=== PATIENT | female | born 1970 | race Caucasian/White ===

== ENCOUNTER 2024-04-01 15:11 | Inpatient (IN) | payer BC, SELFPAY ==
[2024-04-01] VITALS (7 sets, daily range): BP systolic 135–189; BP diastolic 79–125; PULSE 91–100; RESP 16–18; TEMP 36.3–36.8; O2SAT 96–99; BMI 48.9; BMI 49.9
--- NOTE | 2024-04-01 15:38 | CRLHL7_ITS ---
For Patients: As a result of the Century Cures Act, medical imaging exams and procedure reports are released immediately into your electronic medical record. You may view this report before your referring provider. If you have questions, please contact your health care provider. Indication: Draining elbow wound. Technique: Three view(s) of the right elbow. Comparison: None available. Findings: There is marked soft tissue swelling and skin thickening about the right elbow. A deep wound is seen along the posterior elbow overlying the olecranon process with associated soft tissue gas. No underlying osseous destruction to suggest osteomyelitis. Elbow alignment is anatomic. No large elbow joint effusion given limitations of patient positioning. Questionable irregularity along the radial head. Impression: 1. Marked soft tissue swelling and skin thickening about the elbow. Deep posterior elbow wound with associated soft tissue gas. No radiographic evidence of osteomyelitis. 2. Irregularity of the radial head may represent degenerative calcifications versus a minimally displaced fracture. Dictated by Tiara Aranda MD @ 04/01/2024 4:48:08 PM (Electronically Signed)
--- NOTE | 2024-04-01 15:58 | ED.GENADULT ---
HPI - General Adult General Date Seen: 04/01/24 Chief complaint: Skin/Abscess/Foreign Body Stated complaint: Swelling in R arm, drainage--likely infection Time Seen by Provider: 04/01/24 15:14 Source: patient and family Mode of arrival: ambulatory Limitations: no limitations History of Present Illness HPI narrative: Patient is a 53-year-old woman here with her for evaluation of her right elbow. She notes a history of mental health problems as well as diabetes. She says she generally is good about taking her medicines although right now she is out of her clomipramine. She sees a doctor at [facility]. She has pain and redness and swelling in the right elbow, the right arm is swollen in general now. She has not had a fever but has felt fatigued. Her thinks that she has been avoiding getting this looked at for a while now. She is able to move her elbow. She says the pain is worse at night than it is during the day. Related Data Home Medications ?Medication ?Instructions ?Recorded ?Confirmed amlodipine 10 mg tablet 10 mg PO DAILY 04/01/24 04/01/24 aspirin 81 mg tablet,delayed 81 mg PO DAILY 04/01/24 04/01/24 release (Adult Low Dose Aspirin) atorvastatin 20 mg tablet 20 mg PO DAILY 04/01/24 04/01/24 eszopiclone 3 mg tablet (Lunesta) 3 mg PO HS 04/01/24 04/02/24 glimepiride 4 mg tablet 8 mg PO DAILY 04/01/24 04/02/24 hydrochlorothiazide 25 mg tablet 25 mg PO DAILY 04/01/24 04/01/24 lamotrigine 200 mg tablet 200 mg PO BID 04/01/24 04/02/24 (Lamictal) metformin 500 mg tablet 1,000 mg PO BID 04/01/24 04/02/24 metoprolol tartrate 100 mg tablet 100 mg PO .ud 04/01/24 04/02/24 omega 5-[id number]-gfx-fish oil 1,200 mg 1 cap PO BID 04/01/24 04/02/24 (144 mg-216 mg) capsule (Fish Oil) paliperidone 9 mg tablet,extended 9 mg PO DAILY 04/01/24 04/01/24 release 24 hr vortioxetine 20 mg tablet 20 mg PO DAILY 04/01/24 04/01/24 (Trintellix) quetiapine 100 mg tablet 100 - 200 mg PO QPM 04/02/24 04/02/24 Allergies Allergy/AdvReac Type Severity Reaction Status Date / Time amlodipine [From Norvas] Allergy Verified 04/01/24 15:37 mestranol Allergy Verified 04/01/24 15:37 [From Ortho-Novum (21)] norethindrone Allergy Verified 04/01/24 15:37 [From Ortho-Novum (21)] nortriptyline Allergy Verified 04/01/24 15:37 Review of Systems Status of ROS: Reports: 10 or more systems reviewed and unremarkable except as noted in History and below PFSH PFS Medical History Morbid obesity ?E66.01 - Morbid (severe) obesity due to excess calories (ICD-10) Bipolar 1 disorder ?F31.9 - Bipolar disorder, unspecified (ICD-10) Hyperlipidemia ?E78.5 - Hyperlipidemia, unspecified (ICD-10) Hyperparathyroidism ?E21.3 - Hyperparathyroidism, unspecified (ICD-10) Essential hypertension ?I10 - Essential (primary) hypertension (ICD-10) Severe anxiety ?F41.9 - Anxiety disorder, unspecified (ICD-10) Schizoaffective disorder ?F25.9 - Schizoaffective disorder, unspecified (ICD-10) Type 2 diabetes mellitus ?E11.9 - Type 2 diabetes mellitus without complications (ICD-10) Surgical History History of wisdom tooth extraction ?K08.409 - Partial loss of teeth, unspecified cause, unspecified class (ICD-10) S/P tonsillectomy and adenoidectomy ?Z90.89 - Acquired absence of other organs (ICD-10) H/O dilation and curettage ?Z98.890 - Other specified postprocedural states (ICD-10) Status post appendectomy ?Z90.49 - Acquired absence of other specified parts of digestive tract (ICD-10) Social History What is your current living situation?: I presently have a place to live Problems where you live: no known problems Problems where you live details: N/A In the past 12 months, utilities in danger of being shut off: no In past 12 months, lack of transportation kept you from medical appts, meetings, work, or getting things needed for daily living: yes In the past 12 mos, have been you worried that your food would run out before you had money to buy more?: never true In the past 12 mos, the food you bought just didn't last and you didn't have money to buy more?: never true Highest level of school completed/degree received: 12th grade, no diploma Smoking Status: Never smoker Second hand tobacco smoke exposure: No How often do you have a drink containing alcohol: never How often do you have six or more drinks on one occasion: Never AUDIT-C Alcohol total score: 0 Non-prescribed substance use: denies use Caffeine: Yes How often does anyone, including family, friends and others, physically hurt you: never How often does anyone, including family, friends and others, insult or talk down to you: never How often does anyone, including family, friends and others, threaten you with harm: never How often does anyone, including family, friends and others, scream or curse at you: never service: No Exam Narrative: Exam Narrative: Vital signs reviewed. In general, alert, nontoxic woman. Over weight. She is cooperative. Extremities: Examination of the right upper extremity shows diffuse swelling. She has swelling over the olecranon suggestive of olecranon bursitis with significant erythema and warmth. There is a round area of black eschar over the olecranon, about 3 cm in diameter. With pressure there is drainage along the edge of the as sharp. There is erythema diffusely over the forearm. Range of motion of the elbow is full. Does not seem painful. Distal CMS is intact. Left upper extremity is normal. Skin: Warm dry, findings as above. Const: Vital Signs, click to edit/add: Vital Signs - 24 hr 04/01/24 15:15 Temperature 97.7 F Pulse Rate [Right Pulse Oximeter] 93 Respiratory Rate 18 Blood Pressure [Ri ght Upper Arm] 135/81 Pulse Oximetry 97 Oxygen Delivery Me thod Room Air Documenting provider has reviewed patient's vital signs: yes Course Course ED Course: Will place an IV, draw blood cultures and labs. I did send a wound culture as well. I talked briefly with Dr. Robles about this patient in terms of whether I and D here in the ER would be appropriate, which he felt would be a reasonable starting point. Discussed this with the patient and she agreed to proceed. Procedure note: Area on the radial side of that Colten was anesthetized using lidocaine and then incised with a 11. Blade. There was purulent matter expressed, there also seemed to be material that was consistent with sebum. Will irrigate this with 500 mL of normal saline. Apply dressing. Tolerated well without immediate complication. We were ultimately able to get an IV placed and blood cultures drawn, but were not able to get any other blood. I did give her vancomycin to start given possibility of MRSA. She is hemodynamically stable, pain is controlled. X-ray of the elbow by my review showed soft tissue air in the area of her recently excavated wound, I did not see significant joint effusion although x-rays were somewhat suboptimal. Final radiology read was for a little irregularity of the radial head, possible fracture although in the absence of any injury I think that is unlikely. She will need admission for IV antibiotics and further consideration of management of her wound. Hospital service accepted. Vital Signs Vital signs: Initial Vital Signs Temperature 97.7 F 04/01/24 15:15 Temperature Source Temporal Artery Scan 04/01/24 15:15 Pulse Rate 93 04/01/24 15:15 Pulse Rhythm Regular 04/01/24 15:15 Respiratory Rate 18 04/01/24 15:15 Blood Pressure 135/81 04/01/24 15:15 Blood Pressure Mean 99 04/01/24 15:15 Blood Pressure Position Sitting 04/01/24 15:15 Pulse Oximetry 97 04/01/24 15:15 Oxygen Delivery Method Room Air 04/01/24 15:15 Vital Signs Temperature 97.7 F 04/01/24 15:15 Pulse Rate 93 04/01/24 15:15 Respiratory Rate 18 04/01/24 15:15 Blood Pressure 135/81 04/01/24 15:15 Pulse Oximetry 97 04/01/24 15:15 Oxygen Delivery Method Room Air 04/01/24 15:15 Temperature 97.8 F 04/04/24 07:00 Pulse Rate 82 04/04/24 07:00 Respiratory Rate 18 04/04/24 07:00 Blood Pressure 134/78 04/04/24 07:00 Pulse Oximetry 98 04/04/24 07:00 Oxygen Delivery Method Room Air 04/04/24 07:00 Oxygen Flow Rate 6 04/03/24 16:45 Fraction of Inspired Oxygen 100 04/03/24 16:45 Medications Administered Medications: Generic Name Dose Route Start Last Admin Trade Name Trini PRN Reason Stop Dose Admin Acetaminophen 650 - 975 mg 04/01/24 18:48 04/04/24 06:21 Acetaminophen 325 Mg Tablet PO 975 mg Q6H PRN Administration Amlodipine Besylate 10 mg 04/02/24 09:00 04/03/24 09:38 Amlodipine 10 Mg Tablet PO 10 mg DAILY BETTY Administration Atorvastatin Calcium 20 mg 04/01/24 21:00 04/03/24 20:28 Atorvastatin 10 Mg Tablet PO 20 mg HS BETTY Administration Dextrose 12.5 gm 04/01/24 22:33 04/03/24 04:40 Dextrose 50 % Syringe IVP 12.5 gm ONCE PRN Administration Glimepiride 4 mg 04/01/24 21:00 04/03/24 20:27 Glimepiride 4 Mg Tablet PO 4 mg BID BETTY Administration Cefazolin Sodium 2 gm/ Sodium 100 mls @ 200 mls/hr 04/03/24 17:15 04/04/24 01:37 Chloride IVPB Infused Q8H BETTY Infusion Lactated Ringer's 1,000 mls @ 125 mls/hr 04/03/24 21:45 04/04/24 07:22 Lactated Ringers 1000 Ml IV 125 mls/hr .Q8H BETTY Administration Ibuprofen 400 - 800 mg 04/02/24 09:43 04/04/24 00:45 Ibuprofen 400 Mg Tablet PO 800 mg TID PRN Administration Insulin Aspart 0 unit 04/01/24 21:00 04/04/24 07:42 Insulin Aspart 100 Unit/Ml SUBCUT Not Given [facility] Protocol Insulin Detemir 3 unit 04/03/24 21:00 04/03/24 20:32 Insulin Detemir (Levemir) 100 Unit/Ml SUBCUT 3 unit BID BETTY Administration Lamotrigine 200 mg 04/02/24 09:00 04/03/24 09:38 Lamotrigine 100 Mg Tablet PO 200 mg DAILY BETTY Administration Melatonin 3 - 6 mg 04/01/24 18:48 04/01/24 22:03 Melatonin 3 Mg Tablet PO 3 mg HS PRN Administration Metoprolol Tartrate 100 mg 04/02/24 09:00 04/03/24 09:39 Metoprolol Tartrate 100 Mg Tablet PO 100 mg DAILY BETTY Administration Metoprolol Tartrate 5 mg 04/02/24 09:43 04/03/24 03:35 Metoprolol Tartrate 1 Mg/Ml Inj IVP 5 mg Q6H PRN Administration Metoprolol Tartrate 200 mg 04/04/24 21:00 04/04/24 00:41 Metoprolol Tartrate 100 Mg Tablet PO 200 mg HS BETTY Administration Vortioxetine [ 0 mg 04/02/24 09:00 04/03/24 09:38 Trintellix] 20 Mg PO 20 mg Tablet DAILY BETTY Administration Paliperidone 9 Mg 0 mg 04/02/24 09:00 04/03/24 09:37 Tablet Extended PO 9 mg Release 24hr DAILY BETTY Administration Eszopiclone [Lunesta 0 mg 04/02/24 21:00 04/03/24 20:31 ] 3 Mg Tablet PO Not Given HS BETTY Ondansetron HCl 4 mg 04/01/24 18:48 04/03/24 18:07 Ondansetron 2 Mg/Ml Inj IVP 4 mg Q4H PRN Administration Nausea Quetiapine Fumarate 200 mg 04/02/24 21:00 04/03/24 20:28 Quetiapine 100 Mg Tablet PO 200 mg HS BETTY Administration Sodium Chloride 5 ml 04/01/24 21:00 04/03/24 20:30 Sodium Chloride 0.9 % (Flush) 10 Ml Syringe IVF 5 ml BID BETTY Administration Discontinued Medications Generic Name Dose Route Start Last Admin Trade Name Freq PRN Reason Stop Dose Admin Dextrose 25 gm 04/02/24 17:36 04/02/24 18:13 Dextrose 50 % Syringe IVP 04/02/24 17:37 25 gm ONCE ONE Administration Dextrose 25 gm 04/02/24 22:26 04/02/24 22:35 Dextrose 50 % Syringe IVP 04/02/24 22:27 25 gm ONCE ONE Administration Dextrose 25 gm 04/02/24 23:45 04/03/24 08:12 Dextrose 50 % Syringe IVP Not Given Q1H BETTY Sodium Chloride 1,000 mls @ 1,000 mls/hr 04/01/24 17:30 04/03/24 11:57 0.9 % Sodium Chloride 1000 Ml IV 04/01/24 18:29 Infused .Q1H BETTY Infusion Vancomycin HCl 2,000 mg/ 520 mls @ 260 mls/hr 04/01/24 17:20 04/03/24 11:57 Sodium Chloride IVPB 04/01/24 17:21 Infused ONCE ONE Infusion Protocol Sodium Chloride 1,000 mls @ 125 mls/hr 04/01/24 18:48 04/03/24 11:57 0.9 % Sodium Chloride 1000 Ml IV Infused .Q8H BETTY Infusion Cefepime HCl 2 gm/ Sodium 100 mls @ 200 mls/hr 04/01/24 22:30 04/02/24 00:44 Chloride IVPB Infused Q12H BETTY Infusion Sodium Chloride 1,000 mls @ 1,000 mls/hr 04/01/24 22:30 04/03/24 11:57 0.9 % Sodium Chloride 1000 Ml IV 04/01/24 23:29 Infused .Q1H BETTY Infusion Dextrose/Sodium Chloride 1,000 mls @ 250 mls/hr 04/01/24 22:35 04/03/24 11:57 5 % Dextrose/0.9% Sod Chloride IV Infused .Q4H BETTY Infusion Insulin Human (Reg)/Sodium Chloride 100 unit in 100 mls @ 6.5 mls/hr 04/01/24 23:45 04/03/24 03:00 Insulin Inf 100 Unit/100 Ml IVPB Infused .[id number] BETTY Infusion Protocol 6.5 UNIT/HR Potassium Chloride/Dextrose/Sod Cl 1,000 mls @ 250 mls/hr 04/01/24 23:45 04/03/24 22:00 5 % Dex/0.9 Sod Chl+Kcl 20 Meq IV Not Given .Q4H BETTY Vancomycin HCl 1,750 mg/ 517.5 mls @ 345 mls/hr 04/02/24 08:00 04/03/24 09:50 Sodium Chloride IVPB Infused Q12H BETTY Infusion Protocol Lactated Ringer's 1,000 mls @ 1,000 mls/hr 04/02/24 07:45 04/03/24 09:49 Lactated Ringers 1000 Ml IV 04/02/24 08:44 Infused .Q1H ONE Infusion Cefepime HCl 2 gm/ Sodium 100 mls @ 200 mls/hr 04/02/24 11:00 04/03/24 00:00 Chloride IVPB Infused Q12H BETTY Infusion Sodium Bicarbonate 150 meq/ 1,150 mls @ 150 mls/hr 04/02/24 21:30 04/03/24 08:11 Dextrose IV Not Given .Q7H40M BETTY Sodium Bicarbonate 150 meq/ 1,150 mls @ 250 mls/hr 04/02/24 21:49 04/03/24 09:49 Dextrose IV Infused .Q4H36M BETTY Infusion Sodium Chloride 1,000 mls @ 150 mls/hr 04/03/24 03:15 04/03/24 22:00 0.9 % Sodium Chloride 1000 Ml IV Infused .Q6H40M BETTY Infusion Magnesium Sulfate/Dextrose 1 gm in 100 mls @ 100 mls/hr 04/03/24 08:18 04/03/24 11:02 Magnesium Sulf 1 G/100 Ml-D5w IVPB 04/03/24 09:17 Infused ONCE ONE Infusion Ibuprofen 400 - 800 mg 04/02/24 08:00 04/03/24 09:48 Ibuprofen 400 Mg Tablet PO Not Given TIDWM BETTY Insulin Detemir 5 unit 04/01/24 23:50 04/02/24 00:37 Insulin Detemir (Levemir) 100 Unit/Ml SUBCUT 04/01/24 23:51 Not Given ONCE ONE Insulin Human Regular 10 unit 04/02/24 17:36 04/02/24 18:12 Insulin Regular 100 Unit/Ml Inj IVP 04/02/24 17:37 10 unit ONCE ONE Administration Metoprolol Tartrate 5 mg 04/01/24 21:00 04/03/24 09:49 Metoprolol Tartrate 1 Mg/Ml Inj IVP Not Given Q6H BETTY Potassium Chloride 20 meq 04/03/24 03:14 04/03/24 04:45 Potassium Chloride 10 Meq Capsule Er PO 04/03/24 03:15 20 meq ONCE ONE Administration Quetiapine Fumarate 200 mg 04/02/24 09:00 04/02/24 10:28 Quetiapine 100 Mg Tablet PO Not Given DAILY BETTY Sodium Bicarbonate 50 meq 04/02/24 21:16 04/02/24 21:56 Sodium Bicarbonate 50 Meq/50ml Syringe IVP 04/02/24 21:17 50 meq ONCE ONE Administration Medical Decision Making Lab Data Labs: Lab Results 04/01/24 04/01/24 04/01/24 Range/Units 16:30 20:00 21:54 WBC 15.99 H (4.50-11.00) K/uL RBC 3.77 L (4.00-5.20) m/uL Hgb 10.7 L (12.0-16.0) gm/dL Hct 33.6 (33.0-51.0) % MCV 89 (80-100) fL MCH 28 (26-34) pg MCHC 32 (32-36) gm/dL RDW Coeff of Tabatha 13.3 (11.5-15.5) % Plt Count 507 H (140-440) K/uL Neut % (Auto) 84.0 H (42.0-72.0) % Lymph % (Auto) 7.5 L (20-44) % Bladen % (Auto) 6.2 (0.0-11.0) % Eos % (Auto) 0.1 (0.0-7.0) % Baso % (Auto) 0.0 (0.0-3.0) % Neut # (Auto) 13.40 H (1.7-7.0) K/uL Lymph # (Auto) 1.20 (0.90-2.90) K/uL Bladen # (Auto) 1.00 H (0.00-0.90) K/UL Eos # (Auto) 0.00 (0.00-0.50) K/uL Baso # (Auto) 0.00 (0.00-0.30) K/uL Abs Immat Gran (auto) 0.40 H (0.00-0.30) K/uL Imm/Tot Granulo (auto) 2.2 % INR (0.91-1.10) VBG pH 7.240 L* (7.32-7.43) VBG pCO2 20 L (40-50) mmHG VBG pO2 65.0 H (25-47) mmHG VBG HCO3 8 L (21-28) mmol/L Sodium 132 L (135-149) mmol/L Potassium 3.6 (3.6-5.1) mmol/L Chloride 103 (96-114) mmol/L Carbon Dioxide 8 L* (20-32) mmol/L Anion Gap 21 H (7-15) mEq/L BUN 54 H (7-30) mg/dL Creatinine 1.5 (0.5-1.5) mg/dL Estimated Creat Clear 37.02 Estimated GFR 41 ml/min Glucose 209 H (60-115) mg/dL Hemoglobin A1c 7.6 H (0-5.6) % Lactate 1.4 (0.5-1.9) mmol/L Calcium 10.3 (8.4-10.6) mg/dL Phosphorus 4.9 H (2.5-4.5) mg/dL Magnesium 1.6 (1.5-2.6) mg/dL Total Bilirubin 0.4 (0.1-1.5) mg/dL Direct Bilirubin 0.4 (0.0-0.5) mg/dL AST 32 (12-35) U/L ALT 14 (4-35) U/L Alkaline Phosphatase 99 (40-150) U/L C-Reactive Protein 34.1 H (0.5-1.0) mg/dL Total Protein 6.8 (6.0-8.3) g/dL Albumin 3.5 (3.3-5.0) g/dL Procalcitonin 9.28 H (<0.50) ng/mL TSH (0.270-4.20) uIU/mL Urine Color (Yellow) Urine Appearance (Clear) Urine pH (5.0-8.5) Ur Specific [place] (1.000-1.030) Urine Protein (Negative) Urine Glucose (UA) (Negative) Urine Ketones (Negative) Urine Blood (Negative) Urine Nitrite (Negative) Urine Bilirubin (Negative) Urine Urobilinogen (0.2-1.0) Ur Leukocyte Esterase (Negative) Urine RBC (0-2) Urine WBC (0-5) Ur Squamous Epith Cells (None-Few) Urine Bacteria (None) Urine Opiates Screen (Negative) Ur Oxycodone Screen (Negative) Urine Methadone Screen (Negative) Ur Barbiturates Screen (Negative) U Tricyclic Antidepress (Negative) Ur Phencyclidine Scrn (Negative) Ur Amphetamines Screen (Negative) U Methamphetamines Scrn (Negative) U Benzodiazepines Scrn (Negative) Urine Cocaine Screen (Negative) U Marijuana (THC) Screen (Negative) Ur Drug Screen Comment Lab Acknowledgement Test Added 04/01/24 04/01/24 04/01/24 Range/Units 22:19 22:36 23:48 WBC (4.50-11.00) K/uL RBC (4.00-5.20) m/uL Hgb (12.0-16.0) gm/dL Hct (33.0-51.0) % MCV (80-100) fL MCH (26-34) pg MCHC (32-36) gm/dL RDW Coeff of Tabatha (11.5-15.5) % Plt Count (140-440) K/uL Neut % (Auto) (42.0-72.0) % Lymph % (Auto) (20-44) % Bl[place] % (Auto) (0.0-11.0) % Eos % (Auto) (0.0-7.0) % Baso % (Auto) (0.0-3.0) % Neut # (Auto) (1.7-7.0) K/uL Lymph # (Auto) (0.90-2.90) K/uL [place]aden # (Auto) (0.00-0.90) K/UL Eos # (Auto) (0.00-0.50) K/uL Baso # (Auto) (0.00-0.30) K/uL Abs Immat Gran (auto) (0.00-0.30) K/uL Imm/Tot Granulo (auto) % INR (0.91-1.10) VBG pH (7.32-7.43) VBG pCO2 (40-50) mmHG VBG pO2 (25-47) mmHG VBG HCO3 (21-28) mmol/L Sodium (135-149) mmol/L Potassium (3.6-5.1) mmol/L Chloride (96-114) mmol/L Carbon Dioxide (20-32) mmol/L Anion Gap (7-15) mEq/L BUN (7-30) mg/dL Creatinine (0.5-1.5) mg/dL Estimated Creat Clear Estimated GFR ml/min Glucose (60-115) mg/dL Hemoglobin A1c (0-5.6) % Lactate (0.5-1.9) mmol/L Calcium (8.4-10.6) mg/dL Phosphorus (2.5-4.5) mg/dL Magnesium (1.5-2.6) mg/dL Total Bilirubin (0.1-1.5) mg/dL Direct Bilirubin (0.0-0.5) mg/dL AST (12-35) U/L ALT (4-35) U/L Alkaline Phosphatase (40-150) U/L C-Reactive Protein (0.5-1.0) mg/dL Total Protein (6.0-8.3) g/dL Albumin (3.3-5.0) g/dL Procalcitonin (<0.50) ng/mL TSH (0.270-4.20) uIU/mL Urine Color (Yellow) Urine Appearance (Clear) Urine pH (5.0-8.5) Ur Specific [place] (1.000-1.030) Urine Protein (Negative) Urine Glucose (UA) (Negative) Urine Ketones (Negative) Urine Blood (Negative) Urine Nitrite (Negative) Urine Bilirubin (Negative) Urine Urobilinogen (0.2-1.0) Ur Leukocyte Esterase (Negative) Urine RBC (0-2) Urine WBC (0-5) Ur Squamous Epith Cells (None-Few) Urine Bacteria (None) Urine Opiates Screen Negative (Negative) Ur Oxycodone Screen Negative (Negative) Urine Methadone Screen Negative (Negative) Ur Barbiturates Screen Negative (Negative) U Tricyclic Antidepress POSITIVE A (Negative) Ur Phencyclidine Scrn Negative (Negative) Ur Amphetamines Screen Negative (Negative) U Methamphetamines Scrn Negative (Negative) U Benzodiazepines Scrn Negative (Negative) Urine Cocaine Screen Negative (Negative) U Marijuana (THC) Screen Negative (Negative) Ur Drug Screen Comment See Note Lab Acknowledgement Test Added Test Added 04/01/24 04/02/24 04/02/24 Range/Units 23:54 00:18 00:20 WBC (4.50-11.00) K/uL RBC (4.00-5.20) m/uL Hgb (12.0-16.0) gm/dL Hct (33.0-51.0) % MCV (80-100) fL MCH (26-34) pg MCHC (32-36) gm/dL RDW Coeff of Tabatha (11.5-15.5) % Plt Count (140-440) K/uL Neut % (Auto) (42.0-72.0) % Lymph % (Auto) (20-44) % [place] % (Auto) (0.0-11.0) % Eos % (Auto) (0.0-7.0) % Baso % (Auto) (0.0-3.0) % Neut # (Auto) (1.7-7.0) K/uL Lymph # (Auto) (0.90-2.90) K/uL [place] # (Auto) (0.00-0.90) K/UL Eos # (Auto) (0.00-0.50) K/uL Baso # (Auto) (0.00-0.30) K/uL Abs Immat Gran (auto) (0.00-0.30) K/uL Imm/Tot Granulo (auto) % INR (0.91-1.10) VBG pH 7.277 L (7.32-7.43) VBG pCO2 23 L (40-50) mmHG VBG pO2 41.8 (25-47) mmHG VBG HCO3 11 L (21-28) mmol/L Sodium 134 L (135-149) mmol/L Potassium 3.6 (3.6-5.1) mmol/L Chloride 109 (96-114) mmol/L Carbon Dioxide 9 L* (20-32) mmol/L Anion Gap 16 H (7-15) mEq/L BUN 50 H (7-30) mg/dL Creatinine 1.3 (0.5-1.5) mg/dL Estimated Creat Clear 42.72 Estimated GFR 49 ml/min Glucose 165 H (60-115) mg/dL Hemoglobin A1c (0-5.6) % Lactate (0.5-1.9) mmol/L Calcium 9.6 (8.4-10.6) mg/dL Phosphorus (2.5-4.5) mg/dL Magnesium (1.5-2.6) mg/dL Total Bilirubin (0.1-1.5) mg/dL Direct Bilirubin (0.0-0.5) mg/dL AST (12-35) U/L ALT (4-35) U/L Alkaline Phosphatase (40-150) U/L C-Reactive Protein (0.5-1.0) mg/dL Total Protein (6.0-8.3) g/dL Albumin (3.3-5.0) g/dL Procalcitonin (<0.50) ng/mL TSH (0.270-4.20) uIU/mL Urine Color Yellow (Yellow) Urine Appearance Clear (Clear) Urine pH 5.5 (5.0-8.5) Ur Specific [place] 1.020 (1.000-1.030) Urine Protein Negative (Negative) Urine Glucose (UA) Negative (Negative) Urine Ketones Trace A (Negative) Urine Blood Negative (Negative) Urine Nitrite Negative (Negative) Urine Bilirubin Negative (Negative) Urine Urobilinogen 0.2 (0.2-1.0) Ur Leukocyte Esterase Negative (Negative) Urine RBC 0-2 (0-2) Urine WBC 2-5 (0-5) Ur Squamous Epith Cells Few (None-Few) Urine Bacteria Few A (None) Urine Opiates Screen (Negative) Ur Oxycodone Screen (Negative) Urine Methadone Screen (Negative) Ur Barbiturates Screen (Negative) U Tricyclic Antidepress (Negative) Ur Phencyclidine Scrn (Negative) Ur Amphetamines Screen (Negative) U Methamphetamines Scrn (Negative) U Benzodiazepines Scrn (Negative) Urine Cocaine Screen (Negative) U Marijuana (THC) Screen (Negative) Ur Drug Screen Comment Lab Acknowledgement 04/02/24 Range/Units 04:52 WBC 16.24 H (4.50-11.00) K/uL RBC 3.55 L (4.00-5.20) m/uL Hgb 10.0 L (12.0-16.0) gm/dL Hct 31.4 L (33.0-51.0) % MCV 89 (80-100) fL MCH 28 (26-34) pg MCHC 32 (32-36) gm/dL RDW Coeff of Tabatha 13.4 (11.5-15.5) % Plt Count 455 H (140-440) K/uL Neut % (Auto) 85.3 H (42.0-72.0) % Lymph % (Auto) 6.5 L (20-44) % [place] % (Auto) 6.7 (0.0-11.0) % Eos % (Auto) 0.2 (0.0-7.0) % Baso % (Auto) 0.0 (0.0-3.0) % Neut # (Auto) 13.90 H (1.7-7.0) K/uL Lymph # (Auto) 1.10 (0.90-2.90) K/uL [place] # (Auto) 1.10 H (0.00-0.90) K/UL Eos # (Auto) 0.00 (0.00-0.50) K/uL Baso # (Auto) 0.00 (0.00-0.30) K/uL Abs Immat Gran (auto) 0.20 (0.00-0.30) K/uL Imm/Tot Granulo (auto) 1.3 % INR 1.20 H (0.91-1.10) VBG pH 7.275 L (7.32-7.43) VBG pCO2 20 L (40-50) mmHG VBG pO2 67.3 H (25-47) mmHG VBG HCO3 9 L (21-28) mmol/L Sodium 134 L (135-149) mmol/L Potassium 3.8 (3.6-5.1) mmol/L Chloride 110 (96-114) mmol/L Carbon Dioxide 9 L* (20-32) mmol/L Anion Gap 15 (7-15) mEq/L BUN 49 H (7-30) mg/dL Creatinine 1.3 (0.5-1.5) mg/dL Estimated Creat Clear 42.72 Estimated GFR 49 ml/min Glucose 145 H (60-115) mg/dL Hemoglobin A1c (0-5.6) % Lactate 1.0 (0.5-1.9) mmol/L Calcium 9.5 (8.4-10.6) mg/dL Phosphorus (2.5-4.5) mg/dL Magnesium 1.5 (1.5-2.6) mg/dL Total Bilirubin 0.5 (0.1-1.5) mg/dL Direct Bilirubin (0.0-0.5) mg/dL AST 34 (12-35) U/L ALT 16 (4-35) U/L Alkaline Phosphatase 71 (40-150) U/L C-Reactive Protein 22.3 H (0.5-1.0) mg/dL Total Protein 6.2 (6.0-8.3) g/dL Albumin 3.1 L (3.3-5.0) g/dL Procalcitonin 6.93 H (<0.50) ng/mL TSH 1.820 (0.270-4.20) uIU/mL Urine Color (Yellow) Urine Appearance (Clear) Urine pH (5.0-8.5) Ur Specific [place] (1.000-1.030) Urine Protein (Negative) Urine Glucose (UA) (Negative) Urine Ketones (Negative) Urine Blood (Negative) Urine Nitrite (Negative) Urine Bilirubin (Negative) Urine Urobilinogen (0.2-1.0) Ur Leukocyte Esterase (Negative) Urine RBC (0-2) Urine WBC (0-5) Ur Squamous Epith Cells (None-Few) Urine Bacteria (None) Urine Opiates Screen (Negative) Ur Oxycodone Screen (Negative) Urine Methadone Screen (Negative) Ur Barbiturates Screen (Negative) U Tricyclic Antidepress (Negative) Ur Phencyclidine Scrn (Negative) Ur Amphetamines Screen (Negative) U Methamphetamines Scrn (Negative) U Benzodiazepines Scrn (Negative) Urine Cocaine Screen (Negative) U Marijuana (THC) Screen (Negative) Ur Drug Screen Comment Lab Acknowledgement Discharge Plan Discharge Patient Disposition: Admitted As Observation
[2024-04-01 17:57] LABS: Eosinophils Percent Auto 0.1 % (0.0-7.0); Hematocrit 33.6 % (33.0-51.0); Hemoglobin* 10.7 gm/dL (12.0-16.0); Immature Granulocytes Pct Auto 2.2 %; Lymphocytes Percent Auto 7.5 % (20-44); Mean Corpuscular HGB Conc 32 gm/dL (32-36); Mean Corpuscular Hemoglobin 28 pg (26-34); Mean Corpuscular Volume 89 fL (80-100); Monocytes Percent Auto 6.2 % (0.0-11.0); Platelet Count* 507 K/uL (140-440); RDW Coefficient of Variation % 13.3 % (11.5-15.5); Red Blood Count 3.77 m/uL (4.00-5.20); White Blood Count* 15.99 K/uL (4.50-11.00)
[2024-04-01 17:58] LABS: Slide Review Reflex No
[2024-04-01] MEDS: 0.9 % SODIUM CHLORIDE 1000 ml 1,000 ML IV ×2 (18:00→22:32)
--- NOTE | 2024-04-01 18:51 | CRLHL7_ITS ---
For Patients: As a result of the Century Cures Act, medical imaging exams and procedure reports are released immediately into your electronic medical record. You may view this report before your referring provider. If you have questions, please contact your health care provider. Indication: Olecranon bursa abscess, irregularity of radial head Technique: Noncontrast CT of the right elbow Please note that all CT scans at this facility use dose modulation, iterative reconstruction, and/or weight-based dosing when appropriate to reduce radiation dose to as low as reasonably achievable. Comparison: Right elbow radiographs from the same day. Findings: Wound within the posterior medial elbow with underlying complex fluid collection containing foci of air and abundant ill-defined hyperdense material, measuring approximately 6.4 x 2.3 x 3.9 cm. No definite radial head fracture. There is cortical irregularity of the coronoid process of the ulna, suspicious for a age-indeterminate fracture. No elbow joint effusion. Mild degenerative changes of the elbow with probable several tiny calcified intra-articular bodies. No underlying aggressive osseous lesion. Extensive subcutaneous soft tissue swelling about the posterior elbow. Impression: 1. No radial head fracture. Age-indeterminate coronoid process fracture. 2. Large complex fluid collection/abscess about the olecranon overlying skin defect/wound measuring approximately 6.4 x 2.3 x 3.9 cm. The collection contains abundant ill-defined hyperdense material, nonspecific. 3. Mild degenerative changes of the elbow with probable several tiny calcified intra-articular bodies. Please note that all CT scans at this facility use dose modulation, iterative reconstruction, and/or weight-based dosing when appropriate to reduce radiation dose to as low as reasonably achievable. Dictated by Mane Aguirre MD @ 04/01/2024 8:16:30 PM (Electronically Signed)
--- NOTE | 2024-04-01 18:53 | PM.IMHP1 ---
Hospitalist- H&P: HPI History of Present Illness Date Seen: 04/01/24 Chief complaint: Swelling in R arm, drainage--likely infection Narrative: ADMISSION HISTORY AND PHYSICAL - HOSPITALIST Chief Complaint: Right elbow infection HPI: 53-year-old white female presents with acute worsening of a chronic right elbow infection. Her past medical history is relevant for hypertension, type 2 diabetes, bipolar 1 disorder, severe anxiety. She states about 4 months ago her elbow became sore without any history of trauma. She said she has always had some mild inflammation along the bursa x5 years from a previous injury. However 4 months ago the inflammation increased and she was having trouble with full extension. She did not seek any treatment. She said about 7 days ago it became much worse. It was tender to touch, it started draining and her arm became very swollen. No fever. Intermittent vomiting. She is very hesitant to seek medical care and it was in until her begged her to come in did she come to the ER today. ER COURSE: X-ray, bedside incision and drainage of a clearly purulent bursa, irrigation. Wound culture sent. Blood cultures sent. IV access and blood draws were extremely difficult. CBC was able to be obtained. Sixteen thousand. Hospital medicine was asked to admit secondary to extent of infection and concern for follow-up. CODE STATUS: FULL CODE EMERGENCY CONTACT PLAN: Primary Contact Name John Lopez Rel To Pat Spouse Cell [facility], medications and allergies in the Ex[facility]se tabs. INVESTIGATIONS: LABS/MICRO/ECG/IMAGING Vital stable. Afebrile. On room air. Only lab that could be obtained secondary to poor access is a CBC. This demonstrated an elevated white blood cell count at 16. Hemoglobin depressed at 10.7. Platelets reactive to 507. 84% neutrophils. Other labs are pending when we have better access. Two blood cultures are obtained and pending Elbow x-ray 1. Marked soft tissue swelling and skin thickening about the elbow. Deep posterior elbow wound with associated soft tissue gas. No radiographic evidence of osteomyelitis. 2. Irregularity of the radial head may represent degenerative calcifications versus a minimally displaced fracture. CT: 1. No radial head fracture. Age-indeterminate coronoid process fracture. 2. Large complex fluid collection/abscess about the olecranon overlying skin defect/wound measuring approximately 6.4 x 2.3 x 3.9 cm. The collection contains abundant ill-defined hyperdense material, nonspecific. REVIEW OF SYSTEMS: 12-point ROS completed with patient and negative unless otherwise stated in HPI or below. PHYSICAL EXAM: CONSTITUTIONAL: Conversive, good historian. A/O. Knows setting and context. VITAL SIGNS: see record. HEENT: Normocephalic, atraumatic. PERRL, EOMI, conjunctivae pink, no scleral icterus. Ears and nose externally normal. Pharynx normal. NECK: No JVD. No carotid bruit, no thyromegaly, no adenopathy. CHEST: Clear to auscultation bilaterally HEART: S1 and S2 normal. No harsh murmurs. Edema MUSCULOSKELETAL: Olecranon bursitis with draining open wound. Significant erythema. The edges of open wound have necrotic eschar. Distal forearm is significantly swollen. Flexion and extension is intact about the elbow. See separate chart entry for picture. I did explore the wound and noted tunneling in the ulnar side of the wound. I trimmed out necrotic skin and removed sebaceous material. NEURO: Cranial nerves intact. Grossly intact. No asymmetric findings. SKIN: No rashes, petechiae, concerning changes PSYCHIATRIC: Euthymic. ADMIT TO MEDSURG: ICU care once the DKA was noted and insulin drip was ordered. DVT: SCDS ambulation GI: PO intake Time spent: Today I spent 75 minutes seeing the patient, discussing the patient with ER staff, reviewing Expanse and EPIC notes/diagnostics, discussing the care plan with our care time that includes social work, PT/OT, pharmacy, RT, correction and documenting my impressions and plan in the medical record. [facility] Medical History (Updated 04/01/24 @ 22:42 by Airam Tran MD) Morbid obesity ?E66.01 - Morbid (severe) obesity due to excess calories (ICD-10) Bipolar 1 disorder ?F31.9 - Bipolar disorder, unspecified (ICD-10) Hyperlipidemia ?E78.5 - Hyperlipidemia, unspecified (ICD-10) Hyperparathyroidism ?E21.3 - Hyperparathyroidism, unspecified (ICD-10) Essential hypertension ?I10 - Essential (primary) hypertension (ICD-10) Severe anxiety ?F41.9 - Anxiety disorder, unspecified (ICD-10) Schizoaffective disorder ?F25.9 - Schizoaffective disorder, unspecified (ICD-10) Type 2 diabetes mellitus ?E11.9 - Type 2 diabetes mellitus without complications (ICD-10) Surgical History (Updated 04/01/24 @ 18:48 by Airam Tran MD) History of wisdom tooth extraction ?K08.409 - Partial loss of teeth, unspecified cause, unspecified class (ICD-10) S/P tonsillectomy and adenoidectomy ?Z90.89 - Acquired absence of other organs (ICD-10) H/O dilation and curettage ?Z98.890 - Other specified postprocedural states (ICD-10) Status post appendectomy ?Z90.49 - Acquired absence of other specified parts of digestive tract (ICD-10) Social History What is your current living situation?: I presently have a place to live Problems where you live: no known problems Problems where you live details: N/A In the past 12 months, utilities in danger of being shut off: no In past 12 months, lack of transportation kept you from medical appts, meetings, work, or getting things needed for daily living: yes In the past 12 mos, have been you worried that your food would run out before you had money to buy more?: never true In the past 12 mos, the food you bought just didn't last and you didn't have money to buy more?: never true Highest level of school completed/degree received: 12th grade, no diploma Smoking Status: Never smoker Second hand tobacco smoke exposure: No How often do you have a drink containing alcohol: never How often do you have six or more drinks on one occasion: Never AUDIT-C Alcohol total score: 0 Non-prescribed substance use: denies use Caffeine: Yes How often does anyone, including family, friends and others, physically hurt you: never How often does anyone, including family, friends and others, insult or talk down to you: never How often does anyone, including family, friends and others, threaten you with harm: never How often does anyone, including family, friends and others, scream or curse at you: never service: No Meds Home Medications and Allergies Home Medications ?Medication ?Instructions ?Recorded ?Confirmed ?Type amlodipine 10 mg tablet 10 mg PO DAILY 04/01/24 04/01/24 History aspirin 81 mg tablet,delayed 81 mg PO DAILY 04/01/24 04/01/24 History release (Adult Low Dose Aspirin) atorvastatin 20 mg tablet 20 mg PO DAILY 04/01/24 04/01/24 History eszopiclone 3 mg tablet (Lunesta) 3 mg PO QHS 04/01/24 04/01/24 History glimepiride 4 mg tablet 4 mg PO BID 04/01/24 04/01/24 History hydrochlorothiazide 25 mg tablet 25 mg PO DAILY 04/01/24 04/01/24 History lamotrigine 200 mg tablet 200 mg PO DAILY 04/01/24 04/01/24 History (Lamictal) metformin 500 mg tablet 500 mg PO DAILY 04/01/24 04/01/24 History metoprolol tartrate 100 mg tablet 100 mg PO DAILY 04/01/24 04/01/24 History omega 1-fds-utu-fish oil 1,200 mg cap PO 04/01/24 History (144 mg-216 mg) capsule (Fish Oil) paliperidone 9 mg tablet,extended 9 mg PO DAILY 04/01/24 04/01/24 History release 24 hr quetiapine 200 mg tablet (Seroquel) 200 mg PO DAILY 04/01/24 04/01/24 History vortioxetine 20 mg tablet 20 mg PO DAILY 04/01/24 04/01/24 History (Trintellix) Allergies Allergy/AdvReac Type Severity Reaction Status Date / Time amlodipine [From [facility]] Allergy Verified 04/01/24 15:37 mestranol Allergy Verified 04/01/24 15:37 [From [facility] 1/50 (21)] norethindrone Allergy Verified 04/01/24 15:37 [From [facility] 1/50 (21)] nortriptyline Allergy Verified 04/01/24 15:37 Exam Const: Vital Signs, click to edit/add: Vital Signs - 24 hr 04/01/24 15:15 Temperature 97.7 F Pulse Rate [Right Pulse Oximeter] 93 Respiratory Rate 18 Blood Pressure [Ri ght Upper Arm] 135/81 Pulse Oximetry 97 Oxygen Delivery Me thod Room Air Hospitalist - H&P: Result Labs Labs: Short CBC 04/01/24 Range/Units 16:30 WBC 15.99 H (4.50-11.00) K/uL Hgb 10.7 L (12.0-16.0) gm/dL Hct 33.6 (33.0-51.0) % Plt Count 507 H (140-440) K/uL Assessment and Plan Assessment and plan (1) Metabolic acidosis: Problem comment: lactate normal. mild hyperglycemia. suspect mild DKA. -check hydroxybuterate -fluid bolus, then 250/hr of D5NS with insulin drip protocol -q1h glucose -q4h labs -hold metformin and other oral antihyperglycemics Status: Acute (2) Olecranon bursa abscess: Problem comment: Xray shows soft tissue air and possible radial head fracture. CT: 1. No radial head fracture. Age-indeterminate coronoid process fracture. 2. Large complex fluid collection/abscess about the olecranon overlying skin defect/wound measuring approximately 6.4 x 2.3 x 3.9 cm. The collection contains abundant ill-defined hyperdense material, nonspecific. -Start Vanc 2 grams, dose next based on creatinine (labs difficult to obtain) -added cefepime to Vanc once CT returned and acidosis noted MRSA swab ordered wound culture from ED I/D sent blood cultures x 2 sent CBC leukocytosis noted Status: Acute (3) Type 2 diabetes mellitus: Problem comment: last A1C was 6.5 in 03/16, A1C pending on glimepiride, metformin - doesn't check sugars SSI/accuchecks once we got labs back - noted mild DKA - see above Status: Acute (4) Essential hypertension: Problem comment: continue home meds: Norvasc 10, Lopressor 100, Hctz 25 Status: Acute (5) Bipolar 1 disorder: Problem comment: psych med regimen: Trintellix, Seroquel, Invega, Lamictal, Lunesta Status: Acute (6) Severe anxiety: Status: Acute (7) Schizoaffective disorder: Status: Acute (8) Hyperparathyroidism: Problem comment: last PTH was 122, calcium 11 in 03/16 Status: Acute (9) Morbid obesity: Status: Acute
--- NOTE | 2024-04-01 19:32 | PM.EN ---
Chart Event Note Time Seen by Provider: 19:33 Date Seen: 04/01/24 Chart Event Note: right olecranon bursa abscess before debridement. eschar trimmed, sebaceous material removed.
[2024-04-01 20:13] LABS: Lactate Sepsis w/Reflex* 1.4 mmol/L (0.5-1.9)
[2024-04-01] MEDS: 0.9 % SODIUM CHLORIDE 1000 ml 1,000 ML 125 ML IV (20:56)
[2024-04-01 21:05] LABS: Albumin* 3.5 g/dL (3.3-5.0)
[2024-04-01 21:06] LABS: Chloride* 103 mmol/L (96-114); Potassium* 3.6 mmol/L (3.6-5.1); Sodium* 132 mmol/L (135-149)
[2024-04-01 21:08] LABS: Alanine Aminotransferase* 14 U/L (4-35); Alkaline Phosphatase* 99 U/L (40-150); Aspartate Amino Transferase* 32 U/L (12-35); Bilirubin Direct* 0.4 mg/dL (0.0-0.5); Bilirubin Total* 0.4 mg/dL (0.1-1.5); Creatinine* 1.5 mg/dL (0.5-1.5); Est. Creatinine Clearance* 37.02; Estimated Glomerular Filt Rate 41 ml/min; Total Protein* 6.8 g/dL (6.0-8.3)
[2024-04-01 21:09] LABS: Anion Gap 21 mEq/L (7-15); Blood Urea Nitrogen* 54 mg/dL (7-30); Calcium* 10.3 mg/dL (8.4-10.6); Glucose* 209 mg/dL (60-115)
[2024-04-01] MEDS: METOPROLOL TARTRATE 1 MG/ML inj 5 MG IVP (21:11)
[2024-04-01] MEDS: ATORVASTATIN 10 MG TABLET 20 MG PO (21:11)
[2024-04-01] MEDS: INSULIN ASPART 100 UNIT/ML SUBCUT (21:11)
[2024-04-01 21:25] LABS: Procalcitonin* 9.28 ng/mL (<0.50)
[2024-04-01 21:46] LABS: Carbon Dioxide* 8 mmol/L (20-32)
[2024-04-01] MEDS: GLIMEPIRIDE 4 MG TABLET PO (22:02)
[2024-04-01 22:03] LABS: HCO3 VBG 8 mmol/L (21-28); PCO2 VBG 20 mmHG (40-50)
[2024-04-01] MEDS: MELATONIN 3 MG TABLET PO (22:03)
[2024-04-01 22:05] LABS: C Reactive Protein* 34.1 mg/dL (0.5-1.0)
[2024-04-01 22:56] LABS: Magnesium* 1.6 mg/dL (1.5-2.6); Phosphorus* 4.9 mg/dL (2.5-4.5)
[2024-04-01] MEDS: 5 % DEXTROSE/0.9% SOD CHLORIDE 1,000 ML 250 ML IV (23:05)
[2024-04-01 23:08] LABS: Hemoglobin A1C* 7.6 % (0-5.6)
[2024-04-01] MEDS: INSULIN INF 100 UNIT/100 ML 100 UNIT/100 ML BAG 6.5 UNIT IVPB (23:43)
[2024-04-01] MEDS: CEFEPIME HCL 2 GM in 0.9 % SODIUM CHLORIDE Mini-bag 100 ML IVPB (23:44)
[2024-04-02] VITALS (57 sets, daily range): BP systolic 119–152; BP diastolic 59–90; PULSE 80–111; RESP 16–20; TEMP 36.4–37.2; O2SAT 94–100
[2024-04-02 00:02] LABS: Appearance Urine Clear (Clear); Bilirubin Urine Negative (Negative); Blood Urine Negative (Negative); Color Urine Yellow (Yellow); Glucose Urine Negative (Negative); Ketones Urine Trace (Negative); Leukocyte Esterase Urine Negative (Negative); Nitrite Urine Negative (Negative); Protein Urine Negative (Negative); Urobilinogen Urine 0.2 (0.2-1.0); pH Urine 5.5 (5.0-8.5)
[2024-04-02 00:12] LABS: Amphetamine Screen Urine Negative (Negative); Barbiturate Screen Urine Negative (Negative); Benzodiazepines Screen Urine Negative (Negative); Cannabinoid Screen Urine Negative (Negative); Cocaine Screen Urine Negative (Negative); Methadone Screen Urine Negative (Negative); Methamphetamines Screen Urine Negative (Negative); Opiate Screen Urine Negative (Negative); Oxycodone Screen Urine Negative (Negative); Phencyclidine Screen Urine Negative (Negative); Tricyclic Antidepressant Urine POSITIVE (Negative)
[2024-04-02 00:19] LABS: Bacteria Urine Few; RBC Urine 0-2 (0-2); Squamous Epithelial Cell Urine Few (None-Few)
[2024-04-02 00:21] LABS: HCO3 VBG 11 mmol/L (21-28); PCO2 VBG 23 mmHG (40-50); PO2 VBG 41.8 mmHG (25-47); pH VBG 7.277 (7.32-7.43)
[2024-04-02] MEDS: 5 % DEX/0.9 SOD CHL+KCL 20 mEq 1,000 ML 250 ML IV ×5 (00:41→18:14)
[2024-04-02 01:01] LABS: Chloride* 109 mmol/L (96-114); Sodium* 134 mmol/L (135-149)
[2024-04-02 01:02] LABS: Potassium* 3.6 mmol/L (3.6-5.1)
[2024-04-02 01:07] LABS: Anion Gap 16 mEq/L (7-15); Blood Urea Nitrogen* 50 mg/dL (7-30); Calcium* 9.6 mg/dL (8.4-10.6); Carbon Dioxide* 9 mmol/L (20-32); Creatinine* 1.3 mg/dL (0.5-1.5); Est. Creatinine Clearance* 42.72; Estimated Glomerular Filt Rate 49 ml/min; Glucose* 165 mg/dL (60-115)
[2024-04-02] MEDS: INSULIN INF 100 UNIT/100 ML 100 UNIT/100 ML BAG 6.5 UNIT IVPB (03:42)
[2024-04-02] MEDS: METOPROLOL TARTRATE 1 MG/ML inj 5 MG IVP (03:53)
--- NOTE | 2024-04-02 04:12 | PC.NURSE ---
Expanse system downtime occured 04/02/24 0100 to 04/02/2024 3:35
[2024-04-02 05:02] LABS: HCO3 VBG 9 mmol/L (21-28); PCO2 VBG 20 mmHG (40-50); PO2 VBG 67.3 mmHG (25-47); pH VBG 7.275 (7.32-7.43)
[2024-04-02 05:03] LABS: Eosinophils Percent Auto 0.2 % (0.0-7.0); Hematocrit 31.4 % (33.0-51.0); Immature Granulocytes Pct Auto 1.3 %; Lymphocytes Percent Auto 6.5 % (20-44); Mean Corpuscular HGB Conc 32 gm/dL (32-36); Mean Corpuscular Hemoglobin 28 pg (26-34); Mean Corpuscular Volume 89 fL (80-100); Monocytes Percent Auto 6.7 % (0.0-11.0); Neutrophils Percent Auto 85.3 % (42.0-72.0); Platelet Count* 455 K/uL (140-440); RDW Coefficient of Variation % 13.4 % (11.5-15.5); Red Blood Count 3.55 m/uL (4.00-5.20); White Blood Count* 16.24 K/uL (4.50-11.00)
[2024-04-02 05:05] LABS: Slide Review Reflex No
--- NOTE | 2024-04-02 05:19 | PC.NURSE ---
Patient a&O x4, able to make needs known and ask questions appropriately. pt incontinent of urine and stool x1. Vital signs stable. insulin gtt on/off anion gap not closed yet. pt may benefit from wound consult not only for elbow but feet too.
[2024-04-02 05:20] LABS: Albumin* 3.1 g/dL (3.3-5.0); Chloride* 110 mmol/L (96-114)
[2024-04-02 05:21] LABS: Potassium* 3.8 mmol/L (3.6-5.1); Sodium* 134 mmol/L (135-149)
[2024-04-02 05:23] LABS: Bilirubin Total* 0.5 mg/dL (0.1-1.5); Creatinine* 1.3 mg/dL (0.5-1.5); Est. Creatinine Clearance* 42.72; Estimated Glomerular Filt Rate 49 ml/min
[2024-04-02 05:24] LABS: Alanine Aminotransferase* 16 U/L (4-35); Alkaline Phosphatase* 71 U/L (40-150); Anion Gap 15 mEq/L (7-15); Aspartate Amino Transferase* 34 U/L (12-35); Blood Urea Nitrogen* 49 mg/dL (7-30); Calcium* 9.5 mg/dL (8.4-10.6); Glucose* 145 mg/dL (60-115); Total Protein* 6.2 g/dL (6.0-8.3)
[2024-04-02 05:25] LABS: Magnesium* 1.5 mg/dL (1.5-2.6)
[2024-04-02 05:40] LABS: Procalcitonin* 6.93 ng/mL (<0.50)
[2024-04-02 05:41] LABS: Carbon Dioxide* 9 mmol/L (20-32)
[2024-04-02 05:58] LABS: C Reactive Protein* 22.3 mg/dL (0.5-1.0)
[2024-04-02] MEDS: LACTATED RINGERS 1000 ML 1,000 ML IV (07:55)
[2024-04-02 08:54] LABS: HCO3 VBG 9 mmol/L (21-28); PO2 VBG 79.4 mmHG (25-47); pH VBG 7.299 (7.32-7.43)
[2024-04-02] MEDS: ACETAMINOPHEN 325 MG TABLET PO ×2 (09:07→19:54)
[2024-04-02 09:08] LABS: PCO2 VBG 19 mmHG (40-50)
[2024-04-02 09:18] LABS: Chloride* 113 mmol/L (96-114); Potassium* 3.9 mmol/L (3.6-5.1); Sodium* 135 mmol/L (135-149)
[2024-04-02 09:21] LABS: Anion Gap 14 mEq/L (7-15); Blood Urea Nitrogen* 45 mg/dL (7-30); Creatinine* 1.1 mg/dL (0.5-1.5); Est. Creatinine Clearance* 50.49; Estimated Glomerular Filt Rate 60 ml/min; Glucose* 112 mg/dL (60-115)
[2024-04-02 09:22] LABS: Calcium* 9.6 mg/dL (8.4-10.6)
[2024-04-02 09:33] LABS: Carbon Dioxide* 8 mmol/L (20-32)
[2024-04-02] MEDS: AMLODIPINE 10 MG TABLET PO (10:28)
[2024-04-02] MEDS: METOPROLOL TARTRATE 100 MG TABLET PO (10:28)
[2024-04-02] MEDS: lamoTRIgine 100 MG TABLET 200 MG PO (10:29)
[2024-04-02] MEDS: PALIPERIDONE 9 MG PO (10:30)
[2024-04-02] MEDS: Vortioxetine [Trintellix] 20 mg tablet PO (10:33)
[2024-04-02 11:27] LABS: HCO3 VBG 10 mmol/L (21-28); PO2 VBG 67.7 mmHG (25-47); pH VBG 7.308 (7.32-7.43)
[2024-04-02 11:29] LABS: PCO2 VBG 19 mmHG (40-50)
[2024-04-02 11:52] LABS: Chloride* 114 mmol/L (96-114); Sodium* 135 mmol/L (135-149)
[2024-04-02 11:53] LABS: Potassium* 3.7 mmol/L (3.6-5.1)
[2024-04-02 11:55] LABS: Anion Gap 12 mEq/L (7-15); Creatinine* 1.1 mg/dL (0.5-1.5); Est. Creatinine Clearance* 50.49; Estimated Glomerular Filt Rate 60 ml/min
[2024-04-02 11:56] LABS: Blood Urea Nitrogen* 41 mg/dL (7-30); Calcium* 9.1 mg/dL (8.4-10.6); Glucose* 111 mg/dL (60-115)
[2024-04-02 11:57] LABS: Carbon Dioxide* 9 mmol/L (20-32)
[2024-04-02] MEDS: IBUPROFEN 400 MG TABLET PO ×2 (13:45→23:33)
[2024-04-02 16:16] LABS: Chloride* 115 mmol/L (96-114); Potassium* 3.9 mmol/L (3.6-5.1); Sodium* 138 mmol/L (135-149)
[2024-04-02 16:19] LABS: Anion Gap 15 mEq/L (7-15); Blood Urea Nitrogen* 38 mg/dL (7-30); Est. Creatinine Clearance* 55.54; Estimated Glomerular Filt Rate 67 ml/min; Glucose* 103 mg/dL (60-115)
[2024-04-02 16:20] LABS: Calcium* 9.7 mg/dL (8.4-10.6)
[2024-04-02 16:24] LABS: Carbon Dioxide* 8 mmol/L (20-32)
--- NOTE | 2024-04-02 17:20 | P.IMPN_ITS ---
Progress Note: A&P Assessment and plan (1) Metabolic acidosis: Problem details: Suspect DKA. lactate normal. mild hyperglycemia. No other symptoms to indicate adrenal insufficiency. -beta hydroxybuterate pending. -she has been on an insulin drip with D5 NS overnight. Metabolic acidosis is improving however interestingly carbon dioxide levels are unchanged. I am not sure what is causing her low levels of carbon dioxide, but I suspect this is a metabolic process. -acidosis and glucose is improving, dehydration is also improving. I gave an extra fluid bolus this morning which appears to have helped. Will continue to monitor labs closely until she is no longer acidotic. I think we should also hold off on surgery until she is no longer acidotic. Status: Acute (2) Olecranon bursa abscess: Problem details: Xray shows soft tissue air and possible radial head fracture. CT: 1. No radial head fracture. Age-indeterminate coronoid process fracture. 2. Large complex fluid collection/abscess about the olecranon overlying skin defect/wound measuring approximately 6.4 x 2.3 x 3.9 cm. The collection contains abundant ill-defined hyperdense material, nonspecific. -continue cefepime. Stop vancomycin as MRSA swab was negative. wound culture from ED I/D pending blood cultures x 2 no growth so far Leukocytosis, elevated CRP, and elevated prolactin are noted. Status: Acute (3) Type 2 diabetes mellitus: Problem details: last A1C was 6.5 in 03/16, A1C 6 was 7.6% on glimepiride, metformin - doesn't check sugars (these are now on hold) Continue insulin gtt and monitor labs until no longer acidotic. Will try a D50 and regular insulin push for persistently low carbon dioxide levels Status: Acute (4) Essential hypertension: Problem details: continue home meds: Norvasc 10, Lopressor 100, Hctz 25 Status: Acute (5) Bipolar 1 disorder: Problem details: psych med regimen: Trintellix, Seroquel, Invega, Lamictal, Lunesta Status: Chronic (6) Severe anxiety: Status: Chronic (7) Schizoaffective disorder: Status: Chronic (8) Hyperparathyroidism: Problem details: last PTH was 122, calcium 11 in 03/16 Status: Chronic (9) Morbid obesity: Status: Chronic Time Spent With Patient Total time spent: Critical care time today was 70 minutes with greater than 50% included discussing care with the anesthesiologist and surgeon, the team, reviewing data, managing DKA, and updating and managing the care plan. Subjective Time Seen by Provider: 07:15 Date Seen: 04/02/24 Interval history: Limb was scheduled for surgery at 8:00 a.m. today. Unfortunately she was still acidotic which is presumed to be from DKA. I spoke with the surgical team and Anesthesiology unless them know that we should hold off until she is no longer acidotic. Homa's , John, is at the bedside. 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 She has had chronic inflammation of a curse of her right elbow which became more inflamed a few weeks ago, but she did not seek treatment. Seven days ago it became much worse and was tender to the touch. Her convinced her to come in. On CT and x-ray she has deep posterior elbow wound with associated soft tissue gas with no radiographic evidence of osteomyelitis. There is a large complex fluid collection/abscess that contains abundant ill- defined hyperdense material. This morning she feels okay with no nausea or vomiting. She does feel very thirsty however. She denies any chest pain or shortness of breath. Exam Narrative: Exam Narrative: General: No acute distress. Awake, alert, oriented x3. No pallor. No jaundice. Obese. Oropharynx: Clear. Mucous membranes dry. Cardiovascular: Regular rate and rhythm. No murmurs, gallops, or rubs. Respiratory: Clear to auscultation bilaterally. No wheezes or crackles. Abdomen: Bowel sounds present. Soft, nondistended, nontender. Extremities: Right elbow has a large open draining wound with whitish material around the edges, and a chronic area that has been partially debrided, significant erythema and edema of the elbow and distal forearm. Right arm neurovascularly intact. Multiple very large nodules on her extremities, especially feet near the heels, these are about the size of a ping-pong balls see each. 1+ bilateral pedal edema. Const: Vital Signs, click to edit/add: Vital Signs - 24 hr 04/01/24 18:45 04/01/24 18:45 04/01/24 19:34 Temperature 97.4 F L Pulse Rate Pulse Rate [Left P ulse Oximeter] Pulse Rate [Right Pulse Oximeter] Pulse Rate [orthos tatic lying Left P ulse Oximeter] Pulse Rate [orthos tatic sitting Left Pulse Oximeter] Pulse Rate [orthos tatic standing Lef t Pulse Oximeter] Respiratory Rate 18 18 Blood Pressure [Le ft Arm] 189/79 H Blood Pressure [or thostatic lying Le ft Arm] Blood Pressure [or thostatic sitting Left Arm] Blood Pressure [or thostatic standing Left Arm] Pulse Oximetry 99 99 99 Oxygen Delivery Me thod Room Air Room Air Room Air 04/01/24 19:42 04/01/24 20:29 04/01/24 20:31 Temperature 98.2 F 98.2 F Pulse Rate Pulse Rate [Left P ulse Oximeter] Pulse Rate [Right Pulse Oximeter] Pulse Rate [orthos tatic lying Left P ulse Oximeter] 91 Pulse Rate [orthos tatic sitting Left Pulse Oximeter] 100 Pulse Rate [orthos tatic standing Lef t Pulse Oximeter] 96 Respiratory Rate 18 18 Blood Pressure [Le ft Arm] 168/86 H 168/86 H Blood Pressure [or thostatic lying Le ft Arm] 154/125 H Blood Pressure [or thostatic sitting Left Arm] 167/93 H Blood Pressure [or thostatic standing Left Arm] 174/92 H Pulse Oximetry 99 99 Oxygen Delivery Me thod Room Air Room Air 04/01/24 23:00 04/01/24 23:00 04/02/24 00:30 Temperature 98.9 F Pulse Rate Pulse Rate [Left P ulse Oximeter] Pulse Rate [Right Pulse Oximeter] Pulse Rate [orthos tatic lying Left P ulse Oximeter] Pulse Rate [orthos tatic sitting Left Pulse Oximeter] Pulse Rate [orthos tatic standing Lef t Pulse Oximeter] Respiratory Rate 16 16 Blood Pressure [Le ft Arm] 150/84 H Blood Pressure [or thostatic lying Le ft Arm] Blood Pressure [or thostatic sitting Left Arm] Blood Pressure [or thostatic standing Left Arm] Pulse Oximetry 96 Oxygen Delivery Me thod 04/02/24 00:31 04/02/24 00:32 04/02/24 01:00 Temperature Pulse Rate Pulse Rate [Left P ulse Oximeter] Pulse Rate [Right Pulse Oximeter] Pulse Rate [orthos tatic lying Left P ulse Oximeter] Pulse Rate [orthos tatic sitting Left Pulse Oximeter] Pulse Rate [orthos tatic standing Lef t Pulse Oximeter] Respiratory Rate Blood Pressure [Le ft Arm] 144/75 H Blood Pressure [or thostatic lying Le ft Arm] Blood Pressure [or thostatic sitting Left Arm] Blood Pressure [or thostatic standing Left Arm] Pulse Oximetry 98 96 96 Oxygen Delivery Me thod 04/02/24 01:01 04/02/24 02:00 04/02/24 02:02 Temperature Pulse Rate Pulse Rate [Left P ulse Oximeter] 85 Pulse Rate [Right Pulse Oximeter] Pulse Rate [orthos tatic lying Left P ulse Oximeter] Pulse Rate [orthos tatic sitting Left Pulse Oximeter] Pulse Rate [orthos tatic standing Lef t Pulse Oximeter] Respiratory Rate Blood Pressure [Le ft Arm] 119/78 Blood Pressure [or thostatic lying Le ft Arm] Blood Pressure [or thostatic sitting Left Arm] Blood Pressure [or thostatic standing Left Arm] Pulse Oximetry 96 94 95 Oxygen Delivery Me thod 04/02/24 03:00 04/02/24 03:01 04/02/24 04:00 Temperature 97.9 F Pulse Rate Pulse Rate [Left P ulse Oximeter] Pulse Rate [Right Pulse Oximeter] 90 Pulse Rate [orthos tatic lying Left P ulse Oximeter] Pulse Rate [orthos tatic sitting Left Pulse Oximeter] Pulse Rate [orthos tatic standing Lef t Pulse Oximeter] Respiratory Rate 16 16 Blood Pressure [Le ft Arm] 121/65 125/61 Blood Pressure [or thostatic lying Le ft Arm] Blood Pressure [or thostatic sitting Left Arm] Blood Pressure [or thostatic standing Left Arm] Pulse Oximetry 95 96 97 Oxygen Delivery Me thod 04/02/24 04:01 04/02/24 04:02 04/02/24 05:00 Temperature Pulse Rate Pulse Rate [Left P ulse Oximeter] Pulse Rate [Right Pulse Oximeter] Pulse Rate [orthos tatic lying Left P ulse Oximeter] Pulse Rate [orthos tatic sitting Left Pulse Oximeter] Pulse Rate [orthos tatic standing Lef t Pulse Oximeter] Respiratory Rate Blood Pressure [Le ft Arm] Blood Pressure [or thostatic lying Le ft Arm] Blood Pressure [or thostatic sitting Left Arm] Blood Pressure [or thostatic standing Left Arm] Pulse Oximetry 96 97 97 Oxygen Delivery Me thod 04/02/24 05:00 04/02/24 05:01 04/02/24 06:00 Temperature 98.9 F Pulse Rate Pulse Rate [Left P ulse Oximeter] 108 H Pulse Rate [Right Pulse Oximeter] 98 Pulse Rate [orthos tatic lying Left P ulse Oximeter] Pulse Rate [orthos tatic sitting Left Pulse Oximeter] Pulse Rate [orthos tatic standing Lef t Pulse Oximeter] Respiratory Rate 18 16 Blood Pressure [Le ft Arm] 139/80 140/63 H Blood Pressure [or thostatic lying Le ft Arm] Blood Pressure [or thostatic sitting Left Arm] Blood Pressure [or thostatic standing Left Arm] Pulse Oximetry 96 96 96 Oxygen Delivery Me thod Room Air 04/02/24 07:20 04/02/24 07:46 04/02/24 07:48 Temperature 98.4 F Pulse Rate Pulse Rate [Left P ulse Oximeter] 104 H 104 H Pulse Rate [Right Pulse Oximeter] 104 H Pulse Rate [orthos tatic lying Left P ulse Oximeter] Pulse Rate [orthos tatic sitting Left Pulse Oximeter] Pulse Rate [orthos tatic standing Lef t Pulse Oximeter] Respiratory Rate 16 16 Blood Pressure [Le ft Arm] 142/84 H Blood Pressure [or thostatic lying Le ft Arm] Blood Pressure [or thostatic sitting Left Arm] Blood Pressure [or thostatic standing Left Arm] Pulse Oximetry 99 96 Oxygen Delivery Me thod Room Air 04/02/24 08:11 04/02/24 08:39 04/02/24 09:05 Temperature Pulse Rate 107 H Pulse Rate [Left P ulse Oximeter] 98 102 H Pulse Rate [Right Pulse Oximeter] 98 98 Pulse Rate [orthos tatic lying Left P ulse Oximeter] Pulse Rate [orthos tatic sitting Left Pulse Oximeter] Pulse Rate [orthos tatic standing Lef t Pulse Oximeter] Respiratory Rate 16 16 Blood Pressure [Le ft Arm] 141/76 H 141/83 H Blood Pressure [or thostatic lying Le ft Arm] Blood Pressure [or thostatic sitting Left Arm] Blood Pressure [or thostatic standing Left Arm] Pulse Oximetry 97 98 Oxygen Delivery Id thod Room Air Room Air 04/02/24 12:14 04/02/24 15:10 04/02/24 15:22 Temperature 98.0 F Pulse Rate Pulse Rate [Left P ulse Oximeter] 83 83 Pulse Rate [Right Pulse Oximeter] 97 97 Pulse Rate [orthos tatic lying Left P ulse Oximeter] Pulse Rate [orthos tatic sitting Left Pulse Oximeter] Pulse Rate [orthos tatic standing Lef t Pulse Oximeter] Respiratory Rate 16 16 Blood Pressure [Le ft Arm] 132/59 L Blood Pressure [or thostatic lying Le ft Arm] Blood Pressure [or thostatic sitting Left Arm] Blood Pressure [or thostatic standing Left Arm] Pulse Oximetry 97 98 Oxygen Delivery Me thod Room Air 04/02/24 15:22 04/02/24 15:27 Temperature 97.5 F L 97.5 F L Pulse Rate Pulse Rate [Left P ulse Oximeter] 87 Pulse Rate [Right Pulse Oximeter] 98 Pulse Rate [orthos tatic lying Left P ulse Oximeter] Pulse Rate [orthos tatic sitting Left Pulse Oximeter] Pulse Rate [orthos tatic standing Lef t Pulse Oximeter] Respiratory Rate 16 Blood Pressure [Le ft Arm] 128/66 Blood Pressure [or thostatic lying Le ft Arm] Blood Pressure [or thostatic sitting Left Arm] Blood Pressure [or thostatic standing Left Arm] Pulse Oximetry 98 Oxygen Delivery Me thod Room Air Labs Labs: Laboratory Results - last 24 hr 04/01/24 04/01/24 04/01/24 16:30 20:00 21:54 WBC 15.99 H RBC 3.77 L Hgb 10.7 L Hct 33.6 MCV 89 MCH 28 MCHC 32 RDW Coeff of Tabatha 13.3 Plt Count 507 H Neut % (Auto) 84.0 H Lymph % (Auto) 7.5 L [place] % (Auto) 6.2 Eos % (Auto) 0.1 Baso % (Auto) 0.0 Neut # (Auto) 13.40 H Lymph # (Auto) 1.20 [place] # (Auto) 1.00 H Eos # (Auto) 0.00 Baso # (Auto) 0.00 Abs Immat Gran (auto) 0.40 H Imm/Tot Granulo (auto) 2.2 INR VBG pH 7.240 L* VBG pCO2 20 L VBG pO2 65.0 H VBG HCO3 8 L Sodium 132 L Potassium 3.6 Chloride 103 Carbon Dioxide 8 L* Anion Gap 21 H BUN 54 H Creatinine 1.5 Estimated Creat Clear 37.02 Estimated GFR 41 Glucose 209 H Hemoglobin A1c 7.6 H Lactate 1.4 Calcium 10.3 Phosphorus 4.9 H Magnesium 1.6 Total Bilirubin 0.4 Direct Bilirubin 0.4 AST 32 ALT 14 Alkaline Phosphatase 99 C-Reactive Protein 34.1 H Total Protein 6.8 Albumin 3.5 Procalcitonin 9.28 H TSH Urine Color Urine Appearance Urine pH Ur Specific [place] Urine Protein Urine Glucose (UA) Urine Ketones Urine Blood Urine Nitrite Urine Bilirubin Urine Urobilinogen Ur Leukocyte Esterase Urine RBC Urine WBC Ur Squamous Epith Cells Urine Bacteria Urine Opiates Screen Ur Oxycodone Screen Urine Methadone Screen Ur Barbiturates Screen U Tricyclic Antidepress Ur Phencyclidine Scrn Ur Amphetamines Screen U Methamphetamines Scrn U Benzodiazepines Scrn Urine Cocaine Screen U Marijuana (THC) Screen Ur Drug Screen Comment Lab Acknowledgement Test Added 04/01/24 04/01/24 04/01/24 22:19 22:36 23:48 WBC RBC Hgb Hct MCV MCH MCHC RDW Coeff of Tabatha Plt Count Neut % (Auto) Lymph % (Auto) [place] % (Auto) Eos % (Auto) Baso % (Auto) Neut # (Auto) Lymph # (Auto) [place] # (Auto) Eos # (Auto) Baso # (Auto) Abs Immat Gran (auto) Imm/Tot Granulo (auto) INR VBG pH VBG pCO2 VBG pO2 VBG HCO3 Sodium Potassium Chloride Carbon Dioxide Anion Gap BUN Creatinine Estimated Creat Clear Estimated GFR Glucose Hemoglobin A1c Lactate Calcium Phosphorus Magnesium Total Bilirubin Direct Bilirubin AST ALT Alkaline Phosphatase C-Reactive Protein Total Protein Albumin Procalcitonin TSH Urine Color Urine Appearance Urine pH Ur Specific [place] Urine Protein Urine Glucose (UA) Urine Ketones Urine Blood Urine Nitrite Urine Bilirubin Urine Urobilinogen Ur Leukocyte Esterase Urine RBC Urine WBC Ur Squamous Epith Cells Urine Bacteria Urine Opiates Screen Negative Ur Oxycodone Screen Negative Urine Methadone Screen Negative Ur Barbiturates Screen Negative U Tricyclic Antidepress POSITIVE A Ur Phencyclidine Scrn Negative Ur Amphetamines Screen Negative U Methamphetamines Scrn Negative U Benzodiazepines Scrn Negative Urine Cocaine Screen Negative U Marijuana (THC) Screen Negative Ur Drug Screen Comment See Note Lab Acknowledgement Test Added Test Added 04/01/24 04/02/24 04/02/24 23:54 00:18 00:20 WBC RBC Hgb Hct MCV MCH MCHC RDW Coeff of Tabatha Plt Count Neut % (Auto) Lymph % (Auto) [place] % (Auto) Eos % (Auto) Baso % (Auto) Neut # (Auto) Lymph # (Auto) [place] # (Auto) Eos # (Auto) Baso # (Auto) Abs Immat Gran (auto) Imm/Tot Granulo (auto) INR VBG pH 7.277 L VBG pCO2 23 L VBG pO2 41.8 VBG HCO3 11 L Sodium 134 L Potassium 3.6 Chloride 109 Carbon Dioxide 9 L* Anion Gap 16 H BUN 50 H Creatinine 1.3 Estimated Creat Clear 42.72 Estimated GFR 49 Glucose 165 H Hemoglobin A1c Lactate Calcium 9.6 Phosphorus Magnesium Total Bilirubin Direct Bilirubin AST ALT Alkaline Phosphatase C-Reactive Protein Total Protein Albumin Procalcitonin TSH Urine Color Yellow Urine Appearance Clear Urine pH 5.5 Ur Specific [place] 1.020 Urine Protein Negative Urine Glucose (UA) Negative Urine Ketones Trace A Urine Blood Negative Urine Nitrite Negative Urine Bilirubin Negative Urine Urobilinogen 0.2 Ur Leukocyte Esterase Negative Urine RBC 0-2 Urine WBC 2-5 Ur Squamous Epith Cells Few Urine Bacteria Few A Urine Opiates Screen Ur Oxycodone Screen Urine Methadone Screen Ur Barbiturates Screen U Tricyclic Antidepress Ur Phencyclidine Scrn Ur Amphetamines Screen U Methamphetamines Scrn U Benzodiazepines Scrn Urine Cocaine Screen U Marijuana (THC) Screen Ur Drug Screen Comment Lab Acknowledgement 04/02/24 04/02/24 04/02/24 04:52 08:49 11:22 WBC 16.24 H RBC 3.55 L Hgb 10.0 L Hct 31.4 L MCV 89 MCH 28 MCHC 32 RDW Coeff of Tabatha 13.4 Plt Count 455 H Neut % (Auto) 85.3 H Lymph % (Auto) 6.5 L [place] % (Auto) 6.7 Eos % (Auto) 0.2 Baso % (Auto) 0.0 Neut # (Auto) 13.90 H Lymph # (Auto) 1.10 [place] # (Auto) 1.10 H Eos # (Auto) 0.00 Baso # (Auto) 0.00 Abs Immat Gran (auto) 0.20 Imm/Tot Granulo (auto) 1.3 INR 1.20 H VBG pH 7.275 L 7.299 L 7.308 L VBG pCO2 20 L 19 L* 19 L* VBG pO2 67.3 H 79.4 H 67.7 H VBG HCO3 9 L 9 L 10 L Sodium 134 L 135 135 Potassium 3.8 3.9 3.7 Chloride 110 113 114 Carbon Dioxide 9 L* 8 L* 9 L* Anion Gap 15 14 12 BUN 49 H 45 H 41 H Creatinine 1.3 1.1 1.1 Estimated Creat Clear 42.72 50.49 50.49 Estimated GFR 49 60 60 Glucose 145 H 112 111 Hemoglobin A1c Lactate 1.0 Calcium 9.5 9.6 9.1 Phosphorus Magnesium 1.5 Total Bilirubin 0.5 Direct Bilirubin AST 34 ALT 16 Alkaline Phosphatase 71 C-Reactive Protein 22.3 H Total Protein 6.2 Albumin 3.1 L Procalcitonin 6.93 H TSH 1.820 Urine Color Urine Appearance Urine pH Ur Specific [place] Urine Protein Urine Glucose (UA) Urine Ketones Urine Blood Urine Nitrite Urine Bilirubin Urine Urobilinogen Ur Leukocyte Esterase Urine RBC Urine WBC Ur Squamous Epith Cells Urine Bacteria Urine Opiates Screen Ur Oxycodone Screen Urine Methadone Screen Ur Barbiturates Screen U Tricyclic Antidepress Ur Phencyclidine Scrn Ur Amphetamines Screen U Methamphetamines Scrn U Benzodiazepines Scrn Urine Cocaine Screen U Marijuana (THC) Screen Ur Drug Screen Comment Lab Acknowledgement 04/02/24 15:45 WBC RBC Hgb Hct MCV MCH MCHC RDW Coeff of Tabatha Plt Count Neut % (Auto) Lymph % (Auto) [place] % (Auto) Eos % (Auto) Baso % (Auto) Neut # (Auto) Lymph # (Auto) [place] # (Auto) Eos # (Auto) Baso # (Auto) Abs Immat Gran (auto) Imm/Tot Granulo (auto) INR VBG pH VBG pCO2 VBG pO2 VBG HCO3 Sodium 138 Potassium 3.9 Chloride 115 H Carbon Dioxide 8 L* Anion Gap 15 BUN 38 H Creatinine 1.0 Estimated Creat Clear 55.54 Estimated GFR 67 Glucose 103 Hemoglobin A1c Lactate Calcium 9.7 Phosphorus Magnesium Total Bilirubin Direct Bilirubin AST ALT Alkaline Phosphatase C-Reactive Protein Total Protein Albumin Procalcitonin TSH Urine Color Urine Appearance Urine pH Ur Specific [place] Urine Protein Urine Glucose (UA) Urine Ketones Urine Blood Urine Nitrite Urine Bilirubin Urine Urobilinogen Ur Leukocyte Esterase Urine RBC Urine WBC Ur Squamous Epith Cells Urine Bacteria Urine Opiates Screen Ur Oxycodone Screen Urine Methadone Screen Ur Barbiturates Screen U Tricyclic Antidepress Ur Phencyclidine Scrn Ur Amphetamines Screen U Methamphetamines Scrn U Benzodiazepines Scrn Urine Cocaine Screen U Marijuana (THC) Screen Ur Drug Screen Comment Lab Acknowledgement
[2024-04-02] MEDS: DEXTROSE 50 % SYRINGE IVP ×2 (18:13→22:35)
--- NOTE | 2024-04-02 18:32 | PC.NURSE ---
End of shift. 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 she is very pleasant and alert X4. was npo till later in the day. she is eating, drinking and voiding. IV in left a/c and foot are patent. tele shows ST. right elbow wound is covered. she has a brief on but has been continent, . insulin gtt on @ 1.62 units last 12 hours. BS every 1 hour see E-MAR. she takes pills with no problems. she has 3 bottles of her meds in the med room. is her and is loving and caring., she is up to BSC. she and wounds on feet,. left foot had blood. was cleaned and dressed and md is aware. pt may benefit from wound consult not only for elbow but feet too. she has been up in the chair most of the day. IV is patent in the left a/c. VVS
[2024-04-02 20:59] LABS: HCO3 ABG 9 mmol/L (21-28); pH ABG 7.29 (7.35-7.45)
[2024-04-02 21:05] LABS: ABG PCO2 18 mmHG (35-45)
[2024-04-02 21:06] LABS: TCO2 ABG 8 mmol/l (21-30)
[2024-04-02 21:07] LABS: Base Excess ABG 15.8 mmol/L (-3.0-3.0); Carboxyhemoglobin* < 1.0 % (0.0-5.0); Oxygen Saturation ABG 100 % (92-100)
[2024-04-02 21:50] LABS: Chloride* 116 mmol/L (96-114); Potassium* 3.8 mmol/L (3.6-5.1); Sodium* 137 mmol/L (135-149)
[2024-04-02 21:53] LABS: Anion Gap 14 mEq/L (7-15); Blood Urea Nitrogen* 34 mg/dL (7-30); Calcium* 9.3 mg/dL (8.4-10.6); Creatinine* 0.9 mg/dL (0.5-1.5); Est. Creatinine Clearance* 61.71; Estimated Glomerular Filt Rate 76 ml/min; Glucose* 228 mg/dL (60-115)
[2024-04-02] MEDS: SODIUM BICARBONATE 50 MEQ/50ML SYRINGE IVP (21:56)
[2024-04-02 22:02] LABS: Carbon Dioxide* 7 mmol/L (20-32)
[2024-04-02] MEDS: QUETIAPINE 100 MG TABLET 200 MG PO (23:33)
[2024-04-02] MEDS: ATORVASTATIN 10 MG TABLET 20 MG PO (23:33)
[2024-04-03] VITALS (55 sets, daily range): BP systolic 124–187; BP diastolic 70–112; PULSE 88–149; RESP 16–28; TEMP 36.4–37.2; O2SAT 93–100
[2024-04-03] MEDS: DEXTROSE 50 % SYRINGE IVP ×4 (00:03→04:40)
[2024-04-03] MEDS: INSULIN INF 100 UNIT/100 ML 100 UNIT/100 ML BAG 7.62 UNIT IVPB (01:09)
[2024-04-03 01:37] LABS: ABG PCO2 20 mmHG (35-45); Base Excess ABG -11.5 mmol/L (-3.0-3.0); HCO3 ABG 12 mmol/L (21-28); Oxygen Saturation ABG 98 % (92-100); TCO2 ABG 11 mmol/l (21-30); pH ABG 7.38 (7.35-7.45)
[2024-04-03 01:42] LABS: Carboxyhemoglobin* < 1.0 % (0.0-5.0)
[2024-04-03 02:12] LABS: Chloride* 114 mmol/L (96-114); Potassium* 3.2 mmol/L (3.6-5.1); Sodium* 138 mmol/L (135-149)
[2024-04-03 02:15] LABS: Anion Gap 13 mEq/L (7-15); Carbon Dioxide* 11 mmol/L (20-32); Creatinine* 0.9 mg/dL (0.5-1.5); Est. Creatinine Clearance* 61.71; Estimated Glomerular Filt Rate 76 ml/min
[2024-04-03 02:16] LABS: Blood Urea Nitrogen* 33 mg/dL (7-30); Calcium* 9.2 mg/dL (8.4-10.6); Glucose* 203 mg/dL (60-115)
--- NOTE | 2024-04-03 02:55 | W.PM.CROSSCO ---
Subjective Subjective Interval history: I was contacted by nursing asking for guidance on IV fluids, insulin drip. Quick review of the chart shows the patient was admitted with what appears to be olecranon bursitis. He was noted to have a metabolic acidosis on admission. It appears to be none anion gap primarily. Nevertheless it was not potentially related to DKA she has been started on an insulin drip. Currently receiving 3 A of bicarb with D5W. Her most recent basic metabolic panel shows there is no anion gap. Her pH has normalized to 7.38 albeit she has a low CO2 she is hyperventilating to compensate. At this point I think the most prudent thing to do is discontinue the bicarb drip discontinue the insulin drip and watch and see how she does we will plan to recheck a BMP shortly. None anion gap metabolic acidosis could be from the lactic acidosis, diarrhea would be the most likely cause seems less likely to be a RTA either type I-type II or type IV could all do it. But these seem to be less likely. Thanks for hyperaldosteronism is a possibility. I think at this point we will advance her diet we will see how she does continue to follow if her CO2 continues to remain low and there is no diarrhea further workup should be entertained to try to rule out what type of RTA this potentially would be I do not see that she is on a carbonic anhydrase inhibitor. Overall again I do not think this is DKA, She did have a mildly elevated but I do not think it was as high as 1 would expect with true DKA with a bicarb down to 7 and 8. Will continue to follow Cristobal Salmeron DO, Pharm. D.
[2024-04-03] MEDS: 0.9 % SODIUM CHLORIDE 1000 ml 1,000 ML 150 ML IV ×2 (03:30→12:57)
[2024-04-03] MEDS: METOPROLOL TARTRATE 1 MG/ML inj 5 MG IVP (03:35)
--- NOTE | 2024-04-03 04:38 | CRLHL7_ITS ---
For Patients: As a result of the Century Cures Act, medical imaging exams and procedure reports are released immediately into your electronic medical record. You may view this report before your referring provider. If you have questions, please contact your health care provider. Indication: PICC line placement Technique: Chest 1 view Comparison: None Findings/Impression: Cardiovascular and mediastinum: Mild cardiomegaly with left-sided PICC line with tip at the cavoatrial junction. Lungs and pleural space: No pleural effusion or pneumothorax. Low lung volumes with mild pulmonary cephalization. Bones and soft tissues: No acute findings. Dictated by Shade Alaniz MD @ 04/03/2024 6:59:13 AM (Electronically Signed)
[2024-04-03] MEDS: ACETAMINOPHEN 325 MG TABLET PO ×3 (04:40→23:08)
[2024-04-03] MEDS: POTASSIUM CHLORIDE 10 MEQ CAPSULE ER 20 MEQ PO (04:45)
[2024-04-03 05:46] LABS: HCO3 VBG 13 mmol/L (21-28); PCO2 VBG 21 mmHG (40-50); pH VBG 7.382 (7.32-7.43)
[2024-04-03 06:05] LABS: Magnesium* 1.4 mg/dL (1.5-2.6)
[2024-04-03 06:10] LABS: Chloride* 114 mmol/L (96-114); Potassium* 3.8 mmol/L (3.6-5.1); Sodium* 139 mmol/L (135-149)
[2024-04-03 06:12] LABS: Creatinine* 0.9 mg/dL (0.5-1.5); Est. Creatinine Clearance* 61.71; Estimated Glomerular Filt Rate 76 ml/min
[2024-04-03 06:13] LABS: Anion Gap 14 mEq/L (7-15); Blood Urea Nitrogen* 32 mg/dL (7-30); Calcium* 9.4 mg/dL (8.4-10.6); Carbon Dioxide* 11 mmol/L (20-32); Glucose* 133 mg/dL (60-115)
--- NOTE | 2024-04-03 06:19 | PC.NURSE ---
PATIENT INITIALLY ON INSULIN DRIP. SEE EMAR FOR TITRATION. PATIENT ON HOURLY BLOOD GLUCOSE MONITORING. PATIENT HAD EPISODE AT 0145 WHERE HEART RATE WAS NOTED TO BE 140-150'S. PATIENT REPORTED FEELING OFF AND SHORT OF BREATH. EKG COMPLETED AND PLACED ON FRONT OF CHART. TELE SHOWING SINUS TACHYCARDIA WITH FREQUENT PVC'S. DR. STANFORD UPDATED ON PATIENT WITH 0130 LAB RESULTS AND ORDERS OBTAINED TO STOP THE INSULIN DRIP AND TRANSITION IVF TO NORMAL SALINE AT 150ML/HR. PATIENT HAD ANOTHER EPISODE OF TACHYCARDIA WITH A HEART RATE 130-140'S. PRN METOPROLOL 5MG IV ADMINISTERED. NO FURTHER EPISODES NOTED. BLOOD GLUCOSE DECREASED TO 86 AN HOUR AFTER INSULIN DRIP WAS DC'D AND HORIZON MD UPDATED. / AMP D50 ADMINISTERED PER MD. RECHECKS OF GLUCOSE HAVE BEEN 132 AND 130. PATIENT ASYMPTOMATIC. PICC STAT HERE TO PLACE PICC.
[2024-04-03 08:35] LABS: Eosinophils Percent Auto 0.2 % (0.0-7.0); Hematocrit 29.8 % (33.0-51.0); Hemoglobin* 9.5 gm/dL (12.0-16.0); Lymphocytes Percent Auto 8.6 % (20-44); Mean Corpuscular HGB Conc 32 gm/dL (32-36); Mean Corpuscular Hemoglobin 28 pg (26-34); Mean Corpuscular Volume 89 fL (80-100); Monocytes Percent Auto 9.3 % (0.0-11.0); Neutrophils Percent Auto 80.9 % (42.0-72.0); Platelet Count* 418 K/uL (140-440); RDW Coefficient of Variation % 13.9 % (11.5-15.5); Red Blood Count 3.34 m/uL (4.00-5.20); White Blood Count* 14.59 K/uL (4.50-11.00)
[2024-04-03 08:36] LABS: Slide Review Reflex No
[2024-04-03 09:08] LABS: Procalcitonin* 3.27 ng/mL (<0.50)
[2024-04-03 09:10] LABS: C Reactive Protein* 15.9 mg/dL (0.5-1.0)
[2024-04-03] MEDS: PALIPERIDONE 9 MG PO (09:37)
[2024-04-03] MEDS: Vortioxetine [Trintellix] 20 mg tablet PO (09:38)
[2024-04-03] MEDS: lamoTRIgine 100 MG TABLET 200 MG PO (09:38)
[2024-04-03] MEDS: AMLODIPINE 10 MG TABLET PO (09:38)
[2024-04-03] MEDS: METOPROLOL TARTRATE 100 MG TABLET PO (09:39)
[2024-04-03] MEDS: IBUPROFEN 400 MG TABLET PO ×2 (09:45→17:03)
--- NOTE | 2024-04-03 10:41 | P.ORCN_ITS ---
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 History is notable for hypertension, type 2 diabetes, bipolar 1 disorder, severe anxiety. Regarding the elbow, she reports some mild inflammation along the bursa x5 years from a previous injury. Than approximately 4 months ago her elbow became sore without any history of trauma. This included inflammation cough, pain, and difficulty with full extension. She did not seek any treatment. ~ 7 days ago it became much worse. It was tender to touch, it started draining and her arm became very swollen. No fever. Intermittent vomiting. In the emergency department, she did receive a bedside incision and drainage which revealed clearly purulent bursal fluid. Cultures were sent. Blood cultures also obtained. Since, she has been on IV antibiotics. Orthopedics was consulted for possible surgical debridement. However, she was in metabolic acidosis and without a clearly defined cause was felt prudent to ensure medical stability prior to surgical intervention. It was not felt to be related to sepsis at the time. [facility] Medical History Morbid obesity ?E66.01 - Morbid (severe) obesity due to excess calories (ICD-10) Bipolar 1 disorder ?F31.9 - Bipolar disorder, unspecified (ICD-10) Hyperlipidemia ?E78.5 - Hyperlipidemia, unspecified (ICD-10) Hyperparathyroidism ?E21.3 - Hyperparathyroidism, unspecified (ICD-10) Essential hypertension ?I10 - Essential (primary) hypertension (ICD-10) Severe anxiety ?F41.9 - Anxiety disorder, unspecified (ICD-10) Schizoaffective disorder ?F25.9 - Schizoaffective disorder, unspecified (ICD-10) Type 2 diabetes mellitus ?E11.9 - Type 2 diabetes mellitus without complications (ICD-10) Surgical History History of wisdom tooth extraction ?K08.409 - Partial loss of teeth, unspecified cause, unspecified class (ICD- 10) S/P tonsillectomy and adenoidectomy ?Z90.89 - Acquired absence of other organs (ICD-10) H/O dilation and curettage ?Z98.890 - Other specified postprocedural states (ICD-10) Status post appendectomy ?Z90.49 - Acquired absence of other specified parts of digestive tract (ICD- 10) Social History What is your current living situation?: I presently have a place to live Problems where you live: no known problems Problems where you live details: N/A In the past 12 months, utilities in danger of being shut off: no In past 12 months, lack of transportation kept you from medical appts, meetings, work, or getting things needed for daily living: yes In the past 12 mos, have been you worried that your food would run out before you had money to buy more?: never true In the past 12 mos, the food you bought just didn't last and you didn't have money to buy more?: never true Highest level of school completed/degree received: 12th grade, no diploma Smoking Status: Never smoker Second hand tobacco smoke exposure: No How often do you have a drink containing alcohol: never How often do you have six or more drinks on one occasion: Never AUDIT-C Alcohol total score: 0 Non-prescribed substance use: denies use Caffeine: Yes How often does anyone, including family, friends and others, physically hurt you : never How often does anyone, including family, friends and others, insult or talk down to you: never How often does anyone, including family, friends and others, threaten you with harm: never How often does anyone, including family, friends and others, scream or curse at you: never service: No Meds Home Medications and Allergies Home Medications ?Medication ?Instructions ?Recorded ?Confirmed ?Type amlodipine 10 mg tablet 10 mg PO DAILY 04/01/24 04/01/24 History aspirin 81 mg tablet,delayed 81 mg PO DAILY 04/01/24 04/01/24 History release (Adult Low Dose Aspirin) atorvastatin 20 mg tablet 20 mg PO DAILY 04/01/24 04/01/24 History eszopiclone 3 mg tablet (Lunesta) 3 mg PO HS 04/01/24 04/02/24 History glimepiride 4 mg tablet 8 mg PO DAILY 04/01/24 04/02/24 History hydrochlorothiazide 25 mg tablet 25 mg PO DAILY 04/01/24 04/01/24 History lamotrigine 200 mg tablet 200 mg PO BID 04/01/24 04/02/24 History (Lamictal) metformin 500 mg tablet 1,000 mg PO BID 04/01/24 04/02/24 History metoprolol tartrate 100 mg tablet 100 mg PO .ud 04/01/24 04/02/24 History omega 2-ovd-pzt-fish oil 1,200 mg 1 cap PO BID 04/01/24 04/02/24 History (144 mg-216 mg) capsule (Fish Oil) paliperidone 9 mg tablet,extended 9 mg PO DAILY 04/01/24 04/01/24 History release 24 hr vortioxetine 20 mg tablet 20 mg PO DAILY 04/01/24 04/01/24 History (Trintellix) quetiapine 100 mg tablet 100 - 200 mg PO QPM 04/02/24 04/02/24 History Allergies Allergy/AdvReac Type Severity Reaction Status Date / Time amlodipine [From [facility]] Allergy Verified 04/01/24 15:37 mestranol Allergy Verified 04/01/24 15:37 [From [facility] 1/50 (21)] norethindrone Allergy Verified 04/01/24 15:37 [From [facility] 1/50 (21)] nortriptyline Allergy Verified 04/01/24 15:37 Ortho Exam Narrative Exam Narrative: Alert and ordered x3. No acute distress. Lying supine in hospital bed. She is awake. Cooperative with the exam. Right elbow shows a gauze wrapped elbow at this time. Significant swelling and edema about the right upper extremity to the level of the elbow. Neurologic intact in the radial, ulnar, and median nerve distribution to sensory light touch and motor function. Palpable radial pulse. Generalized discomfort from all the edema/swelling. Const Vital Signs, click to edit/add: Vital Signs - 24 hr 04/02/24 12:14 04/02/24 15:10 04/02/24 15:22 Temperature 98.0 F Pulse Rate Pulse Rate [Left Pulse Oximeter] 83 83 Pulse Rate [Right Pulse Oximeter] 97 97 Respiratory Rate 16 16 Blood Pressure [Left Arm] 132/59 L Blood Pressure [Right Arm] Pulse Oximetry 97 98 Oxygen Delivery Method Room Air 04/02/24 15:22 04/02/24 15:27 04/02/24 18:00 Temperature 97.5 F L 97.5 F L Pulse Rate Pulse Rate [Left Pulse Oximeter] 87 100 Pulse Rate [Right Pulse Oximeter] 98 100 Respiratory Rate 16 16 Blood Pressure [Left Arm] 128/66 129/64 Blood Pressure [Right Arm] Pulse Oximetry 98 99 Oxygen Delivery Method Room Air Room Air 04/02/24 19:00 04/02/24 23:30 04/02/24 23:30 Temperature 97.8 F Pulse Rate Pulse Rate [Left Pulse Oximeter] 106 H 100 Pulse Rate [Right Pulse Oximeter] 100 Respiratory Rate 20 20 Blood Pressure [Left Arm] 138/78 Blood Pressure [Right Arm] Pulse Oximetry 98 95 Oxygen Delivery Method Room Air 04/02/24 23:30 04/03/24 00:23 04/03/24 01:30 Temperature 97.6 F 98.9 F Pulse Rate 100 Pulse Rate [Left Pulse Oximeter] 100 115 H Pulse Rate [Right Pulse Oximeter] Respiratory Rate 20 28 H Blood Pressure [Left Arm] 152/90 H Blood Pressure [Right Arm] 157/82 H Pulse Oximetry 96 96 Oxygen Delivery Method Room Air Room Air 04/03/24 02:00 04/03/24 03:30 04/03/24 07:00 Temperature 98.8 F 98.4 F Pulse Rate 101 H Pulse Rate [Left Pulse Oximeter] 103 H 101 H Pulse Rate [Right Pulse Oximeter] Respiratory Rate 20 20 Blood Pressure [Left Arm] Blood Pressure [Right Arm] 131/80 148/95 H Pulse Oximetry 97 97 Oxygen Delivery Method Room Air Room Air 04/03/24 07:00 04/03/24 07:00 04/03/24 07:00 Temperature 98.2 F Pulse Rate Pulse Rate [Left Pulse Oximeter] Pulse Rate [Right Pulse Oximeter] 115 H 120 H Respiratory Rate 20 20 Blood Pressure [Left Arm] Blood Pressure [Right Arm] 187/99 H Pulse Oximetry 99 99 Oxygen Delivery Method Room Air 04/03/24 09:32 Temperature Pulse Rate Pulse Rate [Left Pulse Oximeter] Pulse Rate [Right Pulse Oximeter] Respiratory Rate Blood Pressure [Left Arm] 162/87 H Blood Pressure [Right Arm] Pulse Oximetry Oxygen Delivery Method Results Labs Labs: Laboratory Results - last 48 hr 04/01/24 04/01/24 04/01/24 16:30 20:00 21:54 WBC 15.99 H RBC 3.77 L Hgb 10.7 L Hct 33.6 MCV 89 MCH 28 MCHC 32 RDW Coeff of Tabatha 13.3 Plt Count 507 H Neut % (Auto) 84.0 H Lymph % (Auto) 7.5 L Navarro % (Auto) 6.2 Eos % (Auto) 0.1 Baso % (Auto) 0.0 Neut # (Auto) 13.40 H Lymph # (Auto) 1.20 Navarro # (Auto) 1.00 H Eos # (Auto) 0.00 Baso # (Auto) 0.00 Abs Immat Gran (auto) 0.40 H Imm/Tot Granulo (auto) 2.2 INR ABG pH ABG pCO2 ABG pO2 ABG HCO3 ABG Total CO2 ABG O2 Saturation ABG Base Excess VBG pH 7.240 L* VBG pCO2 20 L VBG pO2 65.0 H VBG HCO3 8 L Carboxyhemoglobin Sodium 132 L Potassium 3.6 Chloride 103 Carbon Dioxide 8 L* Anion Gap 21 H BUN 54 H Creatinine 1.5 Estimated Creat Clear 37.02 Estimated GFR 41 Glucose 209 H Hemoglobin A1c 7.6 H Lactate 1.4 Calcium 10.3 Phosphorus 4.9 H Magnesium 1.6 Total Bilirubin 0.4 Direct Bilirubin 0.4 AST 32 ALT 14 Alkaline Phosphatase 99 C-Reactive Protein 34.1 H Total Protein 6.8 Albumin 3.5 Procalcitonin 9.28 H TSH Urine Color Urine Appearance Urine pH Ur Specific Conger Urine Protein Urine Glucose (UA) Urine Ketones Urine Blood Urine Nitrite Urine Bilirubin Urine Urobilinogen Ur Leukocyte Esterase Urine RBC Urine WBC Ur Squamous Epith Cells Urine Bacteria Urine Opiates Screen Ur Oxycodone Screen Urine Methadone Screen Ur Barbiturates Screen U Tricyclic Antidepress Ur Phencyclidine Scrn Ur Amphetamines Screen U Methamphetamines Scrn U Benzodiazepines Scrn Urine Cocaine Screen U Marijuana (THC) Screen Ur Drug Screen Comment Lab Acknowledgement Test Added 04/01/24 04/01/24 04/01/24 22:19 22:36 23:48 WBC RBC Hgb Hct MCV MCH MCHC RDW Coeff of Tabatha Plt Count Neut % (Auto) Lymph % (Auto) Navarro % (Auto) Eos % (Auto) Baso % (Auto) Neut # (Auto) Lymph # (Auto) [place] # (Auto) Eos # (Auto) Baso # (Auto) Abs Immat Gran (auto) Imm/Tot Granulo (auto) INR ABG pH ABG pCO2 ABG pO2 ABG HCO3 ABG Total CO2 ABG O2 Saturation ABG Base Excess VBG pH VBG pCO2 VBG pO2 VBG HCO3 Carboxyhemoglobin Sodium Potassium Chloride Carbon Dioxide Anion Gap BUN Creatinine Estimated Creat Clear Estimated GFR Glucose Hemoglobin A1c Lactate Calcium Phosphorus Magnesium Total Bilirubin Direct Bilirubin AST ALT Alkaline Phosphatase C-Reactive Protein Total Protein Albumin Procalcitonin TSH Urine Color Urine Appearance Urine pH Ur Specific Conger Urine Protein Urine Glucose (UA) Urine Ketones Urine Blood Urine Nitrite Urine Bilirubin Urine Urobilinogen Ur Leukocyte Esterase Urine RBC Urine WBC Ur Squamous Epith Cells Urine Bacteria Urine Opiates Screen Negative Ur Oxycodone Screen Negative Urine Methadone Screen Negative Ur Barbiturates Screen Negative U Tricyclic Antidepress POSITIVE A Ur Phencyclidine Scrn Negative Ur Amphetamines Screen Negative U Methamphetamines Scrn Negative U Benzodiazepines Scrn Negative Urine Cocaine Screen Negative U Marijuana (THC) Screen Negative Ur Drug Screen Comment See Note Lab Acknowledgement Test Added Test Added 04/01/24 04/02/24 04/02/24 23:54 00:18 00:20 WBC RBC Hgb Hct MCV MCH MCHC RDW Coeff of Tabatha Plt Count Neut % (Auto) Lymph % (Auto) Navarro % (Auto) Eos % (Auto) Baso % (Auto) Neut # (Auto) Lymph # (Auto) Navarro # (Auto) Eos # (Auto) Baso # (Auto) Abs Immat Gran (auto) Imm/Tot Granulo (auto) INR ABG pH ABG pCO2 ABG pO2 ABG HCO3 ABG Total CO2 ABG O2 Saturation ABG Base Excess VBG pH 7.277 L VBG pCO2 23 L VBG pO2 41.8 VBG HCO3 11 L Carboxyhemoglobin Sodium 134 L Potassium 3.6 Chloride 109 Carbon Dioxide 9 L* Anion Gap 16 H BUN 50 H Creatinine 1.3 Estimated Creat Clear 42.72 Estimated GFR 49 Glucose 165 H Hemoglobin A1c Lactate Calcium 9.6 Phosphorus Magnesium Total Bilirubin Direct Bilirubin AST ALT Alkaline Phosphatase C-Reactive Protein Total Protein Albumin Procalcitonin TSH Urine Color Yellow Urine Appearance Clear Urine pH 5.5 Ur Specific Conger 1.020 Urine Protein Negative Urine Glucose (UA) Negative Urine Ketones Trace A Urine Blood Negative Urine Nitrite Negative Urine Bilirubin Negative Urine Urobilinogen 0.2 Ur Leukocyte Esterase Negative Urine RBC 0-2 Urine WBC 2-5 Ur Squamous Epith Cells Few Urine Bacteria Few A Urine Opiates Screen Ur Oxycodone Screen Urine Methadone Screen Ur Barbiturates Screen U Tricyclic Antidepress Ur Phencyclidine Scrn Ur Amphetamines Screen U Methamphetamines Scrn U Benzodiazepines Scrn Urine Cocaine Screen U Marijuana (THC) Screen Ur Drug Screen Comment Lab Acknowledgement 04/02/24 04/02/24 04/02/24 04:52 08:49 11:22 WBC 16.24 H RBC 3.55 L Hgb 10.0 L Hct 31.4 L MCV 89 MCH 28 MCHC 32 RDW Coeff of Tabatha 13.4 Plt Count 455 H Neut % (Auto) 85.3 H Lymph % (Auto) 6.5 L Navarro % (Auto) 6.7 Eos % (Auto) 0.2 Baso % (Auto) 0.0 Neut # (Auto) 13.90 H Lymph # (Auto) 1.10 Navarro # (Auto) 1.10 H Eos # (Auto) 0.00 Baso # (Auto) 0.00 Abs Immat Gran (auto) 0.20 Imm/Tot Granulo (auto) 1.3 INR 1.20 H ABG pH ABG pCO2 ABG pO2 ABG HCO3 ABG Total CO2 ABG O2 Saturation ABG Base Excess VBG pH 7.275 L 7.299 L 7.308 L VBG pCO2 20 L 19 L* 19 L* VBG pO2 67.3 H 79.4 H 67.7 H VBG HCO3 9 L 9 L 10 L Carboxyhemoglobin Sodium 134 L 135 135 Potassium 3.8 3.9 3.7 Chloride 110 113 114 Carbon Dioxide 9 L* 8 L* 9 L* Anion Gap 15 14 12 BUN 49 H 45 H 41 H Creatinine 1.3 1.1 1.1 Estimated Creat Clear 42.72 50.49 50.49 Estimated GFR 49 60 60 Glucose 145 H 112 111 Hemoglobin A1c Lactate 1.0 Calcium 9.5 9.6 9.1 Phosphorus Magnesium 1.5 Total Bilirubin 0.5 Direct Bilirubin AST 34 ALT 16 Alkaline Phosphatase 71 C-Reactive Protein 22.3 H Total Protein 6.2 Albumin 3.1 L Procalcitonin 6.93 H TSH 1.820 Urine Color Urine Appearance Urine pH Ur Specific Conger Urine Protein Urine Glucose (UA) Urine Ketones Urine Blood Urine Nitrite Urine Bilirubin Urine Urobilinogen Ur Leukocyte Esterase Urine RBC Urine WBC Ur Squamous Epith Cells Urine Bacteria Urine Opiates Screen Ur Oxycodone Screen Urine Methadone Screen Ur Barbiturates Screen U Tricyclic Antidepress Ur Phencyclidine Scrn Ur Amphetamines Screen U Methamphetamines Scrn U Benzodiazepines Scrn Urine Cocaine Screen U Marijuana (THC) Screen Ur Drug Screen Comment Lab Acknowledgement 04/02/24 04/02/24 04/03/24 15:45 20:50 01:30 WBC RBC Hgb Hct MCV MCH MCHC RDW Coeff of Tabatha Plt Count Neut % (Auto) Lymph % (Auto) Navarro % (Auto) Eos % (Auto) Baso % (Auto) Neut # (Auto) Lymph # (Auto) [place]arro # (Auto) Eos # (Auto) Baso # (Auto) Abs Immat Gran (auto) Imm/Tot Granulo (auto) INR ABG pH 7.29 L 7.38 ABG pCO2 18 L* 20 L ABG pO2 108.0 H 118.0 H ABG HCO3 9 L 12 L ABG Total CO2 8 L 11 L ABG O2 Saturation 100 98 ABG Base Excess 15.8 H -11.5 L VBG pH Cancelled VBG pCO2 Cancelled VBG pO2 Cancelled VBG HCO3 Cancelled Carboxyhemoglobin < 1.0 < 1.0 Sodium 138 137 138 Potassium 3.9 3.8 3.2 L Chloride 115 H 116 H 114 Carbon Dioxide 8 L* 7 L* 11 L Anion Gap 15 14 13 BUN 38 H 34 H 33 H Creatinine 1.0 0.9 0.9 Estimated Creat Clear 55.54 61.71 61.71 Estimated GFR 67 76 76 Glucose 103 228 H 203 H Hemoglobin A1c Lactate Calcium 9.7 9.3 9.2 Phosphorus Magnesium Total Bilirubin Direct Bilirubin AST ALT Alkaline Phosphatase C-Reactive Protein Total Protein Albumin Procalcitonin TSH Urine Color Urine Appearance Urine pH Ur Specific Conger Urine Protein Urine Glucose (UA) Urine Ketones Urine Blood Urine Nitrite Urine Bilirubin Urine Urobilinogen Ur Leukocyte Esterase Urine RBC Urine WBC Ur Squamous Epith Cells Urine Bacteria Urine Opiates Screen Ur Oxycodone Screen Urine Methadone Screen Ur Barbiturates Screen U Tricyclic Antidepress Ur Phencyclidine Scrn Ur Amphetamines Screen U Methamphetamines Scrn U Benzodiazepines Scrn Urine Cocaine Screen U Marijuana (THC) Screen Ur Drug Screen Comment Lab Acknowledgement 04/03/24 04/03/24 05:25 08:28 WBC 14.59 H RBC 3.34 L Hgb 9.5 L Hct 29.8 L MCV 89 MCH 28 MCHC 32 RDW Coeff of Tabatha 13.9 Plt Count 418 Neut % (Auto) 80.9 H Lymph % (Auto) 8.6 L Navarro % (Auto) 9.3 Eos % (Auto) 0.2 Baso % (Auto) 0.0 Neut # (Auto) 11.80 H Lymph # (Auto) 1.30 Navarro # (Auto) 1.40 H Eos # (Auto) 0.00 Baso # (Auto) 0.00 Abs Immat Gran (auto) 0.10 Imm/Tot Granulo (auto) 1.0 INR ABG pH ABG pCO2 ABG pO2 ABG HCO3 ABG Total CO2 ABG O2 Saturation ABG Base Excess VBG pH 7.382 VBG pCO2 21 L VBG pO2 128.0 H VBG HCO3 13 L Carboxyhemoglobin Sodium 139 Potassium 3.8 Chloride 114 Carbon Dioxide 11 L Anion Gap 14 BUN 32 H Creatinine 0.9 Estimated Creat Clear 61.71 Estimated GFR 76 Glucose 133 H Hemoglobin A1c Lactate Calcium 9.4 Phosphorus Magnesium 1.4 L Total Bilirubin Direct Bilirubin AST ALT Alkaline Phosphatase C-Reactive Protein 15.9 H Total Protein Albumin Procalcitonin 3.27 H TSH Urine Color Urine Appearance Urine pH Ur Specific Conger Urine Protein Urine Glucose (UA) Urine Ketones Urine Blood Urine Nitrite Urine Bilirubin Urine Urobilinogen Ur Leukocyte Esterase Urine RBC Urine WBC Ur Squamous Epith Cells Urine Bacteria Urine Opiates Screen Ur Oxycodone Screen Urine Methadone Screen Ur Barbiturates Screen U Tricyclic Antidepress Ur Phencyclidine Scrn Ur Amphetamines Screen U Methamphetamines Scrn U Benzodiazepines Scrn Urine Cocaine Screen U Marijuana (THC) Screen Ur Drug Screen Comment Lab Acknowledgement Diagnostic results Additional Comments: Three radiographic views right elbow from [facility] dated 04/01/2024 were ordered by a different provider and reviewed by me. This shows soft tissue swelling about the elbow. Posterior olecranon bursal swelling, a soft tissue injury/laceration/opening and abundant calcifications in the olecranon bursal region. CT scan right elbow from [facility] dated 04/01/2024 was ordered by a different provider, reviewed by me, and corroborated with the radiology report. This shows no radial head fracture. Age indeterminate coronoid process fracture. Large complex fluid collection/abscess about the olecranon overlying the skin defect/wound measuring approximately 6.4 x 2.3 x 3.9 cm. There are multiple ill-defined hypodense materials somewhat calcific nature. Mild degenerative change of the elbow with probable several tiny calcified intra-articular bodies as well. Assessment and Plan Assessment and plan (1) Metabolic acidosis: Problem comment: Suspect DKA. lactate normal. mild hyperglycemia. No other symptoms to indicate adrenal insufficiency. -beta hydroxybuterate pending. -she has been on an insulin drip with D5 NS overnight. Metabolic acidosis is improving however interestingly carbon dioxide levels are unchanged. I am not sure what is causing her low levels of carbon dioxide, but I suspect this is a metabolic process. -acidosis and glucose is improving, dehydration is also improving. I gave an extra fluid bolus this morning which appears to have helped. Will continue to monitor labs closely until she is no longer acidotic. I think we should also hold off on surgery until she is no longer acidotic. Status: Acute Total time spent: Total time spent is greater than 50% in coordination of care (as documented) at patient's floor/unit and/or counseling patient: (2) Olecranon bursa abscess: Problem comment: Xray shows soft tissue air and possible radial head fracture. CT: 1. No radial head fracture. Age-indeterminate coronoid process fracture. 2. Large complex fluid collection/abscess about the olecranon overlying skin defect/wound measuring approximately 6.4 x 2.3 x 3.9 cm. The collection contains abundant ill-defined hyperdense material, nonspecific. -continue cefepime. Stop vancomycin as MRSA swab was negative. wound culture from ED I/D pending blood cultures x 2 no growth so far Leukocytosis, elevated CRP, and elevated prolactin are noted. Status: Acute Total time spent: Total time spent is greater than 50% in coordination of care (as documented) at patient's floor/unit and/or counseling patient: (3) Type 2 diabetes mellitus: Problem comment: last A1C was 6.5 in 03/16, A1C 04/01 was 7.6% on glimepiride, metformin - doesn't check sugars (these are now on hold) Continue insulin gtt and monitor labs until no longer acidotic. Will try a D50 and regular insulin push for persistently low carbon dioxide levels Status: Acute Total time spent: Total time spent is greater than 50% in coordination of care (as documented) at patient's floor/unit and/or counseling patient: (4) Essential hypertension: Problem comment: continue home meds: Norvasc 10, Lopressor 100, Hctz 25 Status: Acute Total time spent: Total time spent is greater than 50% in coordination of care (as documented) at patient's floor/unit and/or counseling patient: (5) Bipolar 1 disorder: Problem comment: psych med regimen: Trintellix, Seroquel, Invega, Lamictal, Lunesta Status: Chronic Total time spent: Total time spent is greater than 50% in coordination of care (as documented) at patient's floor/unit and/or counseling patient: (6) Severe anxiety: Status: Chronic Total time spent: Total time spent is greater than 50% in coordination of care (as documented) at patient's floor/unit and/or counseling patient: (7) Schizoaffective disorder: Status: Chronic Total time spent: Total time spent is greater than 50% in coordination of care (as documented) at patient's floor/unit and/or counseling patient: (8) Hyperparathyroidism: Problem comment: last PTH was 122, calcium 11 in 03/16 Status: Chronic Total time spent: Total time spent is greater than 50% in coordination of care (as documented) at patient's floor/unit and/or counseling patient: (9) Morbid obesity: Status: Chronic Total time spent: Total time spent is greater than 50% in coordination of care (as documented) at patient's floor/unit and/or counseling patient: Plan She has multiple medical comorbidities that make her right posterior elbow septic olecranon bursitis challenging to care for. She has recently been in a metabolic acidosis which has complicated her medical picture. The morbid obesity, schizoaffective disorder, severe anxiety, bipolar 1 disorder, and type 2 diabetes mellitus do not help things. This makes her care very difficult Regarding the olecranon septic bursitis, I do think surgical debridement is prudent. We discussed the risks, benefits, and alternatives both in the local region of the right elbow as well as systemic risks. The same co-morbidities complicate her recovery picture. However, after discussion, she elects to proceed with surgery. We will plan to do this on 04/03/2020 for now she is medically stable. Anticipate after the surgery that she would still benefit from IV antibiotics. She also may need wound care. We will continue to follow her to monitor her wound moving forward. I have encouraged her to continue to pursue excellent glucose control as this will help decrease persistent infection, but also try to minimize her body mass with the reduction in time. Was able to connect with the hospitalist team and communicate the plan.
--- NOTE | 2024-04-03 11:05 | W.ANESCHARGE ---
Anesthesia Charges Start Date/Time Anesthesia Start Date: 04/03/24 Anesthesia Start Time: 10:35 Stop Date/Time Anesthesia Stop Date: 04/03/24 Anesthesia Stop Time: 11:58 Summary Emergency: MDA
--- NOTE | 2024-04-03 11:53 | P.ORPRC_ITS ---
Procedure Note Date of procedure: 04/03/24 Procedure: PREOPERATIVE DIAGNOSIS: 1. Right elbow septic olecranon bursitis POSTOPERATIVE DIAGNOSIS: 1. Right elbow olecranon bursitis cecily, suspect gout 2. Right posterior elbow deep abscess 3. Right posterior elbow open wound. PROCEDURE: 1. Right elbow olecranon excisional debridement including skin, subcu tissue, fascia, and triceps tendon tissue. 2. Right posterior elbow incision and drainage of deep abscess (4 x 4 cm skin involvement) 2. Right elbow negative wound pressure dressing application or (4 x 4 cm sponge applied). There was wound tunneling that measured approximately 3 cm lateral, 4 cm proximal/posterolateral, 3.5 cm proximal, 1 cm medial, and a 1.5 cm distal SURGEON: Chandu Pichardo MD. REAL ESTATE ADMINISTRATIVE ASSISTANT: Josh Puentes PA-C - Of note, an payroll human resources assistant was critical for this case to aid in patient positioning, tissue retraction, limb manipulation/positioning, and closure. ANESTHESIA: General endotracheal anesthetic IMPLANTS: None TOURNIQUET: None SPECIMENS: Cultures were again obtained of the wound as well as specimen collected for crystal and cell count. COMPLICATIONS: None evident INDICATIONS: The patient is a pleasant 53-year-old female who has experienced right posterior elbow pain over the last 4 months. However, last 7 days she has noticed increasing redness, pain, and even opening of the wound overlying the olecranon bursal region. 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 However, she was admitted to the hospital with this open wound that was thought to be a septic olecranon bursitis. Orthopedics was consulted. It is felt that surgical debridement would be prudent. DESCRIPTION OF PROCEDURE: Following a thorough discussion of risks, benefits, and alternatives consent was obtained and the right elbow was marked. The patient was brought to the operating room and placed supine on the operating table. Induction of anesthesia was undertaken. No preoperative antibiotics were administered and she has been receiving IV antibiotics on the [facility] floor. Proper time-out was performed identifying proper patient, site, procedure. The operative extremity was prepped and draped in the appropriate sterile fashion using Betadine prep after the patient was positioned supine with all bony prominences well padded. Following the prep and drape, the wound was further inspected. Immediate white chalky substance was encountered. 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 This was captured and sent for culture as well as specimens. Thorough debridement was then performed combination of curette, rongeur, and sharp dissection including excisional debridement of skin, subcutaneous tissue, and fascia as well as tendon. After cultures were obtained and complete debridement completed, thorough irrig ation normal saline was performed with pulse lavage show (3 L). Hemostasis was achieved with Bovie cautery. Given the wound that remained measuring approximately 4 x 4 cm, it was felt that 1 closure was not possible today. Instead, a wound VAC would be prudent. Thus, a wound VAC was applied for this right posterior elbow. Sponge is applied with an excellent seal a achieved. Plan of the for wound clinic outpatient evaluation at next available visit (anticipate 2-3 weeks). In the meantime, wound VAC sponge changes will be necessary ideally in an outpatient basis. If the patient cannot tolerate this, then repeat surgical exchange of wound VAC/negative pressure dressing may be necessary. The patient was awoken from anesthesia and transferred to the PACU in stable condition. PLAN: 1. Nonweightbearing operative extremity. 2. Ice. 3. Elevate. 4. Oxycodone for pain p.r.n. 5. Follow up with PA visit take every 3-5 days for wound VAC exchange.
--- NOTE | 2024-04-03 12:09 | P.ANES_ITS ---
Anesthesia Charges Start Date/Time Anesthesia Start Date: 04/03/24 Anesthesia Start Time: 10:35 Stop Date/Time Anesthesia Stop Date: 04/03/24 Anesthesia Stop Time: 11:58 Summary Emergency: [employer]
--- NOTE | 2024-04-03 16:31 | PM.IMPN1 ---
Progress Note: A&P Assessment and plan (1) Metabolic acidosis: Problem details: Hgb A1C was only 7.6% . lactate normal. mild hyperglycemia. No other symptoms to indicate adrenal insufficiency. -beta hydroxybuterate pending. - Now suspecting RTA. Acidosis has resolved. Will need further w/u for RTA. Urine PH on admission was 5.5. Will repeat UA. All the other tests are send outs, some unavailable here. Will need further outpatient w/u. Status: Acute (2) Olecranon bursa abscess: Problem details: Xray shows soft tissue air and possible radial head fracture. CT: 1. No radial head fracture. Age-indeterminate coronoid process fracture. 2. Large complex fluid collection/abscess about the olecranon overlying skin defect/wound measuring approximately 6.4 x 2.3 x 3.9 cm. The collection contains abundant ill-defined hyperdense material, nonspecific. G+ cocci in wound cx. BC no growth. Change to ancef (no longer need coverage for pseudomonas). Vancomycin stopped. Monitor for worsening and for wound cx results. Status: Acute (3) Type 2 diabetes mellitus: Problem details: last A1C was 6.5 in 03/16, A1C 6/8 was 7.6% on glimepiride, metformin - doesn't check sugars (these are now on hold) Start levemir and continue ISS. Status: Acute (4) Essential hypertension: Problem details: fair control. 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 Status: Acute Subjective Time Seen by Provider: 08:05 Date Seen: 04/03/24 Interval history: Homa is feeling much better today. Her , John, was at her bedside. She denies CP. SOB has resolved. Exam Narrative: Exam Narrative: General: No acute distress. Awake, alert, oriented x3. No pallor. No jaundice. Obese. Oropharynx: Clear. Mucous membranes moist. Cardiovascular: Regular rate and rhythm. No murmurs, gallops, or rubs. Respiratory: Clear to auscultation bilaterally. No wheezes or crackles. Abdomen: Bowel sounds present. Soft, nondistended, nontender. Extremities: Right elbow has chalky, purulent material draining from it with surrounding edema and erythema. Feet are tophaceous. Const: Vital Signs, click to edit/add: Vital Signs - 24 hr 04/02/24 17:00 04/02/24 18:00 04/02/24 18:00 Temperature Pulse Rate 97 93 Pulse Rate [Left P ulse Oximeter] 100 Pulse Rate [Right Pulse Oximeter] 100 Respiratory Rate 16 Blood Pressure Blood Pressure [Le ft Arm] 129/64 Blood Pressure [Ri ght Arm] Pulse Oximetry 98 99 98 Oxygen Delivery Me thod Room Air Oxygen Flow Rate Fraction of Inspir ed Oxygen 04/02/24 18:02 04/02/24 19:00 04/02/24 19:00 Temperature 97.8 F Pulse Rate 99 100 Pulse Rate [Left P ulse Oximeter] 106 H Pulse Rate [Right Pulse Oximeter] 100 Respiratory Rate 20 Blood Pressure 129/64 Blood Pressure [Le ft Arm] 138/78 Blood Pressure [Ri ght Arm] Pulse Oximetry 100 98 98 Oxygen Delivery Me thod Room Air Oxygen [facility] 04/02/24 19:52 04/02/24 20:00 04/02/24 20:05 Temperature Pulse Rate 92 103 H 103 H Pulse Rate [Left P ulse Oximeter] Pulse Rate [Right Pulse Oximeter] Respiratory Rate Blood Pressure 138/78 Blood Pressure [Le ft Arm] Blood Pressure [Ri ght Arm] Pulse Oximetry 100 100 100 Oxygen Delivery Me thod Oxygen Flow Rate Fraction of Inspir ed Oxygen 04/02/24 21:00 04/02/24 21:23 04/02/24 22:00 Temperature Pulse Rate 109 H 108 H 110 H Pulse Rate [Left P ulse Oximeter] Pulse Rate [Right Pulse Oximeter] Respiratory Rate Blood Pressure 145/80 H Blood Pressure [Le ft Arm] Blood Pressure [Ri ght Arm] Pulse Oximetry 99 98 99 Oxygen Delivery Me thod Oxygen Flow Rate Fraction of Inspir ed Oxygen 04/02/24 23:00 04/02/24 23:30 04/02/24 23:30 Temperature Pulse Rate 111 H Pulse Rate [Left P ulse Oximeter] 100 Pulse Rate [Right Pulse Oximeter] Respiratory Rate 20 Blood Pressure Blood Pressure [Le ft Arm] Blood Pressure [Ri ght Arm] Pulse Oximetry 98 95 Oxygen Delivery Me thod Oxygen Flow Rate Fraction of Inspir ed Oxygen 04/02/24 23:30 04/02/24 23:52 04/03/24 00:00 Temperature 97.6 F Pulse Rate 106 H 101 H Pulse Rate [Left P ulse Oximeter] 100 Pulse Rate [Right Pulse Oximeter] Respiratory Rate 20 Blood Pressure 152/90 H Blood Pressure [Le ft Arm] 152/90 H Blood Pressure [Ri ght Arm] Pulse Oximetry 96 98 96 Oxygen Delivery Me thod Room Air Oxygen Flow Rate Fraction of Inspir ed Oxygen 04/03/24 00:23 04/03/24 01:00 04/03/24 01:26 Temperature Pulse Rate 100 101 H 149 H Pulse Rate [Left P ulse Oximeter] Pulse Rate [Right Pulse Oximeter] Respiratory Rate Blood Pressure 157/82 H Blood Pressure [Le ft Arm] Blood Pressure [Ri ght Arm] Pulse Oximetry 94 93 Oxygen Delivery Me thod Oxygen Flow Rate Fraction of Inspir ed Oxygen 04/03/24 01:30 04/03/24 01:59 04/03/24 02:00 Temperature 98.9 F 98.8 F Pulse Rate 136 H Pulse Rate [Left P ulse Oximeter] 115 H 103 H Pulse Rate [Right Pulse Oximeter] Respiratory Rate 28 H 20 Blood Pressure 131/80 Blood Pressure [Le ft Arm] Blood Pressure [Ri ght Arm] 157/82 H 131/80 Pulse Oximetry 96 97 97 Oxygen Delivery Me thod Room Air Room Air Oxygen Flow Rate Fraction of Inspir ed Oxygen 04/03/24 02:00 04/03/24 02:02 04/03/24 02:32 Temperature Pulse Rate 148 H 149 H 111 H Pulse Rate [Left P ulse Oximeter] Pulse Rate [Right Pulse Oximeter] Respiratory Rate Blood Pressure 154/112 H 155/81 H Blood Pressure [Le ft Arm] Blood Pressure [Ri ght Arm] Pulse Oximetry 97 96 95 Oxygen Delivery Me thod Oxygen Flow Rate Fraction of Inspir ed Oxygen 04/03/24 03:00 04/03/24 03:30 04/03/24 03:35 Temperature 98.4 F Pulse Rate 105 H 124 H Pulse Rate [Left P ulse Oximeter] 101 H Pulse Rate [Right Pulse Oximeter] Respiratory Rate 20 Blood Pressure 148/95 H Blood Pressure [Le ft Arm] Blood Pressure [Ri ght Arm] 148/95 H Pulse Oximetry 95 97 97 Oxygen Delivery Me thod Room Air Oxygen Flow Rate Fraction of Inspir ed Oxygen 04/03/24 04:00 04/03/24 05:00 04/03/24 05:59 Temperature Pulse Rate 104 H 104 H 107 H Pulse Rate [Left P ulse Oximeter] Pulse Rate [Right Pulse Oximeter] Respiratory Rate Blood Pressure 142/87 H Blood Pressure [Le ft Arm] Blood Pressure [Ri ght Arm] Pulse Oximetry 96 96 97 Oxygen Delivery Me thod Oxygen Flow Rate Fraction of Inspir ed Oxygen 04/03/24 06:00 04/03/24 07:00 04/03/24 07:00 Temperature Pulse Rate 107 H 101 H Pulse Rate [Left P ulse Oximeter] Pulse Rate [Right Pulse Oximeter] Respiratory Rate Blood Pressure Blood Pressure [Le ft Arm] Blood Pressure [Ri ght Arm] Pulse Oximetry 97 99 Oxygen Delivery Me thod Oxygen Flow Rate Fraction of Inspir ed Oxygen 04/03/24 07:00 04/03/24 07:00 04/03/24 08:15 Temperature 98.2 F Pulse Rate Pulse Rate [Left P ulse Oximeter] Pulse Rate [Right Pulse Oximeter] 115 H 120 H Respiratory Rate 20 20 Blood Pressure 187/99 H Blood Pressure [Le ft Arm] Blood Pressure [Ri ght Arm] 187/99 H Pulse Oximetry 99 Oxygen Delivery Me thod Room Air Oxygen Flow Rate Fraction of Inspir ed Oxygen 04/03/24 08:16 04/03/24 09:00 04/03/24 09:27 Temperature Pulse Rate 112 H 110 H 122 H Pulse Rate [Left P ulse Oximeter] Pulse Rate [Right Pulse Oximeter] Respiratory Rate Blood Pressure 162/87 H Blood Pressure [Le ft Arm] Blood Pressure [Ri ght Arm] Pulse Oximetry 99 98 99 Oxygen Delivery Me thod Oxygen Flow Rate Fraction of Inspir ed Oxygen 04/03/24 09:32 04/03/24 10:00 04/03/24 10:15 Temperature Pulse Rate 105 H 88 Pulse Rate [Left P ulse Oximeter] Pulse Rate [Right Pulse Oximeter] Respiratory Rate Blood Pressure Blood Pressure [Le ft Arm] 162/87 H Blood Pressure [Ri ght Arm] Pulse Oximetry 98 99 Oxygen Delivery Me thod Oxygen Flow Rate Fraction of Inspir ed Oxygen 04/03/24 10:30 04/03/24 11:53 04/03/24 12:00 Temperature 98.2 F Pulse Rate 89 92 98 Pulse Rate [Left P ulse Oximeter] Pulse Rate [Right Pulse Oximeter] Respiratory Rate 22 20 Blood Pressure 163/73 H 156/77 H Blood Pressure [Le ft Arm] Blood Pressure [Ri ght Arm] Pulse Oximetry 98 93 94 Oxygen Delivery Me thod Aerosol Mask Aerosol Mask Oxygen Flow Rate 10 10 Fraction of Inspir ed Oxygen 100 100 04/03/24 12:05 04/03/24 12:10 04/03/24 12:15 Temperature 98.3 F Pulse Rate 97 97 97 Pulse Rate [Left P ulse Oximeter] Pulse Rate [Right Pulse Oximeter] Respiratory Rate 20 18 18 Blood Pressure 152/71 H 148/70 H 153/78 H Blood Pressure [Le ft Arm] Blood Pressure [Ri ght Arm] Pulse Oximetry 93 95 94 Oxygen Delivery Me thod Aerosol Mask Aerosol Mask Room Air Oxygen Flow Rate 10 6 Fraction of Inspir ed Oxygen 100 100 04/03/24 12:20 04/03/24 12:25 04/03/24 12:30 Temperature Pulse Rate 99 97 97 Pulse Rate [Left P ulse Oximeter] Pulse Rate [Right Pulse Oximeter] Respiratory Rate 16 16 18 Blood Pressure 149/83 H 150/79 H 144/84 H Blood Pressure [Le ft Arm] Blood Pressure [Ri ght Arm] Pulse Oximetry 95 96 96 Oxygen Delivery Me thod Room Air Room Air Room Air Oxygen Flow Rate Fraction of Inspir ed Oxygen 04/03/24 12:38 04/03/24 12:45 04/03/24 12:48 Temperature 98.3 F 97.6 F Pulse Rate 96 95 93 Pulse Rate [Left P ulse Oximeter] Pulse Rate [Right Pulse Oximeter] Respiratory Rate 18 18 Blood Pressure 139/87 145/84 H Blood Pressure [Le ft Arm] Blood Pressure [Ri ght Arm] Pulse Oximetry 97 96 97 Oxygen Delivery Me thod Room Air Room Air Oxygen Flow Rate Fraction of Inspir ed Oxygen 04/03/24 12:49 04/03/24 12:50 04/03/24 13:00 Temperature 97.6 F Pulse Rate 93 94 94 Pulse Rate [Left P ulse Oximeter] Pulse Rate [Right Pulse Oximeter] Respiratory Rate 20 Blood Pressure 145/84 H 141/74 H 139/74 Blood Pressure [Le ft Arm] Blood Pressure [Ri ght Arm] Pulse Oximetry 97 97 97 Oxygen Delivery Me thod Room Air Oxygen Flow Rate Fraction of Inspir ed Oxygen 04/03/24 13:00 04/03/24 13:01 04/03/24 13:15 Temperature 97.6 F 97.7 F Pulse Rate 91 97 96 Pulse Rate [Left P ulse Oximeter] Pulse Rate [Right Pulse Oximeter] Respiratory Rate 20 22 Blood Pressure 139/74 139/74 134/78 Blood Pressure [Le ft Arm] Blood Pressure [Ri ght Arm] Pulse Oximetry 97 97 97 Oxygen Delivery Me thod Room Air Oxygen Flow Rate Fraction of Inspir ed Oxygen 04/03/24 13:15 04/03/24 13:16 04/03/24 13:30 Temperature 97.7 F Pulse Rate 94 98 101 H Pulse Rate [Left P ulse Oximeter] Pulse Rate [Right Pulse Oximeter] Respiratory Rate 22 20 Blood Pressure 134/78 156/81 H 156/81 H Blood Pressure [Le ft Arm] Blood Pressure [Ri ght Arm] Pulse Oximetry 100 100 99 Oxygen Delivery Me thod Oxygen Flow Rate Fraction of Inspir ed Oxygen 04/03/24 13:32 04/03/24 13:34 04/03/24 13:45 Temperature 97.5 F L Pulse Rate 97 96 93 Pulse Rate [Left P ulse Oximeter] Pulse Rate [Right Pulse Oximeter] Respiratory Rate 20 Blood Pressure 134/78 136/78 Blood Pressure [Le ft Arm] Blood Pressure [Ri ght Arm] Pulse Oximetry 97 97 99 Oxygen Delivery Me thod Room Air Oxygen Flow Rate 6 Fraction of Inspir ed Oxygen 100 04/03/24 14:15 04/03/24 14:30 04/03/24 15:00 Temperature 97.6 F Pulse Rate 92 98 90 Pulse Rate [Left P ulse Oximeter] Pulse Rate [Right Pulse Oximeter] Respiratory Rate 20 20 Blood Pressure 124/74 138/84 Blood Pressure [Le ft Arm] Blood Pressure [Ri ght Arm] Pulse Oximetry 99 99 Oxygen Delivery Me thod Room Air Room Air Oxygen Flow Rate Fraction of Inspir ed Oxygen 04/03/24 15:00 04/03/24 15:00 04/03/24 15:00 Temperature Pulse Rate Pulse Rate [Left P ulse Oximeter] Pulse Rate [Right Pulse Oximeter] 89 Respiratory Rate 20 20 Blood Pressure Blood Pressure [Le ft Arm] Blood Pressure [Ri ght Arm] Pulse Oximetry 99 99 Oxygen Delivery Me thod Room Air Oxygen Flow Rate Fraction of Inspir ed Oxygen 04/03/24 15:45 Temperature 97.9 F Pulse Rate 103 H Pulse Rate [Left P ulse Oximeter] Pulse Rate [Right Pulse Oximeter] Respiratory Rate 22 Blood Pressure 136/79 Blood Pressure [Le ft Arm] Blood Pressure [Ri ght Arm] Pulse Oximetry 99 Oxygen Delivery Me thod Room Air Oxygen Flow Rate Fraction of Inspir ed Oxygen Labs Labs: Laboratory Results - last 24 hr 04/02/24 04/03/24 04/03/24 20:50 01:30 05:25 WBC RBC Hgb Hct MCV MCH MCHC RDW Coeff of Tabatha Plt Count Neut % (Auto) Lymph % (Auto) [place] % (Auto) Eos % (Auto) Baso % (Auto) Neut # (Auto) Lymph # (Auto) [place] # (Auto) Eos # (Auto) Baso # (Auto) Abs Immat Gran (auto) Imm/Tot Granulo (auto) ABG pH 7.29 L 7.38 ABG pCO2 18 L* 20 L ABG pO2 108.0 H 118.0 H ABG HCO3 9 L 12 L ABG Total CO2 8 L 11 L ABG O2 Saturation 100 98 ABG Base Excess 15.8 H -11.5 L VBG pH Cancelled 7.382 VBG pCO2 Cancelled 21 L VBG pO2 Cancelled 128.0 H VBG HCO3 Cancelled 13 L Carboxyhemoglobin < 1.0 < 1.0 Sodium 137 138 139 Potassium 3.8 3.2 L 3.8 Chloride 116 H 114 114 Carbon Dioxide 7 L* 11 L 11 L Anion Gap 14 13 14 BUN 34 H 33 H 32 H Creatinine 0.9 0.9 0.9 Estimated Creat Clear 61.71 61.71 61.71 Estimated GFR 76 76 76 Glucose 228 H 203 H 133 H Calcium 9.3 9.2 9.4 Magnesium 1.4 L C-Reactive Protein Procalcitonin 04/03/24 08:28 WBC 14.59 H RBC 3.34 L Hgb 9.5 L Hct 29.8 L MCV 89 MCH 28 MCHC 32 RDW Coeff of Tabatha 13.9 Plt Count 418 Neut % (Auto) 80.9 H Lymph % (Auto) 8.6 L [place] % (Auto) 9.3 Eos % (Auto) 0.2 Baso % (Auto) 0.0 Neut # (Auto) 11.80 H Lymph # (Auto) 1.30 Pre[place] # (Auto) 1.40 H Eos # (Auto) 0.00 Baso # (Auto) 0.00 Abs Immat Gran (auto) 0.10 Imm/Tot Granulo (auto) 1.0 ABG pH ABG pCO2 ABG pO2 ABG HCO3 ABG Total CO2 ABG O2 Saturation ABG Base Excess VBG pH VBG pCO2 VBG pO2 VBG HCO3 Carboxyhemoglobin Sodium Potassium Chloride Carbon Dioxide Anion Gap BUN Creatinine Estimated Creat Clear Estimated GFR Glucose Calcium Magnesium C-Reactive Protein 15.9 H Procalcitonin 3.27 H
[2024-04-03] MEDS: INSULIN ASPART 100 UNIT/ML SUBCUT (17:03)
[2024-04-03] MEDS: CEFAZOLIN 2 GM in 0.9 % SODIUM CHLORIDE Mini-bag 100 ML IVPB (17:16)
[2024-04-03 17:38] LABS: Appearance Urine Slightly Cloudy (Clear); Bilirubin Urine Negative (Negative); Blood Urine Negative (Negative); Color Urine Yellow (Yellow); Glucose Urine Negative (Negative); Ketones Urine Negative (Negative); Leukocyte Esterase Urine Trace (Negative); Nitrite Urine Negative (Negative); Protein Urine Negative (Negative); Specific Gravity Urine 1.015 (1.000-1.030); Urobilinogen Urine 0.2 (0.2-1.0)
[2024-04-03 17:52] LABS: RBC Urine 0-2 (0-2); Squamous Epithelial Cell Urine Moderate (None-Few)
[2024-04-03] MEDS: ONDANSETRON 2 MG/ML inj 4 MG IVP (18:07)
--- NOTE | 2024-04-03 18:42 | PC.NURSE ---
End of shift [id number]: Pt has been A&O and afebrile throughout the day. Hypertensive in the morning but resolved after nuclear medicine supervisor and surgery recovery. She had a right elbow I&D done this morning and was off unit from [id number]. Surgical dressing is C/D/I with Wound vac intact on continuous suction @ 125 mmHg. PICC in [facility] is SL since pt was PO adequate. Receiving IV Ancef q8H in replacement of IV Cefepime q12H. Wound cultures prelim results are gram positive cocci. AM Mag 1.4; replaced with 1g IV prior to surgery. Pt blood sugar stabilized and ranging from 139 ? 228; first dose of Novolog 2 units given with evening meal. TELE read ST with occ. PVC?s throughout the day. Pt tolerating advanced diet with no nausea post-op. C/o right shoulder and elbow pain rating 4-6/10. Pt has been declining PRN narcotics for pain and only wanting PRN Tylenol and Ibuprofen. Intermittent ice pack on/off rotating between shoulder and elbow. Pt was transitioned to Med/Surg status at 1500. Mild nausea with dinner, PRN Zofran given @ 1805 along with a Quease patch with adequate relief. ?
[2024-04-03] MEDS: GLIMEPIRIDE 4 MG TABLET PO (20:27)
[2024-04-03] MEDS: QUETIAPINE 100 MG TABLET 200 MG PO (20:28)
[2024-04-03] MEDS: ATORVASTATIN 10 MG TABLET 20 MG PO (20:28)
[2024-04-03] MEDS: SODIUM CHLORIDE 0.9 % (FLUSH) 10 ML SYRINGE 5 ML IVF (20:30)
[2024-04-03] MEDS: LACTATED RINGERS 1000 ML 1,000 ML 125 ML IV (23:07)
[2024-04-04] MEDS: METOPROLOL TARTRATE 100 MG TABLET 200 MG PO ×2 (00:41→20:27)
[2024-04-04] MEDS: CEFAZOLIN 2 GM in 0.9 % SODIUM CHLORIDE Mini-bag 100 ML IVPB ×3 (00:42→16:43)
[2024-04-04] MEDS: IBUPROFEN 400 MG TABLET PO ×3 (00:45→20:26)
[2024-04-04 03:00] VITALS: BP 139/80; PULSE 101; RESP 18; TEMP 36.6; O2SAT 98
[2024-04-04] MEDS: ACETAMINOPHEN 325 MG TABLET PO ×2 (06:21→16:44)
[2024-04-04 07:00] VITALS: BP 134/78; PULSE 79; PULSE 82; RESP 18; TEMP 36.6; O2SAT 98
[2024-04-04] MEDS: LACTATED RINGERS 1000 ML 1,000 ML 125 ML IV ×2 (07:22→16:43)
--- NOTE | 2024-04-04 07:30 | PC.NURSE ---
-: pleasant and cooperative. Pt reports pain in her right elbow and shoulder, prn Tylenol and Ibuprofen given, Aqua K pad to right shoulder- pt reports pain relief. BP & HR elevated, updated, resumed home dose Metoprolol at HS, BP & HR improved. Right arm CMS intact. ?
[2024-04-04] MEDS: AMLODIPINE 10 MG TABLET PO (08:04)
[2024-04-04] MEDS: METOPROLOL TARTRATE 100 MG TABLET PO (08:04)
[2024-04-04] MEDS: ASPIRIN 81 MG TABLET EC PO (08:04)
[2024-04-04] MEDS: METFORMIN 500 MG TABLET PO (08:04)
[2024-04-04] MEDS: GLIMEPIRIDE 4 MG TABLET PO ×2 (08:04→20:43)
[2024-04-04] MEDS: PALIPERIDONE 9 MG PO (08:05)
[2024-04-04] MEDS: lamoTRIgine 100 MG TABLET 200 MG PO (08:05)
[2024-04-04] MEDS: Vortioxetine [Trintellix] 20 mg tablet PO (08:05)
[2024-04-04] MEDS: hydroCHLOROthiazide 25 MG TABLET PO (08:05)
[2024-04-04 09:00] LABS: Basophils Percent Auto 0.1 % (0.0-3.0); Eosinophils Percent Auto 0.4 % (0.0-7.0); Hematocrit 27.9 % (33.0-51.0); Hemoglobin* 8.9 gm/dL (12.0-16.0); Immature Granulocytes Pct Auto 0.8 %; Lymphocytes Percent Auto 10.5 % (20-44); Mean Corpuscular HGB Conc 32 gm/dL (32-36); Mean Corpuscular Hemoglobin 28 pg (26-34); Mean Corpuscular Volume 89 fL (80-100); Monocytes Percent Auto 8.9 % (0.0-11.0); Neutrophils Percent Auto 79.3 % (42.0-72.0); Platelet Count* 416 K/uL (140-440); RDW Coefficient of Variation % 14.4 % (11.5-15.5); Red Blood Count 3.13 m/uL (4.00-5.20); White Blood Count* 13.34 K/uL (4.50-11.00)
[2024-04-04 09:06] LABS: Slide Review Reflex No
[2024-04-04 09:13] LABS: Chloride* 113 mmol/L (96-114); Potassium* 3.8 mmol/L (3.6-5.1); Sodium* 139 mmol/L (135-149)
[2024-04-04 09:15] LABS: Creatinine* 0.9 mg/dL (0.5-1.5); Est. Creatinine Clearance* 61.71; Estimated Glomerular Filt Rate 76 ml/min
[2024-04-04 09:16] LABS: Anion Gap 11 mEq/L (7-15); Blood Urea Nitrogen* 31 mg/dL (7-30); Carbon Dioxide* 15 mmol/L (20-32)
[2024-04-04 09:17] LABS: Calcium* 9.3 mg/dL (8.4-10.6); Glucose* 125 mg/dL (60-115); Magnesium* 1.6 mg/dL (1.5-2.6)
[2024-04-04 09:20] VITALS: BMI 52.5
[2024-04-04 09:32] LABS: Procalcitonin* 1.93 ng/mL (<0.50)
[2024-04-04 09:38] LABS: C Reactive Protein* 17.6 mg/dL (0.5-1.0)
[2024-04-04 10:46] VITALS: BP 149/81; BP 162/97; BP 175/100; PULSE 100; PULSE 101; PULSE 91
[2024-04-04 11:00] VITALS: BP 137/74; PULSE 86; RESP 18; O2SAT 98
[2024-04-04 11:04] LABS: Uric Acid* 10.3 mg/dL (2.2-8.4)
[2024-04-04] MEDS: ONDANSETRON 2 MG/ML inj 4 MG IVP (11:50)
[2024-04-04 13:03] LABS: Beta-Hydroxybutyric Acid 20.4 mg/dL (0.0-3.0)
[2024-04-04 15:00] VITALS: BP 150/75; PULSE 96; PULSE 97; RESP 18; TEMP 36.6; O2SAT 96
--- NOTE | 2024-04-04 15:41 | P.IMPN_ITS ---
Progress Note: A&P Assessment and plan (1) Metabolic acidosis: Problem details: Hgb A1C was only 7.6% . lactate normal. mild hyperglycemia. No other symptoms to indicate adrenal insufficiency. -beta hydroxybuterate pending. - Metabolic acidosis is now compensated. Suspecting RTA. Will need further w/u for RTA. Urine PH on admission was 5.5, was 6 yesterday. All the other tests are send outs, some unavailable here. Will need further outpatient w/u. Status: Acute (2) Olecranon bursa abscess: Problem details: Xray shows soft tissue air and possible radial head fracture. CT: 1. No radial head fracture. Age-indeterminate coronoid process fracture. 2. Large complex fluid collection/abscess about the olecranon overlying skin defect/wound measuring approximately 6.4 x 2.3 x 3.9 cm. The collection contains abundant ill-defined hyperdense material, nonspecific. G+ cocci in wound cx. One of two is MSSA. BC no growth. Improving on ancef. Monitor for worsening and for wound cx results. Status: Acute (3) Type 2 diabetes mellitus: Problem details: last A1C was 6.5 in 03/16, A1C 6/8 was 7.6% on glimepiride, metformin - doesn't check sugars (these are now on hold) -gluc 120-220s. Continue levemir and continue ISS. May need to take off metformin indefinitely since she is at risk for acidosis. Status: Acute (4) Essential hypertension: Problem details: fair control. 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 Will need close f/u as outpatient. Status: Acute Subjective Time Seen by Provider: 09:40 Date Seen: 04/04/24 Interval history: Homa has dizziness with standing today. Her is in the room with her. We discussed HTN, sepsis, possible RTA and outpatient work up, tophaceous gout. She noted that her mother and maternal grandmother had severe gout, but she did not know about tophi. Exam Narrative: Exam Narrative: General: No acute distress. Awake, alert, oriented x3. No pallor. No jaundice. Obese. Oropharynx: Clear. Mucous membranes moist. Cardiovascular: Regular rate and rhythm. No murmurs, gallops, or rubs. Respiratory: Clear to auscultation bilaterally. No wheezes or crackles. Abdomen: Bowel sounds present. Soft, nondistended, nontender. Extremities: Right elbow is bandaged. Right hand has 3+ edema, unchanged from yesterday. Feet are tophaceous. Const: Vital Signs, click to edit/add: Vital Signs - 24 hr 04/03/24 15:45 04/03/24 16:45 04/03/24 17:45 Temperature 97.9 F 98.5 F 98 F Pulse Rate 103 H 98 104 H Pulse Rate [Right Pulse Oximeter] Pulse Rate [orthos tatic lying Left P ulse Oximeter] Pulse Rate [orthos tatic sitting Left Pulse Oximeter] Pulse Rate [orthos tatic standing Lef t Pulse Oximeter] Respiratory Rate 22 18 20 Blood Pressure 136/79 150/80 H 173/89 H Blood Pressure [Le ft Arm] Blood Pressure [or thostatic lying Le ft Arm] Blood Pressure [or thostatic sitting Left Arm] Blood Pressure [or thostatic standing Left Arm] Pulse Oximetry 99 99 99 Oxygen Delivery Me thod Room Air Room Air Room Air Oxygen Flow Rate 6 Fraction of Inspir ed Oxygen 100 04/03/24 18:40 04/03/24 19:00 04/03/24 23:00 Temperature 97.6 F 98 F 98.1 F Pulse Rate 103 H Pulse Rate [Right Pulse Oximeter] 116 H 123 H Pulse Rate [orthos tatic lying Left P ulse Oximeter] Pulse Rate [orthos tatic sitting Left Pulse Oximeter] Pulse Rate [orthos tatic standing Lef t Pulse Oximeter] Respiratory Rate 18 16 16 Blood Pressure 141/72 H Blood Pressure [Le ft Arm] 166/89 H 177/83 H Blood Pressure [or thostatic lying Le ft Arm] Blood Pressure [or thostatic sitting Left Arm] Blood Pressure [or thostatic standing Left Arm] Pulse Oximetry 96 99 99 Oxygen Delivery Me thod Room Air Room Air Room Air Oxygen Flow Rate Fraction of Inspir ed Oxygen 04/03/24 23:00 04/03/24 23:00 04/03/24 23:00 Temperature Pulse Rate 114 H Pulse Rate [Right Pulse Oximeter] 123 H Pulse Rate [orthos tatic lying Left P ulse Oximeter] Pulse Rate [orthos tatic sitting Left Pulse Oximeter] Pulse Rate [orthos tatic standing Lef t Pulse Oximeter] Respiratory Rate 16 Blood Pressure Blood Pressure [Le ft Arm] Blood Pressure [or thostatic lying Le ft Arm] Blood Pressure [or thostatic sitting Left Arm] Blood Pressure [or thostatic standing Left Arm] Pulse Oximetry 99 Oxygen Delivery Me thod Oxygen Flow Rate Fraction of Inspir ed Oxygen 04/03/24 23:00 04/04/24 03:00 04/04/24 07:00 Temperature 98 F Pulse Rate 79 Pulse Rate [Right Pulse Oximeter] 101 H Pulse Rate [orthos tatic lying Left P ulse Oximeter] Pulse Rate [orthos tatic sitting Left Pulse Oximeter] Pulse Rate [orthos tatic standing Lef t Pulse Oximeter] Respiratory Rate 16 18 Blood Pressure Blood Pressure [Le ft Arm] 139/80 Blood Pressure [or thostatic lying Le ft Arm] Blood Pressure [or thostatic sitting Left Arm] Blood Pressure [or thostatic standing Left Arm] Pulse Oximetry 99 98 Oxygen Delivery Me thod Room Air Room Air Oxygen Flow Rate Fraction of Inspir ed Oxygen 04/04/24 07:00 04/04/24 07:00 04/04/24 07:00 Temperature Pulse Rate Pulse Rate [Right Pulse Oximeter] 79 Pulse Rate [orthos tatic lying Left P ulse Oximeter] Pulse Rate [orthos tatic sitting Left Pulse Oximeter] Pulse Rate [orthos tatic standing Lef t Pulse Oximeter] Respiratory Rate 18 18 Blood Pressure Blood Pressure [Le ft Arm] Blood Pressure [or thostatic lying Le ft Arm] Blood Pressure [or thostatic sitting Left Arm] Blood Pressure [or thostatic standing Left Arm] Pulse Oximetry 98 98 Oxygen Delivery Me thod Room Air Oxygen Flow Rate Fraction of Inspir ed Oxygen 04/04/24 07:00 04/04/24 10:46 04/04/24 11:00 Temperature 97.8 F Pulse Rate Pulse Rate [Right Pulse Oximeter] 82 86 Pulse Rate [orthos tatic lying Left P ulse Oximeter] 91 Pulse Rate [orthos tatic sitting Left Pulse Oximeter] 100 Pulse Rate [orthos tatic standing Lef t Pulse Oximeter] 101 H Respiratory Rate 18 18 Blood Pressure Blood Pressure [Le ft Arm] 134/78 137/74 Blood Pressure [or thostatic lying Le ft Arm] 149/81 H Blood Pressure [or thostatic sitting Left Arm] 162/97 H Blood Pressure [or thostatic standing Left Arm] 175/100 H Pulse Oximetry 98 98 Oxygen Delivery Me thod Room Air Room Air Oxygen Flow Rate Fraction of Inspir ed Oxygen Labs Labs: Laboratory Results - last 24 hr 04/01/24 04/03/24 04/04/24 20:00 Unknown 08:45 WBC 13.34 H RBC 3.13 L Hgb 8.9 L Hct 27.9 L MCV 89 MCH 28 MCHC 32 RDW Coeff of [place]atha 14.4 Plt Count 416 Neut % (Auto) 79.3 H Lymph % (Auto) 10.[address] [place] % (Auto) 8.9 Eos % (Auto) 0.4 Baso % (Auto) 0.1 Neut # (Auto) 10.60 H Lymph # (Auto) 1.40 [place] # (Auto) 1.20 H Eos # (Auto) 0.10 Baso # (Auto) 0.00 Abs Immat Gran (auto) 0.10 Imm/Tot Granulo (auto) 0.8 Sodium 139 Potassium 3.8 Chloride 113 Carbon Dioxide 15 L Anion Gap 11 BUN 31 H Creatinine 0.9 Estimated Creat Clear 61.71 Estimated GFR 76 Glucose 125 H Uric Acid 10.3 H Calcium 9.3 Magnesium 1.6 C-Reactive Protein 17.6 H Beta-Hydroxybutyric Acd 20.4 H Procalcitonin 1.93 H Urine Color Yellow Urine Appearance Slightly Cloudy A Urine pH 6.0 Ur Specific [place] 1.015 Urine Protein Negative Urine Glucose (UA) Negative Urine Ketones Negative Urine Blood Negative Urine Nitrite Negative Urine Bilirubin Negative Urine Urobilinogen 0.2 Ur Leukocyte Esterase Trace A Urine RBC 0-2 Urine WBC 5-10 A Ur Squamous Epith Cells Moderate A Urine Bacteria None Lab Acknowledgement 04/04/24 10:49 WBC RBC Hgb Hct MCV MCH MCHC RDW Coeff of [place]atha Plt Count Neut % (Auto) Lymph % (Auto) [place] % (Auto) Eos % (Auto) Baso % (Auto) Neut # (Auto) Lymph # (Auto) [place] # (Auto) Eos # (Auto) Baso # (Auto) Abs Immat Gran (auto) Imm/Tot Granulo (auto) Sodium Potassium Chloride Carbon Dioxide Anion Gap BUN Creatinine Estimated Creat Clear Estimated GFR Glucose Uric Acid Calcium Magnesium C-Reactive Protein Beta-Hydroxybutyric Acd Procalcitonin Urine Color Urine Appearance Urine pH Ur Specific [place] Urine Protein Urine Glucose (UA) Urine Ketones Urine Blood Urine Nitrite Urine Bilirubin Urine Urobilinogen Ur Leukocyte Esterase Urine RBC Urine WBC Ur Squamous Epith Cells Urine Bacteria Lab Acknowledgement Test Added
--- NOTE | 2024-04-04 18:49 | PC.NURSE ---
End of shift [id number]: Pt has been A&O, afebrile and VSS. She is Ax1 to [facility] d/t intermittent dizziness when standing. Orthostatic BP checked with results being unremarkable, MD aware with no new orders. She?s had LR infusing 125 mL/hr through LUE PICC line. Right arm dressing C/D/I and Wound Vac intact at 125 mmHg with < 50 mL sanguinous drainage in canister. She had mild nausea earlier this aftenoon which resolved quickly after PRN IV Zofran @ 1150; no complaints since. Blood sugars have been 118 > 126 > 69 (given juice & dinner) > recheck 75 after juice. TELE reads SR with occasional PVC?s rate in the 70s-80s bpm. Pt reports pain in right shoulder and right arm rating 4-6/10. She states the Aqua-K pad along with PRN Ibuprofen and Tylenol provide adequate relief. Ibuprofen last given @ 1315 and Tylenol last given @ 1645. ?
[2024-04-04 19:00] VITALS: BP 171/81; PULSE 100; RESP 18; TEMP 37; O2SAT 99
[2024-04-04] MEDS: ATORVASTATIN 10 MG TABLET 20 MG PO (20:27)
[2024-04-04] MEDS: QUETIAPINE 100 MG TABLET 200 MG PO (20:42)
[2024-04-05] VITALS (8 sets, daily range): BP systolic 140–169; BP diastolic 68–89; PULSE 68–97; RESP 18–20; TEMP 36.4–37.2; O2SAT 96–98; BMI 52.9
[2024-04-05] MEDS: LACTATED RINGERS 1000 ML 1,000 ML 125 ML IV ×2 (01:08→09:40)
[2024-04-05] MEDS: CEFAZOLIN 2 GM in 0.9 % SODIUM CHLORIDE Mini-bag 100 ML IVPB ×3 (01:09→17:43)
[2024-04-05] MEDS: DEXTROSE 50 % SYRINGE IVP (06:01)
[2024-04-05] MEDS: IBUPROFEN 400 MG TABLET PO ×2 (06:37→17:30)
[2024-04-05 07:38] LABS: Basophils Percent Auto 0.1 % (0.0-3.0); Eosinophils Percent Auto 0.9 % (0.0-7.0); Hemoglobin* 9.3 gm/dL (12.0-16.0); Immature Granulocytes Pct Auto 0.8 %; Lymphocytes Percent Auto 9.8 % (20-44); Mean Corpuscular HGB Conc 32 gm/dL (32-36); Mean Corpuscular Hemoglobin 28 pg (26-34); Mean Corpuscular Volume 89 fL (80-100); Monocytes Percent Auto 8.2 % (0.0-11.0); Neutrophils Percent Auto 80.2 % (42.0-72.0); Platelet Count* 430 K/uL (140-440); RDW Coefficient of Variation % 14.3 % (11.5-15.5); Red Blood Count 3.27 m/uL (4.00-5.20); White Blood Count* 11.54 K/uL (4.50-11.00)
[2024-04-05 07:54] LABS: Chloride* 109 mmol/L (96-114); Potassium* 3.4 mmol/L (3.6-5.1); Sodium* 135 mmol/L (135-149)
[2024-04-05 07:57] LABS: Anion Gap 10 mEq/L (7-15); Blood Urea Nitrogen* 29 mg/dL (7-30); Carbon Dioxide* 16 mmol/L (20-32); Creatinine* 0.9 mg/dL (0.5-1.5); Est. Creatinine Clearance* 61.71; Estimated Glomerular Filt Rate 76 ml/min; Glucose* 176 mg/dL (60-115)
[2024-04-05 08:08] LABS: Slide Review Reflex No
[2024-04-05] MEDS: METFORMIN 500 MG TABLET PO (08:24)
[2024-04-05] MEDS: AMLODIPINE 10 MG TABLET PO (08:24)
[2024-04-05] MEDS: ASPIRIN 81 MG TABLET EC PO (08:24)
[2024-04-05] MEDS: hydroCHLOROthiazide 25 MG TABLET PO (08:24)
[2024-04-05] MEDS: lamoTRIgine 100 MG TABLET 200 MG PO (08:25)
[2024-04-05] MEDS: METOPROLOL TARTRATE 100 MG TABLET PO (08:25)
[2024-04-05] MEDS: GLIMEPIRIDE 4 MG TABLET PO ×2 (08:26→21:51)
[2024-04-05] MEDS: PALIPERIDONE 9 MG PO (08:28)
[2024-04-05] MEDS: Vortioxetine [Trintellix] 20 mg tablet PO (08:33)
[2024-04-05] MEDS: SODIUM CHLORIDE 0.9 % (FLUSH) 10 ML SYRINGE 5 ML IVF (08:33)
[2024-04-05] MEDS: ACETAMINOPHEN 325 MG TABLET PO (09:39)
--- NOTE | 2024-04-05 11:33 | PM.IMPN1 ---
Progress Note: A&P Assessment and plan (1) Metabolic acidosis: Problem details: Serum CO2 was 8 on admission, pH 7.24, pCO2 20, PO2 65, HC03 8 Hgb A1C was only 7.6% . lactate normal. mild hyperglycemia. No other symptoms to indicate adrenal insufficiency. -beta hydroxybuterate 20.4 -Metabolic acidosis is now compensated, pH 7.38 to, pCO2 21, HC03 13. Serum CO2 continues to trend up -Suspecting RTA. Will need further w/u for RTA. Urine PH on admission was 5.5, was 6 yesterday. All the other tests are send outs, some unavailable here. Will need further outpatient w/u Status: Acute (2) Olecranon bursa abscess: Problem details: Xray shows soft tissue air and possible radial head fracture. CT: 1. No radial head fracture. Age-indeterminate coronoid process fracture. 2. Large complex fluid collection/abscess about the olecranon overlying skin defect/wound measuring approximately 6.4 x 2.3 x 3.9 cm. The collection contains abundant ill-defined hyperdense material, nonspecific. G+ cocci in chains in wound cx (04/03). Abscess culture (04/01) growing Strep agalactiae, staph aureus. Sensitivities reviewed with pharmacy. BC no growth. Improving on ancef - will continue Monitor for worsening and for finalization of wound cx results Status: Acute (3) Type 2 diabetes mellitus: Problem details: last A1C was 6.5 in 02/2023, A1C on 04/01 was 7.6% Patient discontinued glimepiride on her own in 2022 without PCP consent, has continued on metformin, does not check blood sugars at home, insulin naive Continued on glimepiride. Metformin now held as of 04/05 -gluc 120-220s. Continue levemir and continue ISS. May need to take off metformin indefinitely since she is at risk for acidosis. 04/05: Glucose overnight 69-42. Responded to dextrose. Discontined levemir. Will hold ISS. Continue glimepiride. Continue glucose checks ACHS. Hypoglycemia protocol Status: Acute (4) Essential hypertension: Problem details: fair control. continue home meds: Norvasc 10, Lopressor 100 qam and 200 qpm, Hctz 25 04/05: additional meto Status: Acute (5) Bipolar 1 disorder: Problem details: psych med regimen: Trintellix, Seroquel, Invega, Lamictal, Lunesta Status: Chronic (6) Severe anxiety: Status: Chronic (7) Schizoaffective disorder: Status: Chronic (8) Hyperparathyroidism: Problem details: last PTH was 122, calcium 11 in 03/16 Status: Chronic (9) Tophaceous gout: Problem details: - Uric acid level elevated, consider starting allopurinol as her condition improves. Will need close f/u as outpatient. Status: Acute (10) Hypokalemia: Problem details: Potassium 3.4, will replace with 2 doses oral supplement, recheck in a.m. Status: Acute (11) Anemia: Problem details: Hemoglobin 9.3 - 8.9- 9.5- 10- 10.7 Review of EMR does not show previous hemoglobin levels Postoperatively, IVF have been stopped now, continue monitor Status: Acute Time Spent With Patient Total time spent: Total time spent caring for the patient today was 45 minutes. This includes time spent for the visit reviewing the chart, time spent during the visit, time spent after the visit and documentation and planning in coordination of care. Subjective Date Seen: 04/05/24 Interval history: Patient seen with at bedside this morning. Reports feeling better. Still having some discomfort in the right upper extremity following procedure on 04/03/2024. Pain is managed with Tylenol, ice. Continues on IV cefazolin, pending finalization of cultures. Tolerating orals without nausea vomiting. Noted to have a glucose of 69 last night and 42 this morning. Has never used insulin in the past. Overall, generalized weakness slowly improving. Has stairs to get in to home, sounds like a split-level, and is concerned about being able to do those safely. Exam Narrative: Exam Narrative: PHYSICAL EXAM General: Pleasant, conversant, NAD HEENT: Normocephalic, atraumatic, sclera white, EOMI, oral mucosa moist Cardiovascular: RRR, S1S2. No pitting edema Pulmonary: CTA bilaterally without rhonchi, rales, expiratory wheezes. No dyspnea Neurological: Alert, answering questions appropriately, cranial nerves intact, no focal findings Extremities: Postoperative dressing in place, dry, no drainage. Neurovascularly intact Skin: Warm, dry. Const: Vital Signs, click to edit/add: Vital Signs - 24 hr 04/04/24 15:00 04/04/24 15:00 04/04/24 15:00 Temperature Pulse Rate 96 Pulse Rate [Right Pulse Oximeter] 97 Respiratory Rate 18 Blood Pressure [Le ft Arm] Pulse Oximetry 96 Oxygen Delivery Me thod Oxygen Flow Rate Fraction of Inspir ed Oxygen 04/04/24 15:00 04/04/24 15:00 04/04/24 19:00 Temperature 97.8 F 98.6 F Pulse Rate Pulse Rate [Right Pulse Oximeter] 97 100 Respiratory Rate 18 18 18 Blood Pressure [Le ft Arm] 150/75 H 171/81 H Pulse Oximetry 96 96 99 Oxygen Delivery Me thod Room Air Room Air Room Air Oxygen Flow Rate Fraction of Inspir ed Oxygen 04/05/24 01:15 04/05/24 01:15 04/05/24 01:15 Temperature Pulse Rate 70 Pulse Rate [Right Pulse Oximeter] 70 Respiratory Rate 18 Blood Pressure [Le ft Arm] Pulse Oximetry 96 Oxygen Delivery Me thod Oxygen Flow Rate Fraction of Inspir ed Oxygen 04/05/24 01:15 04/05/24 01:15 04/05/24 03:00 Temperature 97.8 F Pulse Rate Pulse Rate [Right Pulse Oximeter] 70 68 Respiratory Rate 20 20 18 Blood Pressure [Le ft Arm] 140/77 H Pulse Oximetry 96 96 Oxygen Delivery Me thod Room Air Room Air Room Air Oxygen Flow Rate Fraction of Inspir ed Oxygen 04/05/24 07:00 04/05/24 07:00 04/05/24 07:00 Temperature Pulse Rate Pulse Rate [Right Pulse Oximeter] 91 Respiratory Rate 18 18 Blood Pressure [Le ft Arm] Pulse Oximetry 98 98 Oxygen Delivery Me thod Room Air Oxygen Flow Rate 6 Fraction of Inspir ed Oxygen 100 04/05/24 07:00 Temperature 97.8 F Pulse Rate Pulse Rate [Right Pulse Oximeter] 91 Respiratory Rate 18 Blood Pressure [Le ft Arm] 157/70 H Pulse Oximetry 98 Oxygen Delivery Me thod Room Air Oxygen Flow Rate 6 Fraction of Inspir ed Oxygen 100 Labs Labs: Laboratory Results - last 24 hr 04/01/24 04/05/24 20:00 07:25 WBC 11.54 H RBC 3.27 L Hgb 9.3 L Hct 29.0 L MCV 89 MCH 28 MCHC 32 RDW Coeff of [place]atha 14.3 Plt Count 430 Neut % (Auto) 80.2 H Lymph % (Auto) 9.8 L [place] % (Auto) 8.2 Eos % (Auto) 0.9 Baso % (Auto) 0.1 Neut # (Auto) 9.30 H Lymph # (Auto) 1.10 [place] # (Auto) 0.90 Eos # (Auto) 0.10 Baso # (Auto) 0.00 Abs Immat Gran (auto) 0.10 Imm/Tot Granulo (auto) 0.8 Sodium 135 Potassium 3.4 L Chloride 109 Carbon Dioxide 16 L Anion Gap 10 BUN 29 Creatinine 0.9 Estimated Creat Clear 61.71 Estimated GFR 76 Glucose 176 H Calcium 9.0 Beta-Hydroxybutyric Acd 20.4 H
[2024-04-05] MEDS: POTASSIUM CHLORIDE 10 MEQ CAPSULE ER 40 MEQ PO (14:00)
[2024-04-05] MEDS: ACETAMINOPHEN 500 MG TABLET 1000 MG PO ×2 (14:03→21:50)
--- NOTE | 2024-04-05 15:41 | PC.NURSE ---
End of shift: Patient is pleasant and cooperative. Pt reports pain in her right elbow and shoulder, prn Tylenol and Ibuprofen given, Aqua K pad to right shoulder, patient stated it is helping with the pain. Right arm CMS intact. Patient ambulating to BR with SBA and tolerating activity well.
[2024-04-05] MEDS: QUETIAPINE 100 MG TABLET 200 MG PO (21:50)
[2024-04-05] MEDS: ATORVASTATIN 10 MG TABLET 20 MG PO (21:50)
[2024-04-05] MEDS: METOPROLOL TARTRATE 100 MG TABLET 200 MG PO (21:59)
--- NOTE | 2024-04-05 23:20 | PC.NURSE ---
Shift note 15-23: Pt friendly and cooperative. Significant non pitting-edema noted on right hand during initial assessment. Fluids dc'd and right arm elevated as tolerated. Rates pain 1-3/10. Ambulating to BR and back with walker and assist x1. Strongly encouraging IS, pt has been able to make 2500. Wound vac intact and in place with minimal bloody drainage in cartridge.
[2024-04-06] VITALS (11 sets, daily range): BP systolic 140–188; BP diastolic 75–95; PULSE 85–124; RESP 16–20; TEMP 36.6–39; O2SAT 94–98
[2024-04-06] MEDS: CEFAZOLIN 2 GM in 0.9 % SODIUM CHLORIDE Mini-bag 100 ML IVPB ×3 (01:27→17:30)
[2024-04-06] MEDS: ACETAMINOPHEN 500 MG TABLET 1000 MG PO ×2 (03:36→22:39)
[2024-04-06] MEDS: IBUPROFEN 400 MG TABLET PO (05:12)
[2024-04-06] MEDS: OXYCODONE 5 MG TABLET PO ×2 (05:51→13:42)
[2024-04-06 06:58] LABS: Hematocrit 25.1 % (33.0-51.0); Hemoglobin* 8.1 gm/dL (12.0-16.0); Mean Corpuscular HGB Conc 32 gm/dL (32-36); Mean Corpuscular Hemoglobin 29 pg (26-34); Mean Corpuscular Volume 88 fL (80-100); Platelet Count* 457 K/uL (140-440); Red Blood Count 2.84 m/uL (4.00-5.20); White Blood Count* 14.87 K/uL (4.50-11.00)
[2024-04-06 07:00] LABS: Slide Review Reflex No
--- NOTE | 2024-04-06 07:04 | PC.NURSE ---
End of shift [id number]: Alert and oriented x 4.? Pain to right shoulder and elbow well managed with positioning and use of aqua-k pad.?? Wound vac intact to right elbow, draining sanguineous drainage.? BLE non pitting edema, right hand edema, encouraged patient to elevate lower and right upper extremity.? PICC to left upper arm intact, patent and asymptomatic?
[2024-04-06 07:08] LABS: Chloride* 111 mmol/L (96-114); Potassium* 3.6 mmol/L (3.6-5.1); Sodium* 136 mmol/L (135-149)
[2024-04-06 07:11] LABS: Anion Gap 6 mEq/L (7-15); Blood Urea Nitrogen* 27 mg/dL (7-30); Calcium* 9.2 mg/dL (8.4-10.6); Carbon Dioxide* 19 mmol/L (20-32); Creatinine* 0.9 mg/dL (0.5-1.5); Est. Creatinine Clearance* 61.71; Estimated Glomerular Filt Rate 76 ml/min; Glucose* 70 mg/dL (60-115)
[2024-04-06] MEDS: POTASSIUM CHLORIDE 10 MEQ CAPSULE ER 40 MEQ PO (08:15)
[2024-04-06] MEDS: ASPIRIN 81 MG TABLET EC PO (08:15)
[2024-04-06] MEDS: METOPROLOL TARTRATE 100 MG TABLET PO (08:16)
[2024-04-06] MEDS: AMLODIPINE 10 MG TABLET PO (08:16)
[2024-04-06] MEDS: Vortioxetine [Trintellix] 20 mg tablet PO (08:16)
[2024-04-06] MEDS: GLIMEPIRIDE 4 MG TABLET PO ×2 (08:16→21:08)
[2024-04-06] MEDS: hydroCHLOROthiazide 25 MG TABLET PO (08:16)
[2024-04-06] MEDS: lamoTRIgine 100 MG TABLET 200 MG PO (08:16)
[2024-04-06] MEDS: PALIPERIDONE 9 MG PO (08:17)
--- NOTE | 2024-04-06 11:54 | PM.IMPN1 ---
Progress Note: A&P Assessment and plan (1) Metabolic acidosis: Problem details: On admission, serum CO2 was 8 on admission, pH 7.24, pCO2 20, PO2 65, HC03 8 Hgb A1C 7.6% . lactate normal. mild hyperglycemia. No other symptoms to indicate adrenal insufficiency. -beta hydroxybuterate 20.4 -Metabolic acidosis is now compensated, pH 7.38 to, pCO2 21, HC03 13. Serum CO2 continues to trend up -Suspecting RTA. Will need further w/u for RTA. Urine PH on admission was 5.5, was 6 yesterday. All the other tests are send outs, some unavailable here. Will need further outpatient w/u. Hgb on 04/06 is 8.1 Status: Acute (2) Olecranon bursa abscess: Problem details: Xray shows soft tissue air and possible radial head fracture. CT: 1. No radial head fracture. Age-indeterminate coronoid process fracture. 2. Large complex fluid collection/abscess about the olecranon overlying skin defect/wound measuring approximately 6.4 x 2.3 x 3.9 cm. The collection contains abundant ill-defined hyperdense material, nonspecific. G+ cocci in chains in wound cx (04/03). Abscess culture (04/01) growing Strep agalactiae, staph aureus. Sensitivities reviewed with pharmacy. BC no growth. Improving on ancef - will continue Monitor for worsening and for finalization of wound cx results 04/06: WBC noted to be trending up. Remains afebrile. Wound vac in place with appropriate sanguinous drainage. To be cautious, will start vancomycin, as noted sensitivity from culture on 04/01 Status: Acute (3) Type 2 diabetes mellitus: Problem details: last A1C was 6.5 in 02/2023, A1C on 04/01 was 7.6% Patient discontinued glimepiride on her own in 2022 without PCP consent, has continued on metformin, does not check blood sugars at home, insulin naive Continued on glimepiride. Metformin now held as of 04/05 -gluc 120-220s. Continue levemir and continue ISS. May need to take off metformin indefinitely since she is at risk for acidosis. 04/05: Glucose overnight 69-42. Responded to dextrose. Discontined levemir. Will hold ISS. Continue glimepiride. Continue glucose checks ACHS. Hypoglycemia protocol 04/06: Hypoglycemia, 62, again this morning. No insulin since 04/04. Metformin held. Encouraged protein snack at bedtime. Continue to monitor Status: Acute (4) Essential hypertension: Problem details: fair control. continue home meds: Norvasc 10, Lopressor 100 qam and 200 qpm, Hctz 25 Status: Acute (5) Bipolar 1 disorder: Problem details: psych med regimen: Trintellix, Seroquel, Invega, Lamictal, Lunesta Status: Chronic (6) Severe anxiety: Problem details: noted Status: Chronic (7) Schizoaffective disorder: Problem details: noted Status: Chronic (8) Hyperparathyroidism: Problem details: last PTH was 122, calcium 11 in 03/16 Status: Chronic (9) Tophaceous gout: Problem details: - Uric acid level elevated, consider starting allopurinol as her condition improves. Will need close f/u as outpatient. Status: Acute (10) Hypokalemia: Problem details: Potassium 3.4, will replace with 2 doses oral supplement, recheck 3.6, continue to monitor Status: Acute (11) Anemia: Problem details: Hemoglobin 9.3 - 8.9- 9.5- 10- 10.7 Review of EMR does not show previous hemoglobin levels Postoperatively, IVF have been stopped now, continue monitor 04/06: hgb 8.1. No obvious signs bleeding (also post menopausal). On baby asa daily. ?hemolysis in setting of recent metabolic acidosis. FOBT ordered. Recheck in am as discussed with patient Status: Acute Time Spent With Patient Total time spent: Total time spent caring for the patient today was 45 minutes. This includes time spent for the visit reviewing the chart, time spent during the visit, time spent after the visit and documentation and planning in coordination of care. Subjective Date Seen: 04/06/24 Interval history: Patient is seen with at bedside again this morning. Continues to improve. Feeling better. Sleepy this morning after receiving oxycodone. Pain improving. Blood sugar again this morning was low at 63. Has not received insulin since 04/04/2024. Metformin was held yesterday. Does not normally have a snack before bedtime. Has remained afebrile. Vitally stable. Mild bump in WBC noted. Hemoglobin trended down to 8.1. Only on a daily baby aspirin. IVF discontinued yesterday. Denies occult signs of bleeding. Denies history of anemia. Questioning renal tubular acidosis on admission. Exam Narrative: Exam Narrative: PHYSICAL EXAM General: Pleasant, conversant, NAD HEENT: Normocephalic, atraumatic, sclera white, EOMI, oral mucosa moist Cardiovascular: RRR, S1S2. No pitting edema Pulmonary: CTA bilaterally without rhonchi, rales, expiratory wheezes. No dyspnea Neurological: Alert, answering questions appropriately, cranial nerves intact, no focal findings Extremities: Postoperative dressing in place, dry, no drainage. Appropriate sanguinous drainage noted in vac. Neurovascularly intact Skin: Warm, dry. Const: Vital Signs, click to edit/add: Vital Signs - 24 hr 04/05/24 15:00 04/05/24 15:00 04/05/24 15:00 Temperature Pulse Rate Pulse Rate [Right Pulse Oximeter] 78 Respiratory Rate 18 18 Blood Pressure [Le ft Arm] Pulse Oximetry 97 98 Oxygen Delivery Ga thod Room Air 04/05/24 15:00 04/05/24 15:49 04/05/24 19:00 Temperature 98.8 F 97.6 F Pulse Rate 78 Pulse Rate [Right Pulse Oximeter] 97 96 Respiratory Rate 18 18 Blood Pressure [Le ft Arm] 169/77 H 153/68 H Pulse Oximetry 98 96 Oxygen Delivery Ga thod Room Air Room Air 04/05/24 23:00 04/05/24 23:00 04/05/24 23:00 Temperature Pulse Rate 87 Pulse Rate [Right Pulse Oximeter] 87 Respiratory Rate 18 Blood Pressure [Le ft Arm] Pulse Oximetry 97 Oxygen Delivery Me thod 04/05/24 23:00 04/05/24 23:00 04/06/24 03:00 Temperature 98.9 F 97.8 F Pulse Rate Pulse Rate [Right Pulse Oximeter] 92 92 Respiratory Rate 18 16 Blood Pressure [Le ft Arm] 148/89 H 146/78 H Pulse Oximetry 96 97 97 Oxygen Delivery Ga thod Room Air Room Air Room Air 04/06/24 08:11 04/06/24 08:30 04/06/24 10:59 Temperature 98.2 F 98.6 F Pulse Rate Pulse Rate [Right Pulse Oximeter] 93 93 Respiratory Rate 20 18 18 Blood Pressure [Le ft Arm] 174/88 H 144/78 H Pulse Oximetry 98 97 97 Oxygen Delivery Me thod Room Air Room Air Room Air Labs Labs: Laboratory Results - last 24 hr 04/06/24 06:20 WBC 14.87 H RBC 2.84 L Hgb 8.1 L Hct 25.1 L MCV 88 MCH 29 MCHC 32 Plt Count 457 H Sodium 136 Potassium 3.6 Chloride 111 Carbon Dioxide 19 L Anion Gap 6 L BUN 27 Creatinine 0.9 Estimated Creat Clear 61.71 Estimated GFR 76 Glucose 70 Calcium 9.2
--- NOTE | 2024-04-06 19:22 | PC.NURSE ---
End of Shift: The patient is pleasant, alert and orientated although quite drowsy throughout the day. BG this AM was noted to be lower @63. Snack given, recheck 89... BG stable the rest of the day. Moderate pain in R shoulder with PRN Oxy. R arm is elevated on 2 pillows throughout the day... Wound vac is @ 125 continuous.. 50cc out today. Family visited today. IV abx continues. Calls appropriate. SBA with quad cane. YAQUELIN PICC double Lumen. Crystal MARTINEZ BSN
[2024-04-06] MEDS: ATORVASTATIN 10 MG TABLET 20 MG PO (21:08)
[2024-04-06] MEDS: METOPROLOL TARTRATE 100 MG TABLET 200 MG PO (21:08)
[2024-04-06] MEDS: SODIUM CHLORIDE 0.9 % (FLUSH) 10 ML SYRINGE 5 ML IVF (21:10)
[2024-04-06] MEDS: QUETIAPINE 100 MG TABLET 200 MG PO (21:10)
[2024-04-07] VITALS (8 sets, daily range): BP systolic 141–175; BP diastolic 74–81; PULSE 91–120; RESP 18–20; TEMP 36.6–37.5; O2SAT 94–98
[2024-04-07] MEDS: ERTAPENEM 1 GM in 0.9 % SODIUM CHLORIDE Mini-bag 100 ML IVPB (01:12)
[2024-04-07] MEDS: CEFAZOLIN 2 GM in 0.9 % SODIUM CHLORIDE Mini-bag 100 ML IVPB ×3 (01:13→18:32)
[2024-04-07 02:04] LABS: Appearance Urine Clear (Clear); Bilirubin Urine Negative (Negative); Blood Urine Negative (Negative); Color Urine Yellow (Yellow); Glucose Urine Negative (Negative); Ketones Urine Negative (Negative); Leukocyte Esterase Urine Negative (Negative); Nitrite Urine Negative (Negative); Protein Urine Negative (Negative); Specific Gravity Urine 1.015 (1.000-1.030); Urobilinogen Urine 0.2 (0.2-1.0)
--- NOTE | 2024-04-07 05:25 | PC.NURSE ---
[id number] Pt slept in recliner during night, approx 2240 pt temp 102.2, tylenol administered and md updated, new orders received, 40 min temp recheck 101.9 and approx 0220 vitals temp 98.9. denies N/V, denies new pain, continues to say pain to R shoulder and elbow. denies N/V
[2024-04-07 06:46] LABS: Hematocrit 27.7 % (33.0-51.0); Hemoglobin* 8.9 gm/dL (12.0-16.0); Mean Corpuscular HGB Conc 32 gm/dL (32-36); Mean Corpuscular Hemoglobin 28 pg (26-34); Mean Corpuscular Volume 88 fL (80-100); Platelet Count* 498 K/uL (140-440); Red Blood Count 3.14 m/uL (4.00-5.20); White Blood Count* 18.93 K/uL (4.50-11.00)
[2024-04-07 07:10] LABS: Slide Review Reflex No
[2024-04-07 07:16] LABS: Chloride* 110 mmol/L (96-114); Potassium* 3.6 mmol/L (3.6-5.1); Sodium* 137 mmol/L (135-149)
[2024-04-07 07:19] LABS: Anion Gap 10 mEq/L (7-15); Blood Urea Nitrogen* 25 mg/dL (7-30); Carbon Dioxide* 17 mmol/L (20-32); Creatinine* 0.9 mg/dL (0.5-1.5); Est. Creatinine Clearance* 61.71; Estimated Glomerular Filt Rate 76 ml/min
[2024-04-07 07:20] LABS: Calcium* 9.3 mg/dL (8.4-10.6); Glucose* 70 mg/dL (60-115)
--- NOTE | 2024-04-07 08:29 | P.IMPN_ITS ---
Progress Note: A&P Assessment and plan (1) Olecranon bursa abscess: 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 No osteomyelitis - Trend fever, WBC, r/o other source of infection (UA, CXR ordered) Status: Acute (2) Metabolic acidosis: Problem details: On admission, serum CO2 was 8 on admission, pH 7.24, pCO2 20, PO2 65, HC03 8 Hgb A1C 7.6% . lactate normal. mild hyperglycemia. No other symptoms to indicate adrenal insufficiency. -beta hydroxybuterate 20.4 (indicating DKA and likely underlying RTA) -Metabolic acidosis is now compensated, pH 7.38 to, pCO2 21, HC03 13. Serum CO2 continues to trend up -Suspecting RTA. Will need further w/u for RTA. Urine PH on admission was 5.5, was 6 yesterday. All the other tests are send outs, some unavailable here. Will need further outpatient w/u. Hgb on 04/06 is 8.1 Status: Acute (3) Type 2 diabetes mellitus: Problem details: last A1C was 6.5 in 02/2023, A1C on 04/01 was 7.6% Patient discontinued glimepiride on her own in 2022 without PCP consent, has continued on metformin, does not check blood sugars at home, insulin naive Continued on glimepiride. Metformin now held as of 04/05 -gluc 120-220s. Continue levemir and continue ISS. May need to take off metformin indefinitely since she is at risk for acidosis. 04/05: Glucose overnight 69-42. Responded to dextrose. Discontined levemir. Will hold ISS. Continue glimepiride. Continue glucose checks ACHS. Hypoglycemia protocol 04/06: Hypoglycemia, 62, again this morning. No insulin since 04/04. Metformin held. Encouraged protein snack at bedtime. Continue to monitor 04/07 CONTINUED HYPOGLYCEMIA - HELD GLIMEPIRDE. Status: Acute (4) Essential hypertension: Problem details: fair control. continue home meds: Norvasc 10, Lopressor 100 qam and 200 qpm, Hctz 25 Status: Acute (5) Bipolar 1 disorder: Problem details: psych med regimen: Trintellix, Seroquel, Invega, Lamictal, Lunesta Status: Chronic (6) Severe anxiety: Problem details: noted Status: Chronic (7) Schizoaffective disorder: Problem details: noted Status: Chronic (8) Hyperparathyroidism: Problem details: last PTH was 122, calcium 11 in 03/16 Status: Chronic (9) Tophaceous gout: Problem details: - Uric acid level elevated, consider starting allopurinol as her condition improves. Will need close f/u as outpatient. Status: Acute (10) Hypokalemia: Problem details: Potassium 3.4, will replace with 2 doses oral supplement, recheck 3.6, continue to monitor Status: Acute (11) Anemia: Problem details: Hemoglobin 9.3 - 8.9- 9.5- 10- 10.7 Review of EMR does not show previous hemoglobin levels Postoperatively, IVF have been stopped now, continue monitor 04/06: hgb 8.1. No obvious signs bleeding (also post menopausal). On baby asa daily. ?hemolysis in setting of recent metabolic acidosis. FOBT ordered. Recheck in am as discussed with patient Status: Acute Subjective Date Seen: 04/07/24 Interval history: Daily Progress Note - Hospital Medicine POD # 4 (04/03/23) PROCEDURE: 1. Right elbow olecranon excisional debridement including skin, subcu tissue, fascia, and triceps tendon tissue. 2. Right posterior elbow incision and drainage of deep abscess (4 x 4 cm skin involvement) 2. Right elbow negative wound pressure dressing application or (4 x 4 cm sponge applied). There was wound tunneling that measured approximately 3 cm lateral, 4 cm proximal/posterolateral, 3.5 cm proximal, 1 cm medial, and a 1.5 cm distal Day #: 7 CC: right elbow infection, DKA, RTA, morbid obesity OVERNIGHT UPDATES FROM STAFF & MED, LAB, IMAGING UPDATES feeling achy. glad fever has broke. tired. Febrile overnight to 102.2. 98.8 currently Blood pressure 173/80, 141/74 Heart rate 90s to 100 Respiratory rate 18 to 20 Pulse ox 94% on room air 143 kilos White blood cell count has increased from 14.8-18.9 Hemoglobin is stable at 8.9 Platelets are slightly reactive at 498 Persistent mild hypobicarbemia (17-19) Anion gap is closed. Renal function is normal. Glucose is been less than a 100 since midnight Uric acid 10.3 Normal calcium normal magnesium Elevated inflammatory markers as expected Path report from April 03 that demonstrates gout tophus and superimposed imposed infection with staph and strep are reviewed. MR THIS AM IMPRESSION: 1. Significant limitation due to body habitus, positioning and motion. 2. Infiltrating presumed abscess in olecranon subcutaneous soft tissues look somewhat smaller than the CT comparison there may have been interval incision and drainage. No associated osteomyelitis. Fluid in the elbow joint looks bland but if there is clinical concern for septic arthritis, recommend arthrocentesis to better characterize. Objective: Vitals: see above MSK right arm is wrapped with wound vac in place Lungs: Clear. Cardiac: S1S2. Disposition/Potential discharge - Likely to return to previous living situation. Today I spent 50minutes seeing the patient, reviewing Expanse and EPIC notes/diagnostics, discussing the care plan with our care time that includes social work, PT/OT, pharmacy, RT, mcc and documenting my impressions and plan in the medical record. Exam Const: Vital Signs, click to edit/add: Vital Signs - 24 hr 04/06/24 08:30 04/06/24 10:59 04/06/24 16:00 Temperature 98.6 F Pulse Rate Pulse Rate [Right Pulse Oximeter] 93 Respiratory Rate 18 18 20 Blood Pressure [Le ft Arm] 144/78 H Pulse Oximetry 97 97 98 Oxygen Delivery Me thod Room Air Room Air Room Air 04/06/24 16:00 04/06/24 16:07 04/06/24 19:00 Temperature 98.6 F 99.5 F Pulse Rate 104 H Pulse Rate [Right Pulse Oximeter] 85 124 H Respiratory Rate 20 20 Blood Pressure [Le ft Arm] 140/75 H 188/93 H Pulse Oximetry 98 97 Oxygen Delivery Ri thod Room Air Room Air 04/06/24 22:39 04/06/24 23:00 04/06/24 23:00 Temperature 102.2 F H 102.2 F H Pulse Rate Pulse Rate [Right Pulse Oximeter] 99 Respiratory Rate 20 Blood Pressure [Le ft Arm] 149/95 H Pulse Oximetry 94 97 Oxygen Delivery Me thod Room Air Room Air 04/06/24 23:00 04/06/24 23:21 04/07/24 03:00 Temperature 101.9 F H 98.9 F Pulse Rate 94 Pulse Rate [Right Pulse Oximeter] 100 Respiratory Rate 20 Blood Pressure [Le ft Arm] 141/74 H Pulse Oximetry 97 Oxygen Delivery Me thod Room Air Labs Labs: Laboratory Results - last 24 hr 04/07/24 04/07/24 01:54 Unknown WBC 18.93 H RBC 3.14 L Hgb 8.9 L Hct 27.7 L MCV 88 MCH 28 MCHC 32 Plt Count 498 H Sodium 137 Potassium 3.6 Chloride 110 Carbon Dioxide 17 L Anion Gap 10 BUN 25 Creatinine 0.9 Estimated Creat Clear 61.71 Estimated GFR 76 Glucose 70 Calcium 9.3 Urine Color Yellow Urine Appearance Clear Urine pH 6.0 Ur Specific [place] 1.015 Urine Protein Negative Urine Glucose (UA) Negative Urine Ketones Negative Urine Blood Negative Urine Nitrite Negative Urine Bilirubin Negative Urine Urobilinogen 0.2 Ur Leukocyte Esterase Negative
[2024-04-07] MEDS: METOPROLOL TARTRATE 100 MG TABLET PO (08:41)
[2024-04-07] MEDS: ASPIRIN 81 MG TABLET EC PO (08:41)
[2024-04-07] MEDS: SODIUM CHLORIDE 0.9 % (FLUSH) 10 ML SYRINGE 5 ML IVF (08:41)
[2024-04-07] MEDS: hydroCHLOROthiazide 25 MG TABLET PO (08:41)
[2024-04-07] MEDS: AMLODIPINE 10 MG TABLET PO (08:41)
[2024-04-07] MEDS: PALIPERIDONE 9 MG PO (08:53)
[2024-04-07] MEDS: lamoTRIgine 100 MG TABLET 200 MG PO (08:55)
[2024-04-07] MEDS: Vortioxetine [Trintellix] 20 mg tablet PO (08:56)
[2024-04-07] MEDS: LORazepam 2 MG/ML inj 1 MG IVP ×2 (09:40→10:20)
--- NOTE | 2024-04-07 10:42 | P.ORPN_ITS ---
Subjective Subjective Time Seen by Provider: 07:35 Date Seen: 04/07/24 Principal diagnosis: S/P RT elbow olecranon excisional debridement, I&D abscess, vac placement Interval history: Dr. Orantes called me during the night to inform [facility] [place] having a fever. Her white blood cell count has been increasing. He asked Orthopedics to see her today. She is comfortable in her recliner this morning. She has no pain in elbow. Wound VAC is in place. She has some discomfort over her trapezius muscle on the right. She states her has been massaging it. Ortho Exam Narrative Exam Narrative: Alert and oriented x3. Patient is in no acute distress. Converses without labored breathing. Hearing is grossly intact. Ambulates with a normal gait. Examination of the right upper extremity shows Regis bandages in place. Edema of the fingers. CMS intact right upper extremity. Wound VAC in place, not leaking air. Very minimal erythema is noted through the clear dressing at the wound VAC. no significant erythema. With palpation she states very tiny amount of tenderness. Range of motion of the elbow's normal. She is able to slightly flex and extend her fingers. She states she normally is not able to make a full composite fist due to arthritis in her fingers. Examination of trapezius area superiorly, no erythema or warmth or sign of infection. No fluctuance. Mildly tender to palpation. MRI, right elbow performed today 04/07/2024 shows 1. Significant limitation due to body habitus, positioning and motion. 2. Infiltrating presumed abscess in olecranon subcutaneous soft tissues look somewhat smaller than the CT comparison there may have been interval incision and drainage. No associated osteomyelitis. Fluid in the elbow joint looks bland but if there is clinical concern for septic arthritis, recommend arthrocentesis to better characterize. Const Vital Signs, click to edit/add: Vital Signs - 24 hr 04/06/24 10:59 04/06/24 16:00 04/06/24 16:00 Temperature 98.6 F 98.6 F Pulse Rate Pulse Rate [Right Pulse Oximeter] 93 85 Respiratory Rate 18 20 20 Blood Pressure [Left Arm] 144/78 H 140/75 H Pulse Oximetry 97 98 98 Oxygen Delivery Method Room Air Room Air Room Air 04/06/24 16:07 04/06/24 19:00 04/06/24 22:39 Temperature 99.5 F 102.2 F H Pulse Rate 104 H Pulse Rate [Right Pulse Oximeter] 124 H Respiratory Rate 20 Blood Pressure [Left Arm] 188/93 H Pulse Oximetry 97 Oxygen Delivery Method Room Air 04/06/24 23:00 04/06/24 23:00 04/06/24 23:00 Temperature 102.2 F H Pulse Rate 94 Pulse Rate [Right Pulse Oximeter] 99 Respiratory Rate 20 Blood Pressure [Left Arm] 149/95 H Pulse Oximetry 94 97 Oxygen Delivery Method Room Air Room Air 04/06/24 23:21 04/07/24 03:00 04/07/24 08:00 Temperature 101.9 F H 98.9 F Pulse Rate Pulse Rate [Right Pulse Oximeter] 100 Respiratory Rate 20 Blood Pressure [Left Arm] 141/74 H Pulse Oximetry 97 94 Oxygen Delivery Method Room Air Room Air 04/07/24 08:00 Temperature 98.8 F Pulse Rate Pulse Rate [Right Pulse Oximeter] 107 H Respiratory Rate 18 Blood Pressure [Left Arm] 173/80 H Pulse Oximetry 94 Oxygen Delivery Method Room Air Assessment and Plan Assessment and plan (1) Olecranon bursa abscess: 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 No osteomyelitis - Trend fever, WBC, r/o other source of infection (UA, CXR ordered) Status: Acute Assessment and Plan: Dr. Pichardo is notified. The wound VAC will be changed today. He expressed that infection is unlikely to be coming from the elbow. No osteomyelitis. He has spoken with med surg charge nurse. He has also spoken with Vickie Tran, wound VAC sales representative [employer] regarding wound measurements. Continue antibiotics.
[2024-04-07] MEDS: ACETAMINOPHEN 500 MG TABLET 1000 MG PO ×2 (11:20→18:33)
--- NOTE | 2024-04-07 11:36 | CRLHL7_ITS ---
For Patients: As a result of the Century Cures Act, medical imaging exams and procedure reports are released immediately into your electronic medical record. You may view this report before your referring provider. If you have questions, please contact your health care provider. Indication: Fever, postop Technique: Chest 2 views Comparison: Chest x-ray 04/03/2024 Findings/Impression: Cardiovascular and mediastinum: Normal heart size left-sided PICC line with tip at the cavoatrial junction. Lungs and pleural spaces: Lungs are clear. No sign of infiltrate or mass. No sign of pleural effusion. No pneumothorax. Low lung volumes. Bones and soft tissues: No significant findings. Dictated by Shade Alaniz MD @ 04/07/2024 2:12:07 PM (Electronically Signed)
[2024-04-07] MEDS: DEXTROSE 50 % SYRINGE IVP (11:45)
[2024-04-07] MEDS: ONDANSETRON 2 MG/ML inj 4 MG IVP (12:29)
[2024-04-07 12:43] LABS: C Reactive Protein* 25.2 mg/dL (0.5-1.0)
[2024-04-07 14:05] LABS: Appearance Urine Clear (Clear); Bilirubin Urine Negative (Negative); Blood Urine Negative (Negative); Color Urine Yellow (Yellow); Glucose Urine Negative (Negative); Ketones Urine Negative (Negative); Leukocyte Esterase Urine Trace (Negative); Nitrite Urine Negative (Negative); Protein Urine Trace (Negative); Specific Gravity Urine 1.015 (1.000-1.030); Urobilinogen Urine 0.2 (0.2-1.0); pH Urine 5.5 (5.0-8.5)
[2024-04-07 14:27] LABS: Bacteria Urine Few; Mucus Urine Few; RBC Urine 0-2 (0-2); Squamous Epithelial Cell Urine Few (None-Few); WBC Urine 0-2 (0-5)
--- NOTE | 2024-04-07 17:23 | CRLHL7_ITS ---
For Patients: As a result of the Century Cures Act, medical imaging exams and procedure reports are released immediately into your electronic medical record. You may view this report before your referring provider. If you have questions, please contact your health care provider. Indication: FEVER, LEUKOCYTOSIS, TACHYCARDIA, NAUSEA, PRIOR ELBOW INFECTION-EXCISIONAL DEBRIDEMENT OF ABSCESS Technique: CT chest/abdomen/pelvis with IV contrast, 150 mL Isovue 370 Comparison: Right elbow MRI on April 07, [address] on April 01, 2024 Findings: Chest: No thyroid nodules. Prominent right supraclavicular lymph node measuring approximately 1.5 centimeters in short axis. No mediastinal or hilar lymphadenopathy. The heart is normal in size. No pericardial effusion. Minimal coronary artery calcifications. The thoracic aorta and pulmonary artery are normal in caliber. No focal airspace consolidation, pleural effusion, or pneumothorax. No suspicious pulmonary nodules or masses. The airways are clear. Abdomen/pelvis: Cholelithiasis without CT evidence of acute cholecystitis. No biliary ductal dilatation. The liver, spleen, pancreas, and adrenal glands are unremarkable. The kidneys perfuse in a normal fashion. No suspicious enhancing renal masses. Intermediate density exophytic cystic lesions seen bilaterally, the largest of which is in the right kidney measuring approximately 4.1 centimeters in greatest dimension favored to represent proteinaceous/hemorrhagic cysts. No renal calculi or hydroureteronephrosis. The bladder is unremarkable. The uterus and bilateral ovaries are unremarkable. No suspicious adnexal lesions. Small hiatal hernia. No evidence of bowel obstruction or inflammation. The appendix is not visualized. Colonic diverticulosis without CT evidence of acute diverticulitis. Redundant sigmoid colon. No free fluid or free air. No abscess. No pathologically enlarged lymph nodes throughout the abdomen or pelvis. No abdominal aortic aneurysm. Mild calcific atherosclerosis of the aortoiliac system. Soft tissue/musculoskeletal: There is soft tissue thickening of the right sternoclavicular joint with questionable faint cortical erosions of the right clavicle and sternum and suspected small fluid collection seen in the retrosternal space measuring approximately 1.7 centimeters AP by 3.0 centimeters transverse by 3.0 Centimeters craniocaudal (series number 2, image 16; series number 5, image 81). There are extensive subcutaneous edematous changes seen in the visualized right supraclavicular soft tissues. Questionable fluid collection/developing abscess seen in the soft tissues immediately inferior to the right medial clavicle (series number 2, image 7) measuring approximately 2.1 centimeters AP x 3.8 centimeters transverse. No acute fracture or malalignment. Impression: 1. CT findings as detailed above, concerning for septic arthritis of the right sternoclavicular joint, with questionable soft tissue abscess in the soft tissues immediately inferior to the right medial clavicle and just posterior to the right sternoclavicular joint, to correlate with physical exam findings. 2. Prominent right supraclavicular lymph node, likely reactive. Please note that all CT scans at this facility use dose modulation, iterative reconstruction, and/or weight-based dosing when appropriate to reduce radiation dose to as low as reasonably achievable. Dictated by Thee Patel MD @ 04/07/2024 8:13:31 PM (Electronically Signed)
[2024-04-07] MEDS: 5 % DEXTROSE IN LAC RINGER'S 1,000 ML 125 ML IV (19:50)
--- NOTE | 2024-04-07 20:01 | PC.NURSE ---
blood sugar this a.m=60; 4 oz grape juice given. recheck blood sugar=76; 4 oz cranberry juice given. blood sugar rehecked within 30 mins =53. Dr. Tran notified and 30 gm of Glutose 15 gel given PO. rechecked Blood sugar within 15 mins=42. pt sweating,.pale & weak. Dr. Tran ordered amp of D50. Gave amp @ 1145. rechecked blood zpsaa=213. Pt given per her request crackers/peanut butter and jello. pt became nauseous and having dry heaving withing a couple of bites of food., zofran given IV per prn D.O. nausea resolved. blood sugar rechecked=90. Pt to testing,. Rechecked blood sugar when pt returned =84. Dr. Orantes notified. CT ordered and LR with 5% dextrose IVP @125cc/hr. Wound back changed. No new returns in collection container. pt medicated with tylenol for 99.5 temp @ 1500. Lt heel drsg changed moderate amount of serous drainage. PICC patent with flush x2
[2024-04-07] MEDS: ATORVASTATIN 10 MG TABLET 20 MG PO (21:31)
[2024-04-07] MEDS: METOPROLOL TARTRATE 100 MG TABLET 200 MG PO (21:32)
[2024-04-07] MEDS: QUETIAPINE 100 MG TABLET 200 MG PO (21:32)
[2024-04-07] MEDS: ENOXAPARIN 40 MG/0.4 ML INJ SUBCUT (21:32)
--- NOTE | 2024-04-07 21:36 | PM.DS1 ---
DS: Providers Provider Date Seen: 04/07/24 Date of admission: 04/02/24 08:19 Primary care physician: Not a Local Provider Admitting Clinician: Airam Tran MD Attending Physician on discharge: Airam Tran MD Date of Discharge: 04/07/24 DS: Diagnosis Discharge Diagnosis (1) Olecranon bursa abscess: Status: Acute Problem details: gout tophi - extensive staph and strep superimposed, group B strep and MSSA wide excision with wound VAC placement 04/03/24 (ortho) - blood cultures have remained negative - IV antibiotics for the last week which include vancomycin, Zosyn then switched to Ancef 2 g q.8 hours for the last few days - complicated by DKA, suspected RTA, multiple comorbidities - developed fever 04/06 (102) - MRI right elbow 04/07 is relatively reassuring but limited. No osteomyelitis - no other obvious focus of infection. CT chest abdomen pelvis suggest right sternal clavicular septic arthritis (2) Septic arthritis of sternoclavicular joint: Status: Acute Problem details: Seen today on CT chest abdomen and pelvis. On exam has mild swelling and tenderness in this area (3) Tophaceous gout: Status: Acute Problem details: - Uric acid level elevated, consider starting allopurinol as her condition improves. Will need close f/u as outpatient. (4) Metabolic acidosis: Status: Acute Problem details: On admission, serum CO2 was 8 on admission, pH 7.24, pCO2 20, PO2 65, HC03 8 Hgb A1C 7.6% . lactate normal. mild hyperglycemia. No other symptoms to indicate adrenal insufficiency. -beta hydroxybuterate 20.4 (indicating DKA and likely underlying RTA) -Metabolic acidosis is now compensated, pH 7.38 to, pCO2 21, HC03 13. Serum CO2 continues to trend up -Suspecting RTA. Will need further w/u for RTA. Urine PH on admission was 5.5, was 6 yesterday. All the other tests are send outs, some unavailable here. Will need further outpatient w/u. Hgb on 04/06 is 8.1 (5) Type 2 diabetes mellitus: Status: Acute Problem details: last A1C was 6.5 in 02/2023, A1C on 04/01 was 7.6% Patient discontinued glimepiride on her own in 2023 without PCP consent, has continued on metformin, does not check blood sugars at home, insulin naive Continued on glimepiride. Metformin now held as of 04/05 -gluc 120-220s. Continue levemir and continue ISS. May need to take off metformin indefinitely since she is at risk for acidosis. 04/05: Glucose overnight 69-42. Responded to dextrose. Discontined levemir. Will hold ISS. Continue glimepiride. Continue glucose checks ACHS. Hypoglycemia protocol 04/06: Hypoglycemia, 62, again this morning. No insulin since 04/04. Metformin held. Encouraged protein snack at bedtime. Continue to monitor 04/07 CONTINUED HYPOGLYCEMIA - HELD GLIMEPIRDE. Poor oral intake due to nausea. (6) Anemia: Status: Acute Problem details: Hemoglobin 9.3 - 8.9- 9.5- 10- 10.7 Review of EMR does not show previous hemoglobin levels Postoperatively, IVF have been stopped now, continue monitor 04/06: hgb 8.1. No obvious signs bleeding (also post menopausal). On baby asa daily. ?hemolysis in setting of recent metabolic acidosis. FOBT ordered. Recheck in am as discussed with patient (7) Hypokalemia: Status: Acute Problem details: Replace and follow (8) Bipolar 1 disorder: Status: Chronic Problem details: psych med regimen: Trintellix, Seroquel, Invega, Lamictal, Lunesta. (9) Hyperparathyroidism: Status: Chronic Problem details: last PTH was 122, calcium 11 in 03/16 (10) Morbid obesity: Status: Chronic Problem details: BMI of 54 (11) Sinus tachycardia: Status: Acute Problem details: Acute on chronic. On chronic metoprolol 300 mg daily DS: Summary Hospital Course Hospital Course: 53-year-old female admitted to the hospital with worsening of right elbow pain. This was thought to be a septic bursa in the context of gouty tophi. She had surgical debridement April 03. Surgical notes indicate deep wound that was debrided and managed with a wound VAC. Wound Cultures grew primarily group B strep but also MSSA. Admission blood cultures negative. Initially treated with vancomycin and Zosyn. Switched to Ancef 2 g q.8 hours with culture results. On April 06 she spiked a fever to 102?. Repeat blood cultures obtained and are negative so far. Multiple other medical concerns identified during this hospital stay: Metabolic acidosis on admission with elevated beta hydroxybutyrate suggested of DKA and clinical suspicion for RTA. Gradually improving during hospital stay Hypoglycemia for the last 2 days. Oral hypoglycemics have been discontinued. She has had a poor appetite today. Receiving maintenance fluids with dextrose. Sinus tachycardia despite being on metoprolol 300 mg daily as a chronic medication. Status at Discharge Cognitive/behavioral status at discharge: She is alert, oriented and pleasant. Reporting no concerns at this time. Time Spent with Patient Time attestation: Total time spent providing and/or coordinating discharge services: 60 minutes Time spent: Greater than 30 minutes Exam Narrative: Exam Narrative: She is alert and appears in no distress. She is pleasant. Breathing is unlabored. Respirations are clear. Cardiovascular: S1, S2, regular tachycardia. Abdomen is soft without tenderness or mass. Right elbow with wound VAC in place. No marked erythema or tenderness. There is a fullness and mild tenderness around the medial right clavicle and sternoclavicular joint. No marked redness. warmth or tenderness Const: Vital Signs, click to edit/add: Vital Signs - 24 hr 04/06/24 22:39 04/06/24 23:00 04/06/24 23:00 Temperature 102.2 F H 102.2 F H Pulse Rate Pulse Rate [Right Pulse Oximeter] 99 Respiratory Rate 20 Blood Pressure [Le ft Arm] 149/95 H Pulse Oximetry 94 [facility] 04/06/24 23:00 04/06/24 23:21 04/07/24 03:00 Temperature 101.9 F H 98.9 F Pulse Rate 94 Pulse Rate [Right Pulse Oximeter] 100 Respiratory Rate 20 Blood Pressure [Le ft Arm] 141/74 H Pulse Oximetry 97 [facility] 04/07/24 08:00 04/07/24 08:00 04/07/24 09:12 Temperature 98.8 F Pulse Rate 104 H Pulse Rate [Right Pulse Oximeter] 107 H Respiratory Rate 18 Blood Pressure [Le ft Arm] 173/80 H Pulse Oximetry 94 94 [facility] Room Air 04/07/24 11:00 04/07/24 15:00 04/07/24 15:00 Temperature 97.9 F Pulse Rate Pulse Rate [Right Pulse Oximeter] 91 91 Respiratory Rate 18 18 18 Blood Pressure [Le ft Arm] 153/78 H Pulse Oximetry 94 94 Oxygen Delivery Me thod Room Air Room Air 04/07/24 15:00 04/07/24 18:33 04/07/24 19:41 Temperature 99.5 F 99.5 F 99.5 F Pulse Rate Pulse Rate [Right Pulse Oximeter] 91 120 H Respiratory Rate 18 20 Blood Pressure [Le ft Arm] 153/78 H 175/81 H Pulse Oximetry 94 98 Oxygen Delivery Me thod Room Air Room Air Documenting provider has reviewed patient's vital signs: yes DS: Data Data Completed and Pending Labs on day of discharge: Labs from last 24 hours 04/07/24 04/07/24 04/07/24 Unknown 13:58 11:45 WBC 18.93 H RBC 3.14 L Hgb 8.9 L Hct 27.7 L MCV 88 MCH 28 MCHC 32 Plt Count 498 H Sodium 137 Potassium 3.6 Chloride 110 Carbon Dioxide 17 L Anion Gap 10 BUN 25 Creatinine 0.9 Estimated Creat Clear 61.71 Estimated GFR 76 Glucose 70 Calcium 9.3 C-Reactive Protein 25.2 H Procalcitonin 0.80 H Urine Color Yellow Urine Appearance Clear Urine pH 5.5 Ur Specific [place] 1.015 Urine Protein Trace A Urine Glucose (UA) Negative Urine Ketones Negative Urine Blood Negative Urine Nitrite Negative Urine Bilirubin Negative Urine Urobilinogen 0.2 Ur Leukocyte Esterase Trace A Urine RBC 0-2 Urine WBC 0-2 Ur Squamous Epith Cells Few Urine Bacteria Few A Urine Mucus Few A Lab Acknowledgement Test Added 04/07/24 01:54 WBC RBC Hgb Hct MCV MCH MCHC Plt Count Sodium Potassium Chloride Carbon Dioxide Anion Gap BUN Creatinine Estimated Creat Clear Estimated GFR Glucose Calcium C-Reactive Protein Procalcitonin Urine Color Yellow Urine Appearance Clear Urine pH 6.0 Ur Specific [place] 1.015 Urine Protein Negative Urine Glucose (UA) Negative Urine Ketones Negative Urine Blood Negative Urine Nitrite Negative Urine Bilirubin Negative Urine Urobilinogen 0.2 Ur Leukocyte Esterase Negative Urine RBC Urine WBC Ur Squamous Epith Cells Urine Bacteria Urine Mucus Lab Acknowledgement Preliminary micro results at discharge 04/07/24 01:54 Urine Culture - Preliminary Urine Random No growth. 04/07/24 13:58 Urine Culture - Preliminary Urine,Clean Catch Culture in Progress Imaging Elbow CT: Radiologist's impression: Indication: Olecranon bursa abscess, irregularity of radial head Technique: Noncontrast CT of the right elbow Please note that all CT scans at this facility use dose modulation, iterative reconstruction, and/or weight-based dosing when appropriate to reduce radiation dose to as low as reasonably achievable. Comparison: Right elbow radiographs from the same day. Findings: Wound within the posterior medial elbow with underlying complex fluid collection containing foci of air and abundant ill-defined hyperdense material, measuring approximately 6.4 x 2.3 x 3.9 cm. No definite radial head fracture. There is cortical irregularity of the coronoid process of the ulna, suspicious for a age-indeterminate fracture. No elbow joint effusion. Mild degenerative changes of the elbow with probable several tiny calcified intra-articular bodies. No underlying aggressive osseous lesion. Extensive subcutaneous soft tissue swelling about the posterior elbow. Impression: 1. No radial head fracture. Age-indeterminate coronoid process fracture. 2. Large complex fluid collection/abscess about the olecranon overlying skin defect/wound measuring approximately 6.4 x 2.3 x 3.9 cm. The collection contains abundant ill-defined hyperdense material, nonspecific. 3. Mild degenerative changes of the elbow with probable several tiny calcified intra-articular bodies. Elbow MRI: Radiologist's impression: INDICATION: Fever. Concern for elbow abscess. COMPARISON: Plain film and noncontrast CT March 2024. TECHNIQUE: Axial PD, coronal T1 and STIR and sagittal STIR pre contrast sequences. 20 mL Doaterem IV contrast T1 fat-sat postcontrast sequences in all 3 planes. Body habitus and obliquity of the image acquisition planes limits sensitivity. Motion degrades image quality. Arm is held in flexion at the elbow. FINDINGS: A small bland appearing joint effusion of the elbow. No obvious synovitis or filling defect. No erosion. No periarticular marrow edema. Extensive subcutaneous edema particularly dorsally. No abnormal marrow signal. Irregular small amount of infiltrating fluid at the olecranon subcutaneous soft tissues although apparent diminished volume versus CT comparison. Some hazy presumed reactive edema in the triceps muscle. No intramuscular abscess. IMPRESSION: 1. Significant limitation due to body habitus, positioning and motion. 2. Infiltrating presumed abscess in olecranon subcutaneous soft tissues look somewhat smaller than the CT comparison there may have been interval incision and drainage. No associated osteomyelitis. Fluid in the elbow joint looks bland but if there is clinical concern for septic arthritis, recommend arthrocentesis to better characterize. CT Chest/Ab/Pelvis: Radiologist's impression: Indication: FEVER, LEUKOCYTOSIS, TACHYCARDIA, NAUSEA, PRIOR ELBOW INFECTION-EXCISIONAL DEBRIDEMENT OF ABSCESS Technique: CT chest/abdomen/pelvis with IV contrast, 150 mL Isovue 370 Comparison: Right elbow MRI on April 07, [address] on April 01, 2024 Findings: Chest: No thyroid nodules. Prominent right supraclavicular lymph node measuring approximately 1.5 centimeters in short axis. No mediastinal or hilar lymphadenopathy. The heart is normal in size. No pericardial effusion. Minimal coronary artery calcifications. The thoracic aorta and pulmonary artery are normal in caliber. No focal airspace consolidation, pleural effusion, or pneumothorax. No suspicious pulmonary nodules or masses. The airways are clear. Abdomen/pelvis: Cholelithiasis without CT evidence of acute cholecystitis. No biliary ductal dilatation. The liver, spleen, pancreas, and adrenal glands are unremarkable. The kidneys perfuse in a normal fashion. No suspicious enhancing renal masses. Intermediate density exophytic cystic lesions seen bilaterally, the largest of which is in the right kidney measuring approximately 4.1 centimeters in greatest dimension favored to represent proteinaceous/hemorrhagic cysts. No renal calculi or hydroureteronephrosis. The bladder is unremarkable. The uterus and bilateral ovaries are unremarkable. No suspicious adnexal lesions. Small hiatal hernia. No evidence of bowel obstruction or inflammation. The appendix is not visualized. Colonic diverticulosis without CT evidence of acute diverticulitis. Redundant sigmoid colon. No free fluid or free air. No abscess. No pathologically enlarged lymph nodes throughout the abdomen or pelvis. No abdominal aortic aneurysm. Mild calcific atherosclerosis of the aortoiliac system. Soft tissue/musculoskeletal: There is soft tissue thickening of the right sternoclavicular joint with questionable faint cortical erosions of the right clavicle and sternum and suspected small fluid collection seen in the retrosternal space measuring approximately 1.7 centimeters AP by 3.0 centimeters transverse by 3.0 Centimeters craniocaudal (series number 2, image 16; series number 5, image 81). There are extensive subcutaneous edematous changes seen in the visualized right supraclavicular soft tissues. Questionable fluid collection/developing abscess seen in the soft tissues immediately inferior to the right medial clavicle (series number 2, image 7) measuring approximately 2.1 centimeters AP x 3.8 centimeters transverse. No acute fracture or malalignment. Impression: 1. CT findings as detailed above, concerning for septic arthritis of the right sternoclavicular joint, with questionable soft tissue abscess in the soft tissues immediately inferior to the right medial clavicle and just posterior to the right sternoclavicular joint, to correlate with physical exam findings. 2. Prominent right supraclavicular lymph node, likely reactive. Please note that all CT scans at this facility use dose modulation, iterative reconstruction, and/or weight-based dosing when appropriate to reduce radiation dose to as low as reasonably achievable. Discharge Plan Discharge Disposition: [facility] Date of Admission: 04/02/24 08:19 Primary Care Provider: Provider,Not a Local Discharge Orders: Transfer of Care to Other Hospital (ORDER); Ordered 04/07/24 Ordered By: Jose Orantes Oxygen: No
--- NOTE | 2024-04-07 22:40 | CRLHL7_ITS ---
For Patients: As a result of the Century Cures Act, medical imaging exams and procedure reports are released immediately into your electronic medical record. You may view this report before your referring provider. If you have questions, please contact your health care provider. Indication: tachycardia Technique: CTA chest, pulmonary embolism protocol, utilizing 95 mL Isovue 370 Comparison: Same day CT abdomen/pelvis Findings: No thyroid nodules. Prominent right supraclavicular lymph node measuring approximately 1.5 centimeters in short axis. No mediastinal or hilar lymphadenopathy. The heart is normal in size. No pericardial effusion. Stable left upper extremity PICC with tip in the superior vena cava. Minimal coronary artery calcifications. The thoracic aorta and pulmonary artery are within normal limits in caliber. Examination of the pulmonary arteries is severely limited secondary to contrast bolus timing. There is no central pulmonary embolism. No focal airspace consolidation, pleural effusion, or pneumothorax. Faint mosaic attenuation of the pulmonary parenchyma, likely secondary to air trapping. No suspicious pulmonary nodules or masses. The airways are clear. CT findings again concerning for septic arthritis of the right sternoclavicular joint, with questionable soft tissue abscess in the soft tissues immediately inferior to the right medial clavicle and just posterior to the right sternoclavicular joint, as detailed on prior exam. Degenerative changes of the bilateral glenohumeral joints. Please see same day CT abdomen/pelvis for description of abdominopelvic findings. Impression: 1. Examination of the pulmonary arteries is severely limited secondary to contrast bolus timing. There is no central pulmonary embolism. No CT evidence of right heart strain. 2. Faint mosaic attenuation of the pulmonary parenchyma, suggestive of air trapping. 3. CT findings again concerning for septic arthritis of the right sternoclavicular joint, with questionable soft tissue abscess in the soft tissues immediately inferior to the right medial clavicle and just posterior to the right sternoclavicular joint, as detailed on prior exam. Please note that all CT scans at this facility use dose modulation, iterative reconstruction, and/or weight-based dosing when appropriate to reduce radiation dose to as low as reasonably achievable. Dictated by Thee Patel MD @ 04/07/2024 11:51:30 PM (Electronically Signed)
--- NOTE | 2024-04-07 23:39 | CRLHL7_ITS ---
For Patients: As a result of the Century Cures Act, medical imaging exams and procedure reports are released immediately into your electronic medical record. You may view this report before your referring provider. If you have questions, please contact your health care provider. INDICATION: Fever. Concern for elbow abscess. COMPARISON: Plain film and noncontrast CT March 2024. TECHNIQUE: Axial PD, coronal T1 and STIR and sagittal STIR pre contrast sequences. 20 mL Doaterem IV contrast T1 fat-sat postcontrast sequences in all 3 planes. Body habitus and obliquity of the image acquisition planes limits sensitivity. Motion degrades image quality. Arm is held in flexion at the elbow. FINDINGS: A small bland appearing joint effusion of the elbow. No obvious synovitis or filling defect. No erosion. No periarticular marrow edema. Extensive subcutaneous edema particularly dorsally. No abnormal marrow signal. Irregular small amount of infiltrating fluid at the olecranon subcutaneous soft tissues although apparent diminished volume versus CT comparison. Some hazy presumed reactive edema in the triceps muscle. No intramuscular abscess. IMPRESSION: 1. Significant limitation due to body habitus, positioning and motion. 2. Infiltrating presumed abscess in olecranon subcutaneous soft tissues look somewhat smaller than the CT comparison there may have been interval incision and drainage. No associated osteomyelitis. Fluid in the elbow joint looks bland but if there is clinical concern for septic arthritis, recommend arthrocentesis to better characterize. Dictated by Gabino Christianson MD @ 04/07/2024 11:23:00 AM (Electronically Signed)
[2024-04-08 01:14] VITALS: BP 139/80; PULSE 90; RESP 20; TEMP 36.8; O2SAT 98; O2SAT 99
[2024-04-08] MEDS: CEFAZOLIN 2 GM in 0.9 % SODIUM CHLORIDE Mini-bag 100 ML IVPB (01:24)
[2024-04-08] MEDS: IBUPROFEN 400 MG TABLET PO (01:36)
[2024-04-08 05:52] VITALS: BP 130/75; PULSE 102; RESP 20; TEMP 37.4; O2SAT 96
[2024-04-08] MEDS: 5 % DEXTROSE IN LAC RINGER'S 1,000 ML 125 ML IV (06:33)
--- NOTE | 2024-04-08 07:35 | PC.NURSE ---
Pt alert and oriented x3. Pt reports 5/10 pain in right shoulder and elbow, pain managed with PRN medications. Pt's right elbow had wound vac, that was CDI. Pt was picked up by EMS around 0630 to transferred [facility], wound Vac was removed and wet to dry was placed with Kerlix wrap per Orgas request. Pt was left with EMS 0650, PICC line in place with 5% dextrose with normal saline running at 125 ml/hr. BS was 80 at 0610 EMS updated. John called to update, phone went to voicemail, left message to update that pt had transferred and belongings were here to be picked up per pt's request.
== END 2024-04-08 06:50 | disposition short-term general hospital (02) | DRG 317 ==
LOC: ED 18:10 → MEDSURG 18:40
PROVIDERS: Family Medicine; Hospitalist; Internal Medicine; Orthopaedic Surgery; Orthopaedic Surgery Sports Medicine; Physician Assistant; Admitting Provider Family Medicine; Emergency Provider Emergency Medicine; Visit Provider Family Medicine
DX: M71.021 Abscess of bursa, right elbow (principal); M1A.0211 Idiopathic chronic gout, right elbow, with tophus (tophi); B95.1 Streptococcus, group B, as the cause of diseases classified elsewhere; B95.61 Methicillin susceptible Staphylococcus aureus infection as the cause of diseases classified elsewhere; E11.10 Type 2 diabetes mellitus with ketoacidosis without coma; E11.65 Type 2 diabetes mellitus with hyperglycemia; Z79.4 Long term (current) use of insulin; Z79.84 Long term (current) use of oral hypoglycemic drugs; M00.811 Arthritis due to other bacteria, right shoulder; E66.01 Morbid (severe) obesity due to excess calories; Z68.43 Body mass index [BMI] 50.0-59.9, adult; D64.9 Anemia, unspecified; R00.0 Tachycardia, unspecified; E87.6 Hypokalemia; I10 Essential (primary) hypertension; F31.9 Bipolar disorder, unspecified; F41.9 Anxiety disorder, unspecified; F25.9 Schizoaffective disorder, unspecified; E21.3 Hyperparathyroidism, unspecified
CPT/HCPCS: 01710; 36415; 36573; 36600; 71046; 71260; 71275; 73080; 73200; 73223; 74177; 80048; 80053; 80076; 80306; 81001; 81003; 82010; 82270; 82803; 82962; 83036; 83605; 83735; 84100; 84145; 84443; 84550; 85025; 85027; 85610; 86140; 87040; 87070; 87075; 87081; 87086; 87186; 87205; 88305; 93005; 94761; 97162; 97530; 99140; 99284; A4221; A9270; A9575; C1751; J0330; J0690; J0692; J1335; J1650; J2060; J2250; J2405; J2704; J3010; J3370; J3475; J3490; J3590; J7030; J7042; J7070; J7120; Q9967

== ENCOUNTER 2024-04-08 06:25 | Outpatient (CLI) | payer BC, SELFPAY | END 2024-04-08 06:26 | disposition home or self-care (01) | LOC: AMB 04-09 17:09 | PROVIDERS: Visit Provider Family Medicine | DX: M00.819 Arthritis due to other bacteria, unspecified shoulder (principal) | CPT/HCPCS: A0425; A0429 ==

== ENCOUNTER 2024-05-20 09:54 | Emergency (ER) | payer BC, SELFPAY ==
[2024-05-20 10:02] VITALS: BP 181/85; PULSE 77; RESP 18; TEMP 36.3; O2SAT 99; BMI 48.2
--- NOTE | 2024-05-20 10:38 | ED.GENADULT ---
HPI - General Adult General Chief complaint: Skin/Abscess/Foreign Body Stated complaint: right ring finger swollen/large nodules Time Seen by Provider: 05/20/24 10:19 History of Present Illness HPI narrative: Pt is complaining of a swollen right ring finger. Finger is appearing red, swollen, and has nodules. Does not endorse any pain there. Has just been recently hospitalized for gout, and infections 53-year-old woman presenting to the emergency department with concern of swelling on her right ring finger. The general swelling had been present for some time but now has developed some white nodules on the palmar surface. Not particularly painful. 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 Culture positive for group B strep and MSSA. Negative blood cultures. Was on vancomycin and Zosyn and then to Ancef. Had DKA and suspected RTA. Septic arthritis of sternoclavicular joint as well. Is still taking oral antibiotics. She has not had a fever. Related Data Home Medications ?Medication ?Instructions ?Recorded ?Confirmed amlodipine 10 mg tablet 10 mg PO DAILY 04/01/24 06/02/24 atorvastatin 20 mg tablet 20 mg PO DAILY 04/01/24 06/02/24 eszopiclone 3 mg tablet (Lunesta) 3 mg PO HS 04/01/24 06/02/24 lamotrigine 200 mg tablet 200 mg PO BID 04/01/24 06/02/24 (Lamictal) metformin 500 mg tablet 1,000 mg PO BID 04/01/24 06/02/24 metoprolol tartrate 100 mg tablet 100 mg PO .ud 04/01/24 06/02/24 omega 0-rjy-vrp-fish oil 1,200 mg 1 cap PO BID 04/01/24 06/02/24 (144 mg-216 mg) capsule (Fish Oil) paliperidone 9 mg tablet,extended 9 mg PO DAILY 04/01/24 06/02/24 release 24 hr vortioxetine 20 mg tablet 20 mg PO DAILY 04/01/24 06/02/24 (Trintellix) quetiapine 100 mg tablet 100 - 200 mg PO QPM 04/02/24 06/02/24 allopurinol 100 mg tablet 100 mg PO DAILY 05/20/24 06/02/24 colchicine 0.6 mg tablet mg PO 05/20/24 06/02/24 ergocalciferol (vitamin D2) 1,250 1,250 mcg PO 05/20/24 06/02/24 mcg (50,000 unit) capsule furosemide 20 mg tablet 20 mg PO DAILY 05/20/24 06/02/24 ketoconazole 2 % topical cream applic topical BID 05/20/24 06/02/24 levofloxacin 500 mg tablet 500 mg PO DAILY 05/20/24 06/02/24 magnesium oxide 400 mg (241.3 mg mg PO BID 05/20/24 06/02/24 magnesium) tablet pantoprazole 40 mg tablet,delayed 40 mg PO BID 05/20/24 06/02/24 release furosemide 40 mg tablet 40 mg PO DAILY 06/02/24 06/02/24 losartan 25 mg tablet 25 mg PO DAILY 06/02/24 06/02/24 Allergies Allergy/AdvReac Type Severity Reaction Status Date / Time amlodipine [From [facility]] Allergy Verified 06/02/24 10:06 mestranol Allergy Verified 06/02/24 10:06 [From [facility] (21)] norethindrone Allergy Verified 06/02/24 10:06 [From [facility] /50 (21)] nortriptyline Allergy Verified 06/02/24 10:06 Review of Systems Status of ROS: Reports: 6 or more systems reviewed and unremarkable except as noted in History and below [facility] Medical History (Updated 06/04/24 @ 00:01 by Background Daemon) Sinus tachycardia ?R00.0 - Tachycardia, unspecified (ICD-10) Morbid obesity ?E66.01 - Morbid (severe) obesity due to excess calories (ICD-10) Bipolar 1 disorder ?F31.9 - Bipolar disorder, unspecified (ICD-10) Hyperlipidemia ?E78.5 - Hyperlipidemia, unspecified (ICD-10) Hyperparathyroidism ?E21.3 - Hyperparathyroidism, unspecified (ICD-10) Essential hypertension ?I10 - Essential (primary) hypertension (ICD-10) Severe anxiety ?F41.9 - Anxiety disorder, unspecified (ICD-10) Schizoaffective disorder ?F25.9 - Schizoaffective disorder, unspecified (ICD-10) Type 2 diabetes mellitus ?E11.9 - Type 2 diabetes mellitus without complications (ICD-10) Surgical History (Updated 05/23/24 @ 08:11 by Rachel Park) History of elbow surgery (04/03/24) ?Z98.890 - Other specified postprocedural states (ICD-10) History of wisdom tooth extraction ?K08.409 - Partial loss of teeth, unspecified cause, unspecified class (ICD-10) S/P tonsillectomy and adenoidectomy ?Z90.89 - Acquired absence of other organs (ICD-10) H/O dilation and curettage ?Z98.890 - Other specified postprocedural states (ICD-10) Status post appendectomy ?Z90.49 - Acquired absence of other specified parts of digestive tract (ICD-10) Social History What is your current living situation?: I presently have a place to live Problems where you live: no known problems Problems where you live details: N/A In the past 12 months, utilities in danger of being shut off: no In past 12 months, lack of transportation kept you from medical appts, meetings, work, or getting things needed for daily living: yes Highest level of school completed/degree received: 12th grade, no diploma Smoking Status: Never smoker Do you use any of these nicotine containing products: None Second hand tobacco smoke exposure: No How often do you have a drink containing alcohol: never How often do you have six or more drinks on one occasion: Never AUDIT-C Alcohol total score: 0 Non-prescribed substance use: denies use Caffeine: Yes How often does anyone, including family, friends and others, physically hurt you: never How often does anyone, including family, friends and others, insult or talk down to you: never How often does anyone, including family, friends and others, threaten you with harm: never How often does anyone, including family, friends and others, scream or curse at you: never service: No Exam Narrative: Exam Narrative: Pleasant. NAD. Well healing surgical wound at the right upper chest. Breathing easily. Examination of the area in question the right hand shows discrete swelling with soft subcutaneous nodules consistent with gouty tophi. Mild surrounding erythema without calor. No pain to palpation. Unable to flex which she says has been present for quite some time due to the swelling I think. Does not appear to be infected at this time. Const: Vital Signs, click to edit/add: Vital Signs - 24 hr 05/20/24 10:02 Temperature 97.4 F L Pulse Rate [Right Pulse Oximeter] 77 Respiratory Rate 18 Blood Pressure [Ri ght Forearm] 181/85 H Pulse Oximetry 99 Oxygen Delivery Me thod Room Air Documenting provider has reviewed patient's vital signs: yes Course Vital Signs Vital signs: Initial Vital Signs Temperature 97.4 F L 05/20/24 10:02 Temperature Source Temporal Artery Scan 05/20/24 10:02 Pulse Rate 77 05/20/24 10:02 Pulse Rhythm Regular 05/20/24 10:02 Respiratory Rate 18 05/20/24 10:02 Blood Pressure 181/85 H 05/20/24 10:02 Blood Pressure Mean 117 H 05/20/24 10:02 Blood Pressure Position Sitting 05/20/24 10:02 Pulse Oximetry 99 05/20/24 10:02 Oxygen Delivery Method Room Air 05/20/24 10:02 Vital Signs Temperature 97.4 F L 05/20/24 10:02 Pulse Rate 77 05/20/24 10:02 Respiratory Rate 18 05/20/24 10:02 Blood Pressure 181/85 H 05/20/24 10:02 Pulse Oximetry 99 05/20/24 10:02 Oxygen Delivery Method Room Air 05/20/24 10:02 Temperature 97.4 F L 05/20/24 10:02 Pulse Rate 77 05/20/24 10:02 Respiratory Rate 18 05/20/24 10:02 Blood Pressure 181/85 H 05/20/24 10:02 Pulse Oximetry 99 05/20/24 10:02 Oxygen Delivery Method Room Air 05/20/24 10:02 Medical Decision Making MDM Narrative Medical decision making narrative: Considering locations elsewhere and a frankly what this finger appears to be I would suspect it tophaceous material here in this finger that is leading to this inflammatory change. Does not appear to be cellulitic. Less likely there is likely any bony injury but with prolonged inflammation could contribute to some erosive changes. Did reach out to Orthopedics to arrange for close follow-up. I would be disinclined to debridement here as could very well contribute to infection. Take care to avoid traumatizing in the meantime. See patient discharge plan Medical Records Medical records reviewed: Yes I reviewed the patient's medical records Discharge Plan Discharge Clinical Impression: Gouty tophi, Finger swelling Patient Disposition: Home w/ Parent or Adult Condition: Stable Additional Instructions: Take care not to traumatize this finger/skin. I have asked Orthopedics to reach out to you. Would expect a call from them by noon on Wednesday. Their phone number is [phone] Be seen sooner for marked increase in swelling/pain/redness as indication of potential infection. Prescriptions: No Action losartan 25 mg tablet 25 mg PO DAILY furosemide 40 mg tablet 40 mg PO DAILY metoprolol tartrate 100 mg tablet 100 mg PO .ud Rx Instructions: take 1 tablet (100mg) in the morning, and two tablets (200mg) in the evening metformin 500 mg tablet 1,000 mg PO BID lamotrigine [Lamictal] 200 mg tablet 200 mg PO BID amlodipine 10 mg tablet 10 mg PO DAILY omega 4-zrx-fvz-fish oil [Fish Oil] 1,200 (144-216) mg capsule 1 cap PO BID paliperidone 9 mg tablet extended release 24hr 9 mg PO DAILY atorvastatin 20 mg tablet 20 mg PO DAILY Trintellix 20 mg tablet 20 mg PO DAILY eszopiclone [Lunesta] 3 mg tablet 3 mg PO HS quetiapine 100 mg tablet 100 - 200 mg PO QPM allopurinol 100 mg tablet 100 mg PO DAILY magnesium oxide 400 mg (241.3 mg magnesium) tablet PO BID pantoprazole 40 mg tablet,delayed release (DR/EC) 40 mg PO BID furosemide 20 mg tablet 20 mg PO DAILY ergocalciferol (vitamin D2) 1,250 mcg (50,000 unit) capsule 1,250 mcg PO levofloxacin 500 mg tablet 500 mg PO DAILY colchicine 0.6 mg tablet PO ketoconazole 2 % cream topical BID Follow Up/Referrals: Provider,Not a Local [Primary Care Provider] - Stand Alone Forms: [facility] Info Instructions
--- OUTSIDE RECORDS SUMMARY | 2024-05-20 11:05 | XMS_ITS | Encounter Summary ---
Author Organization [employer] Address [address] [place] [address] Care Team Providers Care Stoneworking Belt Sander Name Role Phone Adwoa Riley PA-C Primary Care Provider [phone] Encounter Details Date Type Department Care Team (Late st Contact Info) Description 05/01/2024 Lab Requisition [facility] [address] [place], [place] [id number] João Brock MD [address] [place] [address] Osteomyelitis, unspecified ([facility]); Other disorders of electrolyte and fluid balance, not elsewhere classified; Arthritis due to other bacteria, unspecified shoulder ([facility]); Encounter for surgical aftercare following surgery on the skin and subcutaneous tissue Social History Tobacco Use Types Packs/Day Years Used Date Smoking Tobacco: Former Cigarettes Smokeless Tobacco: Never Alcohol Use Standard Drinks/Week Comments Yes 0 (1 standard drink = 0.6 oz pur e alcohol) rare Sex and Gender Information Value Date Recorded Sex Assigned at Not on file Gender Identity Not on file Sexual Orientation Not on file documented as of this encounter Plan of Treatment Scheduled Orders Name Type Priority Associated Diagnoses Orde r Schedule Complete Blood Count -W/Diff Lab Routine Encounter for surgical aftercare following surgery on the skin and subcutaneous tissue Ordered: 05/01/2024 Comprehensive Metabolic Panel Lab Routine Encounter for surgical aftercare following surgery on the skin and subcutaneous tissue Ordered: 05/01/2024 C-Reactive Protein Lab Routine Encounter for surgical aftercare following surgery on the skin and subcutaneous tissue Ordered: 05/01/2024 Magnesium Lab Routine Encounter for surgical aftercare following surgery on the skin and subcutaneous tissue Ordered: 05/01/2024 Phosphorus Lab Routine Encounter for surgical aftercare following surgery on the skin and subcutaneous tissue Ordered: 05/01/2024 Sedimentation Rate (ESR) Lab Routine Encounter for surgical aftercare following surgery on the skin and subcutaneous tissue Ordered: 05/01/2024 Uric Acid Lab Routine Encounter for surgical aftercare following surgery on the skin and subcutaneous tissue Ordered: 05/01/2024 Complete Blood Count-W/Diff Lab Routine Encounter for surgical aftercare following surgery on the skin and subcutaneous tissue Ordered: 05/01/2024 documented as of this encounter Visit Diagnoses Diagnosis Osteomyelitis, unspecified ([facility]C) Other disorders of electrolyte and fluid balance, not elsewhere classified Arthritis due to other bacteria, unspecified shoulder ([facility]) Encounter for surgical aftercare following surgery on the skin and subcutaneous tissue documented in this encounter Care Teams Stoneworking Belt Sander Relationship Specialty Start Date End Date Adwoa Riley, JAREN [facility] [place] [address] PCP - General 09/25/11 documented as of this encounter
--- OUTSIDE RECORDS SUMMARY | 2024-05-20 11:05 | XMS_ITS | Encounter Summary ---
Author Organization [employer] Address [address] [place] [address] Care Team Providers Care Pipe And Test Supervisor Name Role Phone Adwoa Riley PA-C Primary Care Provider [phone] Encounter Details Date Type Department Care Team (Late st Contact Info) Description 05/01/2024 Lab Requisition [facility] [address] [place], [place] [address] João Brock MD [address] [place] [address] Encounter for surgical aftercare following surgery on [...] as of this encounter Visit Diagnoses Diagnosis Encounter for surgical aftercare following surgery on the skin and subcutaneous tissue documented in this encounter Care Teams Pipe And Test Supervisor Relationship Specialty Start Date End Date Adwoa Riley PA-C [address] [place] [address] PCP - General 09/25/11 documented as of this encounter
--- OUTSIDE RECORDS SUMMARY | 2024-05-20 11:05 | XMS_ITS | Clinical Summary ---
Author Organization [email or web address] Address [address] [place] [address] Care Team Providers Care Planning Feeder Name Role Phone Adwoa Riley PA-C Primary Care Provider [phone] Source Comments You are receiving this document as you are listed as the primary care provider,follow-up provider, or the patient has been referred to you for consultation.This is in compliance with the Medicare andMedicaid EHR Incentive Program,which states Providers who transition their patient to another setting of careor provider of care or refers their patient to another provider of care shouldprovide summary care record for each transition of care or referral. [facility] Allergies Active Allergy Reactions Criticality Noted Date Comments Aripiprazole Myalgias 09/25/2011 PN: tense muscles Latex Rash 09/25/2011 Mestranol ORTHO-NOVUM Nortriptyline Rash 09/25/2011 rash, Pioglitazone 01/04/2014 Progestins 10/25/1987 rash Sulfa Antibiotics 10/25/1984 rash Sulfamethoxazole-Trimethoprim Hives 2010 Medications Medication Sig Dispensed Refills Start Date End Date Status QUETIAPINE FUMARATE TABS 200 MG OR 1 TABLET at bedtime as needed 0 10/06/2002 Active ferrous gluconate 324 (37.5 FE) MG tablet Take 36 mg by mouth daily (every 24 hours). 09/25/2011 Active omega-3 fatty acids (FISH OIL) 1000 MG capsule Take 1 g by mouth 2 times daily at 8:30am & 5:30pm. 09/25/2011 Active paliperidone (AKA INVEGA) 6 MG 24 hour release tablet Take 9 mg by mouth every morning. 09/25/2011 Active sertraline (AKA ZOLOFT) 100 MG tablet Take 200 mg by mouth daily (every 24 hours). 09/25/2011 Active lamoTRIgine (AKA LAMICTAL) 200 MG tablet Take 300 mg by mouth daily (every 24 hours). 100 mg in a.m. and 200mg at night 09/25/2011 Active Blood Gluc Meter Disp-Strips (BLOOD GLUCOSE METER DISPOSABLE) [place] [facility]; Combo Route) route. accucheck comfort curve meter 11/25/2012 Active aspirin 81 MG tablet Take 81 mg by mouth daily (every 24 hours). 11/25/2012 Active lancets (SOFTCLIX) Use to test daily. 100 Each 3 12/02/2016 Active blood glucose test strip Use 1 Strip to test 4 times daily before meals and at bedtime. 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 [address] João Brock MD Osteomyelitis, unspecified (HRC); Other disorders of electrolyte and fluid balance, not elsewhere classified; Arthritis due to other bacteria, unspecified shoulder (HRC); Encounter for surgical aftercare following surgery on the skin and subcutaneous tissue 05/01/2024 Lab Requisition [facility] [address] [place] [address] João Brock MD Encounter for surgical aftercare following surgery on the skin and subcutaneous tissue 04/24/2024 Lab Requisition [facility] [address] [place] [address] João Brock MD Encounter for surgical aftercare following surgery on the skin and subcutaneous tissue from Last 3 Months Immunizations Name Administration Dates Next Due TDAP (ADACEL) 09/25/2009 Td 12/28/2002,03/24/1993 Social History Tobacco Use Types Packs/Day Years Used Date Smoking Tobacco: Former Cigarettes Smokeless Tobacco: Never Alcohol Use Standard Drinks/Week Comments Yes 0 (1 standard drink = 0.6 oz pur e alcohol) rare Sex and Gender Information Value Date Recorded Sex Assigned at Not on file Gender Identity Not on file Sexual Orientation Not on file Last Filed Vital Signs Vital Sign Reading Time Taken Comments Blood Pressure 184/107 01/27/2018 11:29 AM CDT Pulse 84 01/27/2018 11:09 AM CDT Temperature 36.6 ??C (97.8 ??F) 12/28/2002 9:40 AM CS T Respiratory Rate 12 12/28/2002 9:40 AM 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 Saturation - - Inhaled Oxygen Concentration - - Weight 137.9 kg (304 lb) 01/27/2018 11:09 AM CDT Height 162.6 cm (5' 4) 01/27/2018 11:09 AM CDT Body Mass Index 52.18 01/27/2018 11:09 AM CDT Plan of Treatment Health Maintenance Due Date Last Done Comments Colon Cancer Screening Plan Due 1969 Diabetes: Eye Exam 1969 Hep C Screening (Preventive Services) 1969 Pneumococcal (1 - PCV) 1975 HIV Screening (Preventive Services) 1985 HepB (1) 1988 Cervical Cancer Screening Due 02/25/2002 02/24/2002, 07/13/2001 Adult Preventive Visit 07/13/2002 07/13/2001 Mammogram 01/04/2015 01/04/2014 (Completed) Diabetes: Foot Exam 01/27/2019 01/27/2018 ( Completed), 05/16/2015 (Completed), 01/04/2014, Additional history exists Diabetes: Urine Microalbumin 01/27/2019 01/27/2018, 01/11/2018, 07/14/2017, Additional history exists Zoster/Shingles (1 of 2) 2019 DTaP/Tdap/Td (2 - Tdap) 09/25/2019 09/25/20 09, 12/28/2002, 03/24/1993 Diabetes: HGBA1C 10/28/2021 07/28/2021, , 01/26/2019, Additional history exists Diabetes: Lipid Panel 01/11/2023 01/11/2018 , 01/11/2018, 07/14/2017, Additional history exists COVID-19 Vaccine (1 - 2022- season) 2023 Influenza (#1) 2024 Diabetes: Creatinine 04/25/2025 04/25/2024, 01/11/2018, 07/14/2017, Additional history exists HepA Aged Out No longer eligi ble based on patient's age to complete this topic Hib Aged Out No longer eligi ble based on patient's age to complete this topic IPV (Polio) Aged Out No longer eligi ble based on patient's age to complete this topic [email or web address] Aged Out No longer eligi ble based on patient's age to complete this topic Procedures Procedure Name Priority Date/Time Associated Diagnosis Comments COMPLETE BLOOD COUNT-W/DIFF Routine 04/25/2024 8:58 AM CDT Encounter for surgical aftercare following surgery on the skin and subcutaneous tissue VITAMIN D 25-HYDROXY, TOTAL Routine 04/25/2024 8:58 AM CDT Encounter for surgical aftercare following surgery on the skin and subcutaneous tissue URIC ACID Routine 04/25/2024 8:58 AM CDT Encounter for surgical aftercare following surgery on the skin and subcutaneous tissue SEDIMENTATION RATE (ESR) Routine 04/25/2024 8:58 AM CDT Encounter for surgical aftercare following surgery on the skin and subcutaneous tissue PHOSPHORUS Routine 04/25/2024 8:58 AM CDT Encounter for surgical aftercare following surgery on the skin and subcutaneous tissue MAGNESIUM Routine 04/25/2024 8:58 AM CDT Encounter for surgical aftercare following surgery on the skin and subcutaneous tissue C-REACTIVE PROTEIN Routine 04/25/2024 8: 58 AM CDT Encounter for surgical aftercare following surgery on the skin and subcutaneous tissue COMPREHENSIVE METABOLIC PANEL Routine 04/25/2024 8:58 AM CDT Encounter for surgical aftercare following surgery on the skin and subcutaneous tissue CBC AND DIFFERENTIAL PANEL Routine 04/25/2024 8:58 AM CDT Encounter for surgical aftercare following surgery on the skin and subcutaneous tissue ALBUMIN/CREAT RATIO Routine 01/27/2018 1 1:56 AM CDT Controlled type 2 diabetes mellitus without complication, without long-term current use of insulin (HRC) LIPID PANEL & DIRECT LDL (IF NEEDED) Routine 01/11/2018 11:21 AM CDT Essential hypertension HGB A1C Routine 01/11/2018 11:21 AM CDT Essential hypertension PAP TEST, ROUTINE Routine 07/13/2001 1:0 0 PM CDT from Last 3 Months or Most Recently Relevant to Health Maintenance Results * (ABNORMAL) Vitamin D 25-Hydroxy, Total (04/25/2024 8:58 AM CDT) Vitamin D, 25-OH, Total 5(L) 30 - 80 ng/mL 04/25/2024 2:08 PM CDT [facility] Blood Venipuncture / Unknown 04/25/2024 8:58 AM CDT 04/25/2024 1:32 PM CDT Narrative [facility] - 04/25/2024 2:08 PM CDT Expected values Deficiency: <20 ng/mL Insufficiency: 20-29 ng/mL Optimum: 30-80 ng/mL Possible toxicity: >80 ng/mL João Brock MD LAB_1 [facility] [address] * (ABNORMAL) Complete Blood Count-W/Diff (04/25/2024 8:58 AM CDT) WBC 4.8 3.5 - 10.5 x10(9)/L 04/25/2024 2:09 PM CDT [facility] RBC 2.84(L) 3.90 - 5.03 x10(12)/L 04/25/2024 2:09 PM CDT [facility] Hemoglobin 8.1(L) 12.0 - 15.5 g/dL 04/25/2024 2:09 PM CDT [facility] HCT 27.1(L) 34.9 - 44.5 % 04/25/2024 2:09 PM CDT [facility] MCV 95.4 80.0 - 100.0 fL 04/25/2024 2:09 PM CDT [facility] MCH 28.5 27.6 - 33.3 pg 04/25/2024 2:09 PM CDT [facility] MCHC 29.9(L) 31.5 - 35.2 g/dL 04/25/2024 2:09 PM CDT [facility] RDW 16.0(H) 11.9 - 15.5 % 04/25/2024 2:09 PM CDT [facility] Platelets 277 150 - 450 x10(9)/L 04/25/2024 2:09 PM CDT [facility] Automated NRBC 0 <=0 /100 WBC 04/25/2024 2:09 PM CDT [facility] Neutrophil Absolute 2.7 1.7 - 7.0 10(9)/L 04/25/2024 2:09 PM CDT [facility] Lymphocyte Absolute 1.2 1.0 - 4.8 10(9)/L 04/25/2024 2:09 PM CDT [facility] Monocyte Absolute 0.5 0.2 - 0.9 10(9)/L 04/25/2024 2:09 PM CDT [facility] Eosinophil Absolute 0.3 0.0 - 0.5 10(9)/L 04/25/2024 2:09 PM CDT [facility] Basophil Absolute 0.0 0.0 - 0.3 10(9)/L 04/25/2024 2:09 PM CDT [facility] Immature Granulocyte % 0.4 0.0 - 0.5 % 04/25/2024 2:09 PM CDT [facility] Blood Venipuncture / Unknown 04/25/2024 8:58 AM CDT 04/25/2024 1:34 PM CDT João Brock MD LAB_1 [facility] [address] * (ABNORMAL) Comp Metabolic Panel (04/25/2024 8:58 AM CDT) Sodium 140 136 - 145 mmol/L 04/25/2024 1:53 PM CDT [facility] Potassium 4.3 3.5 - 5.1 mmol/L 04/25/2024 1:53 PM CDT [facility] Chloride 106 98 - 109 mmol/L 04/25/2024 1:53 PM CDT [facility] CO2 24 20 - 29 mmol/L 04/25/2024 1:53 PM CDT [facility] Anion Gap 10 6 - 16 mmol/L 04/25/2024 1:53 PM CDT [facility] Calcium 8.9 8.4 - 10.4 mg/dL 04/25/2024 1:53 PM CDT [facility] BUN 13 7 - 26 mg/dL 04/25/2024 1:53 PM CDT [facility] Creatinine 1.15(H) 0.55 - 1.02 mg/dL 04/25/2024 1:53 PM CDT [facility] Alkaline Phosphatase 49 40 - 150 U/L 04/25/2024 1:53 PM CDT [facility] AST (SGOT) 17 10 - 40 U/L 04/25/2024 1:53 PM CDT [facility] ALT (SGPT) <10 <=55 U/L 04/25/2024 1:53 PM CDT [facility] Bilirubin, Total 0.1(L) 0.2 - 1.2 mg/dL 04/25/2024 1:53 PM CDT [facility] Protein, Total 5.4(L) 6.4 - 8.3 g/dL 04/25/2024 1:53 PM CDT [facility] Albumin 2.1(L) 3.5 - 5.0 g/dL 04/25/2024 1:53 PM CDT [facility] Glucose 117(H) 70 - 100 mg/dL 04/25/2024 1:53 PM CDT [facility] Comment:The given reference range is for the fasting state. Non-fasting reference range for glucose is 70 - 180 mg/dL. GFR, Estimated 57(L) >60 mL/min/1.7 3m2 04/25/2024 1:53 PM CDT [facility] Hours Fasting 0.1 8 - 12 Hours 04/25/2024 1:53 PM CDT [facility] Comment:Lab unable to obtain patient's fasting status at time of specimen collection. Blood Venipuncture / Unknown 04/25/2024 8:58 AM CDT 04/25/2024 1:30 PM CDT Narrative [facility] - 04/25/2024 1:53 PM CDT The National Kidney Disease Education Program suggests measuring Cystatin C in patients with eGFRcrea of 45 to 59 ml/min/1.73^2 who do not have other markers of kidney damage (i.e. elevated urine Albumin/Creatinine Ratio or a prior Cystatin C confirming the presence of chronic kidney disease). João Brock MD LAB_1 Performing Organization Address [facility] Phone Number [facility] [address] [place] [address] * (ABNORMAL) Magnesium (04/25/2024 8:58 AM CDT) Magnesium 1.3(L) 1.6 - 2.6 mg/dL 04/25/2024 1:53 PM CDT [facility] Blood Venipuncture / Unknown 04/25/2024 8:58 AM CDT 04/25/2024 1:30 PM CDT João Brock MD LAB_1 Performing Organization Address [facility] Phone Number [facility] [address] * (ABNORMAL) C-Reactive Protein (04/25/2024 8:58 AM CDT) C-Reactive Protein 3.3(H) 0.0 - 0.5 mg/dL 04/25/2024 1:53 PM CDT [facility] Blood Venipuncture / Unknown 04/25/2024 8:58 AM CDT 04/25/2024 1:30 PM CDT João Brock MD LAB_1 Performing Organization Address [facility]/ZIP Co de Phone Number [facility] [address] * (ABNORMAL) Uric Acid (04/25/2024 8:58 AM CDT) Uric Acid 11.3(H) 2.6 - 6.0 mg/dL 04/25/2024 1:53 PM CDT [facility] Blood Venipuncture / Unknown 04/25/2024 8:58 AM CDT 04/25/2024 1:30 PM CDT João Brock MD LAB_1 Performing Organization Address [facility] Phone Number [facility] [address] [place] [address] * Phosphorus (04/25/2024 8:58 AM CDT) Phosphorus 3.6 2.3 - 4.7 mg/dL 04/25/2024 1:53 PM CDT [facility] Blood Venipuncture / Unknown 04/25/2024 8:58 AM CDT 04/25/2024 1:30 PM CDT João Brock MD LAB_1 Performing Organization Address [facility] Phone Number [facility] [address] [place] [address] * (ABNORMAL) Sedimentation Rate (ESR) (04/25/2024 8:58 AM CDT) Sedimentation Rate 36(H) 0 - 20 mm/hr 04/25/2024 3:10 PM CDT [facility] Blood Venipuncture / Unknown 04/25/2024 8:58 AM CDT 04/25/2024 1:34 PM CDT João Brock MD LAB_1 Performing Organization Address [facility] de Phone Number [facility] [address] [place] [address] * (ABNORMAL) Microalb/Creat Ratio (01/27/2018 11:56 AM CDT) Microalbumin Urine 110.6 mg/L PN SOFT U Creat Random 53 mg/dL PN SOFT Microalbumin/Crea tinine Ratio 208.7(H) 0.0 - 30.0 PN SOFT Urine specimen (specimen) 01/27/2018 11:56 AM CDT 01/27/2018 2:56 PM CDT Narrative PN SOFT - 01/27/2018 4:40 PM CDT Performed at [facility], [address] [place] [address] CLIA number [id number] Adwoa Riley PA-C LAB_1 Performing Organization Address [facility] de Phone Number SOFT [address] [address] * (ABNORMAL) Lipid Panel - LDLD If Trig High (01/11/2018 11:21 AM CDT) Cholesterol 174 0 - 199 mg/dL PN SOFT Triglycerides 425(H) 4 - 149 mg/dL PN SOFT HDL Cholesterol 42 >39 mg/dL PN SOFT Cholesterol/HDL Ratio Screen 4.1 PN SOFT Non HDL Chol, Calc 132 0 - 159 mg/dL PN SOFT Hours Fasting 12.0 PN SOFT 01/11/2018 11:2 1 AM CDT 01/11/2018 2:26 PM CDT Narrative PN SOFT - 01/11/2018 4:10 PM CDT Performed at [facility], [address] [place] [id number] CLIA number [id number] Adwoa Riley PA-C LAB_1 Performing Organization Address [facility] Co de Phone Number [employer] [address] [place] [address] * (ABNORMAL) Hemoglobin A1C Glycosylated (01/11/2018 11:21 AM CDT) HGB A1C 6.7(H) 4.0 - 5.6 % PN SOFT 01/11/2018 11:2 1 AM CDT 01/11/2018 3:07 PM CDT Narrative PN SOFT - 01/11/2018 6:00 PM CDT Performed at [address] [address] CLIA number [id number] Adwoa Riley PA-C LAB_1 Performing Organization Address [facility] Co de Phone Number [facility] [address] [place] [address] * PAP SMEAR, ROUTINE (07/13/2001 1:00 PM CDT) Pap Smear, Routine See Separate Report Performed at [facility] 07/13/2001 1:00 PM CDT 07/14/2001 1:54 PM CDT Anirudh Carson MD LAB_1 Performing Organization Address [facility] de Phone Number [employer] [address] [phone] from Last 3 Months or Most Recently Relevant to Health Maintenance Care Teams Planning Feeder Relationship Specialty Start Date End Date Adwoa Riley PA-C [address] [place] [address] [facility] - General 09/25/11
--- OUTSIDE RECORDS SUMMARY | 2024-05-20 11:05 | XMS_ITS | Encounter Summary ---
Author Organization [employer] Address [address] [place] [address] Care Team Providers Care Illuminator Name Role Phone Adwoa Riley PA-C Primary Care Provider [phone] Encounter Details Date Type Department Care Team (Late st Contact Info) Description 04/24/2024 Lab Requisition [facility] [address] [place], [place] [address] João Brock MD [address] [place], [place] [id number] Encounter for surgical aftercare following surgery on [...] as of this encounter Plan of Treatment Not on file documented as of this encounter Procedures Procedure Name Priority Date/Time Associated Diagnosis Comments CBC AND DIFFERENTIAL PANEL Routine 04/25/2024 8:58 AM CDT Encounter for surgical aftercare following surgery on the skin and subcutaneous tissue VITAMIN D 25-HYDROXY, TOTAL Routine 04/25/2024 8:58 AM CDT Encounter for surgical aftercare following surgery on the skin and subcutaneous tissue COMPLETE BLOOD COUNT-W/DIFF Routine 04/25/2024 8:58 AM [...] and subcutaneous tissue documented in this encounter Results * (ABNORMAL) Complete Blood Count-W/Diff (04/25/2024 8:58 AM CDT) [facility] WBC 4.8 3.5 - 10.5 x10(9)/L 04/25/2024 2:09 PM CDT [facility] RBC 2.84(L) 3.90 - 5.03 x10(12)/L 04/25/2024 2:09 PM CDT [facility] Hemoglobin 8.1(L) 12.0 - 15.5 g/dL 04/25/2024 2:09 PM CDT [facility] HCT 27.1(L) 34.9 - 44.5 % 04/25/2024 2:09 PM CDT [facility] MCV 95.4 80.0 - 100.0 fL 04/25/2024 2:09 PM CDT [facility] MCH 28.5 27.6 - 33.3 pg 04/25/2024 2:09 PM CDT [facility] MCHC 29.9(L) 31.5 - 35.2 g/dL 04/25/2024 2:09 PM CDT [facility] RDW 16.0(H) 11.9 - 15.5 % 04/25/2024 2:09 PM CDT [facility] Platelets 277 150 - 450 x10(9)/L 04/25/2024 2:09 PM CDT [facility] Automated NRBC 0 <=0 /100 WBC 04/25/2024 2:09 PM CDT [facility] Neutrophil Absolute 2.7 1.7 - 7.0 10(9)/L 04/25/2024 2:09 PM CDT [facility] Lymphocyte Absolute 1.2 1.0 - 4.8 10(9)/L 04/25/2024 2:09 PM CDT [facility] Monocyte Absolute 0.5 0.2 - 0.9 10(9)/L 04/25/2024 2:09 PM CDT [facility] Eosinophil Absolute 0.3 0.0 - 0.5 10(9)/L 04/25/2024 2:09 PM CDT [facility] Basophil Absolute 0.0 0.0 - 0.3 10(9)/L 04/25/2024 2:09 PM CDT [facility] Immature Granulocyte % 0.4 0.0 - 0.5 % 04/25/2024 2:09 PM CDT [facility] Blood Venipuncture / Unknown 04/25/2024 8:58 AM CDT 04/25/2024 1:34 PM CDT João Brock MD LAB_1 [facility] [address] * (ABNORMAL) Vitamin D 25-Hydroxy, Total (04/25/2024 8:58 AM CDT) Pathologist [facility] Vitamin D, 25-OH, Total 5(L) 30 - 80 ng/mL 04/25/2024 2:08 PM CDT [facility] Blood Venipuncture / Unknown 04/25/2024 8:58 AM CDT 04/25/2024 1:32 PM CDT Narrative [facility] - 04/25/2024 2:08 PM CDT Expected values Deficiency: <20 ng/mL Insufficiency: 20-29 ng/mL Optimum: 30-80 ng/mL Possible toxicity: >80 ng/mL João Brock MD LAB_1 Performing Organization Address [facility] Phone Number [facility] [address] [place] [address] * (ABNORMAL) Uric Acid (04/25/2024 8:58 AM CDT) Uric Acid 11.3(H) 2.6 - 6.0 mg/dL 04/25/2024 1:53 PM CDT [facility] Blood Venipuncture / Unknown 04/25/2024 8:58 AM CDT 04/25/2024 1:30 PM CDT João Brock MD LAB_1 Performing Organization Address [facility] Phone Number [facility] [address] [place] [address] * (ABNORMAL) Sedimentation Rate (ESR) (04/25/2024 8:58 AM CDT) Sedimentation Rate 36(H) 0 - 20 mm/hr 04/25/2024 3:10 PM CDT [facility] Blood Venipuncture / Unknown 04/25/2024 8:58 AM CDT 04/25/2024 1:34 PM CDT João Brock MD LAB_1 Performing Organization Address [facility] Phone Number [facility] [address] [place] [address] * Phosphorus (04/25/2024 8:58 AM CDT) Phosphorus 3.6 2.3 - 4.7 mg/dL 04/25/2024 1:53 PM CDT [facility] Blood Venipuncture / Unknown 04/25/2024 8:58 AM CDT 04/25/2024 1:30 PM CDT João Brock MD LAB_1 Performing Organization Address [facility] Phone Number [facility] [address] [place] [address] * (ABNORMAL) Magnesium (04/25/2024 8:58 AM CDT) Magnesium 1.3(L) 1.6 - 2.6 mg/dL 04/25/2024 1:53 PM CDT [facility] Blood Venipuncture / Unknown 04/25/2024 8:58 AM CDT 04/25/2024 1:30 PM CDT João Brock MD LAB_1 Performing Organization Address [facility] Phone Number [facility] [address] [place] [address] * (ABNORMAL) C-Reactive Protein (04/25/2024 8:58 AM CDT) C-Reactive Protein 3.3(H) 0.0 - 0.5 mg/dL 04/25/2024 1:53 PM CDT [facility] Blood Venipuncture / Unknown 04/25/2024 8:58 AM CDT 04/25/2024 1:30 PM CDT João Brock MD LAB_1 Performing Organization Address [facility] Phone Number [facility] [address] [place] [address] * (ABNORMAL) Comp Metabolic Panel (04/25/2024 8:58 AM CDT) Sodium 140 136 - 145 mmol/L 04/25/2024 1:53 PM CDT [facility] Potassium 4.3 3.5 - 5.1 mmol/L 04/25/2024 1:53 PM CDT [facility] Chloride 106 98 - 109 mmol/L 04/25/2024 1:53 PM CDT [facility] CO2 24 20 - 29 mmol/L 04/25/2024 1:53 PM CDT [facility] Anion Gap 10 6 - 16 mmol/L 04/25/2024 1:53 PM CDT [facility] Calcium 8.9 8.4 - 10.4 mg/dL 04/25/2024 1:53 PM CDT [facility] BUN 13 7 - 26 mg/dL 04/25/2024 1:53 PM CDT [facility] Creatinine 1.15(H) 0.55 - 1.02 mg/dL 04/25/2024 1:53 PM CDT [facility] Alkaline Phosphatase 49 40 - 150 U/L 04/25/2024 1:53 PM CDT [facility] AST (SGOT) 17 10 - 40 U/L 04/25/2024 1:53 PM CDT [facility] ALT (SGPT) <10 <=55 U/L 04/25/2024 1:53 PM CDT [facility] Bilirubin, Total 0.1(L) 0.2 - 1.2 mg/dL 04/25/2024 1:53 PM CDT [facility] Protein, Total 5.4(L) 6.4 - 8.3 g/dL 04/25/2024 1:53 PM CDT [facility] Albumin 2.1(L) 3.5 - 5.0 g/dL 04/25/2024 1:53 PM CDT [facility] Glucose 117(H) 70 - 100 mg/dL 04/25/2024 1:53 PM CDT [facility] Comment:The given reference range is for the fasting state. Non-fasting reference range for glucose is 70 - 180 mg/dL. GFR, Estimated 57(L) >60 mL/min/1.7 3m2 04/25/2024 1:53 PM CDT [facility] Hours Fasting 0.1 8 - 12 Hours 04/25/2024 1:53 PM CDT [facility] Comment:Lab unable to obtain patient's fasting status at time of specimen collection. Blood Venipuncture / Unknown 04/25/2024 8:58 AM CDT 04/25/2024 1:30 PM CDT Narrative [facility] - 04/25/2024 1:53 PM CDT The National Kidney Disease Education Program suggests measuring Cystatin C in patients with eGFRcrea of 45 to 59 ml/min/1.73^2 who do not have other markers of kidney damage (i.e. elevated urine Albumin/Creatinine Ratio or a prior Cystatin C confirming the presence of chronic kidney disease). João Brock MD LAB_1 [facility] [address], [place] [id number] [place] [address] documented in this encounter Visit Diagnoses Diagnosis Encounter for surgical aftercare following surgery on the skin and subcutaneous tissue documented in this encounter Care Teams Illuminator Relationship Specialty Start Date End Date Adwoa Riley, PATarynC [address] [place] [address] PCP - General 09/25/11 documented as of this encounter
--- OUTSIDE RECORDS SUMMARY | 2024-05-20 11:05 | XMS_ITS | Continuity of Care Document ---
Author Organization [facility] Address [address] [address] [place] [address] Phone Care Team Providers Care Clinical Services Director Name Role Phone Fanny Gary Unavailable Unavailable [...] on Encounter [facility], [address] [address], [place], [place], [id number], [place] tel:[phone] [facility] No Information 4 Eugenio Escobedo. [address] [facility], [address], [id number], [place]. tel:[phone] Referring Provider: Fanny Alcaraz, [address], [address]. tel:[phone] Init Inpt Cons N/e Mod-hi 110m [facility], [address] [address], [place], [place], [id number], [place] tel:[phone] [facility] No Information 4 Nikhil Rodríguez. [address] [facility], [address], [id number], [place]. tel:[phone] Referring Provider: Marcos Moore, [address] [address], [place], [address]. tel:[phone] Family History Family Member Type Diagnosis Age At Onset No Information Payers Payer name Insurance type Covered libertarian ID Authoriza tiwoody(s) [facility] [id number] Social History Type Description Quantity Date Captured [...]
--- OUTSIDE RECORDS SUMMARY | 2024-05-20 11:05 | XMS_ITS | Clinical Summary ---
Author Organization 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 Name Role Phone Taniya Apodaca Primary Care Provider [phone] [facility], [place] Unavailable [phone] Allergies Active Allergy Reactions Criticality Noted Date Comments Pioglitazone Anaphylaxis High 05/02/2024 Ceftriaxone Rash Low 05/10/2024 Maculopapular drug rash, uncertain if was IV CTX as tolerated for weeks, other possible medication culprits Medroxyprogesterone Bleeding 10/16/2006 Latex Rash 10/16/2006 Nortriptyline Hives 10/16/2006 Octoxynol 9 Hives 10/16/2006 Sulfamethoxazole-Trimethopr im *Unknown - Childhood Rxn 12/09/2006 Medications Medication Sig Dispensed Refills Start Date End Date Status paliperidone (INVEGA) 9 mg tr24 Extended-Release tablet Take 1 tablet by mouth once daily. 0 01/27/20 19 Active ferrous sulfate, 65 mg elemental, tablet Take 1 tablet by mouth once daily with a meal. 0 01/27/20 19 Active TRUEPLUS LANCETS 33 gauge miscIndications:Typ e 2 diabetes mellitus without complication, without long-term current use of insulin (HC) TEST DAILY 100 Each 3 04/30/20 20 Active blood-glucose meterIndications:Co ntrolled type 2 diabetes mellitus without complication, without long-term current use of insulin (HC) Dispense meter, test strips, lancets covered by pt ins. E11.9 NIDDM type II - Test 1 time/day 1 Each 07/30/20 21 Active lamoTRIgine (LAMICTAL) 200 mg tablet Take 1 Tablet (200 mg) by mouth 2 times daily. 0 07/30/20 21 Active vortioxetine (Trintellix) 20 mg tablet Take 1 Tablet (20 mg) by mouth once daily. 05/08/20 22 Active QUEtiapine (SEROQUEL) 100 mg tablet Take 1 Tablet (100 mg) by mouth at bedtime. 0 05/08/20 22 Active [id number]-[id number] h Oil 1,000 mg (120 mg-180 mg) cap Take 1 Capsule (1,000 mg) by mouth two times daily. 0 04/20/20 23 Active cadexomer iodine (IODOSORB) 0.9 % gelIndications:Toph aceous gout Apply topically to affected area(s) once daily in the morning. 04/18/20 24 Active acetaminophen (TylenoL) 325 mg tablet Take 650 mg by mouth two times daily. Max acetaminophen dose: 4000mg in 24 hrs. Active levoFLOXacin (LEVAQUIN) 500 mg tabletIndications:A bscess of olecranon bursa, unspecified laterality,Septic arthritis of right sternoclavicular joint (HC) Take 1 Tablet (500 mg) by mouth once daily for 12 days. 12 Tablet 05/10/20 24 024 Active WalkerIndications:A bscess of olecranon bursa, unspecified laterality,Septic arthritis of right sternoclavicular joint (HC) Walker with front wheels for home use. Bariatric 1 Each 05/10/20 24 Active WalkerIndications:A cute blood loss anemia for home use. Bariatric wide walker 1 Each 05/11/20 24 Active amLODIPine (NORVASC) 10 mg tabletIndications:H ypertension, unspecified type Take 1 Tablet (10 mg) by mouth once daily. 90 Tablet 3 05/16/20 24 Active atorvastatin (LIPITOR) 20 mg tabletIndications:H yperlipidemia, unspecified hyperlipidemia type Take 1 Tablet (20 mg) by mouth at bedtime. 90 Tablet 3 05/16/20 24 Active colchicine 0.6 mg tabletIndications:T ophaceous gout Take 1 Tablet (0.6 mg) by mouth once daily. 90 Tablet 05/16/20 24 Active metFORMIN (GLUCOPHAGE) 500 mg tabletIndications:C ontrolled type 2 diabetes mellitus without complication, without long-term current use of insulin (HC) Take 2 Tablets (1,000 mg) by mouth two times daily with meals. 360 Tablet 05/16/20 Active metoprolol tartrate (LOPRESSOR) 100 mg tabletIndications:H ypertension, unspecified type TAKE 1 TABLET BY MOUTH EVERY MORNING AND TAKE 2 TABLETS BY MOUTH EVERY EVENING 270 Tablet 3 05/16/20 24 Active pantoprazole (PROTONIX) 40 mg delayed-release tabletIndications:U pper GI bleed,Duodenal ulcer Take 1 Tablet (40 mg) by mouth two times daily. Take 40 mg twice a day for 8 weeks (till 07/02/24) and then change to once a day 180 Tablet 3 05/16/20 24 Active ketoconazole 2 % creamIndications:Ti lon pedis of both feet Apply topically to affected area(s) two times daily. 60 g 05/16/20 Active allopurinoL (ZYLOPRIM) 100 mg tabletIndications:M ultiple gouty tophi,Stage 3b chronic kidney disease (HC) Take 1.5 Tablets (150 mg) by mouth once daily. Continue 150 mg for 2 weeks, then increase to 200 mg once daily 180 Tablet 1 05/17/20 24 Active ergocalciferol (,vitamin D2,) 50,000 unit capsuleIndications: Vitamin D deficiency Take 1 Capsule (50,000 units) by mouth once weekly for 8 doses. 4 Capsule 05/17/20 24 024 Active furosemide (LASIX) 20 mg tabletIndications:S welling of both lower extremities Take 1 Tablet (20 mg) by mouth once daily in the morning. 90 Tablet 05/17/20 24 Active magnesium oxide (MAG-OX 400) 400 mg tabletIndications:H ypomagnesemia Take 2 Tablets (800 mg) by mouth two times daily. 120 Tablet 1 05/18/20 24 Active metoprolol tartrate (LOPRESSOR) 100 mg tabletIndications:H ypertension, unspecified type TAKE 1 TABLET BY MOUTH EVERY MORNING AND TAKE 2 TABLETS BY MOUTH EVERY EVENING 270 Tablet 3 04/20/20 23 024 Discontinued(Re order (E-cancel not sent)) metFORMIN (GLUCOPHAGE) 500 mg tabletIndications:C ontrolled type 2 diabetes mellitus without complication, without long-term current use of insulin (HC) TAKE 2 TABLETS(1000 MG) BY MOUTH TWICE DAILY WITH MEALS 360 Tablet 12/08/19 24 Discontinued cefTRIAXone (ROCEPHIN) 2 gram injectionIndication s:skin and skin structure infection Inject 20 mL (2 g) intravenous every 24 hours. 04/17/20 24 Discontinued(*I P Discontinued) colchicine 0.6 mg tabletIndications:T ophaceous gout Take 1 Tablet (0.6 mg) by mouth once daily. 04/18/20 024 Discontinued nystatin powder (MYCOSTATIN) powderIndications:Y east dermatitis Apply topically to affected area(s) 2 times daily if needed (groin fold erythema). 04/18/20 Discontinued(*I P Discontinued) furosemide (LASIX) 40 mg tabletIndications:S welling of both lower extremities Take 1 Tablet (40 mg) by mouth once daily. 04/18/20 Discontinued insulin aspart, U-100, (NOVOLOG FLEXPEN) 100 unit/mL (3 mL) penIndications:Cont rolled type 2 diabetes mellitus without complication, without long-term current use of insulin (HC) [The details of the medication are not available because there are pending changes by a home health clinician.] 04/18/20 Discontinued(*M ed complete/Regime n complete/Level of care change) atorvastatin (LIPITOR) 20 mg tabletIndications:H yperlipidemia, unspecified hyperlipidemia type Take 1 Tablet (20 mg) by mouth at bedtime. 30 Tablet 04/19/20 24 024 Discontinued amLODIPine (NORVASC) 10 mg tabletIndications:H ypertension, unspecified type Take 1 Tablet (10 mg) by mouth once daily. 30 Tablet 04/19/20 24 024 Discontinued amLODIPine (NORVASC) 10 mg tabletIndications:H ypertension, unspecified type TAKE 1 TABLET(10 MG) BY MOUTH DAILY 5 Tablet 04/21/20 024 Discontinued atorvastatin (LIPITOR) 20 mg tabletIndications:H yperlipidemia, unspecified hyperlipidemia type TAKE 1 TABLET(20 MG) BY MOUTH AT BEDTIME 5 Tablet 04/21/20 024 Discontinued allopurinoL (ZYLOPRIM) 100 mg tablet Take 100 mg by mouth once daily. Discontinued calcium carbonate-vitamin D3, 600 mg-400 unit, 600 mg-10 mcg (400 unit) tablet Take 1 Tablet by mouth once daily with a meal. Discontinued(*M edication adjustment) ergocalciferol (Vitamin D2) 50,000 unit capsule Take 50,000 units by mouth once weekly. On sundays04/30/20 Discontinued(*M edication adjustment) enoxaparin (Lovenox) 40 mg/0.4 mL injection Inject 40 mg subcutaneous every 12 hours. Discontinued(*I P Discontinued) magnesium oxide (MAG-OX 400) 400 mg tablet Take 400 mg by mouth two times daily. Discontinued acetaminophen (TylenoL) 325 mg tablet Take 325-650 mg by mouth every 4 hours if needed. Max acetaminophen dose: 4000mg in 24 hrs. Discontinued(*I P Discontinued) alteplase (ACTIVASE; CATHFLO) injectionIndication s:Abscess of olecranon bursa, unspecified laterality 2 mg by Intra-Catheter route each time if needed for Catheter Clearance. Instill 2 mg into catheter and allow to dwell for 30 minutes. If unable to aspirate blood, allow to dwell for a total of 120 minutes. 2 mL 05/05/20 Discontinued(*I P Discontinued) cefTRIAXone (ROCEPHIN) 1 gram injectionIndication s:Abscess of olecranon bursa, unspecified laterality Inject 2,000 mg intravenous every 24 hours for 17 days. 34 g 05/05/20 024 Discontinued(*I P Discontinued) pantoprazole (PROTONIX) 40 mg delayed-release tabletIndications:U pper GI bleed,Duodenal ulcer Take 1 Tablet (40 mg) by mouth two times daily. Take 40 mg twice a day for 8 weeks (till 07/02/24) and then change to once a day 180 Tablet 05/11/20 24 Discontinued(Re order (E-cancel not sent)) magnesium oxide (MAG-OX 400) 400 mg tabletIndications:A nemia, unspecified type [The details of the medication are not available because there are pending changes by a home health clinician.] 60 Tablet 05/11/20 24 024 Discontinued(Re order (E-cancel not sent)) metFORMIN (GLUCOPHAGE) 500 mg tabletIndications:C ontrolled type 2 diabetes mellitus without complication, without long-term current use of insulin (HC) Take 2 Tablets (1,000 mg) by mouth two times daily with meals. 360 Tablet 05/11/20 24 024 Discontinued(Re order (E-cancel not sent)) allopurinoL (ZYLOPRIM) 100 mg tabletIndications:S eptic arthritis of right sternoclavicular joint (HC) [The details of the medication are not available because there are pending changes by a home health clinician.] 30 Tablet 05/11/20 24 024 Discontinued(Re order (E-cancel not sent)) colchicine 0.6 mg tabletIndications:T ophaceous gout Take 1 Tablet (0.6 mg) by mouth once daily. 30 Tablet 05/11/20 24 024 Discontinued(Re order (E-cancel not sent)) atorvastatin (LIPITOR) 20 mg tabletIndications:H yperlipidemia, unspecified hyperlipidemia type Take 1 Tablet (20 mg) by mouth at bedtime. 30 Tablet 05/11/20 24 024 Discontinued(Re order (E-cancel not sent)) amLODIPine (NORVASC) 10 mg tabletIndications:H ypertension, unspecified type Take 1 Tablet (10 mg) by mouth once daily. 30 Tablet 05/11/20 24 024 Discontinued(Re order (E-cancel not sent)) furosemide (LASIX) 40 mg tabletIndications:S welling of both lower extremities [The details of the medication are not available because there are pending changes by a home health clinician.] 30 Tablet 05/11/20 24 024 Discontinued(Re order (E-cancel not sent)) furosemide (LASIX) 40 mg tabletIndications:S welling of both lower extremities Take 1 Tablet (40 mg) by mouth once daily. 90 Tablet 3 05/16/20 24 024 Discontinued(*M edication adjustment) magnesium oxide (MAG-OX 400) 400 mg tabletIndications:A nemia, unspecified type Take 1 Tablet (400 mg) by mouth two times daily. 180 Tablet 3 05/16/20 24 024 Discontinued(Re order (E-cancel not sent)) ketoconazole 2 % cream Apply 1 use topically to affected area(s) two times daily. Apply topically to affected areas two times daily. 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 Olecranon bursa abscess 04/08/2024 Septic arthritis of sternoclavicular joint 04/08 Hyperparathyroidism 05/08/2022 Controlled type 2 diabetes m ellitus without complication, without long-term current use of insulin 01/26/2019 Hypertension 01/26/2019 Hyperlipidemia 01/26/2019 Bipolar 1 disorder 01/26/2019 Chronic schizoaffective disorder 01/26/2019 Anxiety 01/26/2019 Microalbuminuria 11/28/2012 Morbid obesity 09/30/2011 Hearing loss 09/25/2011 Resolved Problems Problem Noted Date Diagnosed Date Resolved Date Uncontrolled type 2 diabetes mellitus with hyperglycemia 05/08/2022 05/08/2022 Encounters Date Type Department Care Team Description 05/19/20 12:00 PM CDT Home Care Visit [facility] [address] [place] [phone] Sheri Leal LPN MERCHANDISE WORKER - HOME VISIT 05/19/20 Telephone [facility] [address] [facility] [address] [place] [address] Nissa Burns PA Results 05/19/20 Home Care Visit [facility] [address] [place] [phone] Ellen Arciniega RN CARE COORDINATION 05/19/[address] [facility] [address] [place] [address] Taniya Apodaca PA Returning a call 05/18/20 2:45 PM CDT Home Care Visit [facility] [address] [place] [address] Lisette Rivas, PT PT - INITIAL ASSESSMENT 05/18/20 10:00 AM CDT Orders Only [facility] [address] [place] [address] Lab, [facility] 05/18/[address] [facility] [address] [place] [address] Rachid Pugh MD Results 05/18/20 Travel 05/17/20 3:00 PM CDT Home Care Visit [facility] [address] [place] [address] Una Ford, OT OT - INITIAL ASSESSMENT 05/17/20 10:00 AM CDT Office Visit [facility] [address] [address] Nissa Burns PA Hospital F/U 05/17/20 Travel 05/17/[address] [facility] [address] [place] [address] Taniya Apodaca PA Results 05/17/[address] [facility] [address] [place] [address] Mary Tran DO Results 05/16/20 12:00 PM CDT Home Care Visit [facility] [address] [place] [address] Libby Peralta, JUAN SN - HOME VISIT 05/16/20 11:45 AM CDT Ancillary Procedure [facility] [address] [place] [address] Arrived 05/16/20 11:30 AM CDT Ancillary Procedure [facility] [address] [place] [address] Arrived 05/16/20 10:30 AM CDT Office Visit [facility] [address] [place] [address] Taniya Apodaca PA Hospital F/U (Infection in right elbow and collar bone-then had bleeding ulcer-got 4 unit of blood); Diabetes 05/16/20 24 Telephone [facility] [address] [place] [address] Libby Peralta, signal operator 05/16/20 24 Home Care Visit [facility] [address] [place] [phone] Taniya Quick, RN SN - WOUND/OSTOMY CHART CONSULT 05/15/20 24 Home Care Visit [facility] [address] [place] [phone] Ellen Arciniega, JUAN CARE COORDINATION 05/15/20 24 Home Care Visit [facility] [address] [place] [phone] Ellen Arciniega, JUAN CARE COORDINATION 05/15/20 24 Travel 05/15/20 24 Home Care Visit [facility] [address] [place] [phone] Ellen Arciniega, JUAN CARE COORDINATION 05/12/20 24 12:00 PM CDT Home Care Visit [facility] [address] [place] [phone] Dixie Green, JUAN SN - OASIS START OF CARE 05/12/20 24 Telephone [facility] [address] [place] [phone] Dixie Green, signal operator 05/12/20 24 Plan of Care Documentation [facility] [address] [place] [phone] 05/12/20 [address] [facility] [address] [place] [address] Ekaterina Givens RN Hospital F/U; Primary RN Care Management (Lani Pantoja) 05/02/20 24 1:07 PM CDT Anesthesia Event [facility] [address] [place] [address] Augusto Stuart MD 05/02/20 24 12:50 PM CDT - 05/02/20 24 1:40 PM CDT Surgery [facility] [address] [place] [address] Marcos العلي MD ESOPHAGOGASTRODUODENOSCOPY w. clipping 05/02/20 24 12:54 AM CDT - 05/11/20 24 12:15 PM CDT Hospital Encounter [facility] [address] [place] [address] Marcos Goff MD [facility], [facility] Hospitalists Of Radha, MD Romero Lobo, MD Johnny Kessler, MD Juan Daniel Tovar, MD Brian Sierra, YULIANA Talamantes Abscess of olecranon bursa, unspecified laterality (Primary Dx); Upper GI bleed; Anemia, unspecified type; Septic arthritis of right sternoclavicular joint (HC); Acute blood loss anemia; Duodenal ulcer; Controlled type 2 diabetes mellitus without complication, without long-term current use of insulin (HC); Tophaceous gout; Hyperlipidemia, unspecified hyperlipidemia type; Hypertension, unspecified type; Swelling of both lower extremities Discharge Disposition: Home Health 05/02/20 24 Travel 04/19/[address] [facility] [address] [place] [address] Taniya Apodaca PA Refill Request (Amlodipine, Atorvastatin) 04/18/[address] [facility] [address] [place] [address] Taniya Apodaca PA Refill Request (Atorvastatin, Amlodipine) 04/10/20 24 1:17 PM CDT Anesthesia Event [facility] [address] [place] [address] Fredi Gonzales MD Schlatter, Charles P, CRNA 04/10/20 24 12:15 PM CDT - 04/10/20 24 3:02 PM CDT Surgery [facility] [address] [place] [address] Hipolito Hernandez MD Irrigation and debridement of right sternoclavicular joint 04/10/[address] [facility] [address] [place] [address] Taniya Apodaca PA Refill Request (Hydrochlorothiazide) 04/08/20 7:35 AM CDT - 04/19/20 24 4:51 PM CDT Hospital Encounter [facility] [address] [place] [address] [facility], [facility] Hospitalists Of Santino, Megan Marcelo MD Residents, Lina Lguo MD Nelson, Gabino Regalado MD Septic arthritis of right sternoclavicular joint (HC) (Primary Dx); Tophaceous gout; Yeast dermatitis; Swelling of both lower extremities; Controlled type 2 diabetes mellitus without complication, without long-term current use of insulin (HC) Discharge Disposition: [facility] 04/08/20 Travel 04/03/20 Lab Requisition [facility] [phone] Chandu Pichardo MD 03/07/[address] [facility] [address] [place] [address] Taniya Apodaca PA Refill Request (Metformin) from Last 3 Months Immunizations Name Administration Dates Next Due HepA-HepB (Twinrix) 05/08/2022 Influenza, IIV3 (Age >=3 years) 09/07/2007 Td (Age >=7 Years) 12/28/2002,03/24/1993 Tdap 05/08/2022,09/25/2009 Family History Medical History Relation Name Comments Psychiatric illness Father Hypertension Mother Psychiatric illness Mother Relation Name Status Comments Father Mother Social History Tobacco Use Types Packs/Day Years Used Date Smoking Tobacco: Former Cigarettes Smokeless Tobacco: Never Tobacco Cessation:Counseling Given: Not Answered Comments:quit in 2007 Alcohol Use Standard Drinks/Week Comments No 0 (1 standard drink = 0.6 oz pur e alcohol) PHQ-2 Answer Date Recorded PHQ-2 TOTAL SCORE 0 05/16/2024 Social Connections Answer Date Recorded Frequency of Communication with Friends and Fami ly 0 04/17/2024 Financial Resource Strain Answer Date R ecorded Difficulty of Paying Living Expenses 3 04/17/2024 Difficulty of Paying Living Expenses Not on file 04/17/2024 Food Insecurity Answer Date Recorded Worried About Running Out of Food in the Last Ye ar 1 04/17/2024 Transportation Needs Answer Date Record ed Lack of Transportation (Medical) 1 04/17/2024 Housing Stability Answer Date Recorded Unable to Pay for Housing in the Last Year 1 04/17/2024 Sex and Gender Information Value Date Recorded Sex Assigned at Not on file Gender Identity Not on file Sexual Orientation Not on file Obstetrics History Last Filed Vital Signs Vital Sign Reading Time Taken Comments Blood Pressure 138/76 05/19/2024 11:45 AM CDT Pulse 78 05/19/2024 11:45 AM CDT Temperature 36.4 ??C (97.5 ??F) 05/19/2024 1 1:45 AM CDT Respiratory Rate 16 05/19/2024 11:4 5 AM CDT Oxygen Saturation 97% 05/19/2024 11: 45 AM CDT Inhaled Oxygen Concentration - - Weight 127.7 kg (281 lb 9.6 oz) 024 10:12 AM CDT Height 162.6 cm (5' 4) 05/16/2024 10:2 7 AM CDT Body Mass Index 48.34 05/16/2024 10:27 AM CDT Plan of Treatment Upcoming Encounters Date Type Department Care Team (Late st Contact Info) Description 05/22/2024 Home Care Visit [facility] [address] [place] [phone] Ellen Arciniega, RN [address] [place] [address] 05/23/2024 4:00 AM CDT Home Care Visit [facility] [address] [place] [address] 05/23/2024 1:00 PM CDT Home Care Visit [facility] [address] [place] [address] Lisette Rivas, PT [address] [place] [address] [place] [address] 05/26/2024 3:00 AM CDT Home Care Visit [facility] [address] [place] [phone] Lisette Rivas, PT [address] [place] [address] 05/26/2024 4:00 AM CDT Home Care Visit [facility] [address] [place] [phone] 05/29/2024 3:00 AM CDT Home Care Visit [facility] [address] [place] [phone] Lisette Rivas, PT [address] [place] [address] 05/30/2024 4:00 AM CDT Home Care Visit [place] [address] [place] [phone] 05/30/2024 5:00 AM CDT Home Care Visit [facility] [address] [place] [phone] Taniya Quick, RN [address] [place] [address] 06/01/2024 3:00 AM CDT Home Care Visit [facility] [address] [place] [phone] Lisette Rivas, PT [address] [place] [address] 06/02/2024 4:00 AM CDT Home Care Visit [facility] [address] [place] [phone] 06/05/2024 3:00 AM CDT Home Care Visit [facility] [address] [place] [phone] Lisette Rivas, PT [address] [facility] [place] [address] 06/06/2024 4:00 AM CDT Home Care Visit [facility] [address] [place] [phone] 06/08/2024 3:00 AM CDT Home Care Visit [place] [address] [place] [phone] Lisette Rivas, PT [address] [facility] [place] [address] 06/09/2024 4:00 AM CDT Home Care Visit [address] [phone] 06/12/2024 3:00 AM CDT Home Care Visit [address] [phone] Lisette Rivas, PT [address] [facility] [address] 06/13/2024 4:00 AM CDT Home Care Visit [address] [phone] 06/15/2024 1:50 PM CDT Office Visit [facility] [address] [place] [address] Taniya Apodaca PA [address] [place] [address] 06/16/2024 4:00 AM CDT Home Care Visit [address] [address] 06/19/2024 3:00 AM CDT Home Care Visit [address] [address] Lisette Rivas, PT [address] [place] [address] 06/20/2024 4:00 AM CDT Home Care Visit [facility] [address] [place] [phone] 06/23/2024 4:00 AM CDT Home Care Visit [facility] [address] [place] [phone] 06/27/2024 3:00 AM CDT Home Care Visit [facility] [address] [place] [phone] Lisette Rivas, PT [address] [facility] [place] [address] 06/27/2024 4:00 AM CDT Home Care Visit [facility] [address] [place] [phone] 06/30/2024 4:00 AM CDT Home Care Visit [facility] [address] [place] [phone] 07/03/2024 3:00 AM CDT Home Care Visit [facility] [address] [place] [phone] Lisette Rivas, PT [address] [place] [address] 07/07/2024 4:00 AM CDT Appointment [facility] [address] [place] [phone] Health Maintenance Due Date Last Done Comments Pneumococcal series for age 6-64 (1 of 2 - PCV) 1975 HIV for age 15-65 1984 Pap test for age 21-65 1990 Mammogram for age 45-75 2014 Zoster (shingles) series for age 50+ (1 of 2) 2019 COVID-19 vaccine series ( season) 2023 Influenza for age 50-64 06/25/2024 09/07/2007 Fecal testing sDNA-FIT (Castor guard) for age 45-75 05/08/2025 05/08/2022 BMI (ht and wt on same day) for age 18+ 05/16/2025 05/16/2024, 05/08/2022, 01/26/2019 Depression screening for age 12+ 05/19/2025 05/19/2024, 05/19/2024, 05/18/2024, Additional history exists Lipids for age 45-74 05/16/2029 05/16/2024, 03/11/2023, 05/08/2022, Additional history exists Tetanus booster 05/08/2032 05/08/2022, 11/2008, 12/28/2002, Additional history exists Hepatitis C screening for ag e 18-79 Completed 05/08/2022 Tdap Completed 05/08/2022, 09/25/2009 Procedures Procedure Name Priority Date/Time Associated Diagnosis Comments CBC WITH AUTO DIFFERENTIAL Routine 05/18 9:50 AM CDT Septic arthritis of right sternoclavicular joint (HC) SEDIMENTATION RATE Routine 05/18/2024 9:50 AM CDT Septic arthritis of right sternoclavicular joint (HC) MAGNESIUM Routine 05/18/2024 9:50 AM CDT Hypomagnesemia C-REACTIVE PROTEIN Routine 05/18/2024 9:50 AM CDT Septic arthritis of right sternoclavicular joint (HC) BASIC METABOLIC PANEL Routine 05/18/2024 9:50 AM CDT Septic arthritis of right sternoclavicular joint (HC) CBC WITH AUTO DIFFERENTIAL Routine 05/18 9:50 AM CDT Septic arthritis of right sternoclavicular joint (HC) XR FOOT 3 VIEWS RIGHT Routine 05/16/2024 11:51 AM CDT Foot pain, right XR FOOT 3 VIEWS LEFT Routine 05/16/2024 11:51 AM CDT Foot pain, left C-REACTIVE PROTEIN Add On 05/16/2024 11:39 AM CDT Septic arthritis of right sternoclavicular joint (HC) CBC WITH AUTO DIFFERENTIAL Routine 05/16 11:39 AM CDT Duodenal ulcer CBC WITH AUTO DIFFERENTIAL Routine 05/16 11:39 AM CDT Duodenal ulcer MAGNESIUM Routine 05/16/2024 11:39 AM CDT Hypomagnesemia LIPID PANEL W REFLEX MEASURE D LDL Routine 05/16/2024 11:39 AM CDT Hyperlipidemia, unspecified hyperlipidemia type VITAMIN D 25 (DEFICIENCY) Routine 2023 11:39 AM CDT Hyperparathyroidism (HC) BASIC METABOLIC PANEL Routine 05/16/2024 11:39 AM CDT Hyperparathyroidism (HC) PTH,INTACT Routine 05/16/2024 11:39 AM CDT Hyperparathyroidism (HC) URIC ACID Routine 05/16/2024 11:39 AM CDT Chronic gout of right elbow, unspecified cause GLUCOSE METER Timed 05/11/2024 7:08 AM CDT GLUCOSE METER Timed 05/10/2024 9:06 PM CDT GLUCOSE METER Timed 05/10/2024 5:08 PM CDT REMOVE PICC LINE Routine 05/10/2024 5:02 PM CDT GLUCOSE METER Timed 05/10/2024 11:20 AM CDT GLUCOSE METER Timed 05/10/2024 8:32 AM CDT GLUCOSE METER Timed 05/09/2024 9:50 PM CDT GLUCOSE METER Timed 05/09/2024 5:33 PM CDT GLUCOSE METER Timed 05/09/2024 11:14 AM CDT GLUCOSE METER Timed 05/09/2024 8:49 AM CDT CBC W PLT NO DIFF Early AM 05/09/2024 6:31 AM CDT CREATININE Early AM 05/09/2024 6:31 AM CDT POTASSIUM Early AM 05/09/2024 6:31 AM CDT GLUCOSE METER Timed 05/08/2024 10:02 PM CDT GLUCOSE METER Timed 05/08/2024 4:56 PM CDT GLUCOSE METER Timed 05/08/2024 12:27 PM CDT GLUCOSE METER Timed 05/08/2024 8:33 AM CDT POTASSIUM Early AM 05/08/2024 5:24 AM CDT HEMOGLOBIN Early AM 05/08/2024 5:24 AM CDT GLUCOSE METER Timed 05/07/2024 9:14 PM CDT POTASSIUM Timed 05/07/2024 6:14 PM CDT GLUCOSE METER Timed 05/07/2024 5:12 PM CDT POTASSIUM Timed 05/07/2024 12:22 PM CDT GLUCOSE METER Timed 05/07/2024 11:34 AM CDT POTASSIUM Early AM 05/07/2024 6:48 AM CDT HEMOGLOBIN Early AM 05/07/2024 6:48 AM CDT GLUCOSE METER Timed 05/07/2024 6:45 AM CDT GLUCOSE METER Timed 05/06/2024 9:13 PM CDT GLUCOSE METER Timed 05/06/2024 5:12 PM CDT GLUCOSE METER Timed 05/06/2024 12:09 PM CDT GLUCOSE METER Timed 05/06/2024 7:50 AM CDT GLUCOSE METER Timed 05/06/2024 6:55 AM CDT HEMOGLOBIN Early AM 05/06/2024 6:46 AM CDT CREATININE Early AM 05/06/2024 6:46 AM CDT POTASSIUM Early AM 05/06/2024 6:46 AM CDT SODIUM Early AM 05/06/2024 6:46 AM CDT GLUCOSE METER Timed 05/05/2024 9:55 PM CDT GLUCOSE METER Timed 05/05/2024 4:57 PM CDT GLUCOSE METER Timed 05/05/2024 12:[address] CHEST W Routine 05/05/2024 12:27 PM CDT GLUCOSE METER Timed 05/05/2024 7:55 AM CDT CREATININE Early AM 05/05/2024 5:41 AM CDT POTASSIUM Early AM 05/05/2024 5:41 AM CDT SODIUM Early AM 05/05/2024 5:41 AM CDT HEMOGLOBIN Early AM 05/05/2024 5:41 AM CDT GLUCOSE METER Timed 05/04/2024 10:16 PM CDT GLUCOSE METER Timed 05/04/2024 5:05 PM CDT HEMOGLOBIN Today 05/04/2024 1:03 PM CDT GLUCOSE METER Timed 05/04/2024 11:29 AM CDT GLUCOSE METER Timed 05/04/2024 8:18 AM CDT EXTRA TUBE LIGHT GREEN Today 7:17 AM CDT CBC W PLT NO DIFF Early AM 05/04/2024 7:17 AM CDT CREATININE Early AM 05/04/2024 7:17 AM CDT POTASSIUM Early AM 05/04/2024 7:17 AM CDT SODIUM Early AM 05/04/2024 7:17 AM CDT GLUCOSE METER Timed 05/03/2024 9:10 PM CDT GLUCOSE METER Timed 05/03/2024 5:02 PM CDT HEMOGLOBIN STAT 05/03/2024 2:15 PM CDT GLUCOSE METER Timed 05/03/2024 10:50 AM CDT HEMOGLOBIN Timed 05/03/2024 9:08 AM CDT GLUCOSE METER Timed 05/03/2024 6:46 AM CDT TRANSFUSE RBC (NURSE COMMUNICATION ORDER) STAT 05/03/2024 6:22 AM CDT RBC W/O TYPE & SCREEN STAT 05/03/2024 6:02 AM CDT RED BLOOD CELLS EA UNIT STAT 05/03/20 5:46 AM CDT HEMOGLOBIN Timed 05/03/2024 4:12 AM CDT BASIC METABOLIC PANEL Early AM 05/03/2024 4:12 AM CDT TRANSFUSE RBC (NURSE COMMUNICATION ORDER) STAT 05/03/2024 12:32 AM CDT RBC W/O TYPE & SCREEN STAT 05/03/2024 12:05 AM CDT RED BLOOD CELLS EA UNIT STAT 05/02/20 11:46 PM CDT HEMOGLOBIN Timed 05/02/2024 10:43 PM CDT GLUCOSE METER Timed 05/02/2024 10:03 PM CDT CLOSTRIDIOIDES DIFFICILE TOX IN PCR CAREN 05/02/2024 8:44 PM CDT GLUCOSE METER Timed 05/02/2024 5:51 PM CDT TRANSFUSE RBC (NURSE COMMUNICATION ORDER) STAT 05/02/2024 4:23 PM CDT GLUCOSE METER Timed 05/02/2024 2:54 PM CDT ENDOSCOPY 05/02/2024 1:03 PM CDT ESOPHAGOGASTRODUODENOSCOPY WITH HEMOSTASIS 05/02/2024 12:57 PM CDT See MD hirsch GLUCOSE METER Timed 05/02/2024 11:18 AM CDT RBC W/O TYPE & SCREEN STAT 05/02/2024 11:08 AM CDT RED BLOOD CELLS EA UNIT STAT 05/02/20 11:08 AM CDT HEMOGLOBIN Timed 05/02/2024 10:19 AM CDT HEMOGLOBIN Timed 05/02/2024 8:22 AM CDT GLUCOSE METER Timed 05/02/2024 8:04 AM CDT TRANSFUSE RBC (NURSE COMMUNICATION ORDER) STAT 05/02/2024 6:57 AM CDT TRANSFUSE RBC (NURSE COMMUNICATION ORDER) STAT 05/02/2024 4:25 AM CDT RBC W/O TYPE & SCREEN STAT 05/02/2024 3:26 AM CDT RED BLOOD CELLS EA UNIT STAT 05/02/20 3:12 AM CDT RED BLOOD CELLS EA UNIT STAT 05/02/20 24 3:12 AM CDT CWS PATH REVIEW HEMATOLOGY STAT 05/02 2:56 AM CDT CBC WITH AUTO DIFFERENTIAL STAT 05/02 2:56 AM CDT CBC WITH AUTO DIFFERENTIAL STAT 05/02 2:56 AM CDT TYPE & SCREEN STAT 05/02/2024 2:52 AM CDT PROTIME-INR STAT 05/02/2024 2:52 AM CDT BASIC METABOLIC PANEL STAT 05/02/2024 2:16 AM CDT GLUCOSE METER Timed 04/19/2024 12:18 PM CDT GLUCOSE METER Timed 04/19/2024 8:28 AM CDT GLUCOSE METER Timed 04/19/2024 6:52 AM CDT MAGNESIUM CAREN 04/19/2024 5:44 AM CDT CREATININE Early AM 04/19/2024 5:44 AM CDT GLUCOSE METER Timed 04/18/2024 10:49 PM CDT GLUCOSE METER Timed 04/18/2024 5:19 PM CDT GLUCOSE METER Timed 04/18/2024 2:05 PM CDT INSERT PICC LINE Routine 04/18/2024 1:42 PM CDT GLUCOSE METER Timed 04/18/2024 9:27 AM CDT POTASSIUM Early AM 04/18/2024 6:31 AM CDT HEMOGLOBIN Early AM 04/18/2024 6:31 AM CDT CREATININE Early AM 04/18/2024 6:31 AM CDT SCAN-CARDIAC STRIP 04/18/2024 12:48 AM CDT GLUCOSE METER Timed 04/17/2024 10:42 PM CDT GLUCOSE METER Timed 04/17/2024 5:21 PM CDT SEDIMENTATION RATE Today 04/17/2024 1:33 PM CDT GLUCOSE METER Timed 04/17/2024 12:48 PM CDT GLUCOSE METER Timed 04/17/2024 6:48 AM CDT C-REACTIVE PROTEIN CAREN 04/17/2024 3:49 AM CDT POTASSIUM Early AM 04/17/2024 3:49 AM CDT MAGNESIUM Early AM 04/17/2024 3:49 AM CDT SCAN-CARDIAC STRIP 04/17/2024 1:08 AM CDT GLUCOSE METER Timed 04/16/2024 11:23 PM CDT GLUCOSE METER Timed 04/16/2024 5:43 PM CDT GLUCOSE METER Timed 04/16/2024 12:31 PM CDT GLUCOSE METER Timed 04/16/2024 10:05 AM CDT GLUCOSE METER Timed 04/16/2024 6:03 AM CDT MAGNESIUM Early AM 04/16/2024 5:38 AM CDT ALBUMIN Early AM 04/16/2024 5:38 AM CDT BASIC METABOLIC PANEL Early AM 04/16/2024 5:38 AM CDT SCAN-CARDIAC STRIP 04/16/2024 1:24 AM CDT GLUCOSE METER Timed 04/15/2024 9:38 PM CDT POTASSIUM Timed 04/15/2024 8:34 PM CDT GLUCOSE METER Timed 04/15/2024 6:05 PM CDT POTASSIUM Timed 04/15/2024 1:26 PM CDT GLUCOSE METER Timed 04/15/2024 11:46 AM CDT GLUCOSE METER Timed 04/15/2024 7:36 AM CDT WHITE BLOOD COUNT Early AM 04/15/2024 5:49 AM CDT HEMOGLOBIN Early AM 04/15/2024 5:49 AM CDT CREATININE Early AM 04/15/2024 5:49 AM CDT POTASSIUM Early AM 04/15/2024 5:49 AM CDT SODIUM Early AM 04/15/2024 5:49 AM CDT MAGNESIUM Early AM 04/15/2024 5:49 AM CDT SCAN-CARDIAC STRIP 04/15/2024 12:38 AM CDT GLUCOSE METER Timed 04/14/2024 9:30 PM CDT GLUCOSE METER Timed 04/14/2024 5:57 PM CDT ANAEROBIC CULTURE Today 04/14/2024 4:41 PM CDT AEROBIC BACTERIAL CULTURE, STAIN Today 04/14/2024 4:41 PM CDT US ASPIRATION WITH DRAIN PLACEMENT Routine 04/14/2024 4:38 PM CDT GLUCOSE METER Timed 04/14/2024 12:43 PM CDT GLUCOSE METER Timed 04/14/2024 6:31 AM CDT CREATININE Early AM 04/14/2024 6:29 AM CDT POTASSIUM Early AM 04/14/2024 6:29 AM CDT SODIUM Early AM 04/14/2024 6:29 AM CDT HEMOGLOBIN Early AM 04/14/2024 6:29 AM CDT GLUCOSE METER Timed 04/14/2024 2:26 AM CDT SCAN-CARDIAC STRIP 04/14/2024 1:19 AM CDT GLUCOSE METER Timed 04/13/2024 9:41 PM CDT GLUCOSE METER Timed 04/13/2024 5:50 PM CDT POTASSIUM Today 04/13/2024 3:19 PM CDT GLUCOSE METER Timed 04/13/2024 1:[address] CHEST W Routine 04/13/2024 12:18 PM CDT GLUCOSE METER Timed 04/13/2024 8:53 AM CDT SEDIMENTATION RATE Early AM 04/13/2024 6:43 AM CDT ELECTROLYTE PANEL Early AM 04/13/2024 6:43 AM CDT WHITE BLOOD COUNT Early AM 04/13/2024 6:43 AM CDT HEMOGLOBIN Early AM 04/13/2024 6:43 AM CDT CREATININE Early AM 04/13/2024 6:43 AM CDT C-REACTIVE PROTEIN Early AM 04/13/2024 6:43 AM CDT GLUCOSE METER Timed 04/13/2024 6:31 AM CDT SCAN-CARDIAC STRIP 04/13/2024 1:27 AM CDT GLUCOSE METER Timed 04/12/2024 9:24 PM CDT GLUCOSE METER Timed 04/12/2024 4:43 PM CDT GLUCOSE METER Timed 04/12/2024 12:25 PM CDT SCAN CORRESP-LABORATORY RESULTS 04/12/2024 8:42 AM CDT SCAN CORRESP-EKG RESULTS 024 8:36 AM CDT SCAN CORRESP-EKG RESULTS 024 8:36 AM CDT SCAN CORRESP-DIAGNOSTICS 024 8:36 AM CDT SCAN CORRESP-IMAGING 04/12/2024 8:30 AM CDT GLUCOSE METER Timed 04/12/2024 7:41 AM CDT PRO-BNP CAREN 04/12/2024 6:49 AM CDT HEMOGLOBIN Early AM 04/12/2024 6:49 AM CDT BASIC METABOLIC PANEL Early AM 04/12/2024 6:49 AM CDT GLUCOSE METER Timed 04/12/2024 4:06 AM CDT SCAN-CARDIAC STRIP 04/12/2024 2:10 AM CDT GLUCOSE METER Timed 04/12/2024 12:13 AM CDT GLUCOSE METER Timed 04/11/2024 5:26 PM CDT HEMOGLOBIN Today 04/11/2024 4:38 PM CDT TRANSFUSE RBC (NURSE COMMUNICATION ORDER) STAT 04/11/2024 1:31 PM CDT RBC W/O TYPE & SCREEN STAT 04/11/2024 11:56 AM CDT GLUCOSE METER Timed 04/11/2024 11:56 AM CDT TYPE & SCREEN Today 04/11/2024 11:39 AM CDT RED BLOOD CELLS EA UNIT STAT 04/11/20 24 11:20 AM CDT HEMOGLOBIN Timed 04/11/2024 10:58 AM CDT HEMOGLOBIN Today 04/11/2024 10:05 AM CDT ECHO TTE COMPLETE W CONTRAST Routine 8:55 AM CDT GLUCOSE METER Timed 04/11/2024 7:50 AM CDT BASIC METABOLIC PANEL Early AM 04/11/2024 6:20 AM CDT GLUCOSE METER Timed 04/11/2024 4:06 AM CDT URINALYSIS MICROSCOPIC Timed 3:04 AM CDT UA W/ SEDIMENT EXAM REFLEXED PER CRITERIA Today 04/11/2024 3:04 AM CDT SODIUM,RANDOM URINE Today 04/11/2024 3:04 AM CDT SCAN-CARDIAC STRIP 04/11/2024 1:10 AM CDT GLUCOSE METER Timed 04/10/2024 11:46 PM CDT GLUCOSE METER Timed 04/10/2024 10:00 PM CDT GLUCOSE METER Timed 04/10/2024 6:04 PM CDT GLUCOSE METER Timed 04/10/2024 3:09 PM CDT AEROBIC BACTERIAL CULTURE, STAIN Today 04/10/2024 2:13 PM CDT ANAEROBIC CULTURE Today 04/10/2024 2:13 PM CDT TISSUE CULTURE, STAIN (AEROBIC) Today 04/10/2024 2:11 PM CDT FUNGUS CULT, OTHER SOURCE Today 2023 2:11 PM CDT ANAEROBIC CULTURE Today 04/10/2024 2:11 PM CDT TISSUE CULTURE, STAIN (AEROBIC) Today 04/10/2024 2:01 PM CDT CRYSTAL ID BODY FLUID NO URINE Today 0 04/10/2024 2:01 PM CDT ANAEROBIC CULTURE Today 04/10/2024 2:01 PM CDT ENDOTRACHEAL TUBE Routine 04/10/2024 1:41 PM CDT ENDOTRACHEAL TUBE Routine 04/10/2024 1:41 PM CDT ENDOTRACHEAL TUBE Routine 04/10/2024 1:41 PM CDT OPEN REDUCTION INTERNAL FIXATION CLAVICLE Class D Urgent 04/10/2024 1:01 PM CDT Septic arthritis of right sternoclavicular joint, gout of right sternoclavicular joint Case Notes GENERALSUPINE ON REGULAR TOBLE GLUCOSE METER Timed 04/10/2024 12:17 PM CDT GLUCOSE METER Timed 04/10/2024 11:30 AM CDT GLUCOSE METER Timed 04/10/2024 7:46 AM CDT CBC WITH AUTO DIFFERENTIAL CAREN 04/10 5:47 AM CDT CBC WITH AUTO DIFFERENTIAL CAREN 04/10 5:47 AM CDT HEMOGLOBIN A1C CAREN 04/10/2024 5:47 AM CDT IRON PLUS IRON BINDING CAP CAREN 04/10 5:47 AM CDT SEDIMENTATION RATE Early AM 04/10/2024 5:47 AM CDT C-REACTIVE PROTEIN Early AM 04/10/2024 5:47 AM CDT HEMOGLOBIN Early AM 04/10/2024 5:47 AM CDT WHITE BLOOD COUNT Early AM 04/10/2024 5:47 AM CDT BASIC METABOLIC PANEL Early AM 04/10/2024 5:47 AM CDT GLUCOSE METER Timed 04/10/2024 4:04 AM CDT SCAN-CARDIAC STRIP 04/10/2024 1:12 AM CDT GLUCOSE METER Timed 04/10/2024 12:25 AM CDT GLUCOSE METER Timed 04/09/2024 9:40 PM CDT GLUCOSE METER Timed 04/09/2024 4:29 PM CDT GLUCOSE METER Timed 04/09/2024 12:21 PM CDT MR CHEST WWO STAT 04/09/2024 12:18 PM CDT GLUCOSE METER Timed 04/09/2024 8:45 AM CDT HEMOGLOBIN Early AM 04/09/2024 5:01 AM CDT WHITE BLOOD COUNT Early AM 04/09/2024 5:01 AM CDT BASIC METABOLIC PANEL Early AM 04/09/2024 5:01 AM CDT GLUCOSE METER Timed 04/09/2024 3:57 AM CDT XR CHEST 1 VIEW PORTABLE STAT 024 3:06 AM CDT SCAN-CARDIAC STRIP 04/09/2024 2:51 AM CDT GLUCOSE METER Timed 04/08/2024 11:34 PM CDT SCAN-CARDIAC STRIP 04/08/2024 7:09 PM CDT GLUCOSE METER Timed 04/08/2024 5:50 PM CDT US VENOUS UPPER EXTREMITY RIGHT Routine 04/08/2024 4:32 PM CDT GLUCOSE METER Timed 04/08/2024 1:16 PM CDT PROCALCITONIN Today 04/08/2024 12:36 PM CDT GLUCOSE METER Timed 04/08/2024 12:00 PM CDT SCAN-CARDIAC STRIP 04/08/2024 11:26 AM CDT SEDIMENTATION RATE CAREN 04/08/2024 11:12 AM CDT CBC W PLT NO DIFF Today 04/08/2024 11:12 AM CDT BLOOD CULTURE Today 04/08/2024 11:04 AM CDT BLOOD CULTURE Today 04/08/2024 10:56 AM CDT BASIC METABOLIC PANEL CAREN 04/08/2024 10:37 AM CDT BETA HYDROXYBUTYRATE IN HOUSE Today 10:37 AM CDT C-REACTIVE PROTEIN Timed 04/08/2024 10:37 AM CDT LACTATE VENOUS Today 04/08/2024 10:37 AM CDT XR CHEST 1 VIEW PORTABLE Routine 024 9:31 AM CDT GLUCOSE METER Timed 04/08/2024 8:33 AM CDT GLUCOSE METER Timed 04/08/2024 7:52 AM CDT SCAN-CARDIAC STRIP 04/08/2024 12:00 AM CDT PATH TISSUE EXAM Routine 04/03/2024 11:15 AM CDT SCAN-OPERATIVE/PROCEDURE REPORT 04/03/2024 12:00 AM CDT LAB TRACKING EVENT Routine 04/01/2024 12:00 PM CDT ANTI HCV Routine 05/08/2022 12:27 PM CDT Need for hepatitis C screening test SCAN-FECAL TEST DNA (COLOGUARD) 05/08/2022 12:00 AM CDT from Last 3 Months or Most Recently Relevant to Health Maintenance Results * (ABNORMAL) SEDIMENTATION RATE (05/18/2024 9:50 AM CDT) Only the most recent of5 resultswithin the time period is included. Pathologist [facility] [place] SEDIMENTATION RATE 35(H) <30 mm/hr 2023 4:29 PM CDT [facility] Blood BLOOD SPECIMEN / Unknown Venipuncture / Unknown 05/18/2024 9:50 AM CDT 05/18/2024 9:51 AM CDT Nissa NUNES HEMATOLOGY [facility] [address] [place] [id number], * (ABNORMAL) CBC WITH AUTO DIFFERENTIAL (05/18/2024 9:50 AM CDT) Only the most recent of4 resultswithin the time period is included. [facility] WHITE BLOOD COUNT 4.1(L) 4.5 - 11.0 thou/cu mm 05/18/2024 10:18 AM CDT [facility] RED BLOOD COUNT 3.11(L) 4.00 - 5.20 mil/cu mm 05/18/2024 10:18 AM CDT [facility] HEMOGLOBIN 9.2(L) 12.0 - 16.0 g/dL 05/18/2024 10:18 AM CDT [facility] HEMATOCRIT 28.4(L) 33.0 - 51.0 % 05/18/2024 10:18 AM CDT [facility] MCV 91 80 - 100 fL 05/18/2024 10:18 AM CDT [facility] MCH 29.6 26.0 - 34.0 pg 05/18/2024 10:18 AM CDT [facility] MCHC 32.4 32.0 - 36.0 g/dL 05/18/2024 10:18 AM CDT [facility] RDW 15.9(H) 11.5 - 15.5 % 05/18/2024 10:18 AM CDT [facility] PLATELET COUNT 285 140 - 440 thou/cu mm 05/18/2024 10:18 AM CDT [facility] MPV 8.7 6.5 - 11.0 fL 05/18/2024 10:18 AM CDT [facility] % NEUT 61.2 % 05/18/2024 10:18 AM CDT [facility] % LYMPH 22.4 % 05/18/2024 10:18 AM CDT [facility] % MONO 13.2 % 05/18/2024 10:18 AM CDT [facility] % EOS 2.7 % 05/18/2024 10:18 AM CDT [facility] % BASO 0.5 % 05/18/2024 10:18 AM CDT [facility] ABSOLUTE NEUTROPHILS 2.5 1.7 - 7.0 thou/cu mm 05/18/2024 10:18 AM CDT [facility] ABSOLUTE LYMPHOCYTES 0.9 0.9 - 2.9 thou/cu mm 05/18/2024 10:18 AM CDT [facility] ABSOLUTE MONOCYTES 0.5 <0.9 thou/cu mm 05/18/2024 10:18 AM CDT [facility] ABSOLUTE EOSINOPHILS 0.1 <0.5 thou/cu mm 05/18/2024 10:18 AM CDT [facility] ABSOLUTE BASOPHILS 0.0 <0.3 thou/cu mm 05/18/2024 10:18 AM CDT [facility] Blood BLOOD SPECIMEN / Unknown Venipuncture / Unknown 05/18/2024 9:50 AM CDT 05/18/2024 9:51 AM CDT Narrative [facility] - 05/18/2024 10:18 AM CDT This procedure was originally ordered at [facility]. Yasmeen Gomes MD HEMATOLOGY Performing Organization Address City/State/[facility] Co de Phone Number [facility] [id number] [place] [address], * (ABNORMAL) C-REACTIVE PROTEIN (05/18/2024 9:50 AM CDT) Only the most recent of6 resultswithin the time period is included. C-REACTIVE PROTEIN 13.2(H) <0.5 mg/dL 05/18/2024 5:05 PM CDT [facility] Blood BLOOD SPECIMEN / Unknown Venipuncture / Unknown 05/18/2024 9:50 AM CDT 05/18/2024 9:51 AM CDT Yasmeen Gomes MD CHEMISTRY Performing Organization Address [facility] Co de Phone Number [facility] [address] [address], [place] * (ABNORMAL) MAGNESIUM (05/18/2024 9:50 AM CDT) Only the most recent of6 resultswithin the time period is included. MAGNESIUM 1.1(LL) 1.6 - 2.6 mg/dL 05/18/2024 5:01 PM CDT [facility] Blood BLOOD SPECIMEN / Unknown Venipuncture / Unknown 05/18/2024 9:50 AM CDT 05/18/2024 9:51 AM CDT Taniya NUNES CHEMISTRY Performing Organization Address [facility] Co de Phone Number [facility] [address] [place] [address], [place] * (ABNORMAL) BASIC METABOLIC PANEL (05/18/2024 9:50 AM CDT) Only the most recent of10 resultswithin the time period is included. SODIUM 132(L) 136 - 145 mmol/L 05/18/2024 4:52 PM CDT [facility] POTASSIUM 4.8 3.5 - 5.1 mmol/L 05/18/2024 4:52 PM CDT [facility] CHLORIDE 99 98 - 107 mmol/L 05/18/2024 4:52 PM CDT [facility] CO2,TOTAL 20(L) 22 - 29 mmol/L 05/18/2024 4:52 PM CDT [facility] ANION GAP 13 5 - 18 05/18/2024 4:52 PM CDT [facility] GLUCOSE 116(H) 70 - 99 mg/dL 05/18/2024 4:52 PM CDT [facility] CALCIUM 9.2 8.6 - 10.0 mg/dL 05/18/2024 4:52 PM T [facility] BUN 18 6 - 20 mg/dL 05/18/2024 4:52 PM T [facility] CREATININE 1.25(H) 0.50 - 0.90 mg/dL 05/18/2024 4:52 PM T [facility] BUN/CREAT RATIO 14 10 - 20 4:52 PM T [facility] eGFR 51(L) >90 mL/min/1.7 3m2 05/18/2024 4:52 PM T [facility] Comment:As of 2022, eG FR is calculated by the CKD-EPI creatinine equation without race adjustment. ??eGFR can be influenced by muscle mass, exercise, and diet. ??The reported eGFR is an estimation only and is only applicable if the renal function is stable. Blood BLOOD SPECIMEN / Unknown Venipuncture / Unknown 05/18/2024 9:50 AM CDT 05/18/2024 9:51 AM CDT Yasmeen Gomes MD [facility] [address] [place] [address], [place] * XR FOOT 3 VIEWS RIGHT (05/16/2024 11:51 AM CDT) Anatomical Region Laterality Modality FEET, FOOT R Computed Radiogr aphy 05/16/2024 2:26 PM CDT Narrative 05/16/2024 2:26 PM CDT For Patients: ??As a result of the Cures Act, medical imaging exams and procedure reports are released immediately into your electronic medical record. ??You may view this report before your referring provider. ??If you have questions, please contact your health care provider. Indication: Right foot pain. Technique: Right foot 3 views Comparison: None Findings: Multifocal soft tissue swelling and soft tissue calcifications about the hindfoot, midfoot and 2nd MTP joint. Erosive change at the base of the 2nd toe proximal phalanx extending to the 2nd MTP joint. Osteopenia. No fracture. Impression: Severe erosive arthropathy particularly at the mid aspect of the midfoot and the 2nd MTP joint. Dictated by Jarrod Yost MD @ 05/16/2024 2:26:36 PM (Electronically Signed) Procedure Note Jarrod Yost MD - 05/16/2024 For Patients: As a result of the Cures Act, medical imagingexams and procedure reports are released immediately into your electronicmedical record. You may view this report before your referring provider.If you have questions, please contact your health care provider. Indication: Right foot pain. Technique: Right foot 3 views Comparison: None Findings: Multifocal soft tissue swelling and soft tissue calcifications about thehindfoot, midfoot and 2nd MTP joint. Erosive change at the base of the 2ndtoe proximal phalanx extending to the 2nd MTP joint. Osteopenia. Nofracture. Impression: Severe erosive arthropathy particularly at the mid aspect of the midfootand the 2nd MTP joint. Dictated by Jarrod Yost MD @ 05/16/2024 2:26:36 PM (Electronically Signed) [facility] * XR FOOT 3 VIEWS LEFT (05/16/2024 11:51 AM CDT) Anatomical Region Laterality Modality FEET, FOOT L Computed Radiogr aphy 05/16/2024 2:29 PM CDT Narrative 05/16/2024 2:29 PM CDT For Patients: ??As a result of the Cures Act, medical imaging exams and procedure reports are released immediately into your electronic medical record. ??You may view this report before your referring provider. ??If you have questions, please contact your health care provider. Indication: Left foot pain. Technique: Left foot 3 views Comparison: None Findings: Narrowing and spurring at the midfoot with erosive changes particularly at the base of the 3rd metatarsal. Multifocal soft tissue swelling with soft tissue calcifications. Multifocal soft tissue nodules. Severe erosive change at the base of the 2nd toe proximal phalanx. Impression: Severe erosive arthropathy. Dictated by Jarrod Yost MD @ 05/16/2024 2:29:53 PM (Electronically Signed) Procedure Note Jarrod Yost MD - 05/16/2024 For Patients: As a result of the Cures Act, medical imagingexams and procedure reports are released immediately into your electronicmedical record. You may view this report before your referring provider.If you have questions, please contact your health care provider. Indication: Left foot pain. Technique: Left foot 3 views Comparison: None Findings: Narrowing and spurring at the midfoot with erosive changes particularly atthe base of the 3rd metatarsal. Multifocal soft tissue swelling with softtissue calcifications. Multifocal soft tissue nodules. Severe erosivechange at the base of the 2nd toe proximal phalanx. Impression: Severe erosive arthropathy. Dictated by Jarrod Yost MD @ 05/16/2024 2:29:53 PM (Electronically Signed) [facility] * (ABNORMAL) LIPID PANEL W REFLEX MEASURED LDL (05/16/2024 11:39 AM CDT) CHOLESTEROL,TOTAL 103 100 - 199 mg/dL 05/17/2024 1:51 AM CDT [facility] Comment: Cholesterol, Total Reference Ranges Desirable <200 mg/dL Borderline 200-239 mg/dL High >=240 mg/dL TRIGLYCERIDES 212(H) <150 mg/dL 05/17/2024 1:51 AM CDT [facility] HDL CHOLESTEROL 36(L) >40 mg/dL 1:51 AM CDT [facility] NON-HDL CHOLESTEROL 67 <145 mg/dl 05/17/2024 1:51 AM CDT [facility] [facility] CHOL/HDL RATIO 2.86 <4.50 05/17/2024 1:51 AM CDT [facility] LDL CHOLESTEROL 25 <=130 mg/dL 05/17/2024 1:51 AM CDT [facility] VLDL CHOLESTEROL 42(H) <=30 mg/dL 05/17/2024 1:51 AM CDT [facility] PROVIDER ORDERED STATUS RANDOM 05/17/2024 1:51 AM CDT [facility] Blood BLOOD SPECIMEN / Unknown Butterfly / Unknown 05/16/2024 11:39 AM CDT 05/16/2024 11:40 AM CDT Taniya NUNES CHEMISTRY [facility] [address] [place] [address], * (ABNORMAL) VITAMIN D 25 (DEFICIENCY) (05/16/2024 11:39 AM CDT) VITAMIN D TOTAL 11.6(L) 20.0 - 80.0 ng/mL 05/17/2024 1:51 AM CDT [facility] Blood BLOOD SPECIMEN / Unknown Butterfly / Unknown 05/16/2024 11:39 AM CDT 05/16/2024 11:40 AM CDT Narrative [facility] - 05/17/2024 1:51 AM CDT ? Vitamin D Status Deficiency: ? <20 ng/mL Insufficiency: ?20-29 ng/mL Sufficiency: ?30-80 ng/mL Possible Toxicity: ??>80 ng/mL Based on [place] of Medicine recommendations Biotin supplements may cause clinically significant interference for this test assay. ??If interference is suspected, it is strongly recommended that biotin is discontinued for at least one week prior to retesting. Taniya NUNES SEND OUTS Performing Organization Address [facility] Co de Phone Number [facility] [address] [place] [address], [place] * (ABNORMAL) URIC ACID (05/16/2024 11:39 AM CDT) URIC ACID 11.3(H) 2.4 - 5.7 mg/dL 05/17/2024 2:51 AM CDT [facility] Blood BLOOD SPECIMEN / Unknown Butterfly / Unknown 05/16/2024 11:39 AM CDT 05/16/2024 11:40 AM CDT Taniya NUNES CHEMISTRY Performing Organization Address [facility] Phone Number [facility] [address] [place] [address], [place] * (ABNORMAL) PTH,INTACT (05/16/2024 11:39 AM CDT) CALCIUM 8.8 8.6 - 10.0 mg/dL 05/17/2024 1:51 AM CDT [facility] PTH,INTACT 123.0(H) 15.0 - 69.0 pg/mL 05/17/2024 1:51 AM CDT [facility] Blood BLOOD SPECIMEN / Unknown Butterfly / Unknown 05/16/2024 11:39 AM CDT 05/16/2024 11:40 AM CDT Taniya NUNES SEND OUTS Performing Organization Address [facility] Co de Phone Number [facility] [address] [place] [address], [place] * (ABNORMAL) GLUCOSE METER (05/11/2024 7:08 AM CDT) Only the most recent of99 resultswithin the time period is included. GLUCOSE METER 107(H) 65 - 100 mg/dL 05/11/2024 7:10 AM CDT [facility] Blood BLOOD SPECIMEN / Unknown 05/11/2024 7:08 AM CDT 05/11/2024 7:10 AM CDT Petra BRIDGES CHEMISTRY [facility] [address] [place] [address], * REMOVE PICC LINE (05/10/2024 5:02 PM CDT) Narrative Olga Melissa RN - 05/10/2024 5:02 PM CDT Olga Melissa, JUAN ? 05/10/2024 ??5:03 PM Central Line Discontinued Note PICC Line 05/10/2024 ?5:02 PM Reviewed removal procedure with: ??Patient Understanding verbalized: ??Yes Catheter removed without problems. Exit site appearance Dry. Exit site location Left, Upper Arm. Post-removal catheter inspection: Open ended catheter: ??Catheter length removed 48 cm, dressing applied per hospital protocol. Catheter removed intact: ??Yes Patient tolerated the procedure: ??Yes Post removal catheter education provided: Patient Pressure held until hemostasis achieved. Occlusive dressing with gauze, Vaseline and Tegaderm applied. Discussed with patient need to keep this dressing in place for 24 hours and avoid strenuous activity and/or heavy lifting for 24 hours. Instructed patient about signs and symptoms of bleeding and infection, also reviewed actions patient should take should either occur. All questions answered. PICC line dc'd as ordered. ?? Patient's RN to visualize dressing every 15-20 minutes for the next hour to ensure hemostasis is maintained. Olga Melissa RN .................... ??05/10/2024 ?? 5:03 PM Petra BRIDGES IV ORD * (ABNORMAL) CBC no diff AM (05/09/2024 6:31 AM CDT) Only the most recent of3 resultswithin the time period is included. WHITE BLOOD COUNT 4.9 4.5 - 11.0 thou/cu mm 05/09/2024 6:52 AM CDT [facility] RED BLOOD COUNT 2.75(L) 4.00 - 5.20 mil/cu mm 05/09/2024 6:52 AM CDT [facility] HEMOGLOBIN 7.9(L) 12.0 - 16.0 g/dL 05/09/2024 6:52 AM CDT [facility] HEMATOCRIT 25.4(L) 33.0 - 51.0 % 05/09/2024 6:52 AM CDT [facility] MCV 92 80 - 100 fL 05/09/2024 6:52 AM CDT [facility] MCH 28.7 26.0 - 34.0 pg 05/09/2024 6:52 AM CDT [facility] MCHC 31.1(L) 32.0 - 36.0 g/dL 05/09/2024 6:52 AM CDT [facility] RDW 16.2(H) 11.5 - 15.5 % 05/09/2024 6:52 AM CDT [facility] PLATELET COUNT 293 140 - 440 thou/cu mm 05/09/2024 6:52 AM CDT [facility] MPV 8.8 6.5 - 11.0 fL 05/09/2024 6:52 AM CDT [facility] NRBC 0.0 % 05/09/2024 6:52 AM CDT [facility] ABS NRBC 0.0 thou /cu mm 05/09/2024 6:52 AM T [facility] Blood BLOOD SPECIMEN / Unknown Non-Lab Venipuncture / Unknown 05/09/2024 6:31 AM CDT 05/09/2024 6:41 AM CDT Petra BRIDGES HEMATOLOGY [facility] [address] [place] [address], [place] * POTASSIUM (05/09/2024 6:31 AM CDT) Only the most recent of15 resultswithin the time period is included. POTASSIUM 4.2 3.5 - 5.1 mmol/L 05/09/2024 7:31 AM CDT [facility] Blood BLOOD SPECIMEN / Unknown Non-Lab Venipuncture / Unknown 05/09/2024 6:31 AM CDT 05/09/2024 6:41 AM CDT Petra BRIDGES CHEMISTRY Performing Organization Address [facility] Co de Phone Number [facility] [address] [place] [address], [place] * (ABNORMAL) Creatinine AM (05/09/2024 6:31 AM CDT) Only the most recent of9 resultswithin the time period is included. eGFR 44(L) >90 mL/min/1.7 3m2 05/09/2024 7:31 AM CDT [facility] Comment:As of 2022, eG FR is calculated by the CKD-EPI creatinine equation without race adjustment. ??eGFR can be influenced by muscle mass, exercise, and diet. ??The reported eGFR is an estimation only and is only applicable if the renal function is stable. CREATININE 1.42(H) 0.50 - 0.90 mg/dL 05/09/2024 7:31 AM CDT [facility] Blood BLOOD SPECIMEN / Unknown Non-Lab Venipuncture / Unknown 05/09/2024 6:31 AM CDT 05/09/2024 6:41 AM CDT Petra BRIDGES CHEMISTRY [facility] [address] [place] [id number], [place] * (ABNORMAL) Hemoglobin AM (05/08/2024 5:24 AM CDT) Only the most recent of21 resultswithin the time period is included. HEMOGLOBIN 7.8(L) 12.0 - 16.0 g/dL 05/08/2024 5:54 AM CDT [facility] MCV 92 80 - 100 fL 05/08/2024 5:54 AM CDT [facility] Blood BLOOD SPECIMEN / Unknown Non-Lab Venipuncture / Unknown 05/08/2024 5:24 AM CDT 05/08/2024 5:49 AM CDT Jennifer Frances MD HEMATOLOGY Performing Organization Address [facility] Co de Phone Number [facility] [address] [place] [address], * SODIUM (05/06/2024 6:46 AM CDT) Only the most recent of5 resultswithin the time period is included. SODIUM 138 136 - 145 mmol/L 05/06/2024 8:41 AM CDT [facility] Blood BLOOD SPECIMEN / Unknown Non-Lab Venipuncture / Unknown 05/06/2024 6:46 AM CDT 05/06/2024 7:31 AM CDT Dillon Jasso MD CHEMISTRY Performing Organization Address [facility] Co de Phone Number [facility] [address] [place] [address], [place] * CT Chest with contrast (05/05/2024 12:27 PM CDT) Only the most recent of2 resultswithin the time period is included. Anatomical Region Laterality Modality CHEST, THORAX, HEART Computed To mography 05/06/2024 2:36 AM CDT Narrative 05/06/2024 2:36 AM CDT For Patients: ??As a result of the Cures Act, medical imaging exams and procedure reports are released immediately into your electronic medical record. ??You may view this report before your referring provider. ??If you have questions, please contact your health care provider. Indication: Eval previous infection and drain for removal Technique: CT of the chest following 100 mL Omnipaque 350 IV contrast. Comparison: CT chest performed 04/13/2024 Findings: Lungs: Slightly increased linear opacities in the right upper lung without an organized consolidation effusion, or pneumothorax. New left basilar atelectasis. Mediastinum: No acute abnormality appreciated. Left PICC terminates at the cavoatrial junction. Lymph nodes: No gross lymphadenopathy. Upper abdomen: Cholelithiasis. Soft tissues: Pigtail drain partially visualized present within the abnormal tissues near the right clavicular head. The previously noted fluid collection and gas is no longer appreciated, and though there is persistent swelling and abnormal soft tissue, the appearance is most suggestive of inflammation and phlegmon with no residual discrete abscess appreciated. Bones: No acute abnormality appreciated. Impression: Pigtail catheter partially visualized within the abnormal soft tissue surrounding the right clavicular head. There is persistent soft tissue swelling and proliferation along the abnormal joint which is most suggestive inflammatory soft tissue changes and phlegmon, but with no residual discrete abscess appreciated at this time. Please note that all CT scans at this facility use dose modulation, iterative reconstruction, and/or weight-based dosing when appropriate to reduce radiation dose to as low as reasonably achievable. Dictated by Kevin Zhong MD @ 05/06/2024 2:36:11 AM (Electronically Signed) Procedure Note Kevin Zhong MD - 05/06/2024 For Patients: As a result of the Cures Act, medical imagingexams and procedure reports are released immediately into your electronicmedical record. You may view this report before your referring provider.If you have questions, please contact your health care provider. Indication: Eval previous infection and drain for removal Technique: CT of the chest following 100 mL Omnipaque 350 IV contrast. Comparison: CT chest performed 04/13/2024 Findings: Lungs: Slightly increased linear opacities in the right upper lung withoutan organized consolidation effusion, or pneumothorax. New left basilaratelectasis. Mediastinum: No acute abnormality appreciated. Left PICC terminates at thecavoatrial junction. Lymph nodes: No gross lymphadenopathy. Upper abdomen: Cholelithiasis. Soft tissues: Pigtail drain partially visualized present within theabnormal tissues near the right clavicular head. The previously notedfluid collection and gas is no longer appreciated, and though there ispersistent swelling and abnormal soft tissue, the appearance is mostsuggestive of inflammation and phlegmon with no residual discrete abscessappreciated. Bones: No acute abnormality appreciated. Impression: Pigtail catheter partially visualized within the abnormal soft tissuesurrounding the right clavicular head. There is persistent soft tissueswelling and proliferation along the abnormal joint which is mostsuggestive inflammatory soft tissue changes and phlegmon, but with noresidual discrete abscess appreciated at this time. Please note that all CT scans at this facility use dose modulation,iterative reconstruction, and/or weight-based dosing when appropriate toreduce radiation dose to as low as reasonably achievable. Dictated by Kevin Zhong MD @ 05/06/2024 2:36:11 AM (Electronically Signed) Dillon Jasso MD CT * EXTRA TUBE LIGHT GREEN (05/04/2024 7:17 AM CDT) Blood BLOOD SPECIMEN / Unknown Extra Tube / Unknown 05/04/2024 7:17 AM CDT 05/04/2024 7:48 AM CDT Dillon Jasso MD LABORATORY [facility] [address] [place] [phone], * TRANSFUSE RBC (NURSE COMMUNICATION ORDER) (05/03/2024 8:13 AM CDT) Blood BLOOD SPECIMEN / Unknown Mane Holcomb MD NURSING BLOOD BAN K * RBC W/O TYPE & SCREEN (05/03/2024 6:02 AM CDT) Only the most recent of5 resultswithin the time period is included. QUANTITY 1 05/03/2024 6:0 2 AM CDT [facility] Blood BLOOD SPECIMEN / Unknown 05/03/2024 5:46 AM CDT Mane Holcomb MD BLOOD BANK [facility] [address] [place] [address], * RED BLOOD CELLS EA UNIT (05/03/2024 5:46 AM CDT) Only the most recent of6 resultswithin the time period is included. CROSSMATCH Compatible Compatible [facility] BLOOD B[facility] PRODUCT BLOOD TYPE O Rh Positive [facility] BLOOD BANK PRODUCT ID NUMBER [id number] [facility] BLOOD [facility] PRODUCT STATUS Transfused [facility] LAB BLOOD BANK PRODUCT DESCRIPTION RBC -1 LR [facility] BLOOD BANK PRODUCT CODE [id number] [facility] BLOOD BANK ISSUE DATE/TIME 05/03/24 06:12 [facility] BLOOD BANK Mane Holcomb MD BLOOD BANK Performing Organization Address City/State/[facility] Co tn Phone Number [facility] BLOOD BANK [address] [place] [id number], * TRANSFUSE RBC (NURSE COMMUNICATION ORDER) (05/03/2024 2:29 AM CDT) Blood BLOOD SPECIMEN / Unknown Bertha Banuelos MD NURSING BLOOD BANK * CLOSTRIDIOIDES DIFFICILE TOXIN PCR (05/02/2024 8:44 PM CDT) CLOSTRIDIUM DIFFICILE PCR Negative 05/02/2024 10:26 PM CDT [facility] PRESUMPTIVE NAP1 STRAIN Negative 05/02/2024 10:26 PM CDT [facility] Stool STOOL SPECIMEN / Unknown Non-Blood / Unknown 05/02/2024 8:44 PM CDT 05/02/2024 8:50 PM CDT [facility]ative [facility] - 05/02/2024 10:26 PM CDT The NAP1 (027 or BI) strain is a hypervirulent strain. Detection may be useful for epidemiological purposes. Dillon Jasso MD MICROBIOLOGY [facility] [address] [place] [address], [place] * TRANSFUSE RBC (NURSE COMMUNICATION ORDER) (05/02/2024 6:38 PM CDT) Blood BLOOD SPECIMEN / Unknown Dillon Jasso MD NURSING BLOOD BAN K * TRANSFUSE RBC (NURSE COMMUNICATION ORDER) (05/02/2024 4:27 PM CDT) Blood BLOOD SPECIMEN / Unknown Marcos Goff MD NURSING BLOOD BANK * ENDOSCOPY (05/02/2024 1:03 PM CDT) 05/02/2024 1:03 PM CDT Narrative Transcriptions Marcos العلي MD - 05/02/2024 1:36 PM CDT [facility] Patient Name: Rakesh Lopez Procedure Date: 05/02/2024 Gender: Female Date of : 1970 Admit Type: Inpatient Procedure: Upper GI endoscopy Proceduralist: Marcos Maki MD [facility] Indications/Pre-Op Diagnosis: Melena Medications: Monitored Anesthesia Care Procedure Description: Risk of bleeding, infection, perforation, need for surgery and alternatives discussed. The endoscope [id number] was introduced through the mouth, and advanced to the third part of duodenum. The upper GI endoscopy was accomplished without difficulty. The patient tolerated the procedure well. Complications: No immediate complications. Estimated Blood Loss & Specimen: Estimated blood loss: none. Specimen collected: None Findings: The examined esophagus was normal. Hematin (altered blood/eujnpi-qrjaff-yfed material) was found in the entire examined stomach. One non-obstructing oozing superficial duodenal ulcer with oozing hemorrhage (Savage Class Ib) was found in the second portion of the duodenum. The lesion was 10 mm in largest dimension. There is no evidence of perforation. For hemostasis, three hemostatic clips were successfully placed. Bleeding had stopped at the end of theprocedure. Impressions/Post-Op Diagnosis: - Normal esophagus. - Hematin (altered blood/lowvuk-steuny-psaw material) in the entire stomach. Could not evaluate gastric mucosa given the amount ofclotted blood. - Non-obstructing oozing duodenal ulcer with oozing hemorrhage(Savage Class Ib). There is no evidence of perforation. Clips were placed, achieving hemostasis. - No specimens collected. Recommendation: - Return patient to [facility] for [facility] care. - Clear liquid diet. - Continue present medications. - Continue to monitor for signs of bleeding and please call us ifthere is any concern. Marcos Maki MD 05/02/2024 1:36:33 PM This report has been signed electronically. Note Initiated On: 05/02/2024 1:03 PM Marcos Maki MD PROCEDURE O RD * TRANSFUSE RBC (NURSE COMMUNICATION ORDER) (05/02/2024 6:55 AM CDT) Blood BLOOD SPECIMEN / Unknown Marcos Goff MD NURSING BLOOD BANK * CWS PATH REVIEW HEMATOLOGY (05/02/2024 2:56 AM CDT) PATH COMMENT Reviewed 05/03/2024 2:12 PM CDT [facility] Comment:Reviewed by KBMichael on Blood BLOOD SPECIMEN / Unknown Non-Lab Venipuncture / Unknown 05/02/2024 2:56 AM CDT 05/02/2024 2:56 AM CDT Marcos Goff MD LABORATORY [facility] [address] [place] [address], * TYPE AND SCREEN ONLY (05/02/2024 2:52 AM CDT) Only the most recent of2 resultswithin the time period is included. ABORH O Rh Positive 05/02/2024 3:40 AM CDT [facility] BLOOD BANK ANTIBODY SCREEN Negative Negative 05/02/2024 3:40 AM CDT [facility] B[facility]OD [facility] SPECIMEN EXPIRATION DATE/TIME 05/05/24 23:59 05/02/2024 3:40 AM CDT [facility] BLOOD BANK Blood BLOOD SPECIMEN / Unknown Non-Lab Venipuncture / Unknown 05/02/2024 2:52 AM CDT 05/02/2024 2:56 AM CDT Marcos Goff MD BLOOD BANK Performing Organization Address City/[facility]/ZIP Co de Phone Number [facility] BLOOD BANK [address] [place] [phone], * (ABNORMAL) PROTIME-INR (05/02/2024 2:52 AM CDT) INR 1.3(H) <1.3 05/02/2024 3:08 AM CDT [facility] PROTIME 14.9(H) 10.3 - 12.3 sec 05/02/2024 3:08 AM CDT [facility] Blood BLOOD SPECIMEN / Unknown Non-Lab Venipuncture / Unknown 05/02/2024 2:52 AM CDT 05/02/2024 2:56 AM CDT Narrative [facility]AL LAB[facility]ATORY - 05/02/2024 3:08 AM CDT ?Therapeutic Range 2.0-3.0 for most anticoagulated patients 2.5-3.5 or 4.0 for high risk patients The INR is only used for patients on stable oral anticoagulant therapy. It makes no significant contribution to the diagnosis or treatment of patients whose Protime is prolonged for other reasons. INR results are increased when heparin levels exceed 1.0 U/mL, which corresponds to an aPTT >125 seconds if the patient is on UFH. Marcos Goff MD HEMATOLOGY [facility] [address] [place] [address], [place] * INSERT PICC LINE (04/18/2024 1:42 PM CDT) Narrative Tato Jeffrey RN - 04/18/2024 1:42 PM CDT Tato Jeffrey RN ? 04/18/2024 ??1:56 PM PICC Line Catheter Exchange With a Guidewire 04/18/2024 ?1:44 PM Reason for catheter exchange: ?? ordered and previous 2 lumen Picc occluded ??needs a single lumen Picc Procedure education reviewed: Placement procedure, discussed with: Patient face to face. Patient face to face confirms understanding of procedure. Signed consent was obtained: ??Patient Medical/ Surgical/ Allergies History reviewed: ??Yes. Site appearance pre-catheter exchange: ??Dry, Flat Vessel Diameter Size: .51cm Left upper arm Catheter that was removed, post-removal catheter inspection: ?? Open ended catheter: ??Catheter length removed 45 cm. Preprocedure Verification: ??Yes 1) patient identity verified; 2) side/site/procedure confirmed; 3) relevant information/documentation available, reviewed and properly matched to the patient; 4) consent accurate and complete; 5) equipment and supplies available Site Marking: ??Yes Site marked if not in continuous attendance with the patient Time Out: ??Yes Time out was conducted just prior to starting procedure to verify the four required elements: 1) patient name and date of 2) confirmation that the correct side/site are marked if applicable, including visualization of the site cecily 3) name of procedure including laterality if applicable, and 4) essential imaging and results are properly labeled and appropriately displayed, if applicable. PICC line was placed using the following Central Line Insertion Checklist: Hand Hygiene: Yes Maximal Barrier Precautions including Sterile Gown, Hat and Mask: Yes Full Body Drape: Yes Site cleansed with: ??Chlorhexidine gluconate prep. Local anesthetic used at site: ??Yes, 1% Lidocaine. PICC Line 1 Lumen Left;Upper Arm;Basilic PICC/SVC (Active) 04/18/24 1305 Left;Upper Arm;Basilic Vessel Diameter: .51 cm Rmgihidk-he-Fkvm Ratio (%): ?? Visible Catheter Length (cm): 2 cm Placed/Present Prior to Encounter: ?? (IA) Placed Prior to Admission?: ?? Type: Valved Catheter (IA) Size: ?? Tip Location: PICC/SVC PICC Mid-Arm Circumference (cm): 44 cm Total Length of Catheter (cm): 48 cm Insertion Attempts: 1 (IA) Insertion Attempts: ?? Local Anesthetic: Injectable Placement Verification: ECG Removed Catheter Length (cm): ?? Removed/Resolved Prior to Encounter: ?? Visible Catheter Length (cm) 2 cm 04/18/24 1305 Arm Circumference (cm) 44 cm 04/18/24 130 Status Lumen One Blood Return;Capped/Locked 04/18/24 130 Line Assessment Antimicrobial patch and dressing clean/dry/intact 04/18/24 130 Site Description Dry/Flat;Covered 04/18/24 130 Line Intervention New dressing applied and NO hemostatic agent/gauze 04/18/241304 Dressing change due date 04/25/2024 04/18/24 130 Line Human Resources Director Name:Bard, [employer] Lot Number: [id number] Access Assistance:Modified Seldinger Technique (Micro-Introducer) WITH Dermatotomy (skin mila), Ultrasound Guidance, and Tip confirmation system/ECG Post-insertion: ? Able to remove guidewire: ??Smoothly ? Able to aspirate blood in each lumen: ??Yes ? Able to flush catheter without resistance in each lumen: ?? Yes Each lumen flushed with 20 ml(s) of 0.9% saline. Cap applied to each lumen: ??Yes Line secured with Stat-Lock and site dressed with Hospital dressing policy/ protocol followed . X-ray pending: No, explain: ??Tip location verified with ECG ? Patient tolerated the procedure: ??Yes,The patient tolerated insertion of Picc line well without immediate complications observed. Catheter exchange complications: ??None Gissell Solomon MD IV ORD * SCAN-CARDIAC STRIP (04/18/2024 12:48 AM CDT) Scanner OTHER * SCAN-CARDIAC STRIP (04/17/2024 1:08 AM CDT) Scanner OTHER * (ABNORMAL) Albumin AM (04/16/2024 5:38 AM CDT) Pathologist [facility] ALBUMIN 2.4(L) 4.0 - 4.9 g/dL 04/16/2024 6:22 AM CDT [facility] Blood BLOOD SPECIMEN / Unknown Non-Lab Venipuncture / Unknown 04/16/2024 5:38 AM CDT 04/16/2024 5:45 AM CDT Gissell Solomon MD CHEMISTRY [facility] [address] [place] [address], * SCAN-CARDIAC STRIP (04/16/2024 1:24 AM CDT) Scanner OTHER * WBC AM (04/15/2024 5:49 AM CDT) Only the most recent of4 resultswithin the time period is included. WHITE BLOOD COUNT 7.6 4.5 - 11.0 thou/cu mm 04/15/2024 6:22 AM CDT [facility] NRBC 0.0 % 04/15/2024 6:22 AM CDT [facility] ABS NRBC 0.0 thou /cu mm 04/15/2024 6:22 AM CDT [facility] Blood BLOOD SPECIMEN / Unknown Non-Lab Venipuncture / Unknown 04/15/2024 5:49 AM CDT 04/15/2024 6:07 AM CDT Elana Hernandez MD HEMATOLOGY Performing Organization Address City/[facility]/ZIP Co de Phone Number [facility] [address] [address], * SCAN-CARDIAC STRIP (04/15/2024 12:38 AM CDT) Scanner OTHER * AEROBIC BACTERIAL CULTURE, STAIN (04/14/2024 4:41 PM CDT) Only the most recent of2 resultswithin the time period is included. CULTURE No Growth. 04/19/2024 12:06 PM CDT [facility] GRAM STAIN No Epithelial cells 04/19/2024 12:06 PM CDT [facility] GRAM STAIN 1+ RBCs 04/19/2024 12:06 PM CDT [facility] GRAM STAIN 2+ PMNs 04/19/2024 12:06 PM CDT [facility] GRAM STAIN No organisms seen 04/19/2024 12:06 PM CDT [facility] Other (Other) Non-Blood / Unknown 04/14/2024 4:41 PM CDT 04/14/2024 5:56 PM CDT Nissa NUNES MICROBIOLOGY Performing Organization Address City/[facility]/ZIP Co de Phone Number [facility] [address] [place] [id number], * ANAEROBIC CULTURE (04/14/2024 4:41 PM CDT) Only the most recent of4 resultswithin the time period is included. CULTURE No anaerobes isolated 04/28/2024 10:54 AM CDT [facility] Other (Other) Non-Blood / Unknown 04/14/2024 4:41 PM CDT 04/14/2024 5:56 PM CDT Nissa NUNES MICROBIOLOGY [facility] [address] [place] [address], [place] * US ASPIRATION WITH DRAIN PLACEMENT (04/14/2024 4:38 PM CDT) Anatomical Region Laterality Modality Ultrasound 04/14/2024 6:03 PM CDT Narrative 04/14/2024 6:03 PM CDT For Patients: ??As a result of the Cures Act, medical imaging exams and procedure reports are released immediately into your electronic medical record. ??You may view this report before your referring provider. ??If you have questions, please contact your health care provider. INDICATION: 5.5 x 2.9 x 2.7 cm fluid collection anterior to the right sternoclavicular joint. Status post debridement. Drain placement requested. TECHNIQUE: Ultrasound-guided aspiration with drain placement. COMPARISON: Chest CT 04/13/2024. FINDINGS/DESCRIPTION OF PROCEDURE : The procedure and risks including but not limited to bleeding, infection and damage to adjacent organs were discussed with the patient. Informed consent was obtained. Ultrasound evaluation was performed and complex fluid collection was identified anterior to the right sternoclavicular joint. The site was marked, and then prepped draped sterile fashion. Ignacio protocol was followed. TIME-OUT conducted just prior to starting procedure confirmed patient identity, site/side, procedure, patient position, and availability of correct equipment. ??Pause for cause was performed. 10 cc 1 percent lidocaine was used for superficial and deeper anesthesia. Under ultrasound guidance, using trocar method, a 14-Belizean pigtail catheter was advanced in the fluid collection and deployed. The catheter was locked and 20 cc of analy pus was obtained and sent to the lab. The catheter was fixed in position and attached to a Jay-Close drainage bag. No immediate complications. EBL less than 10 cc. IMPRESSION STATUS POST PROCEDURE DIAGNOSIS : 1. Status post ultrasound-guided placement of 14-Belizean pigtail catheter into abscess anterior to the right sternoclavicular joint. 20 cc of analy pus obtained and sent to the lab. 2. No immediate complications. Dictated by Donnie Phillips MD @ 04/14/2024 6:03:00 PM (Electronically Signed) Procedure Note Donnie Phillips MD - 04/14/2024 For Patients: As a result of the Cures Act, medical imagingexams and procedure reports are released immediately into your electronicmedical record. You may view this report before your referring provider.If you have questions, please contact your health care provider. INDICATION: 5.5 x 2.9 x 2.7 cm fluid collection anterior to the right sternoclavicularjoint. Status post debridement. Drain placement requested. TECHNIQUE: Ultrasound-guided aspiration with drain placement. COMPARISON: Chest CT 04/13/2024. FINDINGS/DESCRIPTION OF PROCEDURE : The procedure and risks including but not limited to bleeding, infectionand damage to adjacent organs were discussed with the patient. Informedconsent was obtained. Ultrasound evaluation was performed and complexfluid collection was identified anterior to the right sternoclavicularjoint. The site was marked, and then prepped draped sterile fashion. Ignacio protocol was followed. TIME-OUT conducted just prior to startingprocedure confirmed patient identity, site/side, procedure, patientposition, and availability of correct equipment. Pause for cause wasperformed. 10 cc 1 percent lidocaine was used for superficial and deeper anesthesia.Under ultrasound guidance, using trocar method, a 14-Belizean pigtailcatheter was advanced in the fluid collection and deployed. The catheterwas locked and 20 cc of analy pus was obtained and sent to the lab. Thecatheter was fixed in position and attached to a Jay-Close drainage bag.No immediate complications. EBL less than 10 cc. IMPRESSION STATUS POST PROCEDURE DIAGNOSIS : 1. Status post ultrasound-guided placement of 14-Belizean pigtail catheterinto abscess anterior to the right sternoclavicular joint. 20 cc of frankpus obtained and sent to the lab. 2. No immediate complications. Dictated by Donnie Phillips MD @ 04/14/2024 6:03:00 PM (Electronically Signed) Nissa NUNES [place] * SCAN-CARDIAC STRIP (04/14/2024 1:19 AM CDT) Scanner OTHER * (ABNORMAL) Electrolyte panel AM (04/13/2024 6:43 AM CDT) SODIUM 134(L) 136 - 145 mmol/L 04/13/2024 7:27 AM CDT [facility] POTASSIUM 3.8 3.5 - 5.1 mmol/L 04/13/2024 7:27 AM CDT [facility] CHLORIDE 106 98 - 107 mmol/L 04/13/2024 7:27 AM CDT [facility] CO2,TOTAL 18(L) 22 - 29 mmol/L 04/13/2024 7:27 AM CDT [facility] ANION GAP 10 5 - 18 04/13/2024 7:27 AM CDT [facility] Blood BLOOD SPECIMEN / Unknown Non-Lab Venipuncture / Unknown 04/13/2024 6:43 AM CDT 04/13/2024 6:46 AM CDT Gissell Solomon MD CHEMISTRY [facility] [address] [place] [address], * SCAN-CARDIAC STRIP (04/13/2024 1:27 AM CDT) Scanner OTHER * SCAN CORRESP-LABORATORY RESULTS (04/12/2024 8:42 AM CDT) Narrative 04/12/2024 8:42 AM CDT Ordered by an unspecified provider. Other Clinical Staff OTHER * SCAN CORRESP-EKG RESULTS (04/12/2024 8:36 AM CDT) Only the most recent of2 resultswithin the time period is included. Narrative 04/12/2024 8:36 AM CDT Ordered by an unspecified provider. Other Clinical Staff OTHER * SCAN CORRESP-DIAGNOSTICS (04/12/2024 8:36 AM CDT) Narrative 04/12/2024 8:36 AM CDT Ordered by an unspecified provider. Other Clinical Staff OTHER * SCAN CORRESP-IMAGING (04/12/2024 8:30 AM CDT) Anatomical Region Laterality Modality Other Narrative 04/12/2024 8:30 AM CDT Ordered by an unspecified provider. Other Clinical Staff OTHER * TRANSFUSE RBC (NURSE COMMUNICATION ORDER) (04/12/2024 8:24 AM CDT) Blood BLOOD SPECIMEN / Unknown Elana Hernandez MD NURSING BLOOD BANK * (ABNORMAL) PRO-BNP (04/12/2024 6:49 AM CDT) PRO-BNP 596(H) <125 pg/mL 04/12/2024 3:04 PM CDT [facility] Blood BLOOD SPECIMEN / Unknown Non-Lab Venipuncture / Unknown 04/12/2024 6:49 AM CDT 04/12/2024 7:03 AM CDT Narrative [facility] - 04/12/2024 3:04 PM CDT The following cut-points have been suggested for the use of proBNP for the diagnostic evaluation of heart failure (HF) in patient with acute dyspnea. Patients with eGFR >= 60 Diagnosis (rule in CHF) ? <50 Years Old ?450 pg/mL 50 - 75 Years Old ?900 pg/mL >75 Years Old ? 1800 pg/mL Exclusion (rule out CHF) Age Independent ?300 pg/mL A cutoff of 1200 pg/mL for patients with an eGFR <60 yields a diagnostic sensitivity of 89% and specificity of 72% for acute congestive heart failure. ? Lina Lugo MD SEND OUTS [facility] [address] [place] [address], * SCAN-CARDIAC STRIP (04/12/2024 2:10 AM CDT) Scanner OTHER * ECHO TTE COMPLETE W CONTRAST (04/11/2024 8:55 AM CDT) AORTIC VALVE MEAN PG 7 mmHg EJECTION FRACTION 77 % PEAK TR VELOCITY 2.5 m/s LVEDD 5.8 cm Anatomical Region Laterality Modality Ultrasound 04/11/2024 8:22 AM CDT Narrative 04/11/2024 5:06 PM CDT ECHOCARDIOGRAM RKAESH Reid LOPEZ ?Accession#: ?? [id number] : ?1970 53 years Study Date: ?? 04/11/2024 8:22:12 AM Gender: F ? BP: ? 122/55 mmHg Height: 162.00 cm ? BSA: ?2.39 m? ? ? Weight: 146.00 kg ? Tech: ? GG/ TRAVELER ?Referring MD: ELANA HERNANDEZ Site: ? [facility] Reading Location: AN- Patient Location: Inpatient. Procedure: Color Doppler, Spectral Doppler and 2D w/ Contrast. Indication for study: Endocarditis Eval Cardiac Rhythm: Normal sinus.Study quality: Good. Imaging limitations: This study was subject to imaging limitations due to body habitus. Final Impressions: 1. Mildly increased left ventricular size, mildly increased wall thickness, normal global systolic function, calculated EF of 77 %. 2. Right ventricular cavity size is normal, global systolic RV function is normal. 3. No significant valve disease detected. 4. No pericardial effusion. 5. Echo contrast was administered to enhance visualization of all left ventricular segments. Chamber Sizes and Function Mildly increased left ventricular size, mildly increased wall thickness, normal global systolic function, calculated EF of 77 %. No definite resting regional wall motion abnormality seen. Left atrial size is normal. Right ventricular cavity size is normal, global systolic RV function is normal. The right atrium is normal. The pulmonary artery is not well visualized. The sinus of Valsalva is normal sized. The ascending aorta is normal sized. Valves, RV Pressures and Diastolic Function The aortic valve is normal in structure and trileaflet, no stenosis and no regurgitation. The mitral valve is normal in structure, no mitral regurgitation. Indeterminate pattern of LV diastolic filling. The tricuspid valve is normal in structure. Tricuspid regurgitation is mild regurgitation. The tricuspid regurgitant velocity is 2.5 m/s, the estimated right ventricular systolic pressure is 24 mmHg plus right atrial pressure. The pulmonic valve is normal. No pulmonary regurgitation. Masses, Effusion, Shunts There is no pericardial effusion. The inferior vena cava is normal sized, respiratory size variation greater than 50%. No left to right shunting was detected by limited color flow Doppler interrogation of the interatrial septum. MEASUREMENTS AND CALCULATIONS 2-D Measurements and LV Function: LVID (d) 5.8 cm Planimetered EF 77 % LVID (s) 2.6 cm LV FS% (2D) ? 54 % IVS (d) ??1.1 cm LVOT diameter ?? 2.1 cm LVPW (d) 1.0 cm HR ?97 bpm Ao Sinus 3.3 cm LA Vol index ?26 ml/m2 Asc Ao ?? 3.7 cm Diastology: Mitral ?Tissue Doppler E Peak 1.5 m/s ??e', Septum ? 0.08 m/s A Peak 1.1 m/s ??e', Lateral ?0.11 m/s E/A ?1.3 ?E/e' Average ?? 15.76 DT ? 166 msec Aortic Valve: Vmax ? 1.8 m/s ??CONRAD (V) ?? 2.59 cm? ? ? VTI ?0.35 m ?? CONRAD (I) ?? 2.72 cm? ? ? LVOT V max 1.3 m/s ??Max PG ?12 mmHg LVOT VTI ?? 0.27 m ?? Mean PG ?? 7 mmHg SV ? 94 ml ?Dim Index 0.79 SV index ?? 39 ml/m? ? ? CO ?9.1 l/min ?CI ?3.8 l/min/m? ? ? Mitral Valve: MVA ?4.6 cm? ? ? MV P 1/2 48 msec Tricuspid Valve and estimated PA pressures: TR Vmax 2.5 m/s TR maxG 24 mmHg Pulmonic Valve: PV Vmax ??1.4 m/s PV meanG 5 mmHg PV VTI ?? 0.30 m PV AT ?103 msec Contrast documentation: 2 ml diluted Definity, lot #[id number], [facility]# [id number] was administered peripherally to enhance visualization of all left ventricular segments. . This study was interpreted by an [facility] accredited facility. ??Final ?? Procedure Note Balbina Bergman MD - 04/11/2024 ECHOCARDIOGRAM RAKESH LOPEZ : 1970 53 years Study Date: 04/11/2024 8:22:12 AM Gender: F BP: 122/55 mmHg Height: 162.00 cm BSA: 2.39 m? ? ? Weight: 146.00 kg Tech: GG/ TRAVELER Referring MD: ELANA HERNANDEZ Site: [facility] Reading Location: [facility]- Patient Location: Inpatient. Procedure: Color Doppler, Spectral Doppler and 2D w/ Contrast. Indication for study: Endocarditis Eval Cardiac Rhythm: Normal sinus.Study quality: Good. Imaging limitations: This study was subject to imaging limitations due tobody habitus. Final Impressions: 1. Mildly increased left ventricular size, mildly increased wallthickness, normal global systolic function, calculated EF of 77 %. 2. Right ventricular cavity size is normal, global systolic RV functionis normal. 3. No significant valve disease detected. 4. No pericardial effusion. 5. Echo contrast was administered to enhance visualization of all leftventricular segments. Chamber Sizes and Function Mildly increased left ventricular size, mildly increased wall thickness,normal global systolic function, calculated EF of 77 %. No definiteresting regional wall motion abnormality seen. Left atrial size is normal.Right ventricular cavity size is normal, global systolic RV function isnormal. The right atrium is normal. The pulmonary artery is not wellvisualized. The sinus of Valsalva is normal sized. The ascending aorta isnormal sized. Valves, RV Pressures and Diastolic Function The aortic valve is normal in structure and trileaflet, no stenosis and noregurgitation. The mitral valve is normal in structure, no mitralregurgitation. Indeterminate pattern of LV diastolic filling. Thetricuspid valve is normal in structure. Tricuspid regurgitation is mildregurgitation. The tricuspid regurgitant velocity is 2.5 m/s, theestimated right ventricular systolic pressure is 24 mmHg plus right atrialpressure. The pulmonic valve is normal. No pulmonary regurgitation. Masses, Effusion, Shunts There is no pericardial effusion. The inferior vena cava is normal sized,respiratory size variation greater than 50%. No left to right shunting wasdetected by limited color flow Doppler interrogation of the interatrialseptum. MEASUREMENTS AND CALCULATIONS 2-D Measurements and LV Function: LVID (d) 5.8 cm Planimetered EF 77 % LVID (s) 2.6 cm LV FS% (2D) 54 % IVS (d) 1.1 cm LVOT diameter 2.1 cm LVPW (d) 1.0 cm HR 97 bpm Ao Sinus 3.3 cm LA Vol index 26 ml/m2 Asc Ao 3.7 cm Diastology: Mitral Tissue Doppler E Peak 1.5 m/s e', Septum 0.08 m/s A Peak 1.1 m/s e', Lateral 0.11 m/s E/A 1.3 E/e' Average 15.76 DT 166 msec Aortic Valve: Vmax 1.8 m/s CONRAD (V) 2.59 cm? ? ? VTI 0.35 m CONRAD (I) 2.72 cm? ? ? LVOT V max 1.3 m/s Max PG 12 mmHg LVOT VTI 0.27 m Mean PG 7 mmHg SV 94 ml Dim Index 0.79 SV index 39 ml/m? ? ? CO 9.1 l/min CI 3.8 l/min/m? ? ? Mitral Valve: MVA 4.6 cm? ? ? MV P 1/2 48 msec Tricuspid Valve and estimated PA pressures: TR Vmax 2.5 m/s TR maxG 24 mmHg Pulmonic Valve: PV Vmax 1.4 m/s PV meanG 5 mmHg PV VTI 0.30 m PV AT 103 msec Contrast documentation: 2 ml diluted Definity, lot #[id number], [facility]#[id number] was administered peripherally to enhance visualization of allleft ventricular segments. . This study was interpreted by an [facility] accredited facility. Final Elana Hernandez MD ECHO ORD * (ABNORMAL) URINALYSIS MICROSCOPIC (04/11/2024 3:04 AM CDT) RBC 3-5(A) 0-2, None Seen /HPF 04/11/2024 3:21 AM CDT [facility] WBC 3-5 0-2, 3-5, None Seen /HPF 04/11/2024 3:21 AM CDT [facility] BACTERIA None Seen None Seen, Rare, Few Bacteria/ HPF 04/11/2024 3:21 AM CDT [facility] EPITHELIAL CELLS Moderate(A ) None Seen, Few Epi/HPF 04/11/2024 3:21 AM CDT [facility] HYALINE CASTS 0-2 0-2, 3-5 /LPF 04/11/2024 3:21 AM CDT [facility] Urine URINE SPECIMEN / Unknown Non-Blood / Unknown 04/11/2024 3:04 AM CDT 04/11/2024 3:10 AM CDT Luz Maria Rivera MD URINE Performing Organization Address [facility]/ZIP Co de Phone Number [facility] [address] [place] [address], [place] * SODIUM,RANDOM URINE (04/11/2024 3:04 AM CDT) SODIUM,RANDOM URINE 23 mmol/L 04/11/2024 3:27 AM CDT [facility] Comment:No Reference Range D efined. Urine URINE SPECIMEN / Unknown Non-Blood / Unknown 04/11/2024 3:04 AM CDT 04/11/2024 3:10 AM CDT Luz Maria Rivera MD URINE Performing Organization Address [facility] Co de Phone Number [facility] [address] [place] [address], [place] * (ABNORMAL) Urinalysis TODAY (04/11/2024 3:04 AM CDT) COLOR Yellow Yellow Color 04/11/2024 3:21 AM CDT [facility] CLARITY Cloudy(A) Clear Clarity 04/11/2024 3:21 AM CDT [facility] SPECIFIC GRAVITY,URINE >=1.030(A) 1.010, 1.015, 1.020, 1.025 04/11/2024 3:21 AM CDT [facility] PH,URINE 5.0(A) 6.0, 7.0, 8.0, 5.5, 6.5, 7.5, 8.5 04/11/2024 3:21 AM CDT [facility] UROBILINOGEN, QUALITATIVE Normal Normal EU/dl 04/11/2024 3:21 AM CDT [facility] PROTEIN, URINE 30(A) Negative mg/dL 04/11/2024 3:21 AM CDT [facility] GLUCOSE, URINE Negative Negative mg/dL 04/11/2024 3:21 AM CDT [facility] KETONES,URINE Trace(A) Negative mg/dL 04/11/2024 3:21 AM CDT [facility] BILIRUBIN,URI NE Negative Negative 04/11/2024 3:21 AM CDT [facility] OCCULT BLOOD,URINE Negative Negative 04/11/2024 3:21 AM CDT [facility] NITRITE Negative Negative 04/11/2024 3:21 AM CDT [facility] LEUKOCYTE ESTERASE Trace(A) Negative 04/11/2024 3:21 AM CDT [facility] Urine URINE SPECIMEN / Unknown Non-Blood / Unknown 04/11/2024 3:04 AM CDT 04/11/2024 3:10 AM CDT Luz Maria Rivera MD URINE [facility] [address] [place] [address], * SCAN-CARDIAC STRIP (04/11/2024 1:10 AM CDT) Scanner OTHER * TISSUE CULTURE, STAIN (AEROBIC) (04/10/2024 2:11 PM CDT) Only the most recent of2 resultswithin the time period is included. CULTURE No Growth. 04/24/2024 12:11 PM CDT [facility] GRAM STAIN 1+ PMNs 04/24/2024 12:11 PM CDT [facility] GRAM STAIN 1+ RBCs 04/24/2024 12:11 PM CDT [facility] GRAM STAIN No Epithelial cells 04/24/2024 12:11 PM CDT [facility] GRAM STAIN No organisms seen 04/24/2024 12:11 PM CDT [facility] Tissue TISSUE SPECIMEN / Unknown Non-Blood / Unknown 04/10/2024 2:11 PM CDT 04/10/2024 2:31 PM CDT Narrative [facility] - 04/24/2024 12:11 PM CDT Hipolito Hernandez MD [facility]BIOLOGY [facility] [address] [place] [address], [place] * FUNGUS CULT, OTHER SOURCE (04/10/2024 2:11 PM CDT) CULTURE No Fungus isolated. 05/09/2024 7:05 AM CDT [facility] Tissue TISSUE SPECIMEN / Unknown Non-Blood / Unknown 04/10/2024 2:11 PM CDT 04/10/2024 2:31 PM CDT Hipolito Hernandez MD MICROBIOLOGY [facility] [address] [place] [address], [place] * (ABNORMAL) CRYSTAL ID BODY FLUID NO URINE (04/10/2024 2:01 PM CDT) MONOSODIUM URATES Extracellular(A) None Seen, Present, Not Present 04/10/2024 4:15 PM CDT [facility] CALCIUM PYROPHOSPHATES Extracellular(A) None Seen, Present, Not Present 04/10/2024 4:15 PM CDT [facility] OTHER CRYSTALS 04/10/2024 4:15 PM CDT [facility] SPECIMEN SOURCE Right Sternoclavicular Joint 04/10/2024 4:15 PM CDT [facility] Tissue TISSUE SPECIMEN / Unknown Non-Blood / Unknown 04/10/2024 2:01 PM CDT 04/10/2024 2:32 PM CDT Hipolito Hernandez MD BODY FLUID [facility] [address] [place] [address], * HCHG TUBE PR1, HCHG INSTRUMENT DISP PR10, HCHG STYLET PR1 (04/10/2024 1:41 PM CDT) Narrative Jesus Cardona FIRE SUPPORT MAN - 04/10/2024 1:41 PM CDT Jesus Cardona FI[employer] SUPPORT MAN ? 04/10/2024 ??1:42 PM Procedure: ETT Patient location during procedure: OR ETT Properties Mask Ventilation: easy Final Technique: video laryngoscopy Type: straight Location: oral Tube Size: 7.0 mm Stylet: yes Laryngoscope Blade: Glidescope Blade Size: 3 Cormack-Lehane Grade View: 1 Insertion Attempts: 1 Placement Verification: auscultation, end tidal CO2 and symmetrical chest wall movement Assessment: pharynx clear Secured at: 21 Difficulty: 0 (not difficult) Frdei Gonzales MD ANESTHESIA PX N OTE ORDERABLES * (ABNORMAL) Iron plus iron binding cap AM (04/10/2024 5:47 AM CDT) IRON 9(L) 37 - 145 ug/dL 04/10/2024 11:11 AM CDT [facility] UIBC (UNSATURATED) 113 112 - 347 ug/dL 04/10/2024 11:11 AM CDT [facility] IRON BINDING CAPACITY 122(L) 250 - 400 ug/dL 04/10/2024 11:11 AM CDT [facility] IRON,% SATURATION 7(L) 14 - 50 % 04/10/2024 11:11 AM CDT [facility] Blood BLOOD SPECIMEN / Unknown Non-Lab Venipuncture / Unknown 04/10/2024 5:47 AM CDT 04/10/2024 6:00 AM CDT Luz Maria Rivera MD CHEMISTRY [facility] [address] [address], * (ABNORMAL) HEMOGLOBIN A1C MONITORING (POCT) (04/10/2024 5:47 AM CDT) HEMOGLOBIN A1C MONITORING (POCT) 7.5(H) <=6.4 % 04/10/2024 12:11 PM CDT [facility] Blood BLOOD SPECIMEN / Unknown Non-Lab Venipuncture / Unknown 04/10/2024 5:47 AM CDT 04/10/2024 6:00 AM CDT Narrative [facility] - 04/10/2024 12:11 PM CDT ? (<=6.9%) ? Indicates good control ? (7.0% to 7.9%) ? Indicates fair control ? (>=8.0%) ? Indicates poor control ?? NOTE: ??These thresholds are guidelines and ?individual targets may vary. Falsely low levels may be seen with: Recent Transfusion, Recent Significant Blood Loss, Hemolytic Diseases, or Falsely elevated levels may be seen with: Untreated Anemias, Splenectomy ? Luz Maria Rivera MD CHEMISTRY [facility] [address] [address], * SCAN-CARDIAC STRIP (04/10/2024 1:12 AM CDT) Scanner OTHER * MR CHEST WWO (04/09/2024 12:18 PM CDT) Anatomical Region Laterality Modality HEART, CHEST, THORAX Magnetic Re sonance 04/09/2024 1:15 PM CDT Impressions 04/10/2024 9:37 AM CDT 1. Abnormal synovial enhancement associated with the right sternoclavicular joint compatible with the suspected sternoclavicular joint septic arthritis. Only a small amount of fluid within the joint space itself. Inflammatory changes are also associated with the right 1st costal cartilage-sternal junction. 2. Adjacent extensive soft tissue infectious/inflammatory changes extending both anterior and posterior to the joint. This includes several peripherally enhancing fluid collections. One collection extends anterior to the joint and subsequently tracks laterally within the upper aspect of the pectoralis major muscle. Associated pectoralis major myositis. Additional fluid collections extend posterior to the joint and also posterior to the clavicle adjacent to the subclavian vasculature and brachial plexus. 3. Soft tissue infectious/inflammatory changes extend posteriorly into the retro manubrial area of the anterior superior mediastinum. 4. Soft tissue edema extends to involve the right chest wall, right breast, right lower neck, right shoulder and right upper arm regions. Dictated by Shiraz Rosales MD @ 04/10/2024 9:37:29 AM (Electronically Signed) Narrative 04/10/2024 9:37 AM CDT For Patients: ??As a result of the Cures Act, medical imaging exams and procedure reports are released immediately into your electronic medical record. ??You may view this report before your referring provider. ??If you have questions, please contact your health care provider. INDICATION: Chest wall pain. Concern for septic arthritis of the sternoclavicular joint. No specific trauma. TECHNIQUE: Noncontrast and contrast-enhanced MRI of the chest wall with the [id number]-[id number] centered about the sternoclavicular joint level. 20 milliliters of intravenous gadolinium was administered for the postcontrast portion of the study. COMPARISON: CT from 04/07/2024. FINDINGS: The examination is mildly limited by motion artifact. Abnormal synovial enhancement associated with the right sternoclavicular joint compatible with the suspected sternoclavicular joint septic arthritis. Only a small amount of fluid within the joint space itself. Inflammatory changes are also associated with the right 1st costal cartilage-sternal junction. There is adjacent extensive soft tissue infectious/inflammatory changes extending both anterior and posterior to the joint. This includes several peripherally enhancing fluid collections. One collection extends anterior to the joint measuring approximately 3.5 x 1.5 by 2.5 cm in size and subsequently tracking laterally within the upper aspect of the pectoralis major muscle. There is associated pectoralis major myositis. Additional fluid collections extend posterior to the joint and also posterior to the clavicle adjacent to the subclavian vasculature and brachial plexus measuring on the order of 5 x 3 by 3 cm. Soft tissue infectious/inflammatory changes extend posteriorly into the retro manubrial area of the anterior superior mediastinum. Soft tissue edema extends to involve the right chest wall, right breast, right lower neck, right shoulder and right upper arm regions. No confluent areas of marrow effacement specific for osteomyelitis. Procedure Note Shiraz Rosales MD - 04/10/2024 For Patients: As a result of the Century Cures Act, medical imagingexams and procedure reports are released immediately into your electronicmedical record. You may view this report before your referring provider.If you have questions, please contact your health care provider. INDICATION: Chest wall pain. Concern for septic arthritis of the sternoclavicularjoint. No specific trauma. TECHNIQUE: Noncontrast and contrast-enhanced MRI of the chest wall with [id number] centered about the sternoclavicular joint level. 20milliliters of intravenous gadolinium was administered for thepostcontrast portion of the study. COMPARISON: CT from 04/07/2024. FINDINGS: The examination is mildly limited by motion artifact. Abnormal synovial enhancement associated with the right sternoclavicularjoint compatible with the suspected sternoclavicular joint septicarthritis. Only a small amount of fluid within the joint space itself.Inflammatory changes are also associated with the right 1st costalcartilage-sternal junction. There is adjacent extensive soft tissue infectious/inflammatory changesextending both anterior and posterior to the joint. This includes severalperipherally enhancing fluid collections. One collection extends anteriorto the joint measuring approximately 3.5 x 1.5 by 2.5 cm in size andsubsequently tracking laterally within the upper aspect of the pectoralismajor muscle. There is associated pectoralis major myositis. Additionalfluid collections extend posterior to the joint and also posterior to theclavicle adjacent to the subclavian vasculature and brachial plexusmeasuring on the order of 5 x 3 by 3 cm. Soft tissue infectious/inflammatory changes extend posteriorly into theretro manubrial area of the anterior superior mediastinum. Soft tissue edema extends to involve the right chest wall, right breast,right lower neck, right shoulder and right upper arm regions. No confluent areas of marrow effacement specific for osteomyelitis. IMPRESSION: 1. Abnormal synovial enhancement associated with the rightsternoclavicular joint compatible with the suspected sternoclavicularjoint septic arthritis. Only a small amount of fluid within the jointspace itself. Inflammatory changes are also associated with the right 1stcostal cartilage-sternal junction. 2. Adjacent extensive soft tissue infectious/inflammatory changesextending both anterior and posterior to the joint. This includes severalperipherally enhancing fluid collections. One collection extends anteriorto the joint and subsequently tracks laterally within the upper aspect ofthe pectoralis major muscle. Associated pectoralis major myositis.Additional fluid collections extend posterior to the joint and alsoposterior to the clavicle adjacent to the subclavian vasculature andbrachial plexus. 3. Soft tissue infectious/inflammatory changes extend posteriorly into theretro manubrial area of the anterior superior mediastinum. 4. Soft tissue edema extends to involve the right chest wall, rightbreast, right lower neck, right shoulder and right upper arm regions. Dictated by Shiraz Rosales MD @ 04/10/2024 9:37:29 AM (Electronically Signed) Chitra NUNES MR * XR CHEST 1 VIEW PORTABLE (04/09/2024 3:06 AM CDT) Only the most recent of2 resultswithin the time period is included. Anatomical Region Laterality Modality HEART, THORAX, CHEST Digital Rad iography 04/09/2024 3:07 AM CDT Narrative 04/09/2024 3:07 AM CDT For Patients: ??As a result of the Century Cures Act, medical imaging exams and procedure reports are released immediately into your electronic medical record. ??You may view this report before your referring provider. ??If you have questions, please contact your health care provider. INDICATION: Line placement TECHNIQUE: Chest radiograph 1 view COMPARISON: 04/08/2024 FINDINGS: The sensitivity and specificity of the exam are moderately limited by the patient`s body habitus. Mediastinum: The mediastinum is normal in appearance. Mild stable cardiomegaly is noted. Left PICC line is present with the tip near the cavoatrial junction. Lung: Both lungs are unremarkable in appearance with small lung volumes. No sign of pleural effusion seen. No pneumothorax is identified. Bone and Soft tissue: Unremarkable for age. IMPRESSIONS: 1. Left PICC line is present with the tip near the cavoatrial junction. 2. Mild stable cardiomegaly is noted. Dictated by Sudhir Nixon MD @ Apr 09 2024 ??3:07AM (Electronically Signed) [email or web address] Procedure Note Sudhir Nixon MD - 04/09/2024 For Patients: As a result of the Cures Act, medical imagingexams and procedure reports are released immediately into your electronicmedical record. You may view this report before your referring provider.If you have questions, please contact your health care provider. INDICATION: Line placement TECHNIQUE: Chest radiograph 1 view COMPARISON: 04/08/2024 FINDINGS: The sensitivity and specificity of the exam are moderatelylimited by the patient`s body habitus. Mediastinum: The mediastinum is normal in appearance. Mild stablecardiomegaly is noted. Left PICC line is present with the tip near thecavoatrial junction. Lung: Both lungs are unremarkable in appearance with small lung volumes.No sign of pleural effusion seen. No pneumothorax is identified. Bone and Soft tissue: Unremarkable for age. IMPRESSIONS: 1. Left PICC line is present with the tip near the cavoatrial junction. 2. Mild stable cardiomegaly is noted. Dictated by Sudhir Nixon MD @ Apr 09 2024 3:07AM (Electronically Signed) [email or web address] Robby Melchor MD GENERAL IMAGING * SCAN-CARDIAC STRIP (04/09/2024 2:51 AM CDT) Scanner OTHER * SCAN-CARDIAC STRIP (04/08/2024 7:09 PM CDT) Scanner OTHER * US Venous doppler RIGHT upper extremity (04/08/2024 4:32 PM CDT) Anatomical Region Laterality Modality ARMS, ARM R Ultrasound 04/09/2024 7:50 AM CDT Impressions 04/09/2024 7:50 AM CDT 1. No findings for right upper extremity DVT. 2. Superficial thrombus within the right basilic vein in the distal upper arm to mid forearm and right cephalic vein from proximal to mid arm. Dictated by Mahnaz Crandall MD @ 04/09/2024 7:50:25 AM (Electronically Signed) Narrative 04/09/2024 7:50 AM CDT For Patients: ??As a result of the Cures Act, medical imaging exams and procedure reports are released immediately into your electronic medical record. ??You may view this report before your referring provider. ??If you have questions, please contact your health care provider. INDICATION: Status post right recent orthopedic surgery. Evaluate for DVT TECHNIQUE: Ultrasound venous duplex upper right extremity. ??Compression venous exam was performed using gonzalez-scale, color Doppler, and spectral Doppler imaging. FINDINGS: Sonographic imaging demonstrates the right internal jugular, innominate, subclavian, axillary, brachial veins. Partial compressibility of the right basilic vein, cephalic vein. Normal blood flow in the left internal jugular and subclavian veins. Procedure Note Mahnaz Crandall MD - 04/09/2024 For Patients: As a result of the Cures Act, medical imagingexams and procedure reports are released immediately into your electronicmedical record. You may view this report before your referring provider.If you have questions, please contact your health care provider. INDICATION: Status post right recent orthopedic surgery. Evaluate for DVT TECHNIQUE: Ultrasound venous duplex upper right extremity. Compression venous examwas performed using gonzalez-scale, color Doppler, and spectral Dopplerimaging. FINDINGS: Sonographic imaging demonstrates the right internal jugular, innominate,subclavian, axillary, brachial veins. Partial compressibility of the rightbasilic vein, cephalic vein. Normal blood flow in the left internaljugular and subclavian veins. IMPRESSION: 1. No findings for right upper extremity DVT. 2. Superficial thrombus within the right basilic vein in the distal upperarm to mid forearm and right cephalic vein from proximal to mid arm. Dictated by Mahnaz Crandall MD @ 04/09/2024 7:50:25 AM (Electronically Signed) Elana Hernandez MD * PROCALCITONIN (04/08/2024 12:36 PM CDT) [facility] PROCALCITONIN 0.46 ng/ml 04/08/2024 1:46 PM CDT [facility] Blood BLOOD SPECIMEN / Unknown Non-Lab Venipuncture / Unknown 04/08/2024 12:36 PM CDT 04/08/2024 1:04 PM CDT Narrative [facility] - 04/08/2024 1:46 PM CDT Procalcitonin for initial assessment of Lower Respiratory Tract Infection: Results Interpretation <0.10 ng/mL Antibiotic therapy strongly discoraged. ??Indicates absent of bacterial infection. * 0.10 - 0.25 ng/mL Antibiotic therapy discouraged. ??Bacterial infection unlikely. * 0.26 - 0.50 ng/mL Antibiotic therapy encouraged. ??Bacterial infection possible. >0.50 ng/mL Antibiotic therapy strongly encouraged. ??Suggestive of presence of bacterial infection. *Antibiotic therapy should be considered regardless of PCT result if the patient is clinically unstable, is at high risk for adverse outcome, has strong evidence of bacterial pathogen, or the clinical context indicates antibiotic therapy is warranted. ??If antibiotics are withheld, reassess if symptoms persist/worsen and/or repeat PCT measurement within 6-24 hours. ? In order to assess treatment success and to support a decision to discontinue antibiotic therapy, follow up samples should be tested once every 1-2 days, based upon physician discretion taking into account patient's evolution and progress. Procalcitonin for initial assessment of severe sepsis risk: Results Interpretation <0.5 ng/ml A PCT level below 0.5 ng/ml on the first day of ICU admission is associated with a low risk for progression to severe sepsis and/or septic shock. > 2.0 ng/mL A PCT level above 2.0 ng/mL on the first day of ICU admission is associated with a high risk for progression to severe sepsis and/or septic shock. Note: Concentrations < 0.5 ng/mL do not exclude an infection, on account of localized infections (without systemic signs) which can be associated with such low concentrations, or a systemic infection in its initial stages(< 6 hours). Furthermore, increased procalcitonin can occur without infection. PCT concentrations between 0.5 and 2.0 ng/mL should be interpreted taking into account the patient's history. It is recommended to retest PCT within 6-24 hours if any concentrations < 2 ng/mL are obtained. Gissell Solomon MD SEND OUTS Performing Organization Address [facility] Co de Phone Number [facility] [address] [place] [address], [place] * SCAN-CARDIAC STRIP (04/08/2024 11:26 AM CDT) Scanner OTHER * BLOOD CULTURE (04/08/2024 11:04 AM CDT) Only the most recent of2 resultswithin the time period is included. CULTURE No Growth. 04/12/2024 2:57 PM CDT [facility] Blood BLOOD SPECIMEN / Unknown Butterfly / Unknown 04/08/2024 11:04 AM CDT 04/08/2024 11:16 AM CDT Elana Hernandez MD MICROBIOLOGY Performing Organization Address [facility] de Phone Number [facility] [address] [place] [address], [place] * LACTATE VENOUS (04/08/2024 10:37 AM CDT) LACTATE,VENOUS 1.7 0.5 - 2.0 mmol/L 04/08/2024 12:11 PM CDT [facility] Blood BLOOD SPECIMEN / Unknown Non-Lab Venipuncture / Unknown 04/08/2024 10:37 AM CDT 04/08/2024 10:54 AM CDT Elana Hrenandez MD CHEMISTRY Performing Organization Address [facility] Co de Phone Number [facility] [address] [address], [place] * Beta hydroxybutyrate TODAY (04/08/2024 10:37 AM CDT) Pathologist [facility] BETA HYDROXYBUTYRATE <0.6 <0.6 mmol/L 04/08/2024 10:58 AM CDT [facility] Blood BLOOD SPECIMEN / Unknown Non-Lab Venipuncture / Unknown 04/08/2024 10:37 AM CDT 04/08/2024 10:54 AM CDT Elana Hernandez MD SEND OUTS [facility] [address] [place] [address], * SCAN-CARDIAC STRIP (04/08/2024 12:00 AM CDT) Narrative 04/08/2024 12:00 AM CDT Ordered by an unspecified provider. Other Clinical Staff OTHER * PATH TISSUE EXAM (04/03/2024 11:15 AM CDT) Pathologist [facility] Case Report Pathology Report ?Case: [id number] ? Authorizing Provider: ??Chandu Pichardo MD ?Collected: ? 04/03/2024 1115 ? Ordering Location: ? [facility] ?Received: ?04/04/2024 0956 ? Pathologist: ? Castillo Thompson MD ? Specimen: ?Bursa ? 04/06/2024 9:55 AM T [facility] Final Diagnosis A) RIGHT OLECRANON BURSA, EXCISION: 1. 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 Focal abundant fibrin and neutrophils; cannot exclude superimposed infection 3. Negative for neoplasm 04/06/2024 9:55 AM [facility] Clinical Information Ms. Lopez is a 53 y.o. with clinical impression of right olecranon infection. Undergoes excision of tissue for cell count and crystal analysis. 04/06/2024 9:55 AM [facility] Gross Description A) Received fresh labeled with the patient's name and right olecranon bursa, is a 2.0 x 1.7 x 0.6 cm aggregate of soft friable chalky blood-tinged white-ashford material admixed with soft tissue. ??Two smears are prepared. ??Waiter/Waitress Cabin Class sections are submitted in 1 cassette. YARON 04/04/2024 04/06/2024 9:55 AM [facility] Microscopic Description The final diagnosis is based on microscopic examination of appropriate sections of all specimens. Histologic sections show abundant crystalline material with histiocytic reaction. Touch preparations show needle shaped crystals with polarization characteristics typical of gout. There is also abundant fibrin and neutrophilic debris present. 04/06/2024 9:55 AM [facility] Additional Information Interpreted at [facility] - [address], [place] [address] 04/06/2024 9:55 AM [facility] Other BURSA SPECIMEN / Unknown 04/03/2024 11:15 AM CDT 04/04/2024 9:56 AM CDT Chandu Pichardo MD PATHOLOGY/CYTOLOGY Performing Organization Address [facility] Co de Phone Number [facility] [address] [place] [address], [place] * SCAN-OPERATIVE/PROCEDURE REPORT (04/03/2024 12:00 AM CDT) Narrative 04/03/2024 12:00 AM CDT Ordered by an unspecified provider. Other Clinical Staff OTHER * LAB TRACKING EVENT (04/01/2024 12:00 PM CDT) Other (Other) Client Collect / Unknown 04/01/2024 12:00 PM CDT 04/03/2024 10:38 PM CDT Chandu Pichardo MD LAB BILL ONLY Performing Organization Address [facility] Co de Phone Number [facility] [address] [place] [address], [place] * ANTI HCV (05/08/2022 12:27 PM CDT) HEPATITIS C ANTIBODY Non-React amy Non-React amy 05/08/2022 10:27 PM CDT [facility] Comment:Antibodies to HCV no t detected; does not exclude the possibility of exposure to HCV. Blood BLOOD SPECIMEN / Unknown Venipuncture / Unknown 05/08/2022 12:27 PM CDT 05/08/2022 12:27 PM CDT Ana NUNES SEND OUTS Performing Organization Address [facility] Co de Phone Number [facility] [address] [place] [phone], [place] * SCAN-FECAL TEST DNA (COLOGUARD) (05/08/2022 12:00 AM CDT) Scanner OTHER from Last 3 Months or Most Recently Relevant to Health Maintenance Advance Directives * Full Code (Latest Code Status on File) Date Activated Date Inactivated Comments 05/12/2024 4:16 PM * Full Code Date Activated Date Inactivated Comments 05/02/2024 7:03 AM 05/11/2024 2:27 PM Question Answer Comments Code Status Discussion: Reviewed Preferences * Full Code Date Activated Date Inactivated Comments 04/08/2024 11:03 AM 04/19/2024 7:02 PM Question Answer Comments Code Status Discussion: Reviewed Preferences * Full Code Date Activated Date Inactivated Comments 04/08/2024 9:25 AM 04/08/2024 11:03 AM Question Answer Comments Code Status Discussion: Unable to Assess Preferences, Provider to review later Care Teams Pipe Fittings Molder Relationship Specialty Start Date End Date Taniya Apodaca PA [address] [place] [address] PCP - General Physician Wet Pan Operator 05/10/24 [id number] [place] [address] 05/10/24
--- OUTSIDE RECORDS SUMMARY | 2024-05-20 11:06 | XMS_ITS | Continuity of Care Document ---
Author Organization [facility] Address [address] [address] [place] [address] Phone Care Team Providers Care Director Of Education Name Role Phone Fanny Gary Unavailable Unavailable [...] on Encounter Subsqt Hosp-da E&m Minr Compl [facility], [address] [address], [place], [place], [id number], [place] tel:[phone] [facility] No Information 4 Eugenio Escobedo. [address] [facility], [address], [id number], [place]. tel:[phone] Referring Provider: Fanny Alcaraz, [address], [address]. tel:[phone] Init Inpt Cons N/e Mod-hi 110m [facility], [address] [address], [place], [place], [id number], [place] tel:[phone] [facility] No Information 4 Nikhil Rodríguez. [address] [facility], [address], [id number], [place]. tel:[phone] Referring Provider: Marcos Moore, [address] [address], [place], [address]. tel:[phone] Family History Family Member Type Diagnosis Age At Onset No Information Payers Payer name Insurance type Covered alliance party ID Authoriza tiwoody(s) [facility] [employer] [id number] Social History Type Description Quantity Date Captured [...]
== END 2024-05-20 11:50 | disposition home or self-care (01) ==
PROVIDERS: Emergency Provider Family Medicine
DX: M1A.0411 Idiopathic chronic gout, right hand, with tophus (tophi) (principal)
CPT/HCPCS: 99283; 99284

== ENCOUNTER 2025-07-24 04:09 | Outpatient (CLI) | payer BC, SELFPAY | END 2025-07-24 04:10 | disposition home or self-care (01) | LOC: AMB 07-30 09:52 | PROVIDERS: PCP Physician Assistant; Visit Provider Family Medicine | DX: R53.1 Weakness (principal); R53.83 Other fatigue | CPT/HCPCS: A0425; A0429 ==

== ENCOUNTER 2025-07-24 04:59 | Inpatient (IN) | payer BC, SELFPAY ==
--- OUTSIDE RECORDS SUMMARY | 2024-05-03 19:00 | XMS_ITS | Continuity of Care Document ---
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 Name Role Phone Fanny Gary Unavailable Unavailable Procedures Procedure Date Subsqt Hosp-da E&m Minr Compl 4 Subsqt Hosp-da E&m Stable 15 M 24 Init Inpt Cons N/e Mod-hi 110m 24 Ugi Endo; W/contrl Bleed Any M 24 Advance Directives Directive Yes / No Effective Date File Name No Information Encounters Encounter Description Practice Location Reason(s) For Visit Diagnoses Date Provider Providers Copied on Encounter Subsqt Hosp-da E&m Minr Compl [facility], [address] [address], [place], [place], [id number], [place] tel:[phone] [facility] No Information 4 Eugenio Escobedo. [address] [facility], [address] [place] [address], [id number], [place]. tel:[phone] Referring Provider: Fanny Alcaraz, [address], [address]. tel:[phone] Init Inpt Cons N/e Mod-hi 110m [facility], [address] [address], [place], [place], [id number], [place] tel:[phone] [facility] No Information 4 Nikhil Rodríguez. [address] [place] [address], [address] [place] [address], [id number], [place]. tel:[phone] Referring Provider: Marcos Moore, [address] [address], [place], [address]. tel:[phone] Family History Family Member Type Diagnosis Age At Onset No Information Payers Payer name Insurance type Covered constitution party ID Authoriza tiwoody(s) [facility] [id number] Social History Type Description Quantity Date Captured Comments Sex Female Smoking Status No Information Chief Complaint And Reason For Visit No Information Reason For Referral Reason For Referral No Information History Of Present Illness Encounter Date Complaint History Of Prese nt Illness No Information Functional Status Date Functional Assessmen t No Information Instructions Date Instruction Additional Infor mation No Information Assessments Type Assessment Date No Information Patient Care Teams Name Effective Dates (start - stop) Status Members No Information
--- OUTSIDE RECORDS SUMMARY | 2024-05-03 19:00 | XMS_ITS | Continuity of Care Document ---
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 [address] [facility], [address], [id number], [place]. tel:[phone] Referring Provider: Fanny Alcaraz, [address], [address]. tel:[phone] Init Inpt Cons N/e Mod-hi 110m [facility], [address] [address], [place], [place], [id number], [place] tel:[phone] [facility] No Information 4 Nikhil Rodríguez. [address] [place] [address], [address], [id number], [place]. tel:[phone] Referring Provider: Marcos Moore, [address] [address], [place], [address]. tel:[phone] Family History Family Member Type Diagnosis Age At Onset No Information Payers Payer name Insurance type Covered republican ID Authoriza tiwoody(s) [facility] [id number] Social History Type Description Quantity Date Captured [...]
[2025-07-24] VITALS (39 sets, daily range): BP systolic 122–164; BP diastolic 60–91; PULSE 93–110; RESP 5–31; TEMP 36.9–38.1; O2SAT 87–93; BMI 46.4; BMI 49.1; BMI 49.2
--- OUTSIDE RECORDS SUMMARY | 2025-07-24 05:00 | XMS_ITS | Clinical Summary ---
Author Organization [facility] Address [address] [place] [id number] Care Team Providers Care Radio Interference Expert Name Role Phone Taniya Apodaca Primary Care Provider [phone]- [phone] Allergies Active Allergy Reactions Criticality Noted Date Comments Pioglitazone Anaphylaxis High 05/02/2024 Ceftriaxone Rash Low 05/10/2024 Maculopapular drug rash, uncertain if was IV CTX as tolerated for weeks, other possible medication culprits Medroxyprogesterone Bleeding 10/16/2006 Latex Rash 10/16/2006 Nortriptyline Hives 10/16/2006 Octoxynol Hives 10/16/2006 Sulfamethoxazole-Trimethopr im *Unknown - Childhood Rxn 12/09/2006 Medications paliperidone (INVEGA) 9 mg tr24 Extended-Release tablet Take 1 tablet by mouth once daily. 0 01/27/20 19 Active TRUEPLUS LANCETS 33 [...] (20 mg) by mouth once daily. 05/08/20 Active Oiben-5-NQX-EPA-Fis h Oil 1,000 mg (120 mg-180 mg) cap Take 1 Capsule (1,000 mg) by mouth two times daily. 0 04/20/20 Active acetaminophen (TylenoL) 325 mg tablet Take 650 mg by mouth two times daily. Max acetaminophen dose: 4000mg in 24 hrs. 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 Bariatric 1 Each 05/10/20 Active WalkerIndications:A cute blood loss anemia for home use. Bariatric wide walker 1 Each 05/11/20 Active ketoconazole 2 % creamIndications:Ti lon pedis of both feet Apply topically to affected area(s) two times daily. 60 g 2 06/15/20 Active Additional Information Patient not taking.Reported on 04/06/2025 QUEtiapine 100 mg tablet Take 100 mg by mouth at bedtime. 03/20/20 25 Active blood-glucose meterIndications:Co ntrolled type 2 diabetes mellitus without complication, without long-term current use of insulin (HC) Dispense meter covered by pts insurance. 1 Each 04/06/20 25 Active blood sugar diagnostic (Blood Glucose Test) stripIndications:Co ntrolled type 2 diabetes mellitus without complication, without long-term current use of insulin (HC) Test 1 times per day. 100 Each 04/06/20 25 Active lancetsIndications: Controlled type 2 diabetes mellitus without complication, without long-term current use of insulin (HC) Test 1 times per day. 100 Each 04/06/20 25 Active allopurinoL 100 mg tabletIndications:M ultiple gouty tophi,Stage 3b chronic kidney disease (HC) Take 2 Tablets (200 mg) by mouth once daily. 180 Tablet 3 04/06/20 Active colchicine 0.6 mg tabletIndications:T ophaceous gout Take 1 Tablet (0.6 mg) by mouth once daily. 90 Tablet 04/06/20 25 Active ferrous sulfate 325 mg delayed release tabletIndications:I aaron deficiency anemia, unspecified iron deficiency anemia type Take 1 Tablet (325 mg) by mouth once daily with a meal. 90 Tablet 04/06/20 25 Active furosemide 20 mg tabletIndications:S welling of both lower extremities Take 1 Tablet (20 mg) by mouth once daily in the morning. 90 Tablet 3 04/06/20 25 Active metFORMIN 500 mg Extended-Release tabletIndications:C ontrolled type 2 diabetes mellitus without complication, without long-term current use of insulin (HC) Take 4 Tablets (2,000 mg) by mouth once daily. 360 Tablet 1 04/06/20 25 Active magnesium oxide 400 mg tabletIndications:H ypomagnesemia Take 2 Tablets (800 mg) by mouth two times daily. 360 Tablet 3 04/06/20 25 Active atorvastatin (LIPITOR) 20 mg tabletIndications:H yperlipidemia, unspecified hyperlipidemia type Take 1 Tablet (20 mg) by mouth at bedtime. 90 Tablet 2 05/20/20 25 Active amLODIPine (NORVASC) 10 mg tabletIndications:H ypertension, unspecified type Take 1 Tablet (10 mg) by mouth once daily. 90 Tablet 3 05/25/20 25 Active losartan (COZAAR) 25 mg tabletIndications:H TN (hypertension) Take 1 Tablet (25 mg) by mouth once daily. 05/28/20 25 Active labetaloL (TRANDATE) 200 mg tabletIndications:H TN (hypertension) Take 1 Tablet (200 mg) by mouth two times daily. 180 Tablet 3 05/29/20 25 Active ondansetron (ZOFRAN ODT) 4 mg disintegrating tabletIndications:N ausea and vomiting, unspecified vomiting type Place 1 Tablet (4 mg) on the tongue every 6 hours if needed for Nausea/Vomiting for up to 20 doses. 20 Tablet 07/23/20 25 Active Active Problems Problem Noted Date Diagnosed [...] Problem Noted Date Diagnosed Date Resolved Date Hyperparathyroidism 06/16/2024 06/17/20 Uncontrolled type 2 diabetes mellitus with hyperglycemia 05/08/2022 05/08/2022 Encounters Date Type Department Care Team Description 07/23/2025 4:05 PM CDT Telemedicine [facility] [address] [place] [id number] Blanquita Mcdermott NP Vomiting 07/23/2025 Travel 06/19/2025 Refill [facility] [address] [place] [address] Taniya Apodaca PA Refill Request (Pantoprazole) 05/29/2025 Telephone [facility] [address] [place] [address] Taniya Apodaca PA Follow Up 05/28/2025 E-Consult [facility] [address] [place] [address] Wilmer Mayer MD 05/24/2025 Telephone [facility] [address] [place] [address] Taniya Apodaca PA Abnormal Lab Results 05/23/2025 Refill [facility] [address] [place] [address] Taniya Apodaca PA Refill Request (Amlodipine) 05/22/2025 2:45 PM CDT Orders Only [facility] [address] [place] [address] Lab, [facility] 05/22/2025 Travel 05/21/2025 Telephone [facility] [address] [place] [address] Taniya Apodaca PA Questions (return call) 05/18/2025 Telephone [facility] [address] [place] [address] Taniya Apodaca PA Refill Request (Losartan, Atorvastatin) from Last 3 Months Immunizations Immunization Administration Dates Next Due HepA-HepB (Twinrix) 05/08/2022 [...] PHQ-2 Answer Date Recorded PHQ-2 TOTAL SCORE 3 04/06/2025 Social Connections Answer Date Recorded Do you often feel lonely or isolated from those around you? 0 04/17/2024 Financial Resource Strain Answer Date R ecorded Difficulty of Paying Living Expenses 3 04/17/2024 Difficulty of Paying Living Expenses Not on file 04/17/2024 Food Insecurity Answer Date Recorded Do you worry your food will run out before you are able to buy more? 1 04/17/2024 Transportation Needs Answer Date Record ed Does lack of transportation keep you from medica l appointments? 1 04/17/2024 Does lack of transportation keep you from work, meetings or getting things that you need? 1 04/17/2024 Housing Stability Answer Date Recorded What is your housing situation today? 1 04/17/2024 Interpersonal Safety Answer Date Record ed Are you being hit, kicked, p ushed or yelled at (see row info)? No 05/02/2024 Interpersonal Safety Abuse 12 - 18 Not on file 05/02/2024 Interpersonal Safety Ambulatory Vulnerability No t on file 05/02/2024 Utilities Answer Date Recorded Do you have trouble paying f or utilities (for example, heat, electricity, water, phone)? 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 Gender Identity Not on file Sexual Orientation Not on file Obstetrics History Last Filed Vital Signs Vital Sign Reading Time Taken Comments Blood Pressure 176/96 04/06/2025 2:13 PM CDT Pulse 104 04/06/2025 2:13 PM CDT Temperature 36.7 C (98 F) 06/30/2024 9:11 AM CDT Respiratory Rate 16 06/30/2024 9:11 AM CDT Oxygen Saturation 97% 04/06/2025 2:13 PM CDT Inhaled Oxygen Concentration - - Weight 127.5 kg (281 lb) 04/06/2025 2:13 PM CDT Height 162 cm (5' 3.78) 04/06/2025 2:13 PM CDT Body Mass Index 48.57 04/06/2025 2:13 PM CDT Plan of Treatment Health Maintenance Due Date Last Done Comments HIV for age 15-65 1984 Pneumococcal series for age 50+ (1 of 2 - PCV) 1988 Pap test for age 21-65 1990 Mammogram for age 45-75 2014 Zoster (shingles) series for age 50+ (1 of 2) 2019 Hepatitis B series for 19+ ( 2 of 3 - Hep B Twinrix 3-dose series) 06/05/2022 05/08/2022 Fecal testing sDNA-FIT ([place] guard) for age 45-75 05/08/2025 05/08/2022 COVID-19 vaccine series ( season) 2025 Influenza Vaccine (#1) 2025 09/07/2007 BMI (ht and wt on same day) for age 18+ 04/06/2026 04/06/2025, 05/16/2024, 05/08/2022, Additional history exists Depression screening for age 12+ 04/06/2026 04/06/2025, 05/19/2024, 05/19/2024, Additional history exists Lipids for age 45-75 04/06/2030 04/06/2025, 05/16/2024, 03/11/2023, Additional history exists Tetanus booster 05/08/2032 05/08/2022, 12/11/2008, 12/28/2002, Additional history exists RSV vaccine for adults or (1 - 1-dose 75+ series) 2044 Hepatitis C screening for ag e 18-79 Completed 05/08/2022 Procedures Procedure Name Priority Date/Time Associated Diagnosis Comments BASIC METABOLIC PANEL Routine 05/22/2025 2:34 PM CDT Hyperkalemia LIPID PANEL W REFLEX MEASURED LDL Routine 04/06/2025 3:08 PM CDT Controlled type 2 diabetes mellitus without complication, without long-term current use of insulin (HC) ANTI HCV Routine 05/08/2022 12:27 PM CDT Need for hepatitis C screening test SCAN-FECAL TEST DNA (COLOGUARD) 05/08/2022 12:00 AM CDT from Last 3 Months or Most Recently Relevant to Health Maintenance Results * (ABNORMAL) BASIC METABOLIC PANEL (05/22/2025 2:34 PM CDT) GLUCOSE 195(H) 65 - 99 mg/dL [facility] Comment: Fasting reference interval For someone without known diabetes, a glucose value >125 mg/dL indicates that they may have diabetes and this should be confirmed with a follow-up test. UREA NITROGEN (BUN) 34(H) 7 - 25 mg/dL [facility] CREATININE 1.47(H) 0.50 - 1.03 mg/dL [facility] EGFR 42(L) > OR = 60 mL/min/1.7 3m2 [facility] BUN/CREATININE RATIO 23(H) 6 - 22 (calc) [facility] SODIUM 133(L) 135 - 146 mmol/L [facility] POTASSIUM 5.4(H) 3.5 - 5.3 mmol/L [facility] CHLORIDE 101 98 - 110 mmol/L [facility] CARBON DIOXIDE 19(L) 20 - 32 mmol/L [facility] ELECTROLYTE BALANCE 13 7 - 17 mmol/L (calc) [facility] CALCIUM 10.8(H) 8.6 - 10.4 mg/dL [facility] Blood BLOOD SPECIMEN / Unknown 05/22/2025 2:34 PM CDT 05/22/2025 2:35 PM CDT Taniya NUNES CHEMISTRY Final Resu lt [employer] [facility] [address] [place] [address], [facility] [address] [place] [address] * (ABNORMAL) LIPID PANEL W REFLEX MEASURED LDL (04/06/2025 3:08 PM CDT) CHOLESTEROL, TOTAL 155 <200 mg/dL [facility] HDL CHOLESTEROL 40(L) > OR = 50 mg/dL [facility] TRIGLYCERIDES 553(H) <150 mg/dL [facility] Comment: If a non-fasting specimen was collected, consider repeat triglyceride testing on a fasting specimen if clinically indicated. Fernandez et al. J. of Clin. Lipidol. 2015;9:129-169. There is increased risk of pancreatitis when the triglyceride concentration is very high (> or = 500 mg/dL, especially if > or = 1000 mg/dL). Fernandez et al. J. of Clin. Lipidol. 2015;9:129-169. LDL-CHOLESTEROL Ques t [facility] Comment: LDL cholesterol not calculated. Triglyceride levels greater than 400 mg/dL invalidate calculated LDL results. Reference range: <100 Desirable range <100 mg/dL for primary prevention; <70 mg/dL for patients with CHD or diabetic patients with > or = 2 CHD risk factors. LDL-C is now calculated using the Sami-Frankie calculation, which is a validated novel method providing better accuracy than the Friedewald equation in the estimation of LDL-C. Sami WALKER et al. RIVAS. 2013;310(19): 1108-3687 (http://education.[employer]/faq/SBG980) CHOL/HDLC RATIO 3.9 <5.0 (calc) [facility] NON HDL CHOLESTEROL 115 <130 mg/dL (calc) [facility] Comment: For patients with diabetes plus 1 major ASCVD risk factor, treating to a non-HDL-C goal of <100 mg/dL (LDL-C of <70 mg/dL) is considered a therapeutic option. Blood BLOOD SPECIMEN / Unknown 04/06/2025 3:08 PM CDT 04/06/2025 3:08 PM CDT us Taniya Apodaca PA CHEMISTRY Final Resu lt Performing Organization Address City[facility]/ZIP Co de Phone Number [employer] [facility] [address] [place] [address], [facility] [address] [place] [address] * ANTI HCV (05/08/2022 12:27 PM CDT) Pathologist [facility] HEPATITIS C ANTIBODY Non-React amy Non-React amy 05/08/2022 10:27 PM CDT [facility] Comment:Antibodies to HCV no t detected; does not exclude the possibility of exposure to HCV. Blood BLOOD SPECIMEN / Unknown Venipuncture / Unknown 05/08/2022 12:27 PM CDT 05/08/2022 12:27 PM CDT us Ana NUNES SEND OUTS Final Resu lt [facility] [address] [place] [address], [place] * SCAN-FECAL TEST DNA (COLOGUARD) (05/08/2022 12:00 AM CDT) us Scanner OTHER Final Result from Last 3 Months or Most Recently Relevant to Health Maintenance Insurance [place] Advance Directives * Full Code (Latest Code [...] Preferences, Provider to review later Care Teams Radio Interference Expert Relationship Specialty Start Date End Date Taniya Apodaca PA [address] [place] [address] PCP - General Physician Hospital Scientist 05/10/24
--- OUTSIDE RECORDS SUMMARY | 2025-07-24 05:01 | XMS_ITS | Encounter Summary ---
Author Organization [email or web address] Address [address] [place] [address] Care Team Providers Care E Learning Developer Name Role Phone Adwoa Riley PA-C Primary Care Provider +1- [phone] Encounter Details Date Type Department Care Team (Late st Contact Info) Description 05/01/2024 Lab Requisition [facility] [address] [place], [place] [id number] João Brock MD [address] [place] [address] Osteomyelitis, unspecified (HRC); Other disorders [...] = 0.6 oz pur e alcohol) rare Comments No Sex and Gender Information Value Date Recorded Sex Assigned at Not on file Legal Sex Female 7:20 AM CDT Gender Identity Not on file Sexual Orientation Not on file documented as of this encounter Plan of Treatment Not on file documented as of this encounter Visit Diagnoses Diagnosis Osteomyelitis, unspecified (HRC) Other disorders of electrolyte and fluid balance, not elsewhere classified Arthritis due to other bacteria, unspecified shoulder (HRC) Encounter for surgical aftercare following surgery on the skin and subcutaneous tissue documented in this encounter Care Teams E Learning Developer Relationship Specialty Start Date End Date Adwoa Riley PA-C [address] [place] [address] PCP - General 09/25/11 documented as of this encounter
--- OUTSIDE RECORDS SUMMARY | 2025-07-24 05:01 | XMS_ITS | Encounter Summary ---
Author Organization [facility] Address [address] [place] [address] Care Team Providers Care Machine Operator Helper Name Role Phone Adwoa Riley PA-C Primary Care Provider +1- [phone] Encounter Details Date Type Department Care Team (Late st Contact Info) Description 04/24/2024 Lab Requisition [facility] [address] [place], [place] [address] João Brock MD [address] [place] [address] Encounter for surgical aftercare following [...] Complete Blood Count-W/Diff (04/25/2024 8:58 AM CDT) [facility] WBC 4.8 3.5 - 10.5 x10(9)/L 04/25/2024 2:09 PM CDT [facility] RBC 2.84(L) 3.90 - 5.03 x10(12)/L 04/25/2024 2:09 PM CDT [facility] Hemoglobin 8.1(L) 12.0 - 15.5 g/dL 04/25/2024 2:09 PM CDT [facility] HCT 27.1(L) 34.9 - 44.5 % 04/25/2024 2:09 PM CDT [facility] MCV 95.4 80.0 - 100.0 fL 04/25/2024 2:09 PM CDT [facility] MCH 28.5 27.6 - 33.3 pg 04/25/2024 2:09 PM CDT [facility] MCHC 29.9(L) 31.5 - 35.2 g/dL 04/25/2024 2:09 PM CDT [facility] RDW 16.0(H) 11.9 - 15.5 % 04/25/2024 2:09 PM CDT [facility] Platelets 277 150 - 450 x10(9)/L 04/25/2024 2:09 PM CDT [facility] Automated NRBC 0 <=0 /100 WBC 04/25/2024 2:09 PM CDT [facility] Neutrophil Absolute 2.7 1.7 - 7.0 10(9)/L 04/25/2024 2:09 PM CDT [facility] Lymphocyte Absolute 1.2 1.0 - 4.8 10(9)/L 04/25/2024 2:09 PM CDT [facility] Monocyte Absolute 0.5 0.2 - 0.9 10(9)/L 04/25/2024 2:09 PM CDT [facility] Eosinophil Absolute 0.3 0.0 - 0.5 10(9)/L 04/25/2024 2:09 PM CDT [facility] Basophil Absolute 0.0 0.0 - 0.3 10(9)/L 04/25/2024 2:09 PM CDT [facility] Immature Granulocyte % 0.4 0.0 - 0.5 % 04/25/2024 2:09 PM CDT [facility] Blood Venipuncture / Unknown 04/25/2024 8:58 AM CDT 04/25/2024 1:34 PM CDT us João Brock MD LAB_1 Final Resu lt [facility] [address] [place], [place] [address] * (ABNORMAL) Vitamin D 25-Hydroxy, Total (04/25/2024 8:58 AM CDT) Vitamin D, 25-OH, Total 5(L) 30 - 80 ng/mL 04/25/2024 2:08 PM CDT [facility] Blood Venipuncture / Unknown 04/25/2024 8:58 AM CDT 04/25/2024 1:32 PM CDT Narrative [facility] - 04/25/2024 2:08 PM CDT Expected values Deficiency: <20 ng/mL Insufficiency: 20-29 ng/mL Optimum: 30-80 ng/mL Possible toxicity: >80 ng/mL João Brock MD LAB_1 Final Resu lt Performing Organization Address [facility] de Phone Number [facility] [address] * (ABNORMAL) Uric Acid (04/25/2024 8:58 AM CDT) Uric Acid 11.3(H) 2.6 - 6.0 mg/dL 04/25/2024 1:53 PM CDT [facility] Blood Venipuncture / Unknown 04/25/2024 8:58 AM CDT 04/25/2024 1:30 PM CDT João Brock MD LAB_1 Final Resu lt Performing Organization Address [facility] Phone Number [facility] [address] * (ABNORMAL) Sedimentation Rate (ESR) (04/25/2024 8:58 AM CDT) Sedimentation Rate 36(H) 0 - 20 mm/hr 04/25/2024 3:10 PM CDT [facility] Blood Venipuncture / Unknown 04/25/2024 8:58 AM CDT 04/25/2024 1:34 PM CDT João Brock MD LAB_1 Final Resu lt Performing Organization Address [facility] de Phone Number [facility] [address] [place] [address] * Phosphorus (04/25/2024 8:58 AM CDT) Phosphorus 3.6 2.3 - 4.7 mg/dL 04/25/2024 1:53 PM CDT [facility] Blood Venipuncture / Unknown 04/25/2024 8:58 AM CDT 04/25/2024 1:30 PM CDT João Brock MD LAB_1 Final Resu lt Performing Organization Address [facility] de Phone Number [facility] [address] [place] [address] * (ABNORMAL) Magnesium (04/25/2024 8:58 AM CDT) Magnesium 1.3(L) 1.6 - 2.6 mg/dL 04/25/2024 1:53 PM CDT [facility] Blood Venipuncture / Unknown 04/25/2024 8:58 AM CDT 04/25/2024 1:30 PM CDT João Brock MD LAB_1 Final Resu lt Performing Organization Address [facility] Phone Number [facility] [address] [place] [address] * (ABNORMAL) C-Reactive Protein (04/25/2024 8:58 AM CDT) C-Reactive Protein 3.3(H) 0.0 - 0.5 mg/dL 04/25/2024 1:53 PM CDT [facility] Blood Venipuncture / Unknown 04/25/2024 8:58 AM CDT 04/25/2024 1:30 PM CDT João Brock MD LAB_1 Final Resu lt Performing Organization Address [facility] Phone Number [facility] [address] [place] [address] * (ABNORMAL) Comp Metabolic Panel (04/25/2024 8:58 AM CDT) [facility] Sodium 140 136 - 145 mmol/L 04/25/2024 1:53 PM CDT [facility] Potassium 4.3 3.5 - 5.1 mmol/L 04/25/2024 1:53 PM CDT [facility] Chloride 106 98 - 109 mmol/L 04/25/2024 1:53 PM CDT [facility] CO2 24 20 - 29 mmol/L 04/25/2024 1:53 PM CDT [facility] Anion Gap 10 6 - 16 mmol/L 04/25/2024 1:53 PM CDT [facility] Calcium 8.9 8.4 - 10.4 mg/dL 04/25/2024 1:53 PM CDT [facility] BUN 13 7 - 26 mg/dL 04/25/2024 1:53 PM CDT [facility] Creatinine 1.15(H) 0.55 - 1.02 mg/dL 04/25/2024 1:53 PM CDT [facility] Alkaline Phosphatase 49 40 - 150 U/L 04/25/2024 1:53 PM CDT [facility] AST (SGOT) 17 10 - 40 U/L 04/25/2024 1:53 PM CDT [facility] ALT (SGPT) <10 <=55 U/L 04/25/2024 1:53 PM CDT [facility] Bilirubin, Total 0.1(L) 0.2 - 1.2 mg/dL 04/25/2024 1:53 PM CDT [facility] Protein, Total 5.4(L) 6.4 - 8.3 g/dL 04/25/2024 1:53 PM CDT [facility] Albumin 2.1(L) 3.5 - 5.0 g/dL 04/25/2024 1:53 PM CDT [facility] Glucose 117(H) 70 - 100 mg/dL 04/25/2024 1:53 PM CDT [facility] Comment:The given reference range is for the fasting state. Non-fasting reference range for glucose is 70 - 180 mg/dL. GFR, Estimated 57(L) >60 mL/min/1.7 3m2 04/25/2024 1:53 PM CDT [facility] Hours Fasting 0.1 8 - 12 Hours 04/25/2024 1:53 PM CDT [facility] Comment:Lab unable to obtain patient's fasting status at time of specimen collection. Blood Venipuncture / Unknown 04/25/2024 8:58 AM CDT 04/25/2024 1:30 PM CDT Narrative [facility] - 04/25/2024 1:53 PM CDT The National Kidney Disease Education Program suggests measuring Cystatin C in patients with eGFRcrea of 45 to 59 ml/min/1.73^2 who do not have other markers of kidney damage (i.e. elevated urine Albumin/Creatinine Ratio or a prior Cystatin C confirming the presence of chronic kidney disease). us João Brock MD LAB_1 Final Resu lt [facility] [address] [place] [address], [facility] documented in this encounter Visit Diagnoses Diagnosis Encounter for surgical aftercare following surgery on the skin and subcutaneous tissue documented in this encounter Care Teams Machine Operator Helper Relationship Specialty Start Date End Date Adwoa Riley PA-C [address] [place] [address] PCP - General 09/25/11 documented as of this encounter
--- OUTSIDE RECORDS SUMMARY | 2025-07-24 05:01 | XMS_ITS | Encounter Summary ---
Author Organization [employer] Address [address] [place] [address] Care Team Providers Care Senior Java Software Engineer Name Role Phone Adwoa Riley PA-C Primary Care Provider [phone]- [phone] Encounter Details Date Type Department Care Team (Late st Contact Info) Description 05/01/2024 Lab Requisition [facility] [address] [place], [place] [address] João Brock MD [address] [place] [address] Encounter for surgical aftercare following [...] tissue documented in this encounter Care Teams Senior Java Software Engineer Relationship Specialty Start Date End Date Adwoa Riley, XIMENAC [address] [place] [address] PCP - General 09/25/11 documented as of this encounter
--- OUTSIDE RECORDS SUMMARY | 2025-07-24 05:01 | XMS_ITS | Clinical Summary ---
Author Organization [facility] Address [address] [place] [address] Care Team Providers Care Body And Frame Technician Name Role Phone Adwoa Riley PA-C Primary Care Provider [phone] Source Comments You are receiving this document [...] for each transition of care or referral. [facility] Allergies Active Allergy Reactions Criticality Noted Date Comments Aripiprazole Myalgias 09/25/2011 PN: tense muscles Latex Rash 09/25/2011 Mestranol ORTHO-NOVUM Nortriptyline Rash 09/25/2011 rash, Pioglitazone 01/04/2014 Progestins 10/25/1987 rash Sulfa Antibiotics 10/25/1984 rash Sulfamethoxazole-Trimethoprim Hives 2010 Medications QUETIAPINE FUMARATE TABS 200 MG OR 1 TABLET at bedtime as needed 0 10/06/20 02 Active ferrous gluconate 324 (37.5 FE) MG tablet Take 36 mg by mouth daily (every 24 hours). 09/25/20 11 Active omega-3 fatty acids (FISH OIL) 1000 MG capsule Take 1 g by mouth 2 times daily at 8:30am & 5:30pm. 09/25/20 11 Active paliperidone (AKA INVEGA) 6 MG 24 hour release tablet Take 9 mg by mouth every morning. 09/25/20 11 Active sertraline (AKA ZOLOFT) 100 MG tablet Take 200 mg by mouth daily (every 24 hours). 09/25/20 11 Active lamoTRIgine (AKA LAMICTAL) 200 MG tablet Take 300 mg by mouth daily (every 24 hours). 100 mg in a.m. and 200mg at night 09/25/20 11 Active Blood Gluc Meter Disp-Strips (BLOOD GLUCOSE METER DISPOSABLE) by [facility] [place].(Non-Drug ; Combo Route) route. accucheck comfort curve meter 11/25/19 13 Active aspirin 81 MG tablet Take 81 mg by mouth daily (every 24 hours). 11/25/19 13 Active lancets (SOFTCLIX) Use to test daily. 100 Each 3 12/02/19 17 Active blood glucose test strip Use 1 Strip to test 4 times daily before meals and at bedtime. 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 02/06/2018 Serum calcium elevated 01/06/2018 Type 2 diabetes mellitus with microalbuminuria 0 07/18/2016 Hyperlipidemia 01/04/2014 Microalbuminuria 11/28/2012 HTN (hypertension) 11/25/2012 Morbid obesity 09/30/2011 Diabetes type 2, uncontrolled 09/25/2011 Elevated cholesterol 09/25/2011 Bipolar disorder 09/25/2011 Overview (06/16/2017): Bipolar disorder, unspecified (HRC) Anxiety 09/25/2011 Hearing loss 09/25/2011 Immunizations Immunization Administration Dates Next Due TDAP (ADACEL) 09/25/2009 [...] 84 01/27/2018 11:09 AM CDT Temperature 36.6 C (97.8 F) 12/28/2002 9:40 AM [facility] Respiratory Rate 12 12/28/2002 9:40 AM [facility] Oxygen Saturation - - Inhaled Oxygen Concentration - - Weight 137.9 kg (304 lb) 01/27/2018 11:09 AM CDT Height 162.6 cm (5' 4) 01/27/2018 11:09 AM CDT Body Mass Index 52.18 01/27/2018 11:09 AM CDT Plan of Treatment Health Maintenance Due Date Last Done Comments Colon Cancer Screening Plan Due 1969 Diabetes: Eye Exam 1969 Hep C Screening (Preventive Services) 1969 HIV Screening (Preventive Services) 1985 HepB Vaccine (1) 1988 Pneumococcal Vaccine 50+ Yrs (1 of 2 - PCV) 1988 Cervical Cancer Screening Due 02/25/2002 02/24/2002, 07/13/2001 Adult Preventive Visit 07/13/2002 07/13/2001 Mammogram 01/04/2015 01/04/2014 (Completed) Diabetes: Albumin/Creatinine Ratio, Urine 01/27/2019 01/27/2018, 01/11/2018, 07/14/2017, Additional history exists Diabetes: Foot Exam 01/27/2019 01/27/2018 ( Completed), 05/16/2015 (Completed), 01/04/2014, Additional history exists Zoster/Shingles Vaccine (1 of 2) 2019 DTaP/Tdap/Td Vaccine (2 - Tdap) 09/25/2019 09/25/2009, 12/28/2002, 03/24/1993 Diabetes: Lipid Panel 01/11/2023 01/11/2018 , 01/11/2018, 07/14/2017, Additional history exists Diabetes: Creatinine 04/25/2025 04/25/2024, 01/11/2018, 07/14/2017, Additional history exists COVID-19 Vaccine ( season) 2025 Influenza Vaccine (#1) 2025 Diabetes: HGBA1C 10/06/2025 04/06/2025, 01/2021, 12/22/2019, Additional history exists HepA Vaccine Aged Out No longer eligi ble based on patient's age to complete this topic Hib Vaccine Aged Out No longer eligi ble based on patient's age to complete this topic IPV (Polio) Vaccine Aged Out No longe r eligible based on patient's age to complete this topic MCV4 Vaccine Aged Out No longer eligi ble based on patient's age to complete this topic Meningococcal B Vaccine Aged Out No l onger eligible based on patient's age to complete this topic Procedures Procedure Name Priority Date/Time Associated Diagnosis Comments COMPREHENSIVE METABOLIC PANEL Routine 04/25/2024 8:58 AM [...] Relevant to Health Maintenance Results * (ABNORMAL) Comp Metabolic Panel (04/25/2024 8:58 [...] João Brock MD LAB_1 Final Resu lt [facility] [address] [place] [address], [facility] * (ABNORMAL) Microalb/Creat Ratio (01/27/2018 11:56 AM CDT) Microalbumin Urine 110.6 mg/L PN SOFT U Creat Random 53 mg/dL PN SOFT Microalbumin/Crea tinine Ratio 208.7(H) 0.0 - 30.0 PN SOFT Urine specimen (specimen) 01/27/2018 11:56 AM CDT 01/27/2018 2:56 PM CDT Narrative PN SOFT - 01/27/2018 4:40 PM CDT Performed at [facility], [address] [place] [address] CLIA number [id number] Adwoa Riley PA-C LAB_1 Final Resu lt Performing Organization Address [facility] de Phone Number PN SOFT [address] [place] [address] * (ABNORMAL) Lipid Panel - LDLD If [...] - 01/11/2018 4:10 PM CDT Performed at [facility], [address] [place] [address] CLIA number [id number] Adwoa Riley PA-C LAB_1 Final Resu lt Performing Organization Address [facility] Co de Phone Number PN SOFT [address] [place] [address] * (ABNORMAL) Hemoglobin A1C Glycosylated (01/11/2018 11:21 AM CDT) HGB A1C 6.7(H) 4.0 - 5.6 % PN SOFT 01/11/2018 11:2 1 AM CDT 01/11/2018 3:07 PM CDT Narrative PN SOFT - 01/11/2018 6:00 PM CDT Performed at [address], [place] [address] CLIA number [id number] us Adwoa Riley PA-C LAB_1 Final Resu lt Performing Organization Address City/[facility]/ZIP Co de Phone Number PHIL [address] [place] [address] * PAP SMEAR, ROUTINE (07/13/2001 1:00 PM CDT) Pap Smear, Routine See Separate Report Performed at [facility] 07/13/2001 1:00 PM CDT 07/14/2001 1:54 PM CDT us Anirudh Carson MD LAB_1 Final Result Performing Organization Address [facility] Co de Phone Number [facility] [address] [phone] from Last 3 Months or Most Recently Relevant to Health Maintenance Insurance [employer] Care Teams Body And Frame Technician Relationship Specialty Start Date End Date Adwoa Riley, PATarynC [address] [id number] PCP - General 09/25/11
--- NOTE | 2025-07-24 05:31 | CRLHL7_ITS ---
For Patients: As a result of the Cures Act, medical imaging exams and procedure reports are released immediately into your electronic medical record. You may view this report before your referring provider. If you have questions, please contact your health care provider. INDICATION: Weakness. No other history. COMPARISON: 04/07/2024, 04/03/[address] of the chest dated 04/07/2024. TECHNIQUE: Single AP view of the chest. FINDINGS: Lordotic position, rotated rightward. Medical Devices: None. Lung Volumes: Shallow inspiration. No significant atelectasis. Lungs: Low lung volumes accentuate the central and basilar pulmonary vascular markings. No focal opacity in either lung. Pleura and Pleural spaces: No significant pleural effusion. No pneumothorax. Mediastinum: AP technique, low lung volumes and rightward patient rotation all contributing to prominence of the transverse dimension the cardiomediastinal silhouette. Cardiomegaly is unchanged. Bony Thorax and Soft Tissues: No significant incidental findings. IMPRESSION: No findings to explain the clinical history. Incidental findings described in the body of the report. Dictated by Baljit Mathews MD @ 07/24/2025 6:01:42 AM (Electronically Signed)
--- NOTE | 2025-07-24 05:31 | CRLHL7_ITS ---
For Patients: As a result of the Cures Act, medical imaging exams and procedure reports are released immediately into your electronic medical record. You may view this report before your referring provider. If you have questions, please contact your health care provider. INDICATION: Ulcer, not otherwise described. No other history given. COMPARISON: None available. TECHNIQUE: Three views of the left foot (4 images). FINDINGS: Mineralization: Normal. Alignment: Clawtoe deformities of the lesser toes. Bones and Joints: Polyarticular erosions involving the metatarsophalangeal joints, tarsometatarsal joints, intertarsal joints and distal tibiofibular joint. A posterior calcaneal spur at the insertion of the Achilles tendon is noted incidentally. Soft Tissues: Nonspecific soft tissue nodules along the lateral aspect of the forefoot underlying the 5th metatarsal and in the heel pad. No ulcer is seen. Incidental note is made of diffuse arterial calcifications. IMPRESSION: 1. Polyarticular inflammatory arthritis. Nonspecific soft tissue nodules along the lateral aspect of the forefoot underlying the 5th metatarsal and in the heel pad. Differential diagnostic considerations include gout and rheumatoid arthritis. Clinical correlation is recommended. 2. No ulcer is identified. Dictated by Baljit Mathews MD @ 07/24/2025 6:10:22 AM (Electronically Signed)
--- NOTE | 2025-07-24 05:35 | ED.GENADULT ---
HPI - General Adult General Chief complaint: Weakness <Molly Hawkins MD - Last Filed: 07/25/25 23:53> Stated complaint: weakness <Molly Hawkins MD - Last Filed: 07/25/25 23:53> Time Seen by Provider: 07/24/25 05:20 <Molly Hawkins MD - Last Filed: 07/25/25 23:53> Source: patient, family and EMS <Molly Hawkins MD - Last Filed: 07/25/25 23:53> Mode of arrival: EMS <Molly Hawkins MD - Last Filed: 07/25/25 23:53> History of Present Illness HPI narrative: 54-year-old female presents to the emergency department by EMS for weakness. Has had cough and some generalized symptoms for the past week but nothing focal that she could really name. She had a virtual visit with an urgent care yesterday and reports that they could offer up much in told her to ?drink more water. This makes sense, has of course there was no vital signs, physical exam or other useful data. If the patient was vague about her symptoms as she is now, there is really not much they could have offered. She reports that she has been feeling weaker, especially over the last 24 hours and was too weak to even stand for more than about 30 seconds today. Tonight, she lowered herself to the floor after she had gotten up and felt weak. She does not typically use a walker or a cane at baseline she reports but did try to use 1 earlier today. Answers to Questions about her baseline level of activity seen quite vague as well. She initially denies any localizing symptoms of infection but does have a history of prior sepsis. Significant other accompanying her today has concerns about some swelling in her left arm but there is no redness, trauma or injury, stating that she had gout in the past, I am not sure how this correlates. When asked specifically about provider visits in the last few months, open sores on her skin, she reports that she was treated for a sore on her foot in May, then she tells me March with an antibiotic, sounds like doxycycline per her description. I do not have records on that. When I ask if the wound is still there she says ?I think so.?. Denies dysuria, productive cough, bloody stools. She is not anticoagulated. No focal weakness or stroke-like symptoms, vague and global weakness noted. Review of the records show she had septic arthritis of her right elbow 15 months ago, was treated with debridement, wound VAC. history of methicillin sensitive Staph aureus. She is a nonsmoker and denies any history of DVT or PE. Does report a history of diabetes, does not seem as though she monitors her sugars regularly. Reports significant ill health disease, sees a provider in [place], we do not have those records. Denies chest pain, cardiac symptoms, urinary or gynecological changes. Had initially denied skin concerns until I specifically asked about this clinically obvious left foot ulcer. ROS is notable for the generalized weakness and some nausea for the past few days only, otherwise vague and non pertinent times 12 systems. <Molly Hawkins MD - Last Filed: 07/25/25 23:53> Related Data Home medications: Home Medications ?Medication ?Instructions ?Recorded ?Confirmed amlodipine 10 mg tablet 10 mg PO DAILY 04/01/24 07/24/25 atorvastatin 20 mg tablet 20 mg PO HS 04/01/24 07/24/25 lamotrigine 200 mg tablet 200 mg PO BID 04/01/24 07/24/25 (Lamictal) omega 6-ioo-oew-fish oil 1,200 mg 1 cap PO BID 04/01/24 07/24/25 (144 mg-216 mg) capsule (Fish Oil) paliperidone 9 mg tablet,extended 9 mg PO DAILY 04/01/24 07/24/25 release 24 hr vortioxetine 20 mg tablet 20 mg PO DAILY 04/01/24 07/24/25 (Trintellix) quetiapine 100 mg tablet 100 - 200 mg PO HS PRN 04/02/24 07/24/25 allopurinol 100 mg tablet 200 mg PO DAILY 05/20/24 07/24/25 colchicine 0.6 mg tablet 0.6 mg PO DAILY 05/20/24 07/24/25 furosemide 20 mg tablet 20 mg PO DAILY 05/20/24 07/24/25 magnesium oxide 400 mg (241.3 mg 800 mg PO BID 05/20/24 07/24/25 magnesium) tablet losartan 25 mg tablet 25 mg PO DAILY 06/02/24 07/24/25 acetaminophen 325 mg tablet 650 mg PO Q6H PRN 07/24/25 07/24/25 ferrous sulfate 325 mg (65 mg 325 mg PO DAILY 07/24/25 07/24/25 iron) tablet,delayed release labetalol 200 mg tablet 200 mg PO BID 07/24/25 07/24/25 metformin 500 mg tablet,extended 1,000 mg PO BID 07/24/25 07/24/25 release 24 hr <Molly Hawkins MD - Last Filed: 07/25/25 23:53> Allergies/adverse reactions: Allergies Allergy/AdvReac Type Severity Reaction Status Date / Time amlodipine (From [facility]) Allergy Verified 06/02/24 10:06 mestranol (From [facility] Allergy Verified 06/02/24 10:06 (21)) norethindrone (From Allergy Verified 06/02/24 10:06 [facility] (21)) nortriptyline Allergy Verified 06/02/24 10:06 clonidine AdvReac Verified 07/24/25 11:50 <Molly Hawkins MD - Last Filed: 07/25/25 23:53> [facility] Medical History: Medical History (Updated 07/25/25 @ 23:53 by Molly Hawkins MD) Anemia ?D64.9 - Anemia, unspecified (ICD-10) 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, unspecified, with tophus (tophi) (ICD-10) Septic arthritis of sternoclavicular joint ?M00.819 - Arthritis due to other bacteria, unspecified shoulder (ICD-10) Sinus tachycardia ?R00.0 - Tachycardia, unspecified (ICD-10) Morbid obesity ?E66.01 - Morbid (severe) obesity due to excess calories (ICD-10) Bipolar 1 disorder ?F31.9 - Bipolar disorder, unspecified (ICD-10) Hyperlipidemia ?E78.5 - Hyperlipidemia, unspecified (ICD-10) Hyperparathyroidism ?E21.3 - Hyperparathyroidism, unspecified (ICD-10) Essential hypertension ?I10 - Essential (primary) hypertension (ICD-10) Severe anxiety ?F41.9 - Anxiety disorder, unspecified (ICD-10) Schizoaffective disorder ?F25.9 - Schizoaffective disorder, unspecified (ICD-10) Type 2 diabetes mellitus ?E11.9 - Type 2 diabetes mellitus without complications (ICD-10) <Molly Hawkins MD - Last Filed: 07/25/25 23:53> Surgical History: Surgical History History of elbow surgery (04/03/24) ?Z98.890 - Other specified postprocedural states (ICD-10) History of wisdom tooth extraction ?K08.409 - Partial loss of teeth, unspecified cause, unspecified class (ICD-10) S/P tonsillectomy and adenoidectomy ?Z90.89 - Acquired absence of other organs (ICD-10) H/O dilation and curettage ?Z98.890 - Other specified postprocedural states (ICD-10) Status post appendectomy ?Z90.49 - Acquired absence of other specified parts of digestive tract (ICD-10) <Molly Hawkins MD - Last Filed: 07/25/25 23:53> Social History: Social History (Updated 07/24/25 @ 17:20 by Bev Coronado MD) Narrative: Lives independently with and two adult disabled children, whom she cares for. Denies tobacco, alcohol, recreational drug use. What is your current living situation?: I presently have a place to live Problems where you live: no known problems Problems where you live details: N/A In the past 12 months, utilities in danger of being shut off: no In past 12 months, lack of transportation kept you from medical appts, meetings, work, or getting things needed for daily living: no In the past 12 mos, have been you worried that your food would run out before you had money to buy more?: never true In the past 12 mos, the food you bought just didn't last and you didn't have money to buy more?: never true Highest level of school completed/degree received: 12th grade, no diploma Smoking Status: Never smoker Do you use any of these nicotine containing products: None Second hand tobacco smoke exposure: No How often do you have a drink containing alcohol: never How often do you have six or more drinks on one occasion: Never AUDIT-C Alcohol total score: 0 Non-prescribed substance use: denies use Caffeine: Yes How often does anyone, including family, friends and others, physically hurt you: never How often does anyone, including family, friends and others, insult or talk down to you: never How often does anyone, including family, friends and others, threaten you with harm: never How often does anyone, including family, friends and others, scream or curse at you: never service: No <Molly Hawkins MD - Last Filed: 07/25/25 23:53> Exam Const: Vital Signs, click to edit/add: Vital Signs - 24 hr 07/24/25 05:07 07/24/25 06:43 07/24/25 06:45 Temperature 98.9 F Pulse Rate 93 94 Pulse Rate [Left P ulse Oximeter] 101 H Respiratory Rate 24 22 15 Blood Pressure Blood Pressure [Ri ght Upper Arm] 154/74 H Pulse Oximetry 93 87 L 87 L [facility] 07/24/25 07:00 07/24/25 07:01 07/24/25 07:39 Temperature Pulse Rate 101 H 100 103 H Pulse Rate [Left P ulse Oximeter] Respiratory Rate 5 L 12 12 Blood Pressure 129/67 Blood Pressure [Ri ght Upper Arm] Pulse Oximetry 91 90 88 Oxygen Delivery [facility] 07/24/25 07:45 07/24/25 07:46 07/24/25 07:47 Temperature 98.7 F Pulse Rate 104 H 103 H 104 H Pulse Rate [Left P ulse Oximeter] Respiratory Rate 28 H 27 H 29 H Blood Pressure 140/66 H Blood Pressure [Ri ght Upper Arm] Pulse Oximetry 89 87 L 88 Oxygen Delivery [facility] 07/24/25 08:00 07/24/25 08:01 07/24/25 08:02 Temperature Pulse Rate 102 H 102 H 102 H Pulse Rate [Left P ulse Oximeter] Respiratory Rate 27 H 28 H 31 H Blood Pressure 139/64 Blood Pressure [Ri ght Upper Arm] Pulse Oximetry 89 89 89 [facility] 07/24/25 08:15 07/24/25 08:30 07/24/25 08:31 Temperature Pulse Rate 99 96 96 Pulse Rate [Left P ulse Oximeter] Respiratory Rate 19 25 H 29 H Blood Pressure 126/64 Blood Pressure [Ri ght Upper Arm] Pulse Oximetry 89 87 L 88 Oxygen Delivery [facility] 07/24/25 08:45 07/24/25 09:00 07/24/25 09:01 Temperature 98.9 F Pulse Rate 95 94 98 Pulse Rate [Left P ulse Oximeter] Respiratory Rate 30 H 24 20 Blood Pressure 127/65 Blood Pressure [Ri ght Upper Arm] Pulse Oximetry 88 91 89 Oxygen Delivery Me thod <Molly Hawkins MD - Last Filed: 07/25/25 23:53> Vital Signs, click to edit/add: Vital Signs - 24 hr 07/24/25 05:07 07/24/25 06:43 07/24/25 06:45 Temperature 98.9 F Pulse Rate 93 94 Pulse Rate [Left P ulse Oximeter] 101 H Respiratory Rate 24 22 15 Blood Pressure Blood Pressure [Ri ght Upper Arm] 154/74 H Pulse Oximetry 93 87 L 87 L Oxygen Delivery Me thod Room Air 07/24/25 07:00 07/24/25 07:01 07/24/25 07:39 Temperature Pulse Rate 101 H 100 103 H Pulse Rate [Left P ulse Oximeter] Respiratory Rate 5 L 12 12 Blood Pressure 129/67 Blood Pressure [Ri ght Upper Arm] Pulse Oximetry 91 90 88 Oxygen Delivery Me [facility] 07/24/25 07:45 07/24/25 07:46 07/24/25 07:47 Temperature 98.7 F Pulse Rate 104 H 103 H 104 H Pulse Rate [Left P ulse Oximeter] Respiratory Rate 28 H 27 H 29 H Blood Pressure 140/66 H Blood Pressure [Ri ght Upper Arm] Pulse Oximetry 89 87 L 88 Oxygen Delivery Me [facility]od 07/24/25 08:00 07/24/25 08:01 07/24/25 08:02 Temperature Pulse Rate 102 H 102 H 102 H Pulse Rate [Left P ulse Oximeter] Respiratory Rate 27 H 28 H 31 H Blood Pressure 139/64 Blood Pressure [Ri ght Upper Arm] Pulse Oximetry 89 89 89 Oxygen Delivery Me thod 07/24/25 08:15 07/24/25 08:30 07/24/25 08:31 Temperature Pulse Rate 99 96 96 Pulse Rate [Left P ulse Oximeter] Respiratory Rate 19 25 H 29 H Blood Pressure 126/64 Blood Pressure [Ri ght Upper Arm] Pulse Oximetry 89 87 L 88 Oxygen Delivery Me thod 07/24/25 08:45 07/24/25 09:00 07/24/25 09:01 Temperature 98.9 F Pulse Rate 95 94 98 Pulse Rate [Left P ulse Oximeter] Respiratory Rate 30 H 24 20 Blood Pressure 127/65 Blood Pressure [Ri ght Upper Arm] Pulse Oximetry 88 91 89 Oxygen Delivery Me thod <Fabricio Lindquist MD - Last Filed: 07/24/25 10:38> Documenting provider has reviewed patient's vital signs: yes <Molly Hawkins MD - Last Filed: 07/25/25 23:53> Common normals: alert <Molly Hawkins MD - Last Filed: 07/25/25 23:53> Other: Morbidly obese. Appears larger than weight on bed scale but she is not particularly tall. Answers questions appropriately, mentation does seem intact. No obvious respiratory distress. Malodorous smell coming from feet. <Molly Hawkins MD - Last Filed: 07/25/25 23:53> HENMT: Common normals: normocephalic, moist oral mucous membranes and oropharynx normal <Molly Hawkins MD - Last Filed: 07/25/25 23:53> Head and scalp: normocephalic <Molly Hawkins MD - Last Filed: 07/25/25 23:53> Face and sinus: normal facial exam <Molly Hawkins MD - Last Filed: 07/25/25 23:53> Mouth: oral and palatal mucosa normal <Molly Hawkins MD - Last Filed: 07/25/25 23:53> Throat: posterior oropharynx normal <Molly Hawkins MD - Last Filed: 07/25/25 23:53> Eye: Common normals: conjunctivae normal <Molly Hawkins MD - Last Filed: 07/25/25 23:53> General eye: normal appearance of both eyes <Molly Hawkins MD - Last Filed: 07/25/25 23:53> Conjunctiva: conjunctiva(e) normal <Molly Hawkins MD - Last Filed: 07/25/25 23:53> Neck & C-Spine: Common normals: full ROM and no lymphadenopathy <MD Taryn Murphy Last Filed: 07/25/25 23:53> General: normal visual inspection <MD Taryn Murphy Last Filed: 07/25/25 23:53> Resp: Common normals: normal respiratory effort and no use of accessory muscles <MD Tayrn Murphy Last Filed: 07/25/25 23:53> Effort & inspection: able to speak in complete sentences <MD Taryn Murphy Last Filed: 07/25/25 23:53> Other: Breath sounds are difficult to auscultate at bases due to body habitus but I do not hear any obvious crackles. <MD Taryn Murphy Last Filed: 07/25/25 23:53> Cardio: Common normals: regular rate, regular rhythm, S1 normal heart sound, S2 normal heart sound and no murmurs <Molly Hawkins MD - Last Filed: 07/25/25 23:53> Rate: regular rate <MD Taryn Murphy Last Filed: 07/25/25 23:53> Rhythm: regular rhythm <MD Taryn Murphy Last Filed: 07/25/25 23:53> Heart sounds: S1 normal and S2 normal <MD Taryn Murphy Last Filed: 07/25/25 23:53> GI: Common normals: Normal to inspection, nondistended, normoactive bowel sounds present, soft to palpation, non-tender, no hepatosplenomegaly and no masses <MD Taryn Murphy Last Filed: 07/25/25 23:53> Palpation: soft and no hepatosplenomegaly <MD Taryn Murphy Last Filed: 07/25/25 23:53> Other: Cannot discretely palpate any of the organs but no obvious enlargement or mass <MD Taryn Murphy Last Filed: 07/25/25 23:53> Back & Pelvis: Other: I need help rolling patient to look at back, was not able to accomplish by myself. <Molly Hawkins MD - Last Filed: 07/25/25 23:53> Extremity: Other: Surgical scarring on the right elbow consistent with noted prior history. The left arm has a small area of swelling in the inner medial lower humerus area, seems like lip edema. There does not seem to be any redness, warmth or tenderness in this area. Certainly no joint effusion. Normal range of motion of that elbow. 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 The right side does not have any evidence of open ulcers or wounds but the left has 3 distinct areas, the most notable on the posterior heel consistent with pressure type wound that is malodorous and has a slight amount of drainage. Head is redness and some warmth but is not tender. There is a 2nd area of open sore on the base of the 5th metatarsal of the left foot as well, not quite is inflamed nor malodorous but does have open ulceration. The toes do have normal capillary refill and no obvious ulceration. <Molly Hawkins MD - Last Filed: 07/25/25 23:53> Neuro: Common normals: moves all extremities <MD Taryn Murphy Last Filed: 07/25/25 23:53> Sensorium/orientation: alert <MD Taryn Murphy Last Filed: 07/25/25 23:53> Speech: speech normal <MD Taryn Murphy Last Filed: 07/25/25 23:53> Psych: Appearance: unkempt <MD Taryn Murphy Last Filed: 07/25/25 23:53> Attitude: engaged <MD Taryn Murphy Last Filed: 07/25/25 23:53> Activity/motor behavior: appropriate eye contact <MD Taryn Murphy Last Filed: 07/25/25 23:53> Attention/concentration: attention grossly intact <MD Taryn Murphy Last Filed: 07/25/25 23:53> Insight: insight good <MD Taryn Murphy Last Filed: 07/25/25 23:53> Judgement: judgment good <Molly Hawkins MD - Last Filed: 07/25/25 23:53> Skin: Narrative: Ulcerations on the left foot, suspected diabetic infected foot ulcers. I do need to look at her bottom and back, was not able to do so without help, limited resources overnight caring for other patients, I will [place] back when we have more staff available. <Molly Hawkins MD - Last Filed: 07/25/25 23:53> Course Course ED Course: 54-year-old female with weakness with history of prior sepsis an acidosis presenting with symptoms suspicious for sepsis from diabetic foot ulcer. She is not hypotensive does have some mild tachycardia. Will place peripheral IV, obtain blood cultures, urine culture, chest x-ray. Wound culture collected from left foot. Left foot x-ray. Typical metabolic, infectious and inflammatory labs. Once blood cultures are drawn, start vancomycin and Zosyn while we await wound cultures. May need more advanced imaging to properly detect foot infection. Will likely require surgical consult. <Molly Hawkins MD - Last Filed: 07/25/25 23:53> Reevaluation(s) Time of Reevaluation #1: 07:01 <Molly Hawkins MD - Last Filed: 07/25/25 23:53> Reevaluation #1: Updated patient and significant other on initial findings. Lactate did come back elevated in even though we are not hypotensive, will start a fluid bolus for treatment of sepsis. O2 sats continue to however around 89%. Patient does have underlying sleep apnea. I do not think this is reflecting true acute hypoxia. She continues to breathe comfortably and can speak full sentences. She still denies any chest pain. I did elect to obtain troponins to help fully investigate her weakness. There signs of coronary and renal injury likely secondary to her sepsis. I am awaiting the fluid bolus and repeat lactate to determine next steps in management. The x-ray of the foot does not show any obvious osteomyelitis but more advanced imaging is likely needed. For the soft tissue lesions, this does seem to be where the side of infection is stemming from, she may benefit from surgical debridement of these lesions even if there is not underlying osteomyelitis. A surgical consult would likely be helpful to determine this. At this point, I am uncertain if she can be admitted here based on her comorbidities and I am awaiting the response to fluids and repeat lactate for major steps in management. Update: Repeat lactate is delayed because we have had significant difficulty with her IV access. I do not think there is value in repeating the lactate level when fluids were ordered over an hour and half ago and are less than 25% infused. Her IV is very positional and she has a very hard stick. We will attempt to get another IV line with the repeat lactate draw. At this time, she is still not shown any fever or hypotension. I do think the delay in the lactate level is justified to get a more accurate representation of the interventions provided. If her lactate does not improve after IV fluid administration, that would be more concerning. I have spoken with Dr. Baca, questioning my concern for possible infections starting from the foot. Questioning if these are gouty tophi versus rheumatoid nodules versus some sort of fibrous tissue. I was asking specifically if this might benefit from debridement or if advanced imaging would be helpful. She admits that she is at a bit of a loss and would recommend that we consult Podiatry. I have asked the refrigeration houseman to help me get a hold of Dr. Galeano as we are having a difficult time finding contact information. I am also still waiting on a urine catheterized sample to see if this could be a potential source of infection also. Update: 765: I have also spoken with the hospitalist. It seems like for on the same page. We do need to repeat the lactate and a troponin level. If these are both improving after the L of fluids, I would be more inclined to say this patient could potentially stay here at [facility] for further treatment and management. Were also still trying to get a hold of Podiatry for consult. Antibiotics are infusing. Anticipate handing over care to incoming day shift partner. update: 8:10: I have also spoken with [facility] briefly, not as a formal consult. They were willing to review a picture of the soft tissue lesions and are of the same thought that these are probably either rheumatoid nodules or gouty tophi. Even with the purulent and malodorous drainage from the heel, there are not necessarily sure that this is the source of the infection and based on x-ray were not overly suspicious that this is an osteomyelitis. He would not prioritize advanced imaging like a CT or an MRI over treatment of the sepsis initially. Unlikely to benefit from surgical debridement but he would recommend a wound nurse consult and topical treatment of the open spots with iodine. He is happy to formally consult on the patient if wound care team thinks that this is needed. <Molly Hawkins MD - Last Filed: 07/25/25 23:53> Vital Signs Vital signs: Initial Vital Signs Temperature 98.9 F 07/24/25 05:07 Temperature Source Oral 07/24/25 05:07 Pulse Rate 101 H 07/24/25 05:07 Pulse Rhythm Regular 07/24/25 05:07 Respiratory Rate 24 07/24/25 05:07 Blood Pressure 154/74 H 07/24/25 05:07 Blood Pressure Mean 100 07/24/25 05:07 Blood Pressure Position Semi-Fowlers 07/24/25 05:07 Pulse Oximetry 93 07/24/25 05:07 Oxygen Delivery Method Room Air 07/24/25 05:07 Vital Signs Temperature 98.9 F 07/24/25 05:07 Pulse Rate 101 H 07/24/25 05:07 Respiratory Rate 24 07/24/25 05:07 Blood Pressure 154/74 H 07/24/25 05:07 Pulse Oximetry 93 07/24/25 05:07 Oxygen Delivery Method Room Air 07/24/25 05:07 Temperature 98.5 F 07/25/25 22:23 Pulse Rate 99 07/25/25 23:00 Respiratory Rate 20 07/25/25 22:23 Blood Pressure 187/80 H 07/25/25 22:23 Pulse Oximetry 91 07/25/25 22:23 Oxygen Delivery Method Room Air 07/25/25 22:23 <Molly Hawkins MD - Last Filed: 07/25/25 23:53> Initial Vital Signs Temperature 98.9 F 07/24/25 05:07 Temperature Source Oral 07/24/25 05:07 Pulse Rate 101 H 07/24/25 05:07 Pulse Rhythm Regular 07/24/25 05:07 Respiratory Rate 24 07/24/25 05:07 Blood Pressure 154/74 H 07/24/25 05:07 Blood Pressure Mean 100 07/24/25 05:07 Blood Pressure Position Semi-Fowlers 07/24/25 05:07 Pulse Oximetry 93 07/24/25 05:07 Oxygen Delivery Method Room Air 07/24/25 05:07 Vital Signs Temperature 98.9 F 07/24/25 05:07 Pulse Rate 101 H 07/24/25 05:07 Respiratory Rate 24 07/24/25 05:07 Blood Pressure 154/74 H 07/24/25 05:07 Pulse Oximetry 93 07/24/25 05:07 Oxygen Delivery Method Room Air 07/24/25 05:07 Temperature 98.5 F 07/25/25 22:23 Pulse Rate 99 07/25/25 23:00 Respiratory Rate 20 07/25/25 22:23 Blood Pressure 187/80 H 07/25/25 22:23 Pulse Oximetry 91 07/25/25 22:23 Oxygen Delivery Method Room Air 07/25/25 22:23 <Fabricio Lindquist MD - Last Filed: 07/24/25 10:38> Medications Administered Medications: Generic Name Dose Route Start Last Admin Trade Name Freq PRN Reason Stop Dose Admin Acetaminophen 650 mg 07/24/25 12:07 07/25/25 15:50 Acetaminophen 325 Mg Tablet PO 650 mg Q6H PRN Administration As needed for fever, headache, or minor pain Albuterol 2.5 mg 07/24/25 15:25 07/25/25 21:58 Albuterol Sulfate 2.5 Mg/3 Ml Vial.Neb NEB 2.5 mg Q4H PRN Administration Wheezing Allopurinol 200 mg 07/25/25 09:00 07/25/25 08:35 Allopurinol 100 Mg Tablet PO 200 mg DAILY BETTY Administration Atorvastatin Calcium 20 mg 07/24/25 21:00 07/25/25 21:46 Atorvastatin Calcium 10 Mg Tablet PO 20 mg HS BETTY Administration Azithromycin 500 mg 07/25/25 14:15 07/25/25 14:34 Azithromycin 250 Mg Tablet PO 500 mg Q24H BETTY Administration Benzonatate 200 mg 07/25/25 21:00 07/25/25 21:46 Benzonatate 100 Mg Capsule PO 200 mg TID BETTY Administration Ferrous Sulfate 325 mg 07/25/25 09:00 07/25/25 08:35 Ferrous Sulfate 325 Mg Tablet PO 325 mg DAILY BETTY Administration Piperacillin Sod/Tazobactam 100 mls @ 200 mls/hr 07/24/25 15:00 07/25/25 22:19 Sod 2.25 gm/ Sodium Chloride IVPB Infused Q6H BETTY Infusion Vancomycin/PEG/NADA/Lysine/Water 2 gm in 400 mls @ 200 mls/hr 07/25/25 19:00 07/25/25 20:54 Vancomycin 2 Gm/400 Ml IVPB Infused Q36H BETTY Infusion Insulin Aspart 0 unit 07/24/25 17:30 07/25/25 21:46 Insulin Aspart 100 Unit/Ml SUBCUT 1 unit ACHS BETTY Administration Protocol Lamotrigine 200 mg 07/24/25 21:00 07/25/25 21:46 Lamotrigine 100 Mg Tablet PO 200 mg BID BETTY Administration Magnesium Oxide 800 mg 07/24/25 21:00 07/25/25 21:46 Magnesium Oxide 400 Mg Tablet PO 800 mg BID BETTY Administration Paliperidone 9 Mg 9 mg 07/25/25 09:00 07/25/25 08:46 Tablet Extended PO Not Given Release 24hr DAILY BETTY Vortioxetine [ 20 mg 07/25/25 09:00 07/25/25 08:46 Trintellix] 20 Mg PO Not Given Tablet DAILY BETTY Quetiapine Fumarate 100 mg 07/24/25 13:47 07/25/25 00:44 Quetiapine 100 Mg Tablet PO 100 mg HS PRN Administration Sodium Chloride 5 ml 07/24/25 21:00 07/25/25 21:47 Sodium Chloride 0.9 % (Flush) 10 Ml Syringe IVF 5 ml BID BETTY Administration Discontinued Medications Generic Name Dose Route Start Last Admin Trade Name Freq PRN Reason Stop Dose Admin Piperacillin Sod/Tazobactam 100 mls @ 200 mls/hr 07/24/25 05:31 07/24/25 06:50 Sod 3.375 gm/ Sodium Chloride IVPB 07/24/25 05:32 Infused ONCE ONE Infusion Vancomycin/PEG/NADA/Lysine/Water 2 gm in 400 mls @ 200 mls/hr 07/24/25 05:31 07/24/25 09:06 Vancomycin 2 Gm/400 Ml IVPB 07/24/25 07:30 Infused ONCE ONE Infusion Protocol Sodium Chloride 1,000 mls @ 1,000 mls/hr 07/24/25 06:15 07/24/25 08:10 0.9 % Sodium Chloride 1000 Ml IV 07/24/25 07:14 Infused .Q1H BETTY Infusion Sodium Chloride 1,000 mls @ 1,000 mls/hr 07/24/25 09:15 07/24/25 10:19 0.9 % Sodium Chloride 1000 Ml IV 07/24/25 10:14 Infused .Q1H BETTY Infusion Sodium Chloride 1,000 mls @ 125 mls/hr 07/24/25 15:27 07/25/25 17:34 0.9 % Sodium Chloride 1000 Ml IV 125 mls/hr .Q8H BETTY Administration Lamotrigine 200 mg 07/24/25 14:15 07/24/25 14:51 Lamotrigine 100 Mg Tablet PO 07/24/25 14:16 200 mg ONCE ONE Administration <Molly Hawkins MD - Last Filed: 07/25/25 23:53> Generic Name Dose Route Start Last Admin Trade Name Freq PRN Reason Stop Dose Admin Acetaminophen 650 mg 07/24/25 12:07 07/25/25 15:50 Acetaminophen 325 Mg Tablet PO 650 mg Q6H PRN Administration As needed for fever, headache, or minor pain Albuterol 2.5 mg 07/24/25 15:25 07/25/25 21:58 Albuterol Sulfate 2.5 Mg/3 Ml Vial.Neb NEB 2.5 mg Q4H PRN Administration Wheezing Allopurinol 200 mg 07/25/25 09:00 07/25/25 08:35 Allopurinol 100 Mg Tablet PO 200 mg DAILY BETTY Administration Atorvastatin Calcium 20 mg 07/24/25 21:00 07/25/25 21:46 Atorvastatin Calcium 10 Mg Tablet PO 20 mg HS BETTY Administration Azithromycin 500 mg 07/25/25 14:15 07/25/25 14:34 Azithromycin 250 Mg Tablet PO 500 mg Q24H BETTY Administration Benzonatate 200 mg 07/25/25 21:00 07/25/25 21:46 Benzonatate 100 Mg Capsule PO 200 mg TID BETTY Administration Ferrous Sulfate 325 mg 07/25/25 09:00 07/25/25 08:35 Ferrous Sulfate 325 Mg Tablet PO 325 mg DAILY BETTY Administration Piperacillin Sod/Tazobactam 100 mls @ 200 mls/hr 07/24/25 15:00 07/25/25 22:19 Sod 2.25 gm/ Sodium Chloride IVPB Infused Q6H BETTY Infusion Vancomycin/PEG/NADA/Lysine/Water 2 gm in 400 mls @ 200 mls/hr 07/25/25 19:00 07/25/25 20:54 Vancomycin 2 Gm/400 Ml IVPB Infused Q36H BETTY Infusion Insulin Aspart 0 unit 07/24/25 17:30 07/25/25 21:46 Insulin Aspart 100 Unit/Ml SUBCUT 1 unit ACHS BETTY Administration Protocol Lamotrigine 200 mg 07/24/25 21:00 07/25/25 21:46 Lamotrigine 100 Mg Tablet PO 200 mg BID BETTY Administration Magnesium Oxide 800 mg 07/24/25 21:00 07/25/25 21:46 Magnesium Oxide 400 Mg Tablet PO 800 mg BID BETTY Administration Paliperidone 9 Mg 9 mg 07/25/25 09:00 07/25/25 08:46 Tablet Extended PO Not Given Release 24hr DAILY BETTY Vortioxetine [ 20 mg 07/25/25 09:00 07/25/25 08:46 Trintellix] 20 Mg PO Not Given Tablet DAILY BETTY Quetiapine Fumarate 100 mg 07/24/25 13:47 07/25/25 00:44 Quetiapine 100 Mg Tablet PO 100 mg HS PRN Administration Sodium Chloride 5 ml 07/24/25 21:00 07/25/25 21:47 Sodium Chloride 0.9 % (Flush) 10 Ml Syringe IVF 5 ml BID BETTY Administration Discontinued Medications Generic Name Dose Route Start Last Admin Trade Name Freq PRN Reason Stop Dose Admin Piperacillin Sod/Tazobactam 100 mls @ 200 mls/hr 07/24/25 05:31 07/24/25 06:50 Sod 3.375 gm/ Sodium Chloride IVPB 07/24/25 05:32 Infused ONCE ONE Infusion Vancomycin/PEG/NADA/Lysine/Water 2 gm in 400 mls @ 200 mls/hr 07/24/25 05:31 07/24/25 09:06 Vancomycin 2 Gm/400 Ml IVPB 07/24/25 07:30 Infused ONCE ONE Infusion Protocol Sodium Chloride 1,000 mls @ 1,000 mls/hr 07/24/25 06:15 07/24/25 08:10 0.9 % Sodium Chloride 1000 Ml IV 07/24/25 07:14 Infused .Q1H BETTY Infusion Sodium Chloride 1,000 mls @ 1,000 mls/hr 07/24/25 09:15 07/24/25 10:19 0.9 % Sodium Chloride 1000 Ml IV 07/24/25 10:14 Infused .Q1H BETTY Infusion Sodium Chloride 1,000 mls @ 125 mls/hr 07/24/25 15:27 07/25/25 17:34 0.9 % Sodium Chloride 1000 Ml IV 125 mls/hr .Q8H BETTY Administration Lamotrigine 200 mg 07/24/25 14:15 07/24/25 14:51 Lamotrigine 100 Mg Tablet PO 07/24/25 14:16 200 mg ONCE ONE Administration <Fabricio Lindquist MD - Last Filed: 07/24/25 10:38> Medical Decision Making [facility] Narrative Medical decision making narrative: Care for this patient was transferred to vt at the end of the overnight shift. We are waiting results of repeat lactate and troponin tests. The lactate improved from 2.9-2.1. I did order another L of normal saline intravenously. The patient has not shown any signs of hypotension. She is not showing any worsening symptoms. Her troponin is likely related to demand ischemia and elevated lactate with possible sepsis. Repeat troponin went from 0.1820.28. I did speak with the hospitalist at [facility] who stated that this is not a concern for her heart and that it is okay for her to be admitted here for ongoing management. I did speak again with the hospitalist on-call, Dr. Coronado, who agrees to her admission here. The patient did receive an IV dose of Zosyn in the emergency department. <Fabricio Lindquist MD - Last Filed: 07/24/25 10:38> Lab Data Lab results reviewed: Yes I reviewed the patient's lab results <Molly Hawkins MD - Last Filed: 07/25/25 23:53> Labs: Lab Results 07/24/25 07/24/25 07/24/25 Range/Units 05:05 05:26 05:35 WBC 17.32 H (4.50-11.00) K/uL RBC 3.24 L (4.00-5.20) m/uL Hgb 10.0 L (12.0-16.0) gm/dL Hct 30.3 L (33.0-51.0) % MCV 94 (80-100) fL MCH 31 (26-34) pg MCHC 33 (32-36) gm/dL RDW Coeff of Tabatha 14.7 (11.5-15.5) % Plt Count 239 (140-440) K/uL Neut % (Auto) 88.6 H (42.0-72.0) % Lymph % (Auto) 5.5 L (20-44) % Mccreary % (Auto) 5.0 (0.0-11.0) % Eos % (Auto) 0.3 (0.0-7.0) % Baso % (Auto) 0.1 (0.0-3.0) % Neut # (Auto) 15.30 H (1.7-7.0) K/uL Lymph # (Auto) 1.00 (0.90-2.90) K/uL Mccreary # (Auto) 0.90 (0.00-0.90) K/UL Eos # (Auto) 0.10 (0.00-0.50) K/uL Baso # (Auto) 0.00 (0.00-0.30) K/uL Abs Immat Gran (auto) 0.10 (0.00-0.30) K/uL Imm/Tot Granulo (auto) 0.5 % VBG pH 7.338 (7.32-7.43) VBG pCO2 40 (40-50) mmHG VBG pO2 45.6 (25-47) mmHG VBG HCO3 22 (21-28) mmol/L Sodium 121 L* (135-149) mmol/L Potassium 4.8 (3.6-5.1) mmol/L Chloride 89 L (96-114) mmol/L Carbon Dioxide 21 (20-32) mmol/L Anion Gap 11 (7-15) mEq/L BUN 68 H (7-30) mg/dL Creatinine 3.4 H (0.5-1.5) mg/dL Estimated Creat Clear 16.82 Estimated GFR 15 ml/min Glucose 230 H (60-115) mg/dL Lactate 2.8 H (0.5-1.9) mmol/L Uric Acid 9.4 H (2.2-8.4) mg/dL Calcium 9.8 (8.4-10.6) mg/dL Total Bilirubin 0.5 (0.1-1.5) mg/dL AST 28 (12-35) U/L ALT 15 (4-35) U/L Alkaline Phosphatase 89 (40-150) U/L Troponin I 0.18 H* (0.01-0.04) ng/mL C-Reactive Protein 63.6 H (0.5-1.0) mg/dL Total Protein 6.0 (6.0-8.3) g/dL Albumin 3.1 L (3.3-5.0) g/dL Urine Color (Yellow) Urine Appearance (Clear) Urine pH (5.0-8.5) Ur Specific Rolfe (1.000-1.030) Urine Protein (Negative) Urine Glucose (UA) (Negative) Urine Ketones (Negative) Urine Blood (Negative) Urine Nitrite (Negative) Urine Bilirubin (Negative) Urine Urobilinogen (0.2-1.0) Ur Leukocyte Esterase (Negative) Urine RBC (0-2) Urine WBC (0-5) Ur Squamous Epith Cells (None-Few) Urine Bacteria (None) SARS-CoV-2 (PCR) Negative SARS-CoV-2 (Negative) Influenza Type A (PCR) Negative PCR FLU A (Negative) Influenza Type B (PCR) Negative PCR FLU B (Negative) RSV (PCR) Negative PCR RSV (Negative) POC Troponin I 0.29 H (0.01-0.04) ng/ml 07/24/25 07/24/25 Range/Units 07:35 08:10 WBC (4.50-11.00) K/uL RBC (4.00-5.20) m/uL Hgb (12.0-16.0) gm/dL Hct (33.0-51.0) % MCV (80-100) fL MCH (26-34) pg MCHC (32-36) gm/dL RDW Coeff of Tabatha (11.5-15.5) % Plt Count (140-440) K/uL Neut % (Auto) (42.0-72.0) % Lymph % (Auto) (20-44) % Mccreary % (Auto) (0.0-11.0) % Eos % (Auto) (0.0-7.0) % Baso % (Auto) (0.0-3.0) % Neut # (Auto) (1.7-7.0) K/uL Lymph # (Auto) (0.90-2.90) K/uL Mccreary # (Auto) (0.00-0.90) K/UL Eos # (Auto) (0.00-0.50) K/uL Baso # (Auto) (0.00-0.30) K/uL Abs Immat Gran (auto) (0.00-0.30) K/uL Imm/Tot Granulo (auto) % VBG pH (7.32-7.43) VBG pCO2 (40-50) mmHG VBG pO2 (25-47) mmHG VBG HCO3 (21-28) mmol/L Sodium 127 L (135-149) mmol/L Potassium (3.6-5.1) mmol/L Chloride (96-114) mmol/L Carbon Dioxide (20-32) mmol/L Anion Gap (7-15) mEq/L BUN (7-30) mg/dL Creatinine (0.5-1.5) mg/dL Estimated Creat Clear Estimated GFR ml/min Glucose (60-115) mg/dL Lactate 2.1 H (0.5-1.9) mmol/L Uric Acid (2.2-8.4) mg/dL Calcium (8.4-10.6) mg/dL Total Bilirubin (0.1-1.5) mg/dL AST (12-35) U/L ALT (4-35) U/L Alkaline Phosphatase (40-150) U/L Troponin I 0.28 H* (0.01-0.04) ng/mL C-Reactive Protein (0.5-1.0) mg/dL Total Protein (6.0-8.3) g/dL Albumin (3.3-5.0) g/dL Urine Color Yellow (Yellow) Urine Appearance Slightly Cloudy A (Clear) Urine pH 5.5 (5.0-8.5) Ur Specific Rolfe 1.010 (1.000-1.030) Urine Protein 1+ A (Negative) Urine Glucose (UA) Negative (Negative) Urine Ketones Negative (Negative) Urine Blood Negative (Negative) Urine Nitrite Negative (Negative) Urine Bilirubin Negative (Negative) Urine Urobilinogen 0.2 (0.2-1.0) Ur Leukocyte Esterase Negative (Negative) Urine RBC 0-2 (0-2) Urine WBC 0-2 (0-5) Ur Squamous Epith Cells None (None-Few) Urine Bacteria None (None) SARS-CoV-2 (PCR) (Negative) Influenza Type A (PCR) (Negative) Influenza Type B (PCR) (Negative) RSV (PCR) (Negative) POC Troponin I 0.25 H (0.01-0.04) ng/ml <Molly Hawkins MD - Last Filed: 07/25/25 23:53> Lab Results 07/24/25 07/24/25 07/24/25 Range/Units 05:05 05:26 05:35 WBC 17.32 H (4.50-11.00) K/uL RBC 3.24 L (4.00-5.20) m/uL Hgb 10.0 L (12.0-16.0) gm/dL Hct 30.3 L (33.0-51.0) % MCV 94 (80-100) fL MCH 31 (26-34) pg MCHC 33 (32-36) gm/dL RDW Coeff of Tabatha 14.7 (11.5-15.5) % Plt Count 239 (140-440) K/uL Neut % (Auto) 88.6 H (42.0-72.0) % Lymph % (Auto) 5.5 L (20-44) % Mccreary % (Auto) 5.0 (0.0-11.0) % Eos % (Auto) 0.3 (0.0-7.0) % Baso % (Auto) 0.1 (0.0-3.0) % Neut # (Auto) 15.30 H (1.7-7.0) K/uL Lymph # (Auto) 1.00 (0.90-2.90) K/uL Mccreary # (Auto) 0.90 (0.00-0.90) K/UL Eos # (Auto) 0.10 (0.00-0.50) K/uL Baso # (Auto) 0.00 (0.00-0.30) K/uL Abs Immat Gran (auto) 0.10 (0.00-0.30) K/uL Imm/Tot Granulo (auto) 0.5 % VBG pH 7.338 (7.32-7.43) VBG pCO2 40 (40-50) mmHG VBG pO2 45.6 (25-47) mmHG VBG HCO3 22 (21-28) mmol/L Sodium 121 L* (135-149) mmol/L Potassium 4.8 (3.6-5.1) mmol/L Chloride 89 L (96-114) mmol/L Carbon Dioxide 21 (20-32) mmol/L Anion Gap 11 (7-15) mEq/L BUN 68 H (7-30) mg/dL Creatinine 3.4 H (0.5-1.5) mg/dL Estimated Creat Clear 16.82 Estimated GFR 15 ml/min Glucose 230 H (60-115) mg/dL Lactate 2.8 H (0.5-1.9) mmol/L Uric Acid 9.4 H (2.2-8.4) mg/dL Calcium 9.8 (8.4-10.6) mg/dL Total Bilirubin 0.5 (0.1-1.5) mg/dL AST 28 (12-35) U/L ALT 15 (4-35) U/L Alkaline Phosphatase 89 (40-150) U/L Troponin I 0.18 H* (0.01-0.04) ng/mL C-Reactive Protein 63.6 H (0.5-1.0) mg/dL Total Protein 6.0 (6.0-8.3) g/dL Albumin 3.1 L (3.3-5.0) g/dL Urine Color (Yellow) Urine Appearance (Clear) Urine pH (5.0-8.5) Ur Specific Rolfe (1.000-1.030) Urine Protein (Negative) Urine Glucose (UA) (Negative) Urine Ketones (Negative) Urine Blood (Negative) Urine Nitrite (Negative) Urine Bilirubin (Negative) Urine Urobilinogen (0.2-1.0) Ur Leukocyte Esterase (Negative) Urine RBC (0-2) Urine WBC (0-5) Ur Squamous Epith Cells (None-Few) Urine Bacteria (None) SARS-CoV-2 (PCR) Negative SARS-CoV-2 (Negative) Influenza Type A (PCR) Negative PCR FLU A (Negative) Influenza Type B (PCR) Negative PCR FLU B (Negative) RSV (PCR) Negative PCR RSV (Negative) POC Troponin I 0.29 H (0.01-0.04) ng/ml 07/24/25 07/24/25 Range/Units 07:35 08:10 WBC (4.50-11.00) K/uL RBC (4.00-5.20) m/uL Hgb (12.0-16.0) gm/dL Hct (33.0-51.0) % MCV (80-100) fL MCH (26-34) pg MCHC (32-36) gm/dL RDW Coeff of Tabatha (11.5-15.5) % Plt Count (140-440) K/uL Neut % (Auto) (42.0-72.0) % Lymph % (Auto) (20-44) % Mccreary % (Auto) (0.0-11.0) % Eos % (Auto) (0.0-7.0) % Baso % (Auto) (0.0-3.0) % Neut # (Auto) (1.7-7.0) K/uL Lymph # (Auto) (0.90-2.90) K/uL Mccreary # (Auto) (0.00-0.90) K/UL Eos # (Auto) (0.00-0.50) K/uL Baso # (Auto) (0.00-0.30) K/uL Abs Immat Gran (auto) (0.00-0.30) K/uL Imm/Tot Granulo (auto) % VBG pH (7.32-7.43) VBG pCO2 (40-50) mmHG VBG pO2 (25-47) mmHG VBG HCO3 (21-28) mmol/L Sodium 127 L (135-149) mmol/L Potassium (3.6-5.1) mmol/L Chloride (96-114) mmol/L Carbon Dioxide (20-32) mmol/L Anion Gap (7-15) mEq/L BUN (7-30) mg/dL Creatinine (0.5-1.5) mg/dL Estimated Creat Clear Estimated GFR ml/min Glucose (60-115) mg/dL Lactate 2.1 H (0.5-1.9) mmol/L Uric Acid (2.2-8.4) mg/dL Calcium (8.4-10.6) mg/dL Total Bilirubin (0.1-1.5) mg/dL AST (12-35) U/L ALT (4-35) U/L Alkaline Phosphatase (40-150) U/L Troponin I 0.28 H* (0.01-0.04) ng/mL C-Reactive Protein (0.5-1.0) mg/dL Total Protein (6.0-8.3) g/dL Albumin (3.3-5.0) g/dL Urine Color Yellow (Yellow) Urine Appearance Slightly Cloudy A (Clear) Urine pH 5.5 (5.0-8.5) Ur Specific Rolfe 1.010 (1.000-1.030) Urine Protein 1+ A (Negative) Urine Glucose (UA) Negative (Negative) Urine Ketones Negative (Negative) Urine Blood Negative (Negative) Urine Nitrite Negative (Negative) Urine Bilirubin Negative (Negative) Urine Urobilinogen 0.2 (0.2-1.0) Ur Leukocyte Esterase Negative (Negative) Urine RBC 0-2 (0-2) Urine WBC 0-2 (0-5) Ur Squamous Epith Cells None (None-Few) Urine Bacteria None (None) SARS-CoV-2 (PCR) (Negative) Influenza Type A (PCR) (Negative) Influenza Type B (PCR) (Negative) RSV (PCR) (Negative) POC Troponin I 0.25 H (0.01-0.04) ng/ml <Fabricio Lindquist MD - Last Filed: 07/24/25 10:38> Imaging Data Chest x-ray: Attestation: I have reviewed the pertinent imaging results. <Molly Hawkins MD - Last Filed: 07/25/25 23:53> My impression: No obvious infiltrate, pneumothorax, pleural effusions or severe cardiomegaly. <Molly Hawkins MD - Last Filed: 07/25/25 23:53> Radiologist's impression: IMPRESSION: No findings to explain the clinical history. Incidental findings described in the body of the report. Dictated by Baljit Mathews MD @ 07/24/2025 6:01:42 AM <Molly Hawkins MD - Last Filed: 07/25/25 23:53> Left foot x-ray: Attestation: I have reviewed the pertinent imaging results. <Molly Hawkins MD - Last Filed: 07/25/25 23:53> My impression: No obvious osteomyelitis, degenerative arthritis seen <Molly Hawkins MD - Last Filed: 07/25/25 23:53> Radiologist's impression: IMPRESSION: 1. Polyarticular inflammatory arthritis. Nonspecific soft tissue nodules along the lateral aspect of the forefoot underlying the 5th metatarsal and in the heel pad. Differential diagnostic considerations include gout and rheumatoid arthritis. Clinical correlation is recommended. 2. No ulcer is identified. Dictated by Baljit Mathews MD @ 07/24/2025 6:10:22 AM <Molly Hawkins MD - Last Filed: 07/25/25 23:53> Discharge Plan Discharge Clinical Impression: Sepsis, Hyponatremia, Acute kidney injury, Demand ischemia of myocardium <Molly Hawkins MD - Last Filed: 07/25/25 23:53> Patient Disposition: Admitted As Observation <Molly Hawkins MD - Last Filed: 07/25/25 23:53> Condition: Unchanged <Molly Hawkins MD - Last Filed: 07/25/25 23:53> Procedures ABG Interpretation ABG Results: 07/24/25 05:26 VBG pH 7.338 VBG pCO2 40 VBG pO2 45.6 VBG HCO3 22 <Molly Hawkins MD - Last Filed: 07/25/25 23:53> 07/24/25 05:26 VBG pH 7.338 VBG pCO2 40 VBG pO2 45.6 VBG HCO3 22 <Fabricio Lindquist MD - Last Filed: 07/24/25 10:38>
[2025-07-24 05:49] LABS: PCR FLU A Negative PCR FLU A (Negative); PCR FLU B Negative PCR FLU B (Negative); PCR RSV Negative PCR RSV (Negative); SARS PCR* Negative SARS-CoV-2 (Negative)
[2025-07-24 05:49] LABS: Hematocrit* 30.3 % (33.0-51.0); Hemoglobin* 10.0 gm/dL (12.0-16.0); Immature Granulocytes Pct Auto 0.5 %; Mean Corpuscular HGB Conc 33 gm/dL (32-36); Mean Corpuscular Hemoglobin 31 pg (26-34); Mean Corpuscular Volume 94 fL (80-100); RDW Coefficient of Variation % 14.7 % (11.5-15.5); Red Blood Count* 3.24 m/uL (4.00-5.20); White Blood Count* 17.32 K/uL (4.50-11.00)
[2025-07-24 05:51] LABS: Immature Granulocytes Abs Auto 0.10 K/uL (0.00-0.30); Lymphocytes Absolute Auto 1.00 K/uL (0.90-2.90); Slide Review Reflex No
[2025-07-24 05:56] LABS: Albumin* 3.1 g/dL (3.3-5.0)
[2025-07-24 05:57] LABS: Chloride* 89 mmol/L (96-114); Potassium* 4.8 mmol/L (3.6-5.1)
[2025-07-24 05:59] LABS: Alanine Aminotransferase* 15 U/L (4-35); Aspartate Amino Transferase* 28 U/L (12-35); Blood Urea Nitrogen* 68 mg/dL (7-30); Creatinine* 3.4 mg/dL (0.5-1.5); Est. Creatinine Clearance* 16.82; Estimated Glomerular Filt Rate 15 ml/min
[2025-07-24 06:00] LABS: Alkaline Phosphatase* 89 U/L (40-150); Anion Gap 11 mEq/L (7-15); Bilirubin Total* 0.5 mg/dL (0.1-1.5); Calcium* 9.8 mg/dL (8.4-10.6); Carbon Dioxide* 21 mmol/L (20-32); Glucose* 230 mg/dL (60-115); Total Protein* 6.0 g/dL (6.0-8.3)
[2025-07-24 06:09] LABS: Sodium* 121 mmol/L (135-149)
[2025-07-24] MEDS: PIPERACILLIN/TAZOBACTAM 3.375 GM in 0.9 % SODIUM CHLORIDE Mini-bag 100 ML IVPB (06:17)
[2025-07-24 06:22] LABS: Troponin, Point-of-Care* 0.29 ng/ml (0.01-0.04)
[2025-07-24 06:25] LABS: HCO3 VBG 22 mmol/L (21-28); PCO2 VBG 40 mmHG (40-50); PO2 VBG 45.6 mmHG (25-47); pH VBG 7.338 (7.32-7.43)
[2025-07-24 06:26] LABS: Lactate Sepsis w/Reflex* 2.8 mmol/L (0.5-1.9)
[2025-07-24] MEDS: VANCOMYCIN 2 GM/400 ML 2 GM/400 ML PIGGYBACK IVPB (06:51)
[2025-07-24 07:38] LABS: Appearance Urine Slightly Cloudy (Clear)
[2025-07-24 08:27] LABS: Troponin, Point-of-Care* 0.25 ng/ml (0.01-0.04)
[2025-07-24 08:41] LABS: Lactate Sepsis 2 Hour 2.1 mmol/L (0.5-1.9)
[2025-07-24 09:52] LABS: Sodium* 127 mmol/L (135-149)
--- NOTE | 2025-07-24 11:23 | PC.NURSE ---
Report given to JUAN Amaya on M/S. All belongings sent with patient. accompanying patient.
[2025-07-24] MEDS: ACETAMINOPHEN 325 MG TABLET 650 MG PO ×2 (12:13→20:17)
[2025-07-24 14:14] LABS: Chloride* 96 mmol/L (96-114)
[2025-07-24 14:15] LABS: Potassium* 4.2 mmol/L (3.6-5.1)
[2025-07-24 14:17] LABS: Blood Urea Nitrogen* 67 mg/dL (7-30); Creatinine* 3.0 mg/dL (0.5-1.5); Est. Creatinine Clearance* 18.30; Estimated Glomerular Filt Rate 18 ml/min
[2025-07-24 14:18] LABS: Anion Gap 8 mEq/L (7-15); Calcium* 9.4 mg/dL (8.4-10.6); Carbon Dioxide* 19 mmol/L (20-32); Glucose* 156 mg/dL (60-115)
[2025-07-24 14:20] LABS: Sodium* 123 mmol/L (135-149)
[2025-07-24] MEDS: PIPERACILLIN/TAZOBACTAM 2.25 GM in 0.9 % SODIUM CHLORIDE Mini-bag 100 ML IVPB ×2 (15:38→20:18)
--- NOTE | 2025-07-24 15:43 | RESP.RT ---
Patient with slight wheezing throughout lung bush and difficulty coughing up secretions. No respiratory history. 94% room air. PRN nebs and Aerobika ordered via provider.
[2025-07-24] MEDS: ALBUTEROL SULFATE 2.5 MG/3 ML VIAL.NEB NEB (15:49)
--- NOTE | 2025-07-24 16:16 | PC.NURSE ---
patient had an early dinner
[2025-07-24 16:37] LABS: Lactate* 1.2 mmol/L (0.5-1.9)
--- NOTE | 2025-07-24 16:54 | CRLHL7_ITS ---
For Patients: As a result of the Century Cures Act, medical imaging exams and procedure reports are released immediately into your electronic medical record. You may view this report before your referring provider. If you have questions, please contact your health care provider. INDICATION: Fever, sepsis. TECHNIQUE: CT chest without contrast. COMPARISON: Same day chest x-ray. FINDINGS: Lungs and pleura: Right upper lobe solid consolidation with air bronchograms concerning for pneumonia. Additional consolidative opacity in the left mid chest with air bronchograms. No pneumothorax. Bibasilar atelectasis. Heart and vasculature: Heart size is enlarged.. Dilatation of the main pulmonary artery measuring up to 3.8 centimeters, which could be reflective of pulmonary artery hypertension. Lymph nodes/mediastinum: Mildly prominent mediastinal lymph nodes, likely reactive due to underlying infectious/inflammatory etiology. Chest wall: Unremarkable Upper abdomen: Cholelithiasis. Small hiatal hernia. Diverticulosis. Bones: Degenerative changes of bilateral shoulders, right greater than left. No acute findings. IMPRESSION: Consolidative opacities in the right upper lobe and left mid chest, concerning for pneumonia. Follow-up chest radiograph is advised in 4-6 weeks after appropriate clinical therapy to document improvement/resolution. If these findings are unchanged at that time, chest CT would then be warranted. Dilatation of the main pulmonary artery, likely reflective of pulmonary hypertension. Cholelithiasis. Small hiatal hernia. Please note that all CT scans at this facility use dose modulation, iterative reconstruction, and/or weight-based dosing when appropriate to reduce radiation dose to as low as reasonably achievable. Dictated by aBshir Chavarria MD @ 07/24/2025 6:37:51 PM (Electronically Signed)
--- NOTE | 2025-07-24 17:08 | PM.IMHP1 ---
Assessment and Plan Assessment and plan (1) Sepsis: Problem comment: - severe sepsis with elevated temperature, tachycardia, respirations greater than 20 and elevated lactate. Blood pressure is actually elevated, no low blood pressures that would indicate septic shock. The patient has had some response to the fluid bolus given and after the most recent lactate which was still mildly elevated, was given more IV fluids. Lactate has since improved further. Chest x-ray is unremarkable, UA is unremarkable. Source is likely diabetic foot ulcer over a tophus from chronic gout. Admit with IV Zosyn and vancomycin. Status: Acute (2) Diabetic foot ulcer: Problem comment: Likely source of infection, malodorous. I have spoken with Dr. Monique buitrago recommended wound care consult and a if debridement is needed, he could be consulted at that time. I have ordered a wound care consult. Continue IV antibiotics as above. Status: Acute (3) Hyponatremia: Problem comment: This is likely the cause of her weakness so than sepsis. She has already started to have some improvement from 121 up to 127 and now at 123. Since she started from such a low-sodium and is symptomatic, I per for a slower trajectory for improvement and with a sodium that has increased from 121-123, I will continue with the current rate of improvement continuing saline infusion and monitoring. Goal increase is no greater than 4 to 6 over 24 hours. Status: Acute (4) BARNEY (acute kidney injury): Problem comment: - suspect prerenal, BUN is also elevated, suspect cause is due to severe sepsis complicated by several medications which may affect renal function as well. Will hold colchicine, allopurinol, antihypertensives, and her psychoactive medications with the exception of Lamictal for now. Give normal saline. Monitor. 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 She has been on colchicine and allopurinol. These will need to be held due to BARNEY. Status: Acute (6) Type 2 diabetes mellitus: Problem comment: Patient currently takes metformin only. Will check a hemoglobin A1c and I have held metformin due to BARNEY with markedly elevated creatinine. I have also ordered an insulin sliding scale with Accu-Cheks ACHS. Status: Chronic (7) Morbid obesity: Problem comment: BMI of 54 Status: Chronic (8) Bipolar 1 disorder: Problem comment: psych med regimen: Trintellix, Seroquel, Invega, Lamictal, Lunesta. Hold this regimen for now due to BARNEY Status: Chronic (9) Essential hypertension: Problem comment: fair control. Holding antihypertensives due to a combination of BARNEY and sepsis. Her blood pressures are quite high however and she may need some of them resumed such as labetalol, but will hold for now while I am treating severe sepsis. Status: Chronic (10) Elevated troponin: Problem comment: Suspect demand ischemia, EKG is reassuring and she is asymptomatic with no shortness of breath or chest pain. Troponin is stable, peak was 0.28. ER physician spoke with Cardiology who recommended medical management of probable demand ischemia. Recheck troponin and monitor on cardiac telemetry. Resuscitate with IV fluids and treat underlying condition with IV antibiotics as above. Status: Acute (11) Anemia: Problem comment: She is currently at her baseline hemoglobin, around 9-10. She has been on daily ferrous sulfate. Normocytic. Check fecal occult blood test, although patient has had no melena or hematochezia. Will also check B12, iron studies and folate Status: Acute (12) Bronchitis: Status: Acute Total Time Spent Total Time Spent: Time spent: Today I spent 75 minutes seeing the patient, discussing the patient with ER staff, reviewing Expanse and EPIC notes/diagnostics, discussing the care plan with our care team that includes social work, PT/OT, pharmacy, RT, fpc and documenting my impressions and plan in the medical record. Hospitalist- H&P: HPI History of Present Illness Date Seen: 07/24/25 Chief complaint: weakness Narrative: Homa Lopez is a 54 year old female with history of diabetes and to patient's gout who presented through the emergency department for weakness and not feeling well for about a week. She tells me that her was sick with upper respiratory illness a few weeks ago and then about a week ago she came down with it and was coughing, feverish, body aches and nausea to start with, but then she started to develop more phlegm and weakness. Especially over the last 24 hours she started feeling much weaker, too weak to stand for more than a few seconds. At 1 point she felt so weak she had to lower herself to the floor and could not get up. She did not hit her head or lose consciousness. She denies any lightheadedness or dizziness. Denies any focal numbness weakness or tingling. She also has a history of tophaceous gout in her feet and has had some open sores on her feet recently. Review of Systems Status of ROS: Reports: 10 or more systems reviewed and unremarkable except as noted in History and below Medical Decision Making Medical Decision Making Code Status: Full Code Has patient completed a Health Care Directive: No During This Stay, Who Would You Like To Make Decisions For You In The Event You Are Unable To Make Them For Yourself?: , [facility] Medical History (Updated 07/24/25 @ 17:45 by Bev Coronado MD) Anemia ?D64.9 - Anemia, unspecified (ICD-10) 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, unspecified, with tophus (tophi) (ICD-10) Septic arthritis of sternoclavicular joint ?M00.819 - Arthritis due to other bacteria, unspecified shoulder (ICD-10) Sinus tachycardia ?R00.0 - Tachycardia, unspecified (ICD-10) Morbid obesity ?E66.01 - Morbid (severe) obesity due to excess calories (ICD-10) Bipolar 1 disorder ?F31.9 - Bipolar disorder, unspecified (ICD-10) Hyperlipidemia ?E78.5 - Hyperlipidemia, unspecified (ICD-10) Hyperparathyroidism ?E21.3 - Hyperparathyroidism, unspecified (ICD-10) Essential hypertension ?I10 - Essential (primary) hypertension (ICD-10) Severe anxiety ?F41.9 - Anxiety disorder, unspecified (ICD-10) Schizoaffective disorder ?F25.9 - Schizoaffective disorder, unspecified (ICD-10) Type 2 diabetes mellitus ?E11.9 - Type 2 diabetes mellitus without complications (ICD-10) Surgical History History of elbow surgery (04/03/24) ?Z98.890 - Other specified postprocedural states (ICD-10) History of wisdom tooth extraction ?K08.409 - Partial loss of teeth, unspecified cause, unspecified class (ICD-10) S/P tonsillectomy and adenoidectomy ?Z90.89 - Acquired absence of other organs (ICD-10) H/O dilation and curettage ?Z98.890 - Other specified postprocedural states (ICD-10) Status post appendectomy ?Z90.49 - Acquired absence of other specified parts of digestive tract (ICD-10) Social History (Updated 07/24/25 @ 17:20 by Bev Coronado MD) Narrative: Lives independently with and two adult disabled children, whom she cares for. Denies tobacco, alcohol, recreational drug use. What is your current living situation?: I presently have a place to live Problems where you live: no known problems Problems where you live details: N/A In the past 12 months, utilities in danger of being shut off: no In past 12 months, lack of transportation kept you from medical appts, meetings, work, or getting things needed for daily living: no In the past 12 mos, have been you worried that your food would run out before you had money to buy more?: never true In the past 12 mos, the food you bought just didn't last and you didn't have money to buy more?: never true Highest level of school completed/degree received: 12th grade, no diploma Smoking Status: Never smoker Do you use any of these nicotine containing products: None Second hand tobacco smoke exposure: No How often do you have a drink containing alcohol: never How often do you have six or more drinks on one occasion: Never AUDIT-C Alcohol total score: 0 Non-prescribed substance use: denies use Caffeine: Yes How often does anyone, including family, friends and others, physically hurt you: never How often does anyone, including family, friends and others, insult or talk down to you: never How often does anyone, including family, friends and others, threaten you with harm: never How often does anyone, including family, friends and others, scream or curse at you: never service: No Meds Home Medications and Allergies Home Medications ?Medication ?Instructions ?Recorded ?Confirmed ?Type amlodipine 10 mg tablet 10 mg PO DAILY 04/01/24 07/24/25 History atorvastatin 20 mg tablet 20 mg PO HS 04/01/24 07/24/25 History lamotrigine 200 mg tablet 200 mg PO BID 04/01/24 07/24/25 History (Lamictal) omega 7-puu-hyw-fish oil 1,200 mg 1 cap PO BID 04/01/24 07/24/25 History (144 mg-216 mg) capsule (Fish Oil) paliperidone 9 mg tablet,extended 9 mg PO DAILY 04/01/24 07/24/25 History release 24 hr vortioxetine 20 mg tablet 20 mg PO DAILY 04/01/24 07/24/25 History (Trintellix) quetiapine 100 mg tablet 100 - 200 mg PO HS PRN 04/02/24 07/24/25 History allopurinol 100 mg tablet 200 mg PO DAILY 05/20/24 07/24/25 History colchicine 0.6 mg tablet 0.6 mg PO DAILY 05/20/24 07/24/25 History furosemide 20 mg tablet 20 mg PO DAILY 05/20/24 07/24/25 History magnesium oxide 400 mg (241.3 mg 800 mg PO BID 05/20/24 07/24/25 History magnesium) tablet losartan 25 mg tablet 25 mg PO DAILY 06/02/24 07/24/25 History acetaminophen 325 mg tablet 650 mg PO Q6H PRN 07/24/25 07/24/25 History ferrous sulfate 325 mg (65 mg 325 mg PO DAILY 07/24/25 07/24/25 History iron) tablet,delayed release labetalol 200 mg tablet 200 mg PO BID 07/24/25 07/24/25 History metformin 500 mg tablet,extended 1,000 mg PO BID 07/24/25 07/24/25 History release 24 hr Allergies Allergy/AdvReac Type Severity Reaction Status Date / Time amlodipine (From [facility]) Allergy Verified 06/02/24 10:06 mestranol (From [facility] Allergy Verified 06/02/24 10:06 50 (21)) norethindrone (From Allergy Verified 06/02/24 10:06 [facility] 50 (21)) nortriptyline Allergy Verified 06/02/24 10:06 clonidine AdvReac Verified 07/24/25 11:50 Exam Narrative: Exam Narrative: General: No acute distress. Awake alert oriented x3. Morbidly obese. HEENT: Normocephalic atraumatic, pupils equally round and reactive to light and accommodation. Oropharynx clear. Mucous membranes are moist. No cervical lymphadenopathy, thyromegaly or carotid bruits. No JVD. Cardiovascular: Tachycardic, regular. No murmurs, gallops, or rubs. Chest: No increased work of breathing. Clear to auscultation bilaterally. No crackles or wheezes. Abdomen: Bowel sounds present. Soft, nondistended, nontender. No hepatosplenomegaly or masses. Extremities: Feet are tophaceous. Tophus on left heel has a malodorous ulceration with no drainage, no purulence or fluctuance, no erythema or tenderness. No edema, no cyanosis or clubbing. Skin: No mottling, good capillary refill. No jaundice, no pallor, no rashes on visible skin. Neuro: Grossly intact. No focal deficits. Date exam performed: 07/24/2025 Time exam performed: 12:15 p.m. Focused Exam: I have reassessed tissue perfusion after bolus given. Current stage of sepsis: Severe sepsis. Const: Vital Signs, click to edit/add: Vital Signs - 24 hr 07/24/25 05:07 07/24/25 06:43 07/24/25 06:45 Temperature 98.9 F Pulse Rate 93 94 Pulse Rate [Left P ulse Oximeter] 101 H Pulse Rate [Left R adial] Respiratory Rate 24 22 15 Blood Pressure Blood Pressure [Le ft Arm] Blood Pressure [Ri ght Upper Arm] 154/74 H Pulse Oximetry 93 87 L 87 L [facility] 07/24/25 07:00 07/24/25 07:01 07/24/25 07:39 Temperature Pulse Rate 101 H 100 103 H Pulse Rate [Left P ulse Oximeter] Pulse Rate [Left R adial] Respiratory Rate 5 L 12 12 Blood Pressure 129/67 Blood Pressure [Le ft Arm] Blood Pressure [Ri ght Upper Arm] Pulse Oximetry 91 90 88 Oxygen Delivery [facility] 07/24/25 07:45 07/24/25 07:46 07/24/25 07:47 Temperature 98.7 F Pulse Rate 104 H 103 H 104 H Pulse Rate [Left P ulse Oximeter] Pulse Rate [Left R adial] Respiratory Rate 28 H 27 H 29 H Blood Pressure 140/66 H Blood Pressure [Le ft Arm] Blood Pressure [Ri ght Upper Arm] Pulse Oximetry 89 87 L 88 Oxygen Delivery [facility] 07/24/25 08:00 07/24/25 08:01 07/24/25 08:02 Temperature Pulse Rate 102 H 102 H 102 H Pulse Rate [Left P ulse Oximeter] Pulse Rate [Left R adial] Respiratory Rate 27 H 28 H 31 H Blood Pressure 139/64 Blood Pressure [Le ft Arm] Blood Pressure [Ri ght Upper Arm] Pulse Oximetry 89 89 89 Oxygen Delivery [facility] 07/24/25 08:15 07/24/25 08:30 07/24/25 08:31 Temperature Pulse Rate 99 96 96 Pulse Rate [Left P ulse Oximeter] Pulse Rate [Left R adial] Respiratory Rate 19 25 H 29 H Blood Pressure 126/64 Blood Pressure [Le ft Arm] Blood Pressure [Ri ght Upper Arm] Pulse Oximetry 89 87 L 88 Oxygen Delivery [facility] 07/24/25 08:45 07/24/25 09:00 07/24/25 09:01 Temperature 98.9 F Pulse Rate 95 94 98 Pulse Rate [Left P ulse Oximeter] Pulse Rate [Left R adial] Respiratory Rate 30 H 24 20 Blood Pressure 127/65 Blood Pressure [Le ft Arm] Blood Pressure [Ri ght Upper Arm] Pulse Oximetry 88 91 89 Oxygen Delivery [facility] 07/24/25 09:02 07/24/25 09:15 07/24/25 09:30 Temperature Pulse Rate 96 94 99 Pulse Rate [Left P ulse Oximeter] Pulse Rate [Left R adial] Respiratory Rate 20 15 10 L Blood Pressure Blood Pressure [Le ft Arm] Blood Pressure [Ri ght Upper Arm] Pulse Oximetry 88 88 88 Oxygen Delivery [facility] 07/24/25 09:31 07/24/25 09:45 07/24/25 10:00 Temperature Pulse Rate 98 97 100 Pulse Rate [Left P ulse Oximeter] Pulse Rate [Left R adial] Respiratory Rate 26 H 28 H 24 Blood Pressure 126/64 Blood Pressure [Le ft Arm] Blood Pressure [Ri ght Upper Arm] Pulse Oximetry 90 87 L 88 Oxygen Delivery [facility] 07/24/25 10:01 07/24/25 10:15 07/24/25 10:30 Temperature Pulse Rate 101 H 104 H 101 H Pulse Rate [Left P ulse Oximeter] Pulse Rate [Left R adial] Respiratory Rate 29 H 24 27 H Blood Pressure 125/60 Blood Pressure [Le ft Arm] Blood Pressure [Ri ght Upper Arm] Pulse Oximetry 88 91 90 Oxygen Delivery [facility] 07/24/25 10:31 07/24/25 10:45 07/24/25 11:00 Temperature Pulse Rate 103 H 102 H 99 Pulse Rate [Left P ulse Oximeter] Pulse Rate [Left R adial] Respiratory Rate 29 H 22 31 H Blood Pressure 123/64 Blood Pressure [Le ft Arm] Blood Pressure [Ri ght Upper Arm] Pulse Oximetry 89 90 89 Oxygen Delivery [facility] 07/24/25 11:01 07/24/25 11:42 07/24/25 11:42 Temperature 100.3 F H Pulse Rate 101 H Pulse Rate [Left P ulse Oximeter] Pulse Rate [Left R adial] 108 H Respiratory Rate 31 H 20 20 Blood Pressure 122/61 Blood Pressure [Le ft Arm] 155/91 H Blood Pressure [Ri ght Upper Arm] Pulse Oximetry 88 91 91 Oxygen Delivery [facility] Room Air Room Air 07/24/25 12:13 07/24/25 13:10 07/24/25 13:47 Temperature 100.3 F H 99.0 F Pulse Rate Pulse Rate [Left P ulse Oximeter] Pulse Rate [Left R adial] Respiratory Rate Blood Pressure Blood Pressure [Le ft Arm] Blood Pressure [Ri ght Upper Arm] Pulse Oximetry 91 Oxygen Delivery [facility] 07/24/25 15:00 07/24/25 15:00 Temperature 100.5 F H Pulse Rate 101 H Pulse Rate [Left P ulse Oximeter] Pulse Rate [Left R adial] 110 H Respiratory Rate 20 Blood Pressure Blood Pressure [Le ft Arm] 159/75 H Blood Pressure [Ri ght Upper Arm] Pulse Oximetry 90 Oxygen Delivery [facility] Room Air Hospitalist - H&P: Result Labs Labs: Short CBC 07/24/25 Range/Units 05:26 WBC 17.32 H (4.50-11.00) K/uL Hgb 10.0 L (12.0-16.0) gm/dL Hct 30.3 L (33.0-51.0) % Plt Count 239 (140-440) K/uL BMP 07/24/25 07/24/25 07/24/25 05:26 08:10 13:56 Sodium 121 L* 127 L 123 L* Potassium 4.8 4.2 Chloride 89 L 96 Carbon Dioxide 21 19 L BUN 68 H 67 H Creatinine 3.4 H 3.0 H Glucose 230 H 156 H Calcium 9.8 9.4 Cardiac Enzymes 07/24/25 07/24/25 Range/Units 05:26 08:10 Troponin I 0.18 H* 0.28 H* (0.01-0.04) ng/mL Liver Function 07/24/25 Range/Units 05:26 Total Bilirubin 0.5 (0.1-1.5) mg/dL AST 28 (12-35) U/L ALT 15 (4-35) U/L Alkaline Phosphatase 89 (40-150) U/L Albumin 3.1 L (3.3-5.0) g/dL Urine 07/24/25 Range/Units 07:35 Urine Color Yellow (Yellow) Urine Appearance Slightly Cloudy A (Clear) Urine pH 5.5 (5.0-8.5) Ur Specific [place] 1.010 (1.000-1.030) Urine Protein 1+ A (Negative) Urine Glucose (UA) Negative (Negative) 07/24/2025 EKG: Sinus tachycardia, 101 beats per minute, nonspecific ST and T-wave abnormality. Ordering Physician: Molly Hawkins M.D. Date of Service: 07/24/25 Procedure(s): XR chest 1V portable Accession Number(s): [id number] cc: Taniya Apodaca PA-C; Molly Hawkins M.D.~ For Patients: As a result of the Cures Act, medical imaging exams and procedure reports are released immediately into your electronic medical record. You may view this report before your referring provider. If you have questions, please contact your health care provider. INDICATION: Weakness. No other history. COMPARISON: 04/07/2024, 04/03/[address] of the chest dated 04/07/2024. TECHNIQUE: Single AP view of the chest. FINDINGS: Lordotic position, rotated rightward. Medical Devices: None. Lung Volumes: Shallow inspiration. No significant atelectasis. Lungs: Low lung volumes accentuate the central and basilar pulmonary vascular markings. No focal opacity in either lung. Pleura and Pleural spaces: No significant pleural effusion. No pneumothorax. Mediastinum: AP technique, low lung volumes and rightward patient rotation all contributing to prominence of the transverse dimension the cardiomediastinal silhouette. Cardiomegaly is unchanged. Bony Thorax and Soft Tissues: No significant incidental findings. IMPRESSION: No findings to explain the clinical history. Incidental findings described in the body of the report. Dictated by Baljit Mathews MD @ 07/24/2025 6:01:42 AM (Electronically Signed) Ordering Physician: Molly Hawkins M.D. Date of Service: 07/24/25 Procedure(s): XR foot LT min 3V Accession Number(s): [id number] cc: Taniya Apodaca PA-C; Molly Hawkins M.D.~ ADDENDUM INDICATION: Ulcer, not otherwise described. No other history given. COMPARISON: None available. TECHNIQUE: Three views of the left foot (4 images). FINDINGS: Mineralization: Normal. Alignment: Clawtoe deformities of the lesser toes. Bones and Joints: Polyarticular erosions involving the metatarsophalangeal joints, tarsometatarsal joints, intertarsal joints and distal tibiofibular joint. A posterior calcaneal spur at the insertion of the Achilles tendon is noted incidentally. Soft Tissues: Nonspecific soft tissue nodules along the lateral aspect of the forefoot underlying the 5th metatarsal and in the heel pad. No ulcer is seen. Incidental note is made of diffuse arterial calcifications. IMPRESSION: 1. Polyarticular inflammatory arthritis. Nonspecific soft tissue nodules along the lateral aspect of the forefoot underlying the 5th metatarsal and in the heel pad. Differential diagnostic considerations include gout and rheumatoid arthritis. Clinical correlation is recommended. 2. No ulcer is identified. Dictated by Baljit Mathews MD @ 07/24/2025 6:10:22 AM ----- ADDENDUM ----- ADDENDUM: With regard to the history of an ulcer, not otherwise described in the indication for the exam, and in general with regard to the possibility of infection, if there is ongoing concern for septic arthritis/osteomyelitis or significant soft tissue infection then MRI with contrast is recommended for further evaluation. Dictated by Baljit Mathews MD @ Jul 24 2025 6:22AM (Electronically Signed) For Patients: As a result of the Cures Act, medical imaging exams and procedure reports are released immediately into your electronic medical record. You may view this report before your referring provider. If you have questions, please contact your health care provider. INDICATION: Ulcer, not otherwise described. No other history given. COMPARISON: None available. TECHNIQUE: Three views of the left foot (4 images). FINDINGS: Mineralization: Normal. Alignment: Clawtoe deformities of the lesser toes. Bones and Joints: Polyarticular erosions involving the metatarsophalangeal joints, tarsometatarsal joints, intertarsal joints and distal tibiofibular joint. A posterior calcaneal spur at the insertion of the Achilles tendon is noted incidentally. Soft Tissues: Nonspecific soft tissue nodules along the lateral aspect of the forefoot underlying the 5th metatarsal and in the heel pad. No ulcer is seen. Incidental note is made of diffuse arterial calcifications. IMPRESSION: 1. Polyarticular inflammatory arthritis. Nonspecific soft tissue nodules along the lateral aspect of the forefoot underlying the 5th metatarsal and in the heel pad. Differential diagnostic considerations include gout and rheumatoid arthritis. Clinical correlation is recommended. 2. No ulcer is identified. Dictated by Baljit Mathews MD @ 07/24/2025 6:10:22 AM (Electronically Signed)
--- NOTE | 2025-07-24 18:28 | PC.NURSE ---
End of Shift Note: Patient was admitted from the ER early afternoon for weakness. She has had a low grade temp since she has arrived to the unit and has received tylenol which took it down to 99.9 for just a short while and then when went to do 1500 vitals noted that temp was going up again. Update Dr. Hanson and chest CT was ordered as she does have a non-productive cough. She had a pure wick in place but it did not work she was inc of a large amount of urine. Bed linens were changed and applied a pad and she was sent to CT scan will remove pure wick once she returns. has been at her bedside since she arrived. Will continue to monitor until next shift arrives and report is given.
[2025-07-24] MEDS: ATORVASTATIN CALCIUM 10 MG TABLET 20 MG PO (20:17)
[2025-07-24] MEDS: MAGNESIUM OXIDE 400 MG TABLET 800 MG PO (20:18)
[2025-07-24 21:41] LABS: Chloride* 97 mmol/L (96-114); Potassium* 4.0 mmol/L (3.6-5.1)
[2025-07-24 21:43] LABS: Sodium* 125 mmol/L (135-149)
[2025-07-24 21:44] LABS: Anion Gap 9 mEq/L (7-15); Blood Urea Nitrogen* 66 mg/dL (7-30); Calcium* 9.4 mg/dL (8.4-10.6); Carbon Dioxide* 19 mmol/L (20-32); Creatinine* 2.7 mg/dL (0.5-1.5); Est. Creatinine Clearance* 20.33; Estimated Glomerular Filt Rate 20 ml/min; Glucose* 195 mg/dL (60-115)
[2025-07-25] VITALS (11 sets, daily range): BP systolic 153–187; BP diastolic 76–89; PULSE 84–104; RESP 20–32; TEMP 36.3–37; O2SAT 91–93; BMI 48.8
[2025-07-25] MEDS: QUETIAPINE 100 MG TABLET PO (00:44)
[2025-07-25] MEDS: PIPERACILLIN/TAZOBACTAM 2.25 GM in 0.9 % SODIUM CHLORIDE Mini-bag 100 ML IVPB ×4 (02:52→21:45)
--- NOTE | 2025-07-25 06:28 | PC.NURSE ---
pt is pleasant cooperative. VSS, did not get out of bed during shift, external catheter in place. denies pain.
[2025-07-25 06:37] LABS: Hematocrit* 27.6 % (33.0-51.0); Hemoglobin* 9.3 gm/dL (12.0-16.0); Immature Granulocytes Pct Auto 1.5 %; Mean Corpuscular HGB Conc 34 gm/dL (32-36); Mean Corpuscular Hemoglobin 31 pg (26-34); Mean Corpuscular Volume 92 fL (80-100); RDW Coefficient of Variation % 14.7 % (11.5-15.5); Red Blood Count* 2.99 m/uL (4.00-5.20); White Blood Count* 14.46 K/uL (4.50-11.00)
[2025-07-25 06:51] LABS: Albumin* 2.9 g/dL (3.3-5.0); Chloride* 100 mmol/L (96-114)
[2025-07-25 06:52] LABS: Potassium* 3.8 mmol/L (3.6-5.1); Sodium* 127 mmol/L (135-149)
[2025-07-25 06:54] LABS: Alanine Aminotransferase* 11 U/L (4-35); Aspartate Amino Transferase* 26 U/L (12-35); Blood Urea Nitrogen* 63 mg/dL (7-30); Creatinine* 2.3 mg/dL (0.5-1.5); Est. Creatinine Clearance* 23.87; Estimated Glomerular Filt Rate 24 ml/min
[2025-07-25 06:55] LABS: Alkaline Phosphatase* 61 U/L (40-150); Anion Gap 10 mEq/L (7-15); Bilirubin Total* 0.6 mg/dL (0.1-1.5); Calcium* 9.5 mg/dL (8.4-10.6); Carbon Dioxide* 17 mmol/L (20-32); Glucose* 158 mg/dL (60-115); Total Protein* 5.8 g/dL (6.0-8.3)
[2025-07-25 07:00] LABS: Iron* 22 ug/dL (37-170)
[2025-07-25 07:05] LABS: Immature Granulocytes Abs Auto 0.20 K/uL (0.00-0.30); Lymphocytes Absolute Auto 1.50 K/uL (0.90-2.90); Slide Review Reflex No
[2025-07-25 07:09] LABS: Percent Iron Saturation 13 % (20-50); Total Iron Binding Capacity 165 ug/dL (265-497)
[2025-07-25 07:43] LABS: Vitamin B12* 820 pg/mL (243-894)
[2025-07-25] MEDS: FERROUS SULFATE 325 MG TABLET PO (08:35)
[2025-07-25] MEDS: MAGNESIUM OXIDE 400 MG TABLET 800 MG PO ×2 (08:35→21:46)
[2025-07-25] MEDS: ACETAMINOPHEN 325 MG TABLET 650 MG PO ×2 (08:40→15:50)
[2025-07-25] MEDS: INSULIN ASPART 100 UNIT/ML SUBCUT ×4 (08:43→21:46)
--- NOTE | 2025-07-25 09:53 | PC.NURSE ---
Left foot Right foot
--- NOTE | 2025-07-25 12:53 | PM.WSCN ---
Date of Consult Consult date: 07/25/25 Primary Care Provider: Taniya Apodaca PA-C Consult Narrative Narrative: Homa Lopez is a 54 year old female hospitalized on since yesterday. She has a diabetic foot ulcer, present for some time that she has not had anyone caring for. She also has a history gout. She presented through the emergency department for weakness and not feeling well for about a week. She has been ill with upper respiratory illness a few weeks ago and then about a week ago she came down with it and was coughing, feverish, body aches and nausea to start with, but then she started to develop more phlegm and weakness. Wound is open to air while she is in bed. Podiatry was called while she was in the Emergency department. Wound care was consulted prior to podiatry seeing upon hospitalization. She was admitted for sepsis. Physical Therapy is present during visit today, she has a hard time sitting up in bed on her own. She is unable to stand. She complains of feeling dizzy. 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, unspecified, with tophus (tophi) (ICD-10) Septic arthritis of sternoclavicular joint ?M00.819 - Arthritis due to other bacteria, unspecified shoulder (ICD-10) Sinus tachycardia ?R00.0 - Tachycardia, unspecified (ICD-10) Morbid obesity ?E66.01 - Morbid (severe) obesity due to excess calories (ICD-10) Bipolar 1 disorder ?F31.9 - Bipolar disorder, unspecified (ICD-10) Hyperlipidemia ?E78.5 - Hyperlipidemia, unspecified (ICD-10) Hyperparathyroidism ?E21.3 - Hyperparathyroidism, unspecified (ICD-10) Essential hypertension ?I10 - Essential (primary) hypertension (ICD-10) Severe anxiety ?F41.9 - Anxiety disorder, unspecified (ICD-10) Schizoaffective disorder ?F25.9 - Schizoaffective disorder, unspecified (ICD-10) Type 2 diabetes mellitus ?E11.9 - Type 2 diabetes mellitus without complications (ICD-10) Surgical History History of elbow surgery (04/03/24) ?Z98.890 - Other specified postprocedural states (ICD-10) History of wisdom tooth extraction ?K08.409 - Partial loss of teeth, unspecified cause, unspecified class (ICD-10) S/P tonsillectomy and adenoidectomy ?Z90.89 - Acquired absence of other organs (ICD-10) H/O dilation and curettage ?Z98.890 - Other specified postprocedural states (ICD-10) Status post appendectomy ?Z90.49 - Acquired absence of other specified parts of digestive tract (ICD-10) Social History (Updated 07/24/25 @ 17:20 by Bev Coronado MD) Narrative: Lives independently with and two adult disabled children, whom she cares for. Denies tobacco, alcohol, recreational drug use. What is your current living situation?: I presently have a place to live Problems where you live: no known problems Problems where you live details: N/A In the past 12 months, utilities in danger of being shut off: no In past 12 months, lack of transportation kept you from medical appts, meetings, work, or getting things needed for daily living: no In the past 12 mos, have been you worried that your food would run out before you had money to buy more?: never true In the past 12 mos, the food you bought just didn't last and you didn't have money to buy more?: never true Highest level of school completed/degree received: 12th grade, no diploma Smoking Status: Never smoker Do you use any of these nicotine containing products: None Second hand tobacco smoke exposure: No How often do you have a drink containing alcohol: never How often do you have six or more drinks on one occasion: Never AUDIT-C Alcohol total score: 0 Non-prescribed substance use: denies use Caffeine: Yes How often does anyone, including family, friends and others, physically hurt you: never How often does anyone, including family, friends and others, insult or talk down to you: never How often does anyone, including family, friends and others, threaten you with harm: never How often does anyone, including family, friends and others, scream or curse at you: never service: No Meds Home Medications and Allergies Home Medications ?Medication ?Instructions ?Recorded ?Confirmed ?Type amlodipine 10 mg tablet 10 mg PO DAILY 04/01/24 07/24/25 History atorvastatin 20 mg tablet 20 mg PO HS 04/01/24 07/24/25 History lamotrigine 200 mg tablet 200 mg PO BID 04/01/24 07/24/25 History (Lamictal) omega 9-yeb-gun-fish oil 1,200 mg 1 cap PO BID 04/01/24 07/24/25 History (144 mg-216 mg) capsule (Fish Oil) paliperidone 9 mg tablet,extended 9 mg PO DAILY 04/01/24 07/24/25 History release 24 hr vortioxetine 20 mg tablet 20 mg PO DAILY 04/01/24 07/24/25 History (Trintellix) quetiapine 100 mg tablet 100 - 200 mg PO HS PRN 04/02/24 07/24/25 History allopurinol 100 mg tablet 200 mg PO DAILY 05/20/24 07/24/25 History colchicine 0.6 mg tablet 0.6 mg PO DAILY 05/20/24 07/24/25 History furosemide 20 mg tablet 20 mg PO DAILY 05/20/24 07/24/25 History magnesium oxide 400 mg (241.3 mg 800 mg PO BID 05/20/24 07/24/25 History magnesium) tablet losartan 25 mg tablet 25 mg PO DAILY 06/02/24 07/24/25 History acetaminophen 325 mg tablet 650 mg PO Q6H PRN 07/24/25 07/24/25 History ferrous sulfate 325 mg (65 mg 325 mg PO DAILY 07/24/25 07/24/25 History iron) tablet,delayed release labetalol 200 mg tablet 200 mg PO BID 07/24/25 07/24/25 History metformin 500 mg tablet,extended 1,000 mg PO BID 07/24/25 07/24/25 History release 24 hr Allergies Allergy/AdvReac Type Severity Reaction Status Date / Time amlodipine (From [facility]) Allergy Verified 06/02/24 10:06 mestranol (From [facility] Allergy Verified 06/02/24 10:06 (21)) norethindrone (From Allergy Verified 06/02/24 10:06 [facility] (21)) nortriptyline Allergy Verified 06/02/24 10:06 clonidine AdvReac Verified 07/24/25 11:50 Exam Const: Vital Signs, click to edit/add: Vital Signs - 24 hr 07/24/25 13:10 07/24/25 13:47 07/24/25 15:00 Temperature 99.0 F 100.5 F H Pulse Rate Pulse Rate [Left R adial] 110 H Pulse Rate [Pulse Oximeter] Respiratory Rate 20 Blood Pressure [Le ft Arm] 159/75 H Pulse Oximetry 91 90 Oxygen Delivery Me thod Room Air 07/24/25 15:00 07/24/25 20:05 07/24/25 22:19 Temperature 98.4 F Pulse Rate 101 H 107 H Pulse Rate [Left R adial] Pulse Rate [Pulse Oximeter] 100 Respiratory Rate 19 Blood Pressure [Le ft Arm] 164/83 H Pulse Oximetry 91 Oxygen Delivery Me thod Room Air 07/24/25 23:00 07/25/25 03:00 07/25/25 08:31 Temperature 97.4 F L 98.5 F Pulse Rate Pulse Rate [Left R adial] Pulse Rate [Pulse Oximeter] 102 H 84 96 Respiratory Rate 18 20 32 H Blood Pressure [Le ft Arm] 142/62 H 153/79 H 177/89 H Pulse Oximetry 90 93 91 Oxygen Delivery Me thod Room Air Room Air Room Air 07/25/25 08:31 07/25/25 11:06 07/25/25 11:19 Temperature 98.6 F Pulse Rate 94 Pulse Rate [Left R adial] Pulse Rate [Pulse Oximeter] 96 88 Respiratory Rate 32 H 26 H Blood Pressure [Le ft Arm] 185/87 H Pulse Oximetry 92 Oxygen Delivery Me thod Room Air Exam limitations: physical limitations General appearance: cooperative Resp: Effort & inspection: able to speak in complete sentences Skin: Wounds: wounds noted bed (not visible due to depth ), drainage purulent and malodorous Labs Labs: Short CBC 07/25/25 Range/Units 06:08 WBC 14.46 H (4.50-11.00) K/uL Hgb 9.3 L (12.0-16.0) gm/dL Hct 27.6 L (33.0-51.0) % Plt Count 235 (140-440) K/uL BMP 07/24/25 07/24/25 07/25/25 13:56 21:16 06:08 Sodium 123 L* 125 L 127 L Potassium 4.2 4.0 3.8 Chloride 96 97 100 Carbon Dioxide 19 L 19 L 17 L BUN 67 H 66 H 63 H Creatinine 3.0 H 2.7 H 2.3 H Glucose 156 H 195 H 158 H Calcium 9.4 9.4 9.5 Cardiac Enzymes 07/24/25 Range/Units 16:32 Troponin I 0.18 H* (0.01-0.04) ng/mL Liver Function 07/25/25 Range/Units 06:08 Total Bilirubin 0.6 (0.1-1.5) mg/dL AST 26 (12-35) U/L ALT 11 (4-35) U/L Alkaline Phosphatase 61 (40-150) U/L Albumin 2.9 L (3.3-5.0) g/dL Assessment and Plan Assessment and plan (1) Diabetic foot ulcer: Problem comment: Likely source of infection, malodorous. I have spoken with Dr. Monique buitrago recommended wound care consult and a if debridement is needed, he could be consulted at that time. I have ordered a wound care consult. Continue IV antibiotics as above. Status: Acute Plan I was able to review the x-ray that was already completed. Due to the non-specific nodules present on her feet the ulcer is not able to be identified. Wound assessment finds a 8g2d1th wound to the left lateral foot. Odorous, white, creamy drainage was able to be expressed manually from the wound bed. There is no surrounding erythema or warmth. Mild discomfort with palpation. Unable to determine at bedside if the depth presents past the nodule into the forefoot. No MRI has been completed while hospitalized. I personally spoke with the hospitalist today regarding patient. No plan to order an MRI as of now. The sepsis is thought to be pulmonary related. I do not feel patient needs an immediate OR debridement by podiatry, though I would not rule out the need for an MRI to fully investigate degree of tissue involvment. Wound orders are written/entered into system for hospital team to follow while patient remains in their care. Will do daily dressing changes with Vashe cleansing and Iodoform packing strip. Patient if needing further services upon discharge can be referred for outpatient wound care in the wound center. If hospital team needs the assistance of another wound provider during the hospitalzation they will need to contact the Wound center.
--- NOTE | 2025-07-25 13:06 | P.IMPN_ITS ---
Assessment and Plan Assessment and plan (1) Sepsis: Problem comment: - severe sepsis with elevated temperature, tachycardia, respirations greater than 20 and elevated lactate. Blood pressure is actually elevated, no low blood pressures that would indicate septic shock. The patient has had some response to the fluid bolus given and after the most recent lactate which was still mildly elevated, was given more IV fluids. Lactate has since improved further. - Source is likely PNA. - Cont IV Zosyn and vancomycin. -MRSA screen . - Bl Cx, strep + Leg, Ur Ag. Status: Acute (2) Pneumonia: Problem comment: CT chest: Consolidative opacities in the right upper lobe and left mid chest, concerning for pneumonia. Follow-up chest radiograph is advised in 4-6 weeks after appropriate clinical therapy to document improvement/resolution. If these findings are unchanged at that time, chest CT would then be warranted. - Cont IV Zosyn and vancomycin. -MRSA screen . - Bl Cx, strep + Leg, Ur Ag. Status: Acute (3) Diabetic foot ulcer: Problem comment: - 07/24: malodorous. Contected Dr. Monique butirago recommended wound care consult and a if debridement is needed, he could be consulted at that time. I have ordered a wound care consult. Continue IV antibiotics as above. - 07/25: No ischemic tissues. Wound care nurse saw the pt, pt will need dressings for now. - D/W the pt and family the need for an outpt MRI and F/up w/ wound care clinic, and if needed in the future, wll need podiatry evaluation. PCP F/up in 1 wk. Status: Acute (4) Hyponatremia: Problem comment: This is likely the cause of her weakness so than sepsis. She has already started to have some improvement from 121 up to 127 and now at 123. Since she started from such a low-sodium and is symptomatic, I per for a slower trajectory for improvement and with a sodium that has increased from 121-123, I will continue with the current rate of improvement continuing saline infusion and monitoring. Goal increase is no greater than 4 to 6 over 24 hours. - 07/25: improving Status: Acute (5) BARNEY (acute kidney injury): Problem comment: - suspect prerenal, BUN is also elevated, suspect cause is due to severe sepsis complicated by several medications which may affect renal function as well. Will hold colchicine, allopurinol, antihypertensives, and her psychoactive medications with the exception of Lamictal for now. Give normal saline. Monitor. 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 She has been on colchicine and allopurinol. These will need to be held due to BARNEY. Status: Acute (7) Type 2 diabetes mellitus: Problem comment: Patient currently takes metformin only. Will check a hemoglobin A1c and I have held metformin due to BARNEY with markedly elevated creatinine. I have also ordered an insulin sliding scale with Accu-Cheks ACHS. Status: Chronic (8) Morbid obesity: Problem comment: BMI of 54 Status: Chronic (9) Bipolar 1 disorder: Problem comment: psych med regimen: Trintellix, Seroquel, Invega, Lamictal, Lunesta. Hold this regimen for now due to BARNEY Status: Chronic (10) Essential hypertension: Problem comment: fair control. Holding antihypertensives due to a combination of BARNEY and sepsis. Her blood pressures are quite high however and she may need some of them resumed such as labetalol, but will hold for now while I am treating severe sep sis. Status: Chronic (11) Elevated troponin: Problem comment: Suspect demand ischemia, EKG is reassuring and she is asymptomatic with no shortness of breath or chest pain. Troponin is stable, peak was 0.28. ER physician spoke with Cardiology who recommended medical management of probable demand ischemia. Recheck troponin and monitor on cardiac telemetry. Resuscitate with IV fluids and treat underlying condition with IV antibiotics as above. Status: Acute (12) Anemia: Problem comment: She is currently at her baseline hemoglobin, around 9-10. She has been on daily ferrous sulfate. Normocytic. Check fecal occult blood test, although patient has had no melena or hematochezia. Will also check B12, iron studies and folate Status: Acute (13) Bronchitis: Status: Acute Total Time Spent Total Time Spent: Time spent: Today I spent 50 minutes seeing the patient, discussing the patient with ER staff, reviewing Expanse and EPIC notes/diagnostics, discussing the care plan with our care time that includes social work, PT/OT, pharmacy, RT, snf and documenting my impressions and plan in the medical record. Subjective Date Seen: 07/25/25 Interval history: No acute events overnight. Patient has cough + phlygm. a CT scan of the chest was done and it shows a consolidation suggesting pneumonia. Exam Narrative: Exam Narrative: Physical exam GENERAL: Comfortable, no acute distress. HEAD AND NECK: Atraumatic, normocephalic CARDIOVASCULAR: RRR. Normal S1, S2. No murmurs. RESPIRATORY: Harsh breathing sounds B/L. +ve wheezes. NEUROLOGY: Alert, awake, oriented X 3. Normal speech. MSK: ulcer 1x1cm @ left lateral foot. w/ some drainage & a bad odour . No erythema or edema. PSYCH: Normal mood, normal affect. Const: Vital Signs, click to edit/add: Vital Signs - 24 hr 07/24/25 13:10 07/24/25 13:47 07/24/25 15:00 Temperature 99.0 F 100.5 F H Pulse Rate Pulse Rate [Left R adial] 110 H Pulse Rate [Pulse Oximeter] Respiratory Rate 20 Blood Pressure [Le ft Arm] 159/75 H Pulse Oximetry 91 90 Oxygen Delivery Me thod Room Air 07/24/25 15:00 07/24/25 20:05 07/24/25 22:19 Temperature 98.4 F Pulse Rate 101 H 107 H Pulse Rate [Left R adial] Pulse Rate [Pulse Oximeter] 100 Respiratory Rate 19 Blood Pressure [Le ft Arm] 164/83 H Pulse Oximetry 91 Oxygen Delivery Me thod Room Air 07/24/25 23:00 07/25/25 03:00 07/25/25 08:31 Temperature 97.4 F L 98.5 F Pulse Rate Pulse Rate [Left R adial] Pulse Rate [Pulse Oximeter] 102 H 84 96 Respiratory Rate 18 20 32 H Blood Pressure [Le ft Arm] 142/62 H 153/79 H 177/89 H Pulse Oximetry 90 93 91 Oxygen Delivery Me thod Room Air Room Air Room Air 07/25/25 08:31 07/25/25 11:06 07/25/25 11:19 Temperature 98.6 F Pulse Rate 94 Pulse Rate [Left R adial] Pulse Rate [Pulse Oximeter] 96 88 Respiratory Rate 32 H 26 H Blood Pressure [Le ft Arm] 185/87 H Pulse Oximetry 92 Oxygen Delivery Me thod Room Air Labs Labs: Laboratory Results - last 24 hr 09/30/25 09/30/25 09/30/25 13:56 16:32 21:16 WBC RBC Hgb Hct MCV MCH MCHC RDW Coeff of Tabatha Plt Count Neut % (Auto) Lymph % (Auto) [place] % (Auto) Eos % (Auto) Baso % (Auto) Neut # (Auto) Lymph # (Auto) [place] # (Auto) Eos # (Auto) Baso # (Auto) Abs Immat Gran (auto) Imm/Tot Granulo (auto) Sodium 123 L* 125 L Potassium 4.2 4.0 Chloride 96 97 Carbon Dioxide 19 L 19 L Anion Gap 8 9 BUN 67 H 66 H Creatinine 3.0 H 2.7 H Estimated Creat Clear 18.30 20.33 Estimated GFR 18 20 Glucose 156 H 195 H Hemoglobin A1c Lactate 1.2 Calcium 9.4 9.4 Iron TIBC % Saturation Total Bilirubin AST ALT Alkaline Phosphatase Troponin I 0.18 H* C-Reactive Protein Total Protein Albumin Vitamin B12 07/25/25 06:08 WBC 14.46 H RBC 2.99 L Hgb 9.3 L Hct 27.6 L MCV 92 MCH 31 MCHC 34 RDW Coeff of [place]atha 14.7 Plt Count 235 Neut % (Auto) 78.5 H Lymph % (Auto) 10.2 L [place] % (Auto) 7.8 Eos % (Auto) 1.9 Baso % (Auto) 0.1 Neut # (Auto) 11.40 H Lymph # (Auto) 1.50 [place] # (Auto) 1.10 H Eos # (Auto) 0.30 Baso # (Auto) 0.00 Abs Immat Gran (auto) 0.20 Imm/Tot Granulo (auto) 1.5 Sodium 127 L Potassium 3.8 Chloride 100 Carbon Dioxide 17 L Anion Gap 10 BUN 63 H Creatinine 2.3 H Estimated Creat Clear 23.87 Estimated GFR 24 Glucose 158 H Hemoglobin A1c 7.0 H Lactate Calcium 9.5 Iron 22 L TIBC 165 L % Saturation 13 L Total Bilirubin 0.6 AST 26 ALT 11 Alkaline Phosphatase 61 Troponin I C-Reactive Protein 47.3 H Total Protein 5.8 L Albumin 2.9 L Vitamin B12 [address] scan - chest: Attestation: I have reviewed the pertinent imaging results. Radiologist's impression: INDICATION: Fever, sepsis. TECHNIQUE: CT chest without contrast. COMPARISON: Same day chest x-ray. FINDINGS: Lungs and pleura: Right upper lobe solid consolidation with air bronchograms concerning for pneumonia. Additional consolidative opacity in the left mid chest with air bronchograms. No pneumothorax. Bibasilar atelectasis. Heart and vasculature: Heart size is enlarged.. Dilatation of the main pulmonary artery measuring up to 3.8 centimeters, which could be reflective of pulmonary artery hypertension. Lymph nodes/mediastinum: Mildly prominent mediastinal lymph nodes, likely reactive due to underlying infectious/inflammatory etiology. Chest wall: Unremarkable Upper abdomen: Cholelithiasis. Small hiatal hernia. Diverticulosis. Bones: Degenerative changes of bilateral shoulders, right greater than left. No acute findings. IMPRESSION: Consolidative opacities in the right upper lobe and left mid chest, concerning for pneumonia. Follow-up chest radiograph is advised in 4-6 weeks after appropriate clinical therapy to document improvement/resolution. If these findings are unchanged at that time, chest CT would then be warranted. Dilatation of the main pulmonary artery, likely reflective of pulmonary hypertension. Cholelithiasis. Small hiatal hernia. Please note that all CT scans at this facility use dose modulation, iterative reconstruction, and/or weight-based dosing when appropriate to reduce radiation dose to as low as reasonably achievable. Dictated by Bashir Chavarria MD @ 07/24/2025 6:37:51 PM
[2025-07-25] MEDS: AZITHROMYCIN 250 MG TABLET 500 MG PO (14:34)
--- NOTE | 2025-07-25 15:03 | PC.NURSE ---
End of Shift: Patient pleasant and cooperative. Patient hypertensive, but stable, lungs anterior with expiratory wheezes on and off, BS WNL, IV running NS at 125. In the morning patient report headache and shoulder pain, tylenol was given and patient later reported no pain. There was attempt to get patient to sit at the side of the bed, and patient reported feeling dizzy and light headed, patient did not get fully to the side of bed and was repositioned lying in bed. Patient has used bedpan to urinate. Patient has eaten very little, dose not have much of an appetite, and takes some bites of meals. Patient blood sugar were 163 and 169. 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 Wound care has not yet been completed. Patient's tele is NSR.
--- NOTE | 2025-07-25 15:45 | PC.SOCIAL ---
Addendum entered and electronically signed by Parul Gomez LCSW 07/25/25 16:11: SW met with patient and patient's and informed that the recommendation now is for patient to go TCU. SW asked if they are okay with SW sending a referral and patient agreed. SW explained that tomorrow a different SW will come to get more options to send referrals to. SW secure emailed Amber at [facility] patient's referral. Original Note: Discharge planning: SW met with patient and patient's to see what resources and supports family may need at home. Patient and state that they don't have any basic need concerns at this time. reports that his concern is if patient falls again how could he get her up. SW explained she could express this concern to the physical therapy team and they could make recommendations for this. Patient's also explained that patient hasn't been going to all the follow-up appts that she should and he plans to become more engaged in her care. Patient and state that if she needs TCU/rehab they would prefer to look into [facility] here. Patient's states that previously she went to a place in [facility] due to limited options with her bariatric status at the time and the care there was not great and they would not go back there. reports that he believes the name was something like [place]. SW explained that she would document this and that SW will continue to follow-up and support with discharge planning. Patient's also expressed concerns about the difference in patient's weight here vs weight at home and states that the bed weight here is saying she is 10 pounds heavier than what she is.
[2025-07-25] MEDS: ALBUTEROL SULFATE 2.5 MG/3 ML VIAL.NEB NEB ×2 (16:03→21:58)
[2025-07-25 17:01] LABS: S pneumo Ag Urine S. pneumo Negative (Negative)
--- NOTE | 2025-07-25 18:09 | PC.NURSE ---
Progress Note pt pleasant and cooperative with cares. Pt had productive cough throughout shift, Pt had expiratory wheezing. prn neb and IS given. Pt complained of pain 5-6/10 PRN Tylenol given. Pt stated that she prefers external cath to the bedpan, external cath in place at this time.
[2025-07-25] MEDS: VANCOMYCIN 2 GM/400 ML 2 GM/400 ML PIGGYBACK IVPB (18:37)
[2025-07-25] MEDS: BENZONATATE 100 MG CAPSULE 200 MG PO (21:46)
[2025-07-25] MEDS: ATORVASTATIN CALCIUM 10 MG TABLET 20 MG PO (21:46)
[2025-07-25] MEDS: SODIUM CHLORIDE 0.9 % (FLUSH) 10 ML SYRINGE 5 ML IVF (21:47)
[2025-07-26] VITALS (9 sets, daily range): BP systolic 155–197; BP diastolic 77–90; PULSE 83–104; RESP 16–18; TEMP 36.7–37; O2SAT 90–94
[2025-07-26] MEDS: ACETAMINOPHEN 325 MG TABLET 650 MG PO ×2 (03:40→15:58)
[2025-07-26] MEDS: PIPERACILLIN/TAZOBACTAM 2.25 GM in 0.9 % SODIUM CHLORIDE Mini-bag 100 ML IVPB ×3 (03:43→14:41)
[2025-07-26] MEDS: ALBUTEROL SULFATE 2.5 MG/3 ML VIAL.NEB NEB ×3 (04:03→19:09)
--- NOTE | 2025-07-26 06:36 | PC.NURSE ---
End of shift: Pt pleasant, alert and oriented.?LS bases crackled, upper lobes wheezy, prn albuterol neb given, pt stated improvement and LS improved. Discussed with MD (Margie), IV fluids DC. Pt stated tolerating pain. Pt in bed, appears to be resting call light within reach.?
[2025-07-26 06:39] LABS: Hematocrit* 27.2 % (33.0-51.0); Hemoglobin* 9.0 gm/dL (12.0-16.0); Mean Corpuscular HGB Conc 33 gm/dL (32-36); Mean Corpuscular Hemoglobin 31 pg (26-34); Mean Corpuscular Volume 92 fL (80-100); Red Blood Count* 2.95 m/uL (4.00-5.20); White Blood Count* 8.65 K/uL (4.50-11.00)
[2025-07-26 06:49] LABS: Slide Review Reflex No
[2025-07-26 06:50] LABS: Chloride* 104 mmol/L (96-114)
[2025-07-26 06:51] LABS: Potassium* 3.5 mmol/L (3.6-5.1); Sodium* 132 mmol/L (135-149)
[2025-07-26 06:53] LABS: Blood Urea Nitrogen* 44 mg/dL (7-30); Creatinine* 1.5 mg/dL (0.5-1.5); Est. Creatinine Clearance* 36.59; Estimated Glomerular Filt Rate 41 ml/min
[2025-07-26 06:54] LABS: Anion Gap 8 mEq/L (7-15); Calcium* 9.6 mg/dL (8.4-10.6); Carbon Dioxide* 20 mmol/L (20-32); Glucose* 155 mg/dL (60-115)
--- NOTE | 2025-07-26 08:18 | PM.IMPN1 ---
Assessment and Plan Assessment and plan (1) Sepsis: Problem comment: - severe sepsis with elevated temperature, tachycardia, respirations greater than 20 and elevated lactate. Blood pressure is actually elevated, no low blood pressures that would indicate septic shock. The patient has had some response to the fluid bolus given and after the most recent lactate which was still mildly elevated, was given more IV fluids. Lactate has since improved further. - Source is likely PNA. - Cont IV Zosyn and D/C vancomycin. -MRSA screen negative. - Bl Cx still -ve, - strep & Leg, Ur Ag : -ve. Status: Acute (2) Pneumonia: Problem comment: CT chest: Consolidative opacities in the right upper lobe and left mid chest, concerning for pneumonia. Follow-up chest radiograph is advised in 4-6 weeks after appropriate clinical therapy to document improvement/resolution. If these findings are unchanged at that time, chest CT would then be warranted. - 07/26 : Cont IV Zosyn and D/C vancomycin. -MRSA screen negative. - Bl Cx still -ve, - strep & Leg, Ur Ag : -ve. Status: Acute (3) Diabetic foot ulcer: Problem comment: - 07/24: malodorous. Contected Dr. Monique buitrago recommended wound care consult and a if debridement is needed, he could be consulted at that time. I have ordered a wound care consult. Continue IV antibiotics as above. - 07/25: No ischemic tissues. Wound care nurse saw the pt, pt will need dressings for now. - 07/26: Wound Cx: MODERATE AMT OF GRAM POS RODS RESEMBLING DIPHTHEROIDS. NO FURTHER WORKUP MODERATE AMT. COAGULASE NEGATIVE STAPH NO FURTHER WORKUP - D/W the pt and family the need for an outpt MRI and F/up w/ wound care clinic, and if needed in the future, wll need podiatry evaluation. PCP F/up in 1 wk. Status: Acute (4) Hyponatremia: Problem comment: This is likely the cause of her weakness so than sepsis. She has already started to have some improvement from 121 up to 127 and now at 123. Since she started from such a low-sodium and is symptomatic, I per for a slower trajectory for improvement and with a sodium that has increased from 121-123, I will continue with the current rate of improvement continuing saline infusion and monitoring. Goal increase is no greater than 4 to 6 over 24 hours. - 07/25: improving Status: Acute (5) BARNEY (acute kidney injury): Problem comment: - suspect prerenal, BUN is also elevated, suspect cause is due to severe sepsis complicated by several medications which may affect renal function as well. Will hold colchicine, allopurinol, antihypertensives, and her psychoactive medications with the exception of Lamictal for now. Give normal saline. Monitor. 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 She has been on colchicine and allopurinol. These will need to be held due to BARNEY. Status: Acute (7) Type 2 diabetes mellitus: Problem comment: Patient currently takes metformin only. Will check a hemoglobin A1c and I have held metformin due to BARNEY with markedly elevated creatinine. I have also ordered an insulin sliding scale with Accu-Cheks ACHS. Status: Chronic (8) Morbid obesity: Problem comment: BMI of 54 Status: Chronic (9) Bipolar 1 disorder: Problem comment: psych med regimen: Trintellix, Seroquel, Invega, Lamictal, Lunesta. Hold this regimen for now due to BARNEY Status: Chronic (10) Essential hypertension: Problem comment: fair control. Holding antihypertensives due to a combination of BARNEY and sepsis. Her blood pressures are quite high however and she may need some of them resumed such as labetalol, but will hold for now while I am treating severe sepsis. Status: Chronic (11) Elevated troponin: Problem comment: Suspect demand ischemia, EKG is reassuring and she is asymptomatic with no shortness of breath or chest pain. Troponin is stable, peak was 0.28. ER physician spoke with Cardiology who recommended medical management of probable demand ischemia. Recheck troponin and monitor on cardiac telemetry. Resuscitate with IV fluids and treat underlying condition with IV antibiotics as above. Status: Acute (12) Anemia: Problem comment: She is currently at her baseline hemoglobin, around 9-10. She has been on daily ferrous sulfate. Normocytic. Check fecal occult blood test, although patient has had no melena or hematochezia. Will also check B12, iron studies and folate Status: Acute (13) Bronchitis: Status: Acute Total Time Spent Total Time Spent: Today I spent 50 minutes seeing the patient, reviewing Expanse and EPIC notes/diagnostics, discussing the care plan with our care time that includes social work, PT/OT, pharmacy, RT, senior care and documenting my impressions and plan in the medical record. Subjective Date Seen: 07/26/25 Interval history: No acute events overnight. Patient states she is doing better today. Today she is able to get up and ambulate (though she still needs help). Exam Narrative: Exam Narrative: GENERAL: Comfortable, no acute distress. HEAD AND NECK: Atraumatic, normocephalic CARDIOVASCULAR: RRR. Normal S1, S2. No murmurs. RESPIRATORY: Harsh breathing sounds B/L. +ve milder wheezes. NEUROLOGY: Alert, awake, oriented X 3. Normal speech. MSK: ulcer 1x1cm @ left lateral foot. w/ some drainage & a bad odour . No erythema or edema. PSYCH: Normal mood, normal affect. Const: Vital Signs, click to edit/add: Vital Signs - 24 hr 07/25/25 08:31 07/25/25 08:31 07/25/25 11:06 Temperature 98.5 F Pulse Rate 94 Pulse Rate [Pulse Oximeter] 96 96 Respiratory Rate 32 H 32 H Blood Pressure [Le ft Arm] 177/89 H Pulse Oximetry 91 Oxygen Delivery Me thod Room Air 07/25/25 11:19 07/25/25 14:40 07/25/25 15:00 Temperature 98.6 F 98.3 F Pulse Rate Pulse Rate [Pulse Oximeter] 88 88 Respiratory Rate 26 H 22 Blood Pressure [Le ft Arm] 185/87 H 164/76 H Pulse Oximetry 92 92 92 Oxygen Delivery Me thod Room Air Room Air 07/25/25 15:50 07/25/25 15:58 07/25/25 19:25 Temperature 98.3 F 98.2 F Pulse Rate 97 Pulse Rate [Pulse Oximeter] 95 Respiratory Rate 20 Blood Pressure [Le ft Arm] 172/84 H Pulse Oximetry 91 Oxygen Delivery Me thod Room Air 07/25/25 22:23 07/25/25 23:00 07/25/25 23:00 Temperature 98.5 F Pulse Rate 99 Pulse Rate [Pulse Oximeter] 104 H 104 H Respiratory Rate 20 20 Blood Pressure [Le ft Arm] 187/80 H Pulse Oximetry 91 Oxygen Delivery Ar thod Room Air 07/26/25 03:39 Temperature 98.3 F Pulse Rate Pulse Rate [Pulse Oximeter] 104 H Respiratory Rate 18 Blood Pressure [Le ft Arm] 190/88 H Pulse Oximetry 90 Oxygen Delivery Me thod Labs Labs: Laboratory Results - last 24 hr 07/25/25 07/26/25 14:00 06:25 WBC 8.65 RBC 2.95 L Hgb 9.0 L Hct 27.2 L MCV 92 MCH 31 MCHC 33 Plt Count 225 Sodium 132 L Potassium 3.5 L Chloride 104 Carbon Dioxide 20 Anion Gap 8 BUN 44 H Creatinine 1.5 Estimated Creat Clear 36.59 Estimated GFR 41 Glucose 155 H Calcium 9.6 Magnesium 2.2 Urine L. pneumophilia Ag L. pneumo Negative Urine Strep pneumoniae Ag S. pneumo Negative
[2025-07-26] MEDS: LOSARTAN POTASSIUM 50 MG TABLET 25 MG PO (08:57)
[2025-07-26] MEDS: BENZONATATE 100 MG CAPSULE 200 MG PO ×3 (08:58→21:01)
[2025-07-26] MEDS: LABETALOL HCL 100 MG TABLET 200 MG PO ×2 (08:59→21:01)
[2025-07-26] MEDS: MAGNESIUM OXIDE 400 MG TABLET 800 MG PO ×2 (09:00→21:00)
[2025-07-26] MEDS: FUROSEMIDE 20 MG TABLET PO (09:01)
[2025-07-26] MEDS: FERROUS SULFATE 325 MG TABLET PO (09:01)
[2025-07-26] MEDS: SODIUM CHLORIDE 0.9 % (FLUSH) 10 ML SYRINGE 5 ML IVF ×2 (09:02→21:01)
[2025-07-26] MEDS: INSULIN ASPART 100 UNIT/ML SUBCUT ×4 (09:03→20:59)
[2025-07-26 09:36] LABS: Fecal Occult Blood* Negative (Negative)
--- NOTE | 2025-07-26 13:23 | NUTR.NU ---
Nutrition f/u related to Premier protein. Meal intake at dinner last night and breakfast today 50%. Patient accepted Premier protein at 100% this morning. Attempted visit with patient. Patient's and nurse in the room, patient was sleeping. Patient's reported patient would be agreeable to a premier protein in the morning and afternoon each day. Order placed. Monitor and f/u prn.
[2025-07-26] MEDS: AZITHROMYCIN 250 MG TABLET 500 MG PO (14:40)
--- NOTE | 2025-07-26 15:35 | PC.NURSE ---
End of shift [id number]: Pt AxOx3, pleasant, and cooperative with cares. Denies pain/SOB/CP. LSCTA on RA. PRN albuterol neb requested by Pt in the afternoon. Pt had an increased dry cough beginning in the afternoon. Pt reported coughing up a scant amount of blood, technical writer reported to MD Reyes. Tea provided for Pt. A1 gb w. Slight dizziness reported with position change. Continent of the bladder and bowels. BM x3 today. Therapies encouraging more walks throughout the day. Wound care completed. Pt tolerated well. Blood sugars required sliding scale at meal time. at bedside. Call light within reach.
--- NOTE | 2025-07-26 16:08 | PC.SOCIAL ---
Discharge planning: adz worker met with pt and her this afternoon to discuss discharge planning. adz worker explained that the pt may now only be recommended for home care after today's physical therapy session. Pt stated that she would be open to home care if she needs it. adz worker explained that this worker would touch base with her in the morning after rounds. Social work to follow-up as needed.
[2025-07-26] MEDS: PIPERACILLIN/TAZOBACTAM 3.375 GM in 0.9 % SODIUM CHLORIDE Mini-bag 100 ML IVPB (19:27)
[2025-07-26] MEDS: ATORVASTATIN CALCIUM 10 MG TABLET 20 MG PO (21:00)
[2025-07-26] MEDS: guaiFENesin 100 MG/ML CUP 200 MG PO (21:50)
[2025-07-26 22:53] LABS: Folate, Serum 19.1 ng/mL (>=5.9)
--- NOTE | 2025-07-27 00:12 | PC.NURSE ---
end of shift: Pt is AOX4. Pt VSS; HTN; meds given ; see EMAR. Pt. AMB hallway x1. Pt AMB to BR X2. Pt. reports sore throat; meds given see EMAR.
[2025-07-27] MEDS: PIPERACILLIN/TAZOBACTAM 3.375 GM in 0.9 % SODIUM CHLORIDE Mini-bag 100 ML IVPB ×2 (02:08→06:42)
[2025-07-27] MEDS: ALBUTEROL SULFATE 2.5 MG/3 ML VIAL.NEB NEB ×2 (02:09→06:19)
[2025-07-27] MEDS: ACETAMINOPHEN 325 MG TABLET 650 MG PO ×2 (02:09→09:00)
[2025-07-27 03:47] VITALS: BP 200/96; PULSE 92; RESP 16; TEMP 36.6; O2SAT 92
[2025-07-27] MEDS: SODIUM CHLORIDE 0.9 % (FLUSH) 10 ML SYRINGE 5 ML IVF ×2 (06:44→09:02)
--- NOTE | 2025-07-27 06:55 | PC.NURSE ---
End of shift ([id number]):?Pt pleasant, alert and oriented. Pt hypertensive, otherwise, VSS. LS bases crackled, upper lobes wheezy, prn albuterol neb given, pt stated improvement and LS improved. Pt stated having a headache, prn Tylenol provided. LE Dressings C/D/I. Up with SBA. Tele reads NSR. Pt in bed, appears to be resting call light within reach.?
[2025-07-27 07:00] VITALS: BP 192/99; PULSE 89; RESP 20
[2025-07-27] MEDS: BENZONATATE 100 MG CAPSULE 200 MG PO (08:54)
[2025-07-27] MEDS: LABETALOL HCL 100 MG TABLET 200 MG PO (08:54)
[2025-07-27] MEDS: FERROUS SULFATE 325 MG TABLET PO (08:54)
[2025-07-27] MEDS: LOSARTAN POTASSIUM 50 MG TABLET 25 MG PO (08:55)
[2025-07-27] MEDS: MAGNESIUM OXIDE 400 MG TABLET 800 MG PO (08:55)
[2025-07-27] MEDS: FUROSEMIDE 20 MG TABLET PO (08:57)
[2025-07-27] MEDS: INSULIN ASPART 100 UNIT/ML SUBCUT ×2 (08:59→11:36)
[2025-07-27] MEDS: Vortioxetine [Trintellix] 20 mg tablet 20 EACH PO (09:40)
[2025-07-27] MEDS: PALIPERIDONE 9 MG 9 EACH PO (09:41)
--- NOTE | 2025-07-27 10:50 | PM.DS1 ---
DS: Providers Provider Date Seen: 07/27/25 Date of admission: 07/24/25 12:36 Primary care physician: Taniya Apodaca PA-C Admitting Clinician: Bev Coronado MD Consults: 07/24/25 13:47 Consult to Occupational Therapy [CONS] Routine Comment: Reason(s) for OT Consult:: Evaluate and Treat Any Restrictions?:: No Restrictions Consult to Physical Therapy [CONS] Routine Comment: Reason(s) for PT Consult:: Evaluate and Treat Any Restrictions?:: No Restrictions Consult to Family Preservation Officer [CONS] Routine Comment: Reason for Consult:: Discharge Planning Needs 07/24/25 13:50 Consult to Wound Care [CONS] Routine Comment: Consulting Provider[facility] 07/24/25 15:25 Consult to Respiratory Therapy [CONS] Routine Comment: Reason(s) for RT Consult:: Consult Attending Physician on discharge: Bev Coronado MD DS: Diagnosis Discharge Diagnosis (1) Sepsis: Status: Resolved Problem details: - severe sepsis with elevated temperature, tachycardia, respirations greater than 20 and elevated lactate. Blood pressure is actually elevated, no low blood pressures that would indicate septic shock. The patient has had some response to the fluid bolus given and after the most recent lactate which was still mildly elevated, was given more IV fluids. Lactate has since improved further. - Source is likely PNA. - Cont IV Zosyn and D/C vancomycin. -MRSA screen negative. - Bl Cx still -ve, - strep & Leg, Ur Ag : -ve. 07/27: ` DC on levofloxacin 750 mg once daily for 5 days (2) Pneumonia: Status: Acute Problem details: CT chest: Consolidative opacities in the right upper lobe and left mid chest, concerning for pneumonia. Follow-up chest radiograph is advised in 4-6 weeks after appropriate clinical therapy to document improvement/resolution. If these findings are unchanged at that time, chest CT would then be warranted. - 07/26 : Cont IV Zosyn and D/C vancomycin. -MRSA screen negative. - Bl Cx still -ve, - strep & Leg, Ur Ag : -ve. (3) Diabetic foot ulcer: Status: Acute Problem details: - 07/24: malodorous. Contected Dr. Monique buitrago recommended wound care consult and a if debridement is needed, he could be consulted at that time. I have ordered a wound care consult. Continue IV antibiotics as above. - 07/25: No ischemic tissues. Wound care nurse saw the pt, pt will need dressings for now. - 07/26: Wound Cx: MODERATE AMT OF GRAM POS RODS RESEMBLING DIPHTHEROIDS. NO FURTHER WORKUP MODERATE AMT. COAGULASE NEGATIVE STAPH NO FURTHER WORKUP - D/W the pt and family the need for an outpt MRI and F/up w/ wound care clinic, and if needed in the future, wll need podiatry evaluation. PCP F/up in 1 wk. (4) Hyponatremia: Status: Acute Problem details: This is likely the cause of her weakness so than sepsis. She has already started to have some improvement from 121 up to 127 and now at 123. Since she started from such a low-sodium and is symptomatic, I per for a slower trajectory for improvement and with a sodium that has increased from 121-123, I will continue with the current rate of improvement continuing saline infusion and monitoring. Goal increase is no greater than 4 to 6 over 24 hours. - 07/25: improving (5) BARNEY (acute kidney injury): Status: Acute Problem details: - suspect prerenal, BUN is also elevated, suspect cause is due to severe sepsis complicated by several medications which may affect renal function as well. Will hold colchicine, allopurinol, antihypertensives, and her psychoactive medications with the exception of Lamictal for now. Give normal saline. Monitor. - 07/25; improving (6) Tophaceous gout: Status: Acute Problem details: - Uric acid level persistently elevated since last year. She has been on colchicine and allopurinol. These will need to be held due to BARNEY. (7) Type 2 diabetes mellitus: Status: Chronic Problem details: Patient currently takes metformin only. Will check a hemoglobin A1c and I have held metformin due to BARNEY with markedly elevated creatinine. I have also ordered an insulin sliding scale with Accu-Cheks ACHS. (8) Morbid obesity: Status: Chronic Problem details: BMI of 54 (9) Bipolar 1 disorder: Status: Chronic Problem details: psych med regimen: Trintellix, Seroquel, Invega, Lamictal, Lunesta. Hold this regimen for now due to BARNEY (10) Essential hypertension: Status: Chronic Problem details: fair control. Holding antihypertensives due to a combination of BARNEY and sepsis. Her blood pressures are quite high however and she may need some of them resumed such as labetalol, but will hold for now while I am treating severe sepsis. (11) Elevated troponin: Status: Acute Problem details: Suspect demand ischemia, EKG is reassuring and she is asymptomatic with no shortness of breath or chest pain. Troponin is stable, peak was 0.28. ER physician spoke with Cardiology who recommended medical management of probable demand ischemia. Recheck troponin and monitor on cardiac telemetry. Resuscitate with IV fluids and treat underlying condition with IV antibiotics as above. (12) Anemia: Status: Acute Problem details: She is currently at her baseline hemoglobin, around 9-10. She has been on daily ferrous sulfate. Normocytic. Check fecal occult blood test, although patient has had no melena or hematochezia. Will also check B12, iron studies and folate (13) Bronchitis: Status: Acute DS: Summary Hospital Course Hospital Course: A 54 yo pt w/ PMHx of DM and obesity presents w/ severe sepsis 2/2 PNA. Pt was found to have BARNEY. Pt was treated w/ IV Zosyn and improved immensely. Pt has also a small Lt foot ulcer. No ischemic tissues. Wound care nurse saw the pt, pt will need dressings daily. Wound Cx done and it's not showing infection. D/W the pt and family the need for an outpt MRI and F/up w/ wound care clinic, and if needed in the future, wll need podiatry evaluation. PCP F/up in 1 wk. Will DC pt on levofloxacin 750 mg once daily for 5 days. Status at Discharge Functional status at discharge: uses cane/walker Overall status at discharge: patient is progressing back to baseline Time Spent with Patient Time attestation: Total time spent providing and/or coordinating discharge services: Exam Narrative: Exam Narrative: GENERAL: Comfortable, no acute distress. HEAD AND NECK: Atraumatic, normocephalic CARDIOVASCULAR: RRR. Normal S1, S2. No murmurs. RESPIRATORY: Harsh breathing sounds B/L. +ve milder wheezes. NEUROLOGY: Alert, awake, oriented X 3. Normal speech. MSK: ulcer 1x1cm @ left lateral foot. w/ some drainage & a bad odour . No erythema or edema. PSYCH: Normal mood, normal affect. Const: Vital Signs, click to edit/add: Vital Signs - 24 hr 07/26/25 11:26 07/26/25 15:32 07/26/25 15:53 Temperature 98.3 F Pulse Rate Pulse Rate [Pulse Oximeter] 83 99 Respiratory Rate 18 16 Blood Pressure [Le ft Arm] 155/77 H 185/89 H Pulse Oximetry 94 94 94 Oxygen Delivery Me thod Room Air Room Air 07/26/25 15:53 07/26/25 15:53 07/26/25 19:37 Temperature 98.4 F Pulse Rate 92 Pulse Rate [Pulse Oximeter] 99 99 Respiratory Rate 16 18 Blood Pressure [Le ft Arm] 189/90 H Pulse Oximetry 94 Oxygen Delivery Me thod Room Air 07/26/25 23:00 07/26/25 23:00 07/26/25 23:44 Temperature 98.6 F Pulse Rate 85 Pulse Rate [Pulse Oximeter] 94 94 Respiratory Rate 16 16 Blood Pressure [Le ft Arm] 177/84 H Pulse Oximetry 93 Oxygen Delivery Me thod Room Air 07/27/25 03:47 07/27/25 07:00 07/27/25 07:00 Temperature 97.8 F Pulse Rate Pulse Rate [Pulse Oximeter] 92 Respiratory Rate 16 20 Blood Pressure [Le ft Arm] 200/96 H 192/99 H Pulse Oximetry 92 Oxygen Delivery Me thod 07/27/25 07:00 Temperature Pulse Rate 89 Pulse Rate [Pulse Oximeter] Respiratory Rate Blood Pressure [Le ft Arm] Pulse Oximetry Oxygen Delivery Me thod DS: Data Data Completed and Pending Completed studies during hospitalization: Procedures Compression of Right Upper Extremity using Pressure Dressing (04/02/24) Insertion of Infusion Device into Superior Vena Cava, Percutaneous Approach (04/02/24) Resection of Right Elbow Bursa and Ligament, Open Approach (04/02/24) Labs on day of discharge: Labs from last 24 hours 07/25/25 06:08 RBC Fol Nelida for Serum 19.1 Preliminary micro results at discharge 07/24/25 05:26 Blood Culture - Preliminary Blood NO GROWTH AFTER 72 HOURS 07/24/25 05:26 Blood Culture - Preliminary Blood NO GROWTH AFTER 72 HOURS Discharge Plan Discharge Disposition: Home w/ Parent or Adult Date of Admission: 07/24/25 12:36 Attending Provider on Discharge: Lita Reyes Consulting Providers: Sheri Hess Primary Care Provider: Taniya Apodaca Condition: Unchanged Anticipated Discharge Date/Time: 07/27/25 10:23 Discharge Medications: New guaifenesin 100 mg/5 mL Liquid 200 mg PO Q4H PRNQty: 473 0RF benzonatate 100 mg Capsule 200 mg PO TID PRN (Reason: Cough) 5 Days Qty: 30 0RF levofloxacin 750 mg tablet 750 mg PO Q24H Qty: 5 0RF Continued losartan 25 mg tablet 25 mg PO DAILY lamotrigine [Lamictal] 200 mg tablet 200 mg PO BID amlodipine 10 mg tablet 10 mg PO DAILY omega 9-pcn-bdo-fish oil [Fish Oil] 1,200 (144-216) mg capsule 1 cap PO BID paliperidone 9 mg tablet extended release 24hr 9 mg PO DAILY atorvastatin 20 mg tablet 20 mg PO HS Trintellix 20 mg tablet 20 mg PO DAILY quetiapine 100 mg tablet 100 - 200 mg PO HS PRN allopurinol 100 mg tablet 200 mg PO DAILY magnesium oxide 400 mg (241.3 mg magnesium) tablet 800 mg PO BID furosemide 20 mg tablet 20 mg PO DAILY colchicine 0.6 mg tablet 0.6 mg PO DAILY labetalol 200 mg tablet 200 mg PO BID ferrous sulfate 325 mg (65 mg iron) tablet,delayed release (DR/EC) 325 mg PO DAILY metformin 500 mg tablet extended release 24 hr 1,000 mg PO BID acetaminophen 325 mg tablet 650 mg PO Q6H PRN Discharge Orders: Discharge Order (Routine); Ordered 07/27/25 Ordered By: Lita Reyes Patient Education: Benzonatate (By mouth) (Kym Ceja), Guaifenesin (By mouth), Levofloxacin (By mouth), Pneumonia (IP) Additional Instructions: - You need to follow-up with your primary care physician for the following medical issues: 1- foot ulcer that will need wound care and dressings, we ordered both home health wound care and we knee due to [facility] and you will need referral for Podiatry as they need to decide if you will need advanced imaging of your foot as an outpatient to establish the depth of your ulcer. 2- You have been treated for pneumonia that caused sepsis and improved but you will need follow-up of the consolidation that was seen at the lung here are the radiologist recommendations: Consolidative opacities in the right upper lobe and left mid chest, concerning for pneumonia. Follow-up chest radiograph is advised in 4-6 weeks after appropriate clinical therapy to document improvement/resolution. If these findings are unchanged at that time, chest CT would then be warranted. 3- suspect COPD/asthma please discuss that with your primary care physician and the need for spirometry versus inhalers. - Complete the oral antibiotic course. Activity Level: Activity as Tolerated Discharge Diet: Diabetic and Heart Healthy (2 gm sodium, low fat) Follow Up Appointments[facility] [Provider Group, [facility]] - 07/31/25 9:00 am Referral Note: [facility] ([facility]) [phone] Taniya Apodaca PA-C [Primary Care Provider, Family Practice] - 08/10/25 8:55 am Referral Note: [facility] for Hospital follow-up Problems: Diabetic foot ulcer; Pneumonia Forms: Patient Belongings, [facility] Info Instructions Discharge Comments: CT chest: INDICATION: Fever, sepsis. TECHNIQUE: CT chest without contrast. COMPARISON: Same day chest x-ray. FINDINGS: Lungs and pleura: Right upper lobe solid consolidation with air bronchograms concerning for pneumonia. Additional consolidative opacity in the left mid chest with air bronchograms. No pneumothorax. Bibasilar atelectasis. Heart and vasculature: Heart size is enlarged.. Dilatation of the main pulmonary artery measuring up to 3.8 centimeters, which could be reflective of pulmonary artery hypertension. Lymph nodes/mediastinum: Mildly prominent mediastinal lymph nodes, likely reactive due to underlying infectious/inflammatory etiology. Chest wall: Unremarkable Upper abdomen: Cholelithiasis. Small hiatal hernia. Diverticulosis. Bones: Degenerative changes of bilateral shoulders, right greater than left. No acute findings. IMPRESSION: Consolidative opacities in the right upper lobe and left mid chest, concerning for pneumonia. Follow-up chest radiograph is advised in 4-6 weeks after appropriate clinical therapy to document improvement/resolution. If these findings are unchanged at that time, chest CT would then be warranted. Dilatation of the main pulmonary artery, likely reflective of pulmonary hypertension. Cholelithiasis. Small hiatal hernia.
[2025-07-27 11:00] VITALS: BP 190/92; PULSE 88; RESP 22; TEMP 36.8; O2SAT 95
[2025-07-27 11:45] LABS: Creatinine* 1.1 mg/dL (0.5-1.5); Est. Creatinine Clearance* 49.90; Estimated Glomerular Filt Rate 59 ml/min
--- NOTE | 2025-07-27 12:03 | PC.SOCIAL ---
Discharge planning: Pt is being recommended for home care PT/OT and group home for wound care dressing changes. Pt has been accepted by [facility] for those services to start on 07/30/25. Pt's will assist with wound care/dressing changes until Wednesday. Pt's will be taught the wound care/dressing changes by nursing staff before the pt discharges from the hospital later today. Pt will also be sent home with some wound care supplies from the hospital. Pt will also go to outpatient appointments [facility] on Tuesdays starting 07/31/25. Social work to follow-up as needed.
--- NOTE | 2025-07-27 13:10 | PC.NURSE ---
Discharge Note pt a/o x4, pleasant and cooperative. IV removed, line patent and intact. pt and witnessed Wound care demonstration done by nurse. Discharge education given verbally and written to patient. All questions answered by nurse. Pt transported via wheelchair accompanied by at 12:55pm.
== END 2025-07-27 12:50 | disposition home health service (06) | DRG 720 ==
LOC: ED 10:38 → MEDSURG 11:22
PROVIDERS: Emergency Medicine Emergency Medical Services; Student in an Organized Health Care Education/Training Program; Admitting Provider Family Medicine; Emergency Provider Family Medicine; PCP Physician Assistant; Visit Provider Family Medicine
DX: A41.9 Sepsis, unspecified organism (principal); J18.9 Pneumonia, unspecified organism; R65.20 Severe sepsis without septic shock; N17.9 Acute kidney failure, unspecified; B95.61 Methicillin susceptible Staphylococcus aureus infection as the cause of diseases classified elsewhere; E87.1 Hypo-osmolality and hyponatremia; E11.621 Type 2 diabetes mellitus with foot ulcer; L97.429 Non-pressure chronic ulcer of left heel and midfoot with unspecified severity; M1A.9XX1 Chronic gout, unspecified, with tophus (tophi); I24.89 Other forms of acute ischemic heart disease; J20.9 Acute bronchitis, unspecified; E66.01 Morbid (severe) obesity due to excess calories; Z68.43 Body mass index [BMI] 50.0-59.9, adult; Z79.84 Long term (current) use of oral hypoglycemic drugs; D64.9 Anemia, unspecified; M06.4 Inflammatory polyarthropathy; I10 Essential (primary) hypertension; F41.9 Anxiety disorder, unspecified; F31.9 Bipolar disorder, unspecified; E78.5 Hyperlipidemia, unspecified
CPT/HCPCS: 36415; 71045; 71250; 73630; 80048; 80053; 81001; 82270; 82565; 82607; 82746; 82803; 82962; 83036; 83540; 83550; 83605; 83735; 84295; 84484; 84550; 85025; 85027; 86140; 87040; 87070; 87081; 87186; 87449; 87631; 87899; 93005; 94640; 97110; 97116; 97162; 97165; 97166; 97535; 99284; 99285; A9270; J2543; J3375; J7030

== ENCOUNTER 2025-08-17 12:27 | Outpatient (CLI) | payer BC, SELFPAY | END 2025-08-17 12:28 | disposition home or self-care (01) | PROVIDERS: PCP Physician Assistant; Visit Provider Nurse Practitioner Family | DX: E11.621 Type 2 diabetes mellitus with foot ulcer (principal); M1A.9XX1 Chronic gout, unspecified, with tophus (tophi); L97.422 Non-pressure chronic ulcer of left heel and midfoot with fat layer exposed; L97.522 Non-pressure chronic ulcer of other part of left foot with fat layer exposed; L97.512 Non-pressure chronic ulcer of other part of right foot with fat layer exposed; Z79.84 Long term (current) use of oral hypoglycemic drugs | CPT/HCPCS: 11042; G0463 ==

== ENCOUNTER 2025-08-24 12:52 | Outpatient (CLI) | payer BC, SELFPAY | END 2025-08-24 12:53 | disposition home or self-care (01) | LOC: WOUND 12:52 | PROVIDERS: PCP Physician Assistant; Visit Provider Nurse Practitioner Family | DX: E11.621 Type 2 diabetes mellitus with foot ulcer (principal); M1A.9XX1 Chronic gout, unspecified, with tophus (tophi); L97.422 Non-pressure chronic ulcer of left heel and midfoot with fat layer exposed; L97.412 Non-pressure chronic ulcer of right heel and midfoot with fat layer exposed; Z79.84 Long term (current) use of oral hypoglycemic drugs | CPT/HCPCS: 11042 ==

== ENCOUNTER 2025-08-31 13:26 | Outpatient (CLI) | payer BC, SELFPAY | END 2025-08-31 13:27 | disposition home or self-care (01) | LOC: WOUND 13:26 | PROVIDERS: PCP Physician Assistant | DX: E11.621 Type 2 diabetes mellitus with foot ulcer (principal); M1A.9XX1 Chronic gout, unspecified, with tophus (tophi); L97.422 Non-pressure chronic ulcer of left heel and midfoot with fat layer exposed; L97.522 Non-pressure chronic ulcer of other part of left foot with fat layer exposed; Z79.84 Long term (current) use of oral hypoglycemic drugs | CPT/HCPCS: 11042; 97597 ==

== ENCOUNTER 2025-09-14 13:47 | Outpatient (CLI) | payer BC, SELFPAY | END 2025-09-14 13:48 | disposition home or self-care (01) | LOC: WOUND 13:47 | PROVIDERS: PCP Physician Assistant; Visit Provider Nurse Practitioner Family | DX: E11.621 Type 2 diabetes mellitus with foot ulcer (principal); M1A.0721 Idiopathic chronic gout, left ankle and foot, with tophus (tophi); L97.522 Non-pressure chronic ulcer of other part of left foot with fat layer exposed; I10 Essential (primary) hypertension; Z79.84 Long term (current) use of oral hypoglycemic drugs | CPT/HCPCS: 11042 ==